=== PATIENT | female | born 1975 | race Caucasian/White ===

== ENCOUNTER 2016-07-20 12:03 | Emergency (ER) | payer MEDICAID ==
[~2016-07-20] VITALS: Ht 170.2 cm; Wt 108.9 kg
[~2016-07-20 12:03] MED LIST: ADDERALL; ALBU0.632 IH; ALBU17AE23 IH; AMOX-358 PO; CEFD300C3 PO; CEPH500C PO; CLN150C PO; CODE-54 PO; CYCL10TA9 PO; DIPH50CA33 PO; EPIN0.3P3 IJ; EPIN0.3P3 IM; FAMO-119 PO; FAMO20TA5 PO; FAMO40TA72 PO; FLUT9.9S NSEACH; FRS325T PO; HYDR-3583 PO; HYDR-3714 PO; HYDR-3816 PO; HYDR-757 PO; HYDR1CAP2 PO; HYOS0.1216 PO; IBP600T1 PO; IBP800T PO; IBUP-15 PO; IBUP800T26 PO; MAGN296S PO; METR500T PO; NAPR-243 PO; NAPR500T PO; NAPR500T3 PO; NF-XOP-HFA INH; ONDA-42 SL; ORPH100T PO; PENI500T PO; PHEN-640 PO; PHEN100T17 PO; PNT40TEC PO; PRD20T PO; PREN1TAB39 PO; RT-ALBUINH IH; TRAM-42 PO; TRM50T PO
--- OUTSIDE RECORDS SUMMARY | 2016-07-20 12:08 | XMS REPORT | Continuity of Care Document ---
Author Author [facility] Organization [facility] Address Unknown Phone Unavailable Care Team Providers Care Blood Bank Business Manager Name Role Phone DIPAK COMER DO PCP Insurance Providers Payer Name Policy Number Subscriber Name Relationship [facility] [place] [employer] [id number] Oksana Horne Self / Same As Patient Advance Directives Directive Response Recorded Date/Time Advance Directives No 08/11/14 9:40pm Health Care Power of Conveyor Belt Repairer No 08/11/14 9:40pm Organ Donor No 08/11/14 9:40pm Resuscitation Status Full Code 08/11/14 9:40pm Problems Medical Problems Problem Onset Date Status Abdominal pain Unknown Active Constipation Unknown Active ILLICIT DRUG USE Unknown Active Sprain of wrist Unknown Active Nausea and vomiting Unknown Active Concussion Unknown Active Strain of neck Unknown Active Sprain of shoulder, left Unknown Active Concussion Unknown Active Lumbar radiculopathy Unknown Active Medications Medication Dose Route Sig Days/Qty Instructions Order Date Discontinued Date Status Acetaminophen/Hydrocodone Bitart 1 - 2 Ea PO Q4HR PRN 08/26/1101/11 Discontinued Ibuprofen 600 Mg PO EVERY 6 HOURS PRN 08/26/11 12/02/12 Discontinued Vits W-Ca,Fe,Fa(<1MG) 1 Each PO DAILY 08/26/11 01/12/12 Discontinued Ferrous Sulfate 1 Tab PO DAILY 08/26/11 01/12/12 Discontinued Cyclobenzaprine HCl (Flexeril) 1 Each PO Q8HR PRN 15 Qty FOR MUSCLE SPASMS 01/13/12 12/02/12 Discontinued Cyclobenzaprine HCl (Flexeril) 1 Each PO Q8HR PRN 15 Qty 06/07/12 Discontinued Naproxen 1 Each PO TID PRN 20 Qty FOR PAIN 06/07/12 12/02/12 Discontinued Acetaminophen/Hydrocodone Bitart (Lorcet-Hd) 1 Each PO Q6HR PRN 10 Qty 07/19/12 02/03/13 Discontinued Ibuprofen 800 Mg PO GIVE EVERY 8 HRS ON SCHEDULE PRN 30 Qty 07/19/12 12/02/12 Discontinued [Adderall] 12/02/12 02/03/13 Discontinued Albuterol Sulfate (Proventil Nebs) 1 Each IH Q4HR PRN 12/02/1207/08 Discontinued Famotidine (Pepcid) 1 Each PO TWICE A DAY 20 Qty 01/05/13 02/03/13 Discontinued Prednisone 40 Mg PO DAILY 4 Days 01/05/13 02/03/13 Discontinued Epinephrine 0.3 Mg IM DIRECTED 2 Qty 01/05/13 08/11/14 Discontinued Ibuprofen 4 Each PO Q8 PRN 02/03/13 07/08/13 Discontinued Diphenhydramine HCl 1 Each PO QID PRN 02/03/13 07/08/13 Discontinued Naproxen 1 Each PO TWICE A DAY PRN PAIN 20 Qty 07/08/13 07/06/14 Discontinued Tramadol HCl 50 Mg PO Q4-6HR PRN PAIN 10 Qty FOR PAIN 07/08/13 07/06/14 Discontinued Cyclobenzaprine HCl (Flexeril) 1 Each PO EVERY 8HRS PRN SPASMS 10 Qty 12/13/13 07/06/14 Discontinued Hydrocodone Bit/Acetaminophen 1 Tab PO EVERY 4HRS PRN PAIN 14 Qty 12/1307/06/14 Discontinued Epinephrine 0.3 Mg IM DIRECTED PRN SHORTNESS OF BREATH 2 Qty Active Amoxicillin/Potassium Clav 1 Each PO TWICE A DAY 14 Qty 07/06/1408/11 Discontinued Cyclobenzaprine HCl (Flexeril) 1 Each PO EVERY 8HRS PRN SPASMS 14 Qty 08/11/14 Active Hydrocodone Bit/Acetaminophen 1 Tab PO EVERY 6 HOURS PRN PAIN 14 Qty Active Ibuprofen (Motrin) 800 Mg PO q8h PRN PAIN 30 Qty 08/11/14 Active Social History Social History Problem Response Recorded Date/Time Alcohol Use Denies Use 08/11/2014 9:40pm Recreational Drug Use No 08/11/2014 9:40pm Recent Foreign Travel No 12/13/2013 5:03pm Recent Infectious Disease Exposure No 12/13/2013 5:03pm Hospitalization with Isolation Denies 08/11/2014 9:40pm Sexually Transmitted Disease No 08/11/2014 9:40pm HIV/AIDS No 08/11/2014 9:40pm Smoking Status Current Everyday Smoker 08/11/2014 9:40pm Query Response Start Date Stop Date Smoking Status Current Everyday Smoker Hospital Discharge Instructions No hospital discharge instructions. Plan of Care No plan of care. Functional Status No functional status results. Allergies, Adverse Reactions, Alerts Allergen Type Severity Reaction Status Last Updated neomycin sulfate Allergy Unknown Active 12/13/13 Bacitracin Zinc Allergy Unknown Active 12/13/13 Sulfa (Sulfonamide Antibiotics) ([id number]) Allergy Unknown Active 08/24 bacitracin ([id number]) Allergy Unknown Active 12/13/13 Risperidone Allergy Unknown Active 12/13/13 polymyxin B Allergy Unknown Active 12/13/13 GREEN BEANS Allergy Unknown Active 12/13/13 PEAS Allergy Unknown Active 12/13/13 Immunizations Name Given Type Date of Influenza Vaccine 03/13/13 Historical Tetanus Booster (TDap) Less than 5yrs Historical Vital Signs Acute Vital Signs Vital Response Date/Time Temperature (Fahrenheit) 99.2 degrees F (97.6 - 99.5) Temperature (Calculated Celsius) 37.85315 degrees C (36.4 - 37.5) Temperature Source Temporal Pulse Rate (adult) 114 bpm (60 - 90) Respiratory Rate 16 bpm (12 - 24) O2 Sat by Pulse Oximetry 96 % (88 - 100) Blood Pressure 139/83 mm Hg Pain Pain Intensity 10 Pain Pain Intensity 10 Height (Feet) 5 feet Height (Inches) 7 inches Height (Calculated Centimeters) 170.976390 cm Weight (Pounds) 250 pounds Weight (Calculated Kilograms) 113.690530 kilograms Calculated BMI 39.15 Results No known relevant diagnostic tests, laboratory data and/or discharge summary. Procedures No known history of procedures. Encounters Encounter Location Date/Time Departed Emergency Room [facility] 08/11/14 9:28pm Recent Diagnosis
[2016-07-20] MEDS ORDERED: KETOROLAC 60 MG/2 ML VIAL IM ONE (12:15)
[2016-07-20] MEDS ORDERED: ORPHENADRINE 60 MG/2 ML (NORFLEX) AMP IM ONE (12:15)
--- NOTE | 2016-07-20 13:21 | Diagnostic Imaging Report ---
EXAMINATION: Two views of the lumbar spine. INDICATION: Back pain. FINDINGS: There are postsurgical changes with transpedicular screws and connecting rods involving the L3 and L4 levels. There are laminectomy changes seen at these levels. There is suggestion of osseous fusion of the posterior elements. There is grade 1 spondylolisthesis of L4 over L5. When compared to the CT of 11/17/2014, this appears to be stable. The vertebral body heights are preserved. There is mild disc height loss at multiple levels in the upper lumbar spine and at the L3-4 level. Multiple small anterior osteophytes are noted. The SI joints demonstrate mild degenerative changes. IMPRESSION: Posterior fusion hardware and suggestion of osseous fusion at the L3-4 posterior elements. There is also grade 1 spondylolisthesis of L4 over L5. No definite change when correlated with the CT from November 2014. Dictated by: Dictated on workstation # [id number]
--- NOTE | 2016-07-20 13:26 | ED Back Pain ---
General Chief Complaint: Back Problems Stated Complaint: BACK PAIN Nursing Triage Note: pt reports she was laying in bed and her 4 yr old daughter accidentily climbed over her middle back. pt reports medial/lower back pain. Nursing Sepsis Screen: No Definite Risk Source of Information: Patient Exam Limitations: No Limitations History of Present Illness Time Seen by Provider: 12:05 Initial Comments This 41-year-old woman presents to the emergency room with complaints of lower back pain after being stepped on by her 4-year-old daughter while lying in her bed. Patient has a history of lower back problems and has had surgery that included placement of a titanium hardware. Pain seems to be more lateral to the spine in the musculature. Her surgery was many years ago. She had some mild back pain earlier in the morning and it was severely exacerbated when her daughter stepped on her back. She denies any pain or radiculopathy below the lumbar spine. Allergies and Home Medications Allergies Coded Allergies: Bacitracin Zinc (Unverified Allergy, Unknown, 11/25/15) BLISTERS Sulfa (Sulfonamide Antibiotics) (Verified Allergy, Unknown, 11/25/15) bacitracin (Unverified Allergy, Unknown, 11/25/15) BLISTERS neomycin sulfate (Unverified Allergy, Unknown, 11/25/15) BLISTERS polymyxin B (Unverified Allergy, Unknown, 11/25/15) BLISTERS risperidone (Verified Allergy, Unknown, 11/25/15) Uncoded Allergies: GREEN BEANS (Allergy, Unknown, 12/13/13) THROAT SWELLS PEAS (Allergy, Unknown, 12/13/13) THROAT SWELLS Home Medications Albuterol Sulfate 8.5 Gm Hfa.aer.ad #1 2 PUFF IH Q4H PRN PRN SHORTNESS OF BREATH Prescribed by: PATRIZIA KELLEY on 09/17/151944 Cyclobenzaprine HCl 10 Mg Tablet #10 10 MG PO TID PRN PRN PAIN Prescribed by: MANA MIX on 07/20/16 1341 Epinephrine 0.3 Mg/0.3 Ml Pen.injctr #2 0.3 MG IM UD PRN PRN SHORTNESS OF BREATH Prescribed by: PATRIZIA KELLEY on 12/13/13 193 Constitutional: no symptoms reported EENTM: no symptoms reported Respiratory: no symptoms reported Cardiovascular: no symptoms reported Gastrointestinal: no symptoms reported Genitourinary: no symptoms reported Musculoskeletal: see HPI Skin: no symptoms reported Past Poqqwsd-Vyfsso-Cgedmi Hx Patient Social History Alcohol Use: Denies Use Recreational Drug Use: No (SMOKES 1/2 PPD) Smoking Status: Current Everyday Smoker Type Used: Cigarettes Former Smoker/When Quit: Recent Foreign Travel: No Contact w/Someone Who Travel: No Recent Infectious Disease Expo: No Recent Hopitalizations: No Immunizations Up To Date Tetanus Booster (TDap): Less than 5yrs Date of Influenza Vaccine: Mar 13, 2013 Seasonal Allergies Seasonal Allergies: No Surgeries HX Surgeries: Yes (PITUITARY TUMOR, X 2, BACK SURGERY, LEFT ELBOW X 2 , BMT'S ) Surgeries: Abdominal, Adenoidectomy, Section, Ear Surgery, Neurological, Orthopedic (spinal surgery), Pituitary, Tonsillectomy Respiratory Hx Respiratory Disorders: Yes Respiratory Disorders: Asthma Cardiovascular Hx Cardiac Disorders: No Neurological Hx Neurological Disorders: Yes (PITUITARY TUMOR) Reproductive System Hx Reproductive Disorders: Yes (MULTIPLE MISCARRIAGES, DIAG LAP SURGERIES X2) Sexually Transmitted Disease: No HIV/AIDS: No Genitourinary Hx Genitourinary Disorders: Yes ("PARTIAL KIDNEY FAILURE TWICE" PER PT) Genitourinary Disorders: Renal Failure, UTI-Chronic Gastrointestinal Hx Gastrointestinal Disorders: Yes ("PARTIAL BOWEL BLOCKAGE FOR OVER 10 YEARS" PER PT. ) Gastrointestinal Disorders: Gastroesophageal Reflux, Chronic Constipation Musculoskeletal Hx Musculoskeletal Disorders: Yes Musculoskeletal Disorders: Chronic Back Pain, Fractures Endocrine Hx Endocrine Disorders: Yes (HYPOGLYCEMIA, PITUITARY TUMOR, MORBID OBESITY) Endocrine Disorders: Pituitary Disease HEENT HX ENT Disorders: Yes ("BAD TEETH", DENTAL ABSCESSES; BMT'S;T&A) HEENT Disorders: Chronic Ear Infection, Tonsilitis Cancer Hx Cancer: No Psychosocial Hx Psychiatric Problems: Yes (EXTENSIVE PSYCH ISSUES) Behavioral Health Disorders: Anxiety, Depression Integumentary HX Skin/Integumentary Disorder: No Blood Transfusions Hx Blood Disorders: Yes (ANEMIA) Physical Exam Vital Signs Capillary Refill : Less Than 3 Seconds General Appearance: WD/WN Moderate Distress Other (tearful) HEENT: PERRL/EOMI Normal ENT Inspection Cardiovascular: Regular Rate, Rhythm No Edema No Murmur Respiratory: Lungs Clear Normal Breath Sounds No Accessory Muscle Use No Respiratory Distress Gastrointestinal: Non Tender Soft Back: Normal Inspection Other (midline scar. Mild to moderate tenderness over the lumbar spine. 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 She was then able to tolerate x-rays. X-rays showed no disruption of hardware. Hydrocodone was given prior to dismissal. Diagnostic Imaging Diagonstic Imaging: Xray Plain Films/CT/US/NM/MRI: other (lumbar spine) Comments X-ray the lumbar spine viewed by me and report reviewed. See report below: NAME: OKSANA HORNE [facility] REC#: [id number] PT STATUS: REG ER : 1975 PHYSICIAN: MANA RAMON MD ADMIT DATE: 07/20/16/ER Draft Date of Exam:07/20/16 LUMBAR SPINE - 2-3 VIEWS EXAMINATION: Two views of the lumbar spine. INDICATION: Back pain. FINDINGS: There are postsurgical changes with transpedicular screws and connecting rods involving the L3 and L4 levels. There are laminectomy changes seen at these levels. There is suggestion of osseous fusion of the posterior elements. There is grade 1 spondylolisthesis of L4 over L5. When compared to the CT of 11/17/2014, this appears to be stable. The vertebral body heights are preserved. There is mild disc height loss at multiple levels in the upper lumbar spine and at the L3-4 level. Multiple small anterior osteophytes are noted. The SI joints demonstrate mild degenerative changes. IMPRESSION: Posterior fusion hardware and suggestion of osseous fusion at the L3-4 posterior elements. There is also grade 1 spondylolisthesis of L4 over L5. No definite change when correlated with the CT from November 2014. Dictated on workstation # [id number] Dict: 07/20/16 1314 Trans: 07/20/16 1321 [id number] Interpreted by: BRADLEY CHAPA MD Departure Impression Impression: Primary Impression: Lower back pain Qualified Code: M54.5 - Low back pain Additional Impression: Muscle spasm of back Disposition: HOME, SELF-CARE Condition: Improved Departure-Patient Inst. Decision time for Depature: 13:30 Referrals: [facility] (PCP/Family) Primary Care Physician Patient Instructions: Low Back Pain (DC) Add. Discharge Instructions: You may take ibuprofen up to 800 mg every 8 hours as needed for pain. Add Tylenol up to 1000 mg every 6 hours as needed for additional pain relief. Gentle heat may also help. Gradually increase your level of activity as pain improves. Avoid strenuous activity or heavy lifting until pain resolves. Follow-up with your primary care provider if not improving. Return to emergency room if symptoms worsen. All discharge instructions reviewed with patient and/or family. Voiced understanding. Scripts Cyclobenzaprine HCl 10 Mg [id number] Mg PO TID PRN PAIN #10 TAB Prov:MANA RAMON MD 07/20/16 MANA RAMON MD Jul 20, 2016 13:26 [facility] (PCP/Family) Primary Care Physician Patient Instructions: Low Back Pain (DC) Add. Discharge Instructions: You may take ibuprofen up to 800 mg every 8 hours as needed for pain. Add Tylenol up to 1000 mg every 6 hours as needed for additional pain relief. Gentle heat may also help. Gradually increase your level of activity as pain improves. Avoid strenuous activity or heavy lifting until pain resolves. Follow-up with your primary care provider if not improving. Return to emergency room if symptoms worsen. All discharge instructions reviewed with patient and/or family. Voiced understanding. Scripts Cyclobenzaprine HCl 10 Mg [id number] Mg PO TID PRN PAIN #10 TAB Prov:MANA RAMON MD 07/20/16 MANA RAMON MD Jul 20, 2016 13:26
[2016-07-20] MEDS ORDERED: CYCL10TA9 PO (13:41)
[2016-07-20] MEDS ORDERED: HYDROcodone/APAP 5 MG/325 MG (LORTAB) TAB PO ONE (13:45)
[2016-07-20 13:47] VITALS: BP 132/78
== END 2016-07-20 13:47 | disposition home or self-care (01) ==
LOC: EDUNIT# 12:03 → ER 12:05
DX: M54.5 Low back pain (principal); M62.830 Muscle spasm of back; M43.16 Spondylolisthesis, lumbar region; F17.210 Nicotine dependence, cigarettes, uncomplicated; Z98.1 Arthrodesis status
CPT/HCPCS: 72100; 96372; 99283

== ENCOUNTER 2016-12-04 15:28 | Emergency (ER) | payer MEDICAID ==
[~2016-12-04] VITALS: Ht 170.2 cm; Wt 109.1 kg
[2016-12-04] MEDS ORDERED: morphine INJ 10 MG/ML 1ML (SYR OR VIAL) IM ONE (16:15)
[2016-12-04] MEDS ORDERED: KETOROLAC 60 MG/2 ML VIAL IM ONE (16:15)
--- NOTE | 2016-12-04 16:17 | ED Back Pain ---
General Chief Complaint: Back Problems Stated Complaint: BACK PAIN AFTER FALL Source of Information: Patient Exam Limitations: No Limitations History of Present Illness Time Seen by Provider: 16:16 Initial Comments To ER with reports of midline low back pain that radiates to the left hip. This is been present for 4 days after falling at home. She has a history of low back surgery with hardware placement about 20 years ago she states. Location: Lumbar Spine Timing/Duration: 2-3 Days Severity: Moderate Associated Symptoms: lower back pain Allergies and Home Medications Allergies Coded Allergies: Bacitracin Zinc (Unverified Allergy, Unknown, 11/25/15) BLISTERS Sulfa (Sulfonamide Antibiotics) (Verified Allergy, Unknown, 11/25/15) bacitracin (Unverified Allergy, Unknown, 11/25/15) BLISTERS neomycin sulfate (Unverified Allergy, Unknown, 11/25/15) BLISTERS polymyxin B (Unverified Allergy, Unknown, 11/25/15) BLISTERS risperidone (Verified Allergy, Unknown, 11/25/15) Uncoded Allergies: GREEN BEANS (Allergy, Unknown, 12/13/13) THROAT SWELLS PEAS (Allergy, Unknown, 12/13/13) THROAT SWELLS Home Medications Albuterol Sulfate 8.5 Gm Hfa.aer.ad, 2 PUFF IH Q4H PRN for SHORTNESS OF BREATH, #1 Ref 0 Prescribed by: PATRIZIA KELLEY on 09/17/15 194 Cyclobenzaprine HCl 10 Mg Tablet, 10 MG PO TID PRN for PAIN, #10 Prescribed by: MANA MIX on 07/20/16 1341 Epinephrine 0.3 Mg/0.3 Ml Pen.injctr, 0.3 MG IM UD PRN for SHORTNESS OF BREATH, #2 Ref 0 Prescribed by: PATRIZIA KELLEY on 12/13/13 1938 Constitutional: see HPI, No chills, No fever EENTM: see HPI Respiratory: no symptoms reported Cardiovascular: no symptoms reported Genitourinary: no symptoms reported Musculoskeletal: see HPI, back pain Skin: no symptoms reported Psychiatric/Neurological: No Symptoms Reported Past Uhnicvs-Pntnmo-Qflest Hx Patient Social History Alcohol Use: Denies Use Recreational Drug Use: No Smoking Status: Current Everyday Smoker Type Used: Cigarettes 2nd Hand Smoke Exposure: No Recent Foreign Travel: No Contact w/Someone Who Travel: No Recent Hopitalizations: No Immunizations Up To Date Tetanus Booster (TDap): Less than 5yrs Date of Influenza Vaccine: Mar 13, 2013 Seasonal Allergies Seasonal Allergies: No Surgeries HX Surgeries: Yes (PITUITARY TUMOR, X 2, BACK SURGERY, LEFT ELBOW X 2 , BMT'S ) Surgeries: Abdominal, Adenoidectomy, Section, Ear Surgery, Neurological, Orthopedic, Pituitary, Tonsillectomy Respiratory Hx Respiratory Disorders: Yes Respiratory Disorders: Asthma Cardiovascular Hx Cardiac Disorders: No Neurological Hx Neurological Disorders: Yes (PITUITARY TUMOR) Reproductive System Hx Reproductive Disorders: Yes (MULTIPLE MISCARRIAGES, DIAG LAP SURGERIES X2) Sexually Transmitted Disease: No HIV/AIDS: No Genitourinary Hx Genitourinary Disorders: Yes ("PARTIAL KIDNEY FAILURE TWICE" PER PT) Genitourinary Disorders: Renal Failure, UTI-Chronic Gastrointestinal Hx Gastrointestinal Disorders: Yes ("PARTIAL BOWEL BLOCKAGE FOR OVER 10 YEARS" PER PT. ) Gastrointestinal Disorders: Gastroesophageal Reflux, Chronic Constipation Musculoskeletal Hx Musculoskeletal Disorders: Yes Musculoskeletal Disorders: Chronic Back Pain, Fractures Endocrine Hx Endocrine Disorders: Yes (HYPOGLYCEMIA, PITUITARY TUMOR, MORBID OBESITY) Endocrine Disorders: Pituitary Disease HEENT HX ENT Disorders: Yes ("BAD TEETH", DENTAL ABSCESSES; BMT'S;T&A) HEENT Disorders: Chronic Ear Infection, Tonsilitis Cancer Hx Cancer: No Psychosocial Hx Psychiatric Problems: Yes (EXTENSIVE PSYCH ISSUES) Behavioral Health Disorders: Anxiety, Depression Integumentary HX Skin/Integumentary Disorder: No Blood Transfusions Hx Blood Disorders: Yes (ANEMIA) Physical Exam Vital Signs Vital Sign - Last 12Hours 12/04/16 16:05 Temp 96.3 Pulse 70 Resp 16 B/P (MAP) 138/86 Pulse Ox 98 O2 Delivery Room Air Capillary Refill : General Appearance: No Apparent Distress, WD/WN HEENT: PERRL/EOMI, TMs Normal Neck: Full Range of Motion, Normal Inspection Respiratory: No Accessory Muscle Use, No Respiratory Distress Gastrointestinal: Non Tender, Soft Back: Normal Inspection, Other (healed midline lumbar incision with tenderness to palpation.) Extremity: Normal Capillary Refill, Normal Inspection Neurologic/Psychiatric: Alert, Oriented x3, No Motor/Sensory Deficits Skin: Normal Color, Warm/Dry Progress/Results/Core Measures Results/Orders My Orders Orders - CECILIO NAVARRO APRN Ketorolac Injection (Toradol Injection) (12/04/16 16:15) Morphine Injection (Morphine Injection (12/04/16 16:15) Lumbar Spine - 2-3 Views (12/04/16 16:14) Medications Given in ED Current Medications Medications Dose Ordered Sig/Miriam Route Start Time Stop Time Status Last Admin Dose Admin Ketorolac Tromethamine 60 mg ONCE ONCE IM 12/04/16 16:15 12/04/16 16:16 DC 12/04/16 16:33 60 MG Morphine Sulfate 8 mg ONCE ONCE IM 12/04/16 16:15 12/04/16 16:16 DC 12/04/16 16:33 8 MG Vital Signs/I&O Vital Sign - Last 12Hours 12/04/16 16:05 Temp 96.3 Pulse 70 Resp 16 B/P (MAP) 138/86 Pulse Ox 98 O2 Delivery Room Air Departure Impression Impression: Primary Impression: Acute exacerbation of chronic low back pain Disposition: HOME, SELF-CARE Condition: Stable Departure-Patient Inst. Decision time for Depature: 16:46 [facility] ([facility]Family) Primary Care Physician Patient Instructions: MANAGING YOUR CHRONIC PAIN Add. Discharge Instructions: 1. Medication as directed 2. Return to ER for any worsening 3. See her doctor next week All discharge instructions reviewed with patient and/or family. Voiced understanding. Scripts Prednisone (Prednisone) 20 Mg Tab 40 MG PO DAILY, #8 TAB Prov: CECILIO NAVARRO APRN 12/04/16 Cyclobenzaprine HCl (Cyclobenzaprine HCl) 5 Mg Tablet 5 MG PO TID Y for PAIN-MODERATE TO SEVERE, #21 TAB Prov: CECILIO NAVARRO APRN 12/04/16 CECILIO NAVARRO APRN Dec 04, 2016 16:17
--- NOTE | 2016-12-04 16:37 | Diagnostic Imaging Report ---
EXAMINATION: Three views of the lumbar spine. INDICATION: Back pain. COMPARISON: Prior from July 20, 2016. FINDINGS: Patient is status post previous posterior instrumented fusion of L3-4. No screw fracture or hardware complication is evident. There also appears to be a generator which may relate to a bone stimulator. Anterolisthesis of L4 on L5 is not significantly changed. The vertebral body heights appear maintained. There is advanced lower lumbar facet arthropathy. IMPRESSION: Previous L3-4 fusion. Alignment is unchanged with an anterolisthesis of L4 on L5. Vertebral body heights are maintained. There is advanced lower lumbar facet arthropathy. No hardware complication is evident. If continued clinical concern, further assessment could be performed with CT imaging. Dictated by: Dictated on workstation # [id number]
[2016-12-04] MEDS ORDERED: CYCL5TAB PO (16:47)
[2016-12-04] MEDS ORDERED: PRD20T PO (16:47)
[2016-12-04 17:21] VITALS: BP 138/86
--- OUTSIDE RECORDS SUMMARY | 2016-12-06 17:19 | XMS REPORT ---
Author Author YUNIOR SINGH Organization [employer] Address Unknown Phone Unavailable Care Team Providers Care Credit Counselor Name Role Phone YUNIOR SINGH CP Unavailable Allergies, Adverse Reactions, Alerts Substance Reaction Event Type Sulfacetamide Sodium Blisters (Antibiotic) Drug Allergy Risperidone Info Not Available Drug Allergy Polymyxin B Sulfate Blisters Drug Allergy Neosporin Info Not Available Drug Allergy Bacitracin Zinc Blisters Drug Allergy Peas Throat swells Non Drug Allergy Green beans Throat swells Non Drug Allergy Problems Problem Type Condition Code Onset Dates Condition Status Problem Hypoglycemia, unspecified 251.2 Active Problem 35-36 completed weeks of gestation 765.28 Active Problem Other chronic pain 338.29 Active Assessment Shoulder injury, left, initial encounter S49.92XA Active Problem Rash and other nonspecific skin eruption 782.1 Active Problem Screening for unspecified malignant neoplasm V76.9 Active Problem Screening examination for venereal disease V74.5 Active Problem Previous delivery, unspecified as to episode of care or not applicable 654.20 Active Problem Other acute postoperative pain 338.18 Active Problem Other, multiple, and unspecified sites, insect bite, nonvenomous, infected 919.5 Active Problem Other postprocedural status V45.89 Active Problem Cellulitis and abscess of trunk 682.2 Active Medications Medication Code System Code Instructions Start Date End Date Status Dosage Albuterol Sulfate HFA [facility] [id number] 108 (90 Base) MCG/ACT Inhalation every 4 hrs 2 puffs as needed EPINEPHrine [facility] [id number] 0.3 MG/0.3ML Injection PRN not defined Procedures Procedure Coding System Code Date X-RAY EXAM OF SHOULDER CPT-4 78804 Mar 29, 2016 X-RAY EXAM OF SHOULDER BLADE CPT-4 95931 Mar 29, 2016 X-RAY EXAM OF COLLAR BONE CPT-4 48585 Mar 29, 2016 Office Visit, Est Pt., Level 3 CPT-4 35717 Mar 29, 2016 Vital Signs Date/Time: Mar 29, 2016 Cardiac Monitoring Heart Rate 90 bpm Weight 235.4 lbs Height 67 in BMI 36.86 Index Blood Pressure Diastolic 82 mmHg Blood Pressure Systolic 126 mmHg Results No Known Results Summary Purpose [employer] Submission
--- OUTSIDE RECORDS SUMMARY | 2016-12-06 17:20 | XMS REPORT ---
Author JONATHAN Guevara Organization [employer] Address Unknown Phone Unavailable Care Team Providers Care Designer Writer Name Role Phone JONATHAN WILLSON CP Unavailable Allergies, Adverse Reactions, Alerts Substance [...] Active Problem Other chronic pain 338.29 Active Problem Rash and other nonspecific skin [...] End Date Status Dosage Albuterol Sulfate [facility] [address]-35 108 (90 Base) MCG/ACT Inhalation every 4 hrs 2 puffs as needed EPINEPHrine [facility] [address]-36 0.3 MG/0.3ML Injection PRN not defined Famotidine [facility] [address]-80 40 MG Orally Once a day 1 tablet Results No Known Results Summary Purpose [employer] Submission
--- OUTSIDE RECORDS SUMMARY | 2016-12-06 17:21 | XMS REPORT ---
Author Author SINGHYUNIOR Holliday Organization [facility] Address [address] [place] [address] Care Team Providers Care Repair Electric Motor Assembler Name Role Phone SINGHYUNIOR Holliday Unavailable PROBLEMS Type Condition ICD9-CM Code KAN91-GB Code Onset Dates Condition Status SNOMED Code Problem 35-36 completed weeks of gestation 765.28 Active 51374618 Problem Other acute postoperative pain 338.18 Active 105123928002508 Problem Other, multiple, and unspecified sites, insect bite, nonvenomous, infected 919.5 Active Problem Mild intermittent asthma with acute exacerbation J45.21 Active 821681318 Problem Previous delivery, unspecified as to episode of care or not applicable 654.20 Active 425178464 Problem Other postprocedural status V45.89 Active 19136092 Problem Cellulitis and abscess of trunk 682.2 Active 361804148 Problem Screening for unspecified malignant neoplasm V76.9 Active Problem Screening examination for venereal disease V74.5 Active 019295317 Assessment Sore throat J02.9 May, Active 586058770 Problem Rash and other nonspecific skin eruption 782.1 Active 113853645 Problem Hypoglycemia, unspecified 251.2 Active 221489564 Assessment Bronchitis J40 May, Active 77973957 Problem Other chronic pain 338.29 Active 04810415 ALLERGIES Substance Reaction Event Type Date Status Sulfacetamide Sodium Blisters (Antibiotic) Drug Allergy May, Active Risperidone Unknown Drug Allergy May, Active Polymyxin B Sulfate Blisters Drug Allergy May, Active Neosporin Unknown Drug Allergy May, Active Bacitracin Zinc Blisters Drug Allergy May, Active Peas Throat swells Non Drug Allergy May, Active Green beans Throat swells Non Drug Allergy May, Active SOCIAL HISTORY No smoking Hx information available PLAN OF CARE VITAL SIGNS Height 67 in 2016-05-24 Weight 242.2 lbs 2016-05-24 Heart Rate 80 bpm 2016-05-24 Respiratory Rate 18 2016-05-24 BMI 37.93 kg/m2 2016-05-24 Blood pressure systolic 110 mmHg 2016-05-24 Blood pressure diastolic 80 mmHg 2016-05-24 MEDICATIONS Medication Instructions Dosage Frequency Start Date End Date Duration Status Azithromycin 250 MG Orally Once a day 2 tablets on the first day, then 1 tablet daily for 4 days 24h May, May, 5 day(s) Active Albuterol Sulfate HFA 108 (90 Base) MCG/ACT Inhalation every 4 hrs 2 puffs as needed 4h Active Albuterol Sulfate (2.5 MG/3ML) 0.083% Inhalation Three times a day 3 ml 8h May, Active DeVilbiss Reusable Nebulizer 1 by inhalation route 3 times a day as directed 8h May, Active RESULTS Name Result Date Reference Range STREP A (IN HOUSE) 2016-05-24 STREP A negative Control + Lot # [id number] Exp date december 28 PROCEDURES Procedure Date Ordered Related Diagnosis Body Site STREP A ASSAY W/OPTIC May 24, 2016 Office Visit, Est Pt., Level 3 May 24, 2016 IMMUNIZATIONS No Known Immunizations
--- OUTSIDE RECORDS SUMMARY | 2016-12-06 17:21 | XMS REPORT | Continuity of Care Document ---
Author Author [facility] Address Unknown Phone Unavailable Allergies Active Description Code Type Severity Reaction Onset Reported/Identified Relationship to Patient Clinical Status Yes risperiDONE Drug Allergy N/A N/A 06/08/2011 Yes Neosporin Drug Allergy N/A N/A 02/03/2012 Yes GREEN BEANS GREEN BEANS Unknown N/A 12/13/2013 Yes PEAS PEAS Unknown N/A 12/13/2013 Yes bacitracin [id number] Drug Allergy Unknown N/A 11/25/2015 Yes Bacitracin Zinc [id number] Drug Allergy Unknown N/A 11/25/2015 Yes neomycin sulfate [id number] Drug Allergy Unknown N/A 11/25/2015 Yes polymyxin B [id number] Drug Allergy Unknown N/A 11/25/2015 Yes risperidone [id number] Drug Allergy Unknown N/A 11/25/2015 Yes Sulfa (Sulfonamide Antibiotics) [id number] Drug Allergy Unknown N/A 11/25/2015 Medications Problems Date Dx Coded Attending Type Code Diagnosis Diagnosed By 06/08/2011 278.00 OBESITY UNSPECIFIED 06/08/2011 530.81 GERD 06/08/2011 649.00 COMPL OF - TOBACCO USE 06/08/2011 V04.81 FLU DX (3 YRS AND ABOVE, IM) 06/08/2011 V23.2 , HIGH RISK W/ HX OF 06/08/2011 V23.7 , HIGH RISK W/ INSUFFICIENT CARE 06/08/2011 V23.9 , HIGH-RISK (UNSPEC) 06/08/2011 ERIBERTO FONTENOT APRN 278.00 OBESITY UNSPECIFIED 06/08/2011 ERIBERTO FONTENOT APRN 530.81 GERD 06/08/2011 ERIBERTO FONTENOT APRN 649.00 COMPL OF - TOBACCO USE 06/08/2011 ERIBERTO FONTENOT APRN V04.81 FLU DX (3 YRS AND ABOVE, IM) 06/08/2011 ERIBERTO FONTENOT APRN V23.2 , HIGH RISK W/ HX OF 06/08/2011 ERIBERTO FONTENOT APRN V23.7 , HIGH RISK W/ INSUFFICIENT CARE 06/08/2011 ERIBERTO FONTENOT APRN V23.9 , HIGH-RISK (UNSPEC) 07/14/2011 654.20 PREVIOUS 07/14/2011 V74.5 STD SCREEN 07/14/2011 V76.9 CANCER SCREENING, [facility] 07/14/2011 ERIBERTO FONTENOT APRN 654.20 PREVIOUS 07/14/2011 ERIBERTO FONTENOT APRN V74.5 STD SCREEN 07/14/2011 ERIBERTO FONTENOT APRN V76.9 CANCER SCREENING, [facility] 08/02/2011 765.28 35-36 COMPLETED WEEKS OF GESTATION 08/02/2011 ERIBERTO FONTENOT APRN 765.28 35-36 COMPLETED WEEKS OF GESTATION 08/12/2011 Ot 276.51 DEHYDRATION 08/12/2011 Ot 646.83 PREG COMPL NEC-ANTEPART 08/19/2011 Ot 623.5 NONINFECT VAG LEUKORRHEA 08/19/2011 Ot 654.73 ABNORM VAGINA-ANTEPARTUM 08/26/2011 Ot 275.2 DIS MAGNESIUM METABOLISM 08/26/2011 Ot 285.9 ANEMIA NOS 08/26/2011 Ot 648.22 ANEMIA-DELIVERED W P/P 08/26/2011 Ot 648.92 OTH CURR COND-DEL W P/P 08/26/2011 Ot 649.01 TOBACCO USE DISORDER COMP PREG/CHILDBIRT 08/26/2011 Ot 654.21 PREV DELIVRY W/ OR W/O MENT ANT 08/26/2011 Ot 659.61 ELD MULTIGRAVIDA DEL W MENTION OF ANTEPA 08/26/2011 Ot V23.2 PREG W HX OF 08/26/2011 Ot V23.5 PREG W POOR REPRODUCT HX 08/26/2011 Ot V23.7 INSUFFICIENT CARE 08/26/2011 Ot V27.0 DELIVER-SINGLE LIVEBORN 09/13/2011 338.18 OTHER ACUTE POSTOPERATIVE PAIN 09/13/2011 682.2 CELLULITIS AND ABSCESS OF TRUNK 09/13/2011 V45.89 OTHER POSTSURGICAL STATUS 09/13/2011 ERIBERTO FONTENOT APRN 338.18 OTHER ACUTE POSTOPERATIVE PAIN 09/13/2011 ERIBERTO FONTENOT APRN 682.2 CELLULITIS AND ABSCESS OF TRUNK 09/13/2011 ERIBERTO FONTENOT APRN V45.89 OTHER POSTSURGICAL STATUS 01/13/2012 Ot 724.5 BACKACHE NOS 01/13/2012 Ot 846.0 SPRAIN LUMBOSACRAL 01/13/2012 Ot 847.0 SPRAIN OF NECK 01/13/2012 Ot E000.8 OTHER EXTERNAL CAUSE STATUS 01/13/2012 Ot E849.0 ACCIDENT IN HOME 01/13/2012 Ot E880.9 FALL ON STAIR/STEP NEC 02/03/2012 251.2 HYPOGLYCEMIA 02/03/2012 338.29 CHRONIC PAIN 02/03/2012 782.1 RASH AND OTHER NONSPECIFIC SKIN ERUPTION 02/03/2012 ERIBERTO FONTENOT APRN 251.2 HYPOGLYCEMIA 02/03/2012 ERIBERTO FONTENOT APRN 338.29 CHRONIC PAIN 02/03/2012 ERIBERTO FONTENOT APRN 782.1 RASH AND OTHER NONSPECIFIC SKIN ERUPTION 06/07/2012 Ot 789.09 ABDOMINAL PAIN, OTHER SPECIFIED SITE 07/19/2012 Ot 842.00 SPRAIN OF WRIST NOS 07/19/2012 Ot 959.3 ELB/FOREARM/WRST INJ NOS 07/19/2012 Ot E000.8 OTHER EXTERNAL CAUSE STATUS 07/19/2012 Ot E888.9 FALL NOS 10/09/2012 HINA ALCON Ovalle Ot 780.79 OTH MALAISE FATIGUE 12/02/2012 NIKITA SANTAMARIA DOA Yamile Ot 698.9 PRURITIC DISORDER NOS 12/02/2012 ALCON SANTAMARIA DO Ot 708.9 URTICARIA NOS 12/02/2012 NIKITA SANTAMARIA DOA Yamile Ot 786.09 RESPIRATORY ABNORM NEC 12/02/2012 ALCON SANTAMARIA DO Ot 995.3 ALLERGY, UNSPECIFIED 12/02/2012 NIKITA SANTAMARIA DOA Yamile Ot E000.8 OTHER EXTERNAL CAUSE STATUS 12/02/2012 NIKITA SANTAMARIA DOA Yamile Ot E928.8 ACCIDENT NEC 01/05/2013 PATRIZIA ELAM Ot 698.9 PRURITIC DISORDER NOS 01/05/2013 PATRIZIA ELAM Ot 708.9 URTICARIA NOS 01/05/2013 PATRIZIA ELAM Ot 784.2 SWELLING IN HEAD NECK 01/05/2013 PATRIZIA ELAM Ot 786.07 WHEEZING 01/05/2013 PATRIZIA ELAM Ot 995.0 OTHER ANAPHYLACTIC REACTION 01/05/2013 PARTIZIA ELAM Ot E935.8 ADV EFF ANALGESICS NEC 02/03/2013 ANKUR RINCON MD Ot 708.9 URTICARIA NOS 02/03/2013 ANKUR RINCON MD Ot 995.3 ALLERGY, UNSPECIFIED 02/13/2013 MANA RAMON MD Ot 845.00 SPRAIN OF ANKLE NOS 02/13/2013 MANA RAMON MD Ot 959.7 LOWER LEG INJURY NOS 02/13/2013 MANA RAMON MD Ot E000.8 OTHER EXTERNAL CAUSE STATUS 02/13/2013 MANA RAMON MD Ot E849.0 ACCIDENT IN HOME 02/13/2013 MANA RAMON MD Ot E885.9 FALL FROM SLIPPING, TRIPPING, OR STUMBLI 06/04/2013 HINA ALCON Yamile Ot 305.90 DRUG ABUSE NEC-UNSPEC 06/04/2013 HINA LANIER ALCON Yamile Ot 564.00 UNSPEC CONSTIPATION 06/04/2013 HINA LANIER ALCON Yamile Ot 789.00 ABDOMINAL PAIN, UNSPECIFIED SITE 07/08/2013 CECILIO NAVARRO LAY OUT TECHNICIAN Ot 842.00 SPRAIN OF WRIST NOS 07/08/2013 CECILIO NAVARRO LAY OUT TECHNICIAN Ot 959.3 ELB/FOREARM/WRST INJ NOS 07/08/2013 CECILIO NAVARRO LAY OUT TECHNICIAN Ot E000.8 OTHER EXTERNAL CAUSE STATUS 07/08/2013 CECILIO NAVARRO LAY OUT TECHNICIAN Ot E888.9 FALL NOS 07/30/2013 CECILIO NAAVRRO LAY OUT TECHNICIAN Ot 787.01 NAUSEA WITH VOMITING 09/03/2013 MANA RAMON MD Ot 787.01 NAUSEA WITH VOMITING 09/03/2013 MANA RAMON MD Ot 789.02 ABDOMINAL PAIN, LEFT UPPER QUADRANT 12/13/2013 PATRIZIA ELAM Ot 847.0 SPRAIN OF NECK 12/13/2013 PATRIZIA ELAM Ot 850.9 CONCUSSION NOS 12/13/2013 PATRIZIA ELAM Ot 995.1 ANGIONEUROTIC EDEMA 12/13/2013 PATRIZIA ELAM Ot E884.2 FALL FROM CHAIR 03/23/2014 PO BURGOS, ERIBERTO T 919.5 INSECT BITE INFECTED 07/06/2014 FERNANDEZ BOYCE, LION Ovalle Ot 873.53 OPEN WOUND LIP-COMPLICAT 07/06/2014 FERNANDEZ BOYCE, LION Ovalle Ot E000.8 OTHER EXTERNAL CAUSE STATUS 07/06/2014 FERNANDEZ BOYCE, LION Ovalle Ot E920.8 ACC-CUTTING INSTRUM NEC 08/11/2014 Ot 724.2 LUMBAGO 08/11/2014 Ot 724.4 LUMBOSACRAL NEURITIS NOS 08/11/2014 Ot E000.8 OTHER EXTERNAL CAUSE STATUS 08/11/2014 Ot 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 08/31/2014 ADRIAN BOYCE, MINA Glodberg Ot 564.00 UNSPEC CONSTIPATION 08/31/2014 ADRIAN BOYCE, MINA Goldberg Ot 789.02 ABDOMINAL PAIN, LEFT UPPER QUADRANT 09/21/2014 CECILIO NAVARRO LAY OUT TECHNICIAN Ot 845.00 SPRAIN OF ANKLE NOS 09/21/2014 CECILIO NAVARRO LAY OUT TECHNICIAN Ot 959.7 LOWER LEG INJURY NOS 09/21/2014 CECILIO NAVARRO LAY OUT TECHNICIAN Ot E000.8 OTHER EXTERNAL CAUSE STATUS 09/21/2014 CECILIO NAVARRO LAY OUT TECHNICIAN Ot E849.0 ACCIDENT IN HOME 09/21/2014 CECILIO NAVARRO APRN Ot E927.0 OVEREXERTION FROM SUDDEN STRENUOUS MOVEM 09/24/2014 NAHOMI LANIER DIPAK A Ot 250.00 09/24/2014 DIPAK COMER DO A Ot 780.79 11/17/2014 CECILIO NAVARRO APRN Ot 789.06 ABDOMINAL PAIN, EPIGASTRIC 11/17/2014 CECILIO NAVARRO LAY OUT TECHNICIAN Ot 789.09 ABDOMINAL PAIN, OTHER SPECIFIED SITE 12/26/2014 PATRIZIA ELAM Ot 599.0 URIN TRACT INFECTION NOS 12/26/2014 PATRIZIA ELAM Ot 724.5 BACKACHE NOS 01/01/2015 ALCON SANTAMARIA DO Ot 041.89 BACTERIAL INFECTION DUE TO OTHER SPECIFI 01/01/2015 ALCON SANTAMARIA DO Ot 305.90 DRUG ABUSE NEC-UNSPEC 01/01/2015 ALCON SANTAMARIA DO Ot 789.00 ABDOMINAL PAIN, UNSPECIFIED SITE 01/06/2015 CECILIO NAVARRO APRN Ot 686.9 LOCAL SKIN INFECTION NOS 01/06/2015 CECILIO NAVARRO LAY OUT TECHNICIAN Ot 709.8 SKIN DISORDERS NEC 04/18/2015 TRISTEN BOYCE, MANA Estes Ot F17.210 NICOTINE DEPENDENCE, CIGARETTES, UNCOMPL 04/18/2015 TRISTEN BOYCE, MANA Estes Ot J01.90 ACUTE SINUSITIS, UNSPECIFIED 04/18/2015 TRISTEN BOYCE, MANA Estes Ot J06.9 ACUTE UPPER RESPIRATORY INFECTION, UNSPE 05/05/2015 CECILIO NAVARRO APRN Ot F17.210 NICOTINE DEPENDENCE, CIGARETTES, UNCOMPL 05/05/2015 CECILIO NAVARRO APRN Ot S60.211A CONTUSION OF RIGHT WRIST, INITIAL ENCOUN 05/05/2015 CECILIO NAVARRO APRN Ot W01.10XA FALL SAME LEV FROM SLIP/TRIP W STRIKE AG 05/05/2015 CECILIO NAVARRO APRN Ot Y92.017 GARDEN OR YARD IN SINGLE-FAMILY ( PRIVATE 05/05/2015 CECILIO NAVARRO APRN Ot Y99.8 OTHER EXTERNAL CAUSE STATUS 09/17/2015 PATRIZIA ELAM Ot F17.210 NICOTINE DEPENDENCE, CIGARETTES, UNCOMPL 09/17/2015 PATRIZIA ELAM Ot T78.3XXA ANGIONEUROTIC EDEMA, INITIAL ENCOUNTER 09/17/2015 Ot 649.03 09/17/2015 Ot V23.9 09/17/2015 Ot 654.23 09/17/2015 Ot V72.63 09/17/2015 Ot V74.8 09/17/2015 DIPAK COMER DO Ot 250.00 09/17/2015 DIPAK COMER DO Ot 780.79 09/18/2015 PATRIZIA ELAM Ot F17.210 09/18/2015 PATRIZIA ELAM Ot T78.3XXA 10/07/2015 ALCON SANTAMARIA DO Ot F17.210 NICOTINE DEPENDENCE, CIGARETTES, UNCOMPL 10/07/2015 ALCON SANTAMARIA DO Ot K02.9 DENTAL CARIES, UNSPECIFIED 10/07/2015 ALCON SANTAMARIA DO Ot S90.31XA CONTUSION OF RIGHT FOOT, INITIAL ENCOUNT 10/07/2015 ALCON SANTAMARIA DO Ot W20.8XXA OTH CAUSE OF STRIKE BY THROWN, PROJECTED 10/07/2015 ALCON SANTAMARIA DO Ot Y99.8 OTHER EXTERNAL CAUSE STATUS 10/09/2015 ALCON SANTAMARIA DO K Ot F17.210 NICOTINE DEPENDENCE, CIGARETTES, UNCOMPL 10/09/2015 NIKITA SANTAMARIA DOA K Ot K02.9 DENTAL CARIES, UNSPECIFIED 10/09/2015 ALCON SANTAMARIA DO Ot S90.31XA CONTUSION OF RIGHT FOOT, INITIAL ENCOUNT 10/09/2015 ALCON SANTAMARIA DO Ot W20.8XXA OTH CAUSE OF STRIKE BY THROWN, PROJECTED 10/09/2015 ALCON SANTAMARIA DO Ot Y99.8 OTHER EXTERNAL CAUSE STATUS 11/16/2015 ADRIAN BOYCE, MINA Goldberg Ot L50.9 URTICARIA, UNSPECIFIED 11/19/2015 MINA CAMPBELL MD Ot L50.9 URTICARIA, UNSPECIFIED 11/25/2015 PATRIZIA ELAM Ot J40 BRONCHITIS, NOT SPECIFIED ACUTE OR CH 11/25/2015 PATRIZIA ELAM Ot N39.0 URINARY TRACT INFECTION, SITE NOT SPECIF 11/26/2015 PATRIZIA ELAM Ot J40 BRONCHITIS, NOT SPECIFIED ACUTE OR CH 11/26/2015 PATRIZIA ELAM Ot N39.0 URINARY TRACT INFECTION, SITE NOT SPECIF 12/03/2015 MINA CAMPBELL MD Ot L50.9 URTICARIA, UNSPECIFIED 12/14/2015 HINA LANIER, ALCON K Ot F17.210 NICOTINE DEPENDENCE, CIGARETTES, UNCOMPL 12/14/2015 ALCON SANTAMARIA DO Ot K02.9 DENTAL CARIES, UNSPECIFIED 12/14/2015 HINA LANIER, ALCON K Ot L50.0 ALLERGIC URTICARIA 12/23/2015 PATRIZIA ELAM Ot J40 BRONCHITIS, NOT SPECIFIED ACUTE OR CH 12/23/2015 PATRIZIA ELAM Ot N39.0 URINARY TRACT INFECTION, SITE NOT SPECIF 12/26/2015 ELLIS BOYCE, MILDRED Cerda Ot T78.40XA ALLERGY, UNSPECIFIED, INITIAL ENCOUNTER 12/29/2015 ELLIS BOYCE, MILDRED Cerda Ot T78.40XA ALLERGY, UNSPECIFIED, INITIAL ENCOUNTER 01/07/2016 HINA LANIER ALCON K Ot F17.210 NICOTINE DEPENDENCE, CIGARETTES, UNCOMPL 01/07/2016 ALCON SANTAMARIA DO Ot K02.9 DENTAL CARIES, UNSPECIFIED 01/07/2016 ALCON SANTAMARIA DO Ot L50.0 ALLERGIC URTICARIA 01/08/2016 ALCON SANTAMARIA DO Ot T78.40XA ALLERGY, UNSPECIFIED, INITIAL ENCOUNTER 01/09/2016 ALCON SANTAMARIA DO Ot T78.40XA ALLERGY, UNSPECIFIED, INITIAL ENCOUNTER 03/29/2016 Ot 649.03 TOBACCO USE DISOR COMP PREG/CHILDBIRTH/P 03/29/2016 Ot V23.9 SUPRV HIGH-RISK PREG NOS 03/29/2016 Ot 654.23 PREV DELIVERY, ANTEPARTUM COND 03/29/2016 Ot V72.63 PRE-PROCEDURAL LABORATORY EXAMINATION 03/29/2016 Ot V74.8 SCREEN-BACTERIAL DIS NEC 03/29/2016 NAHOMI DIPAK LANIER Ot 250.00 DIAB ASHLEY WO COMPL, TYPE II OR UNSPEC TY 03/29/2016 DIPAK COMER DO Ot 780.79 OTH MALAISE FATIGUE 03/29/2016 CECILIO NAVARRO APRN Ot E66.01 MORBID (SEVERE) OBESITY DUE TO EXCESS CA 03/29/2016 CECILIO NAVARRO APRN Ot F17.210 NICOTINE DEPENDENCE, CIGARETTES, UNCOMPL 03/29/2016 CECILIO NAVARRO APRN Ot S43.402A UNSPECIFIED SPRAIN OF LEFT SHOULDER JOIN 03/29/2016 CECILIO NAVARRO APRN Ot S49.92XA UNSP INJURY OF LEFT SHOULDER AND UPPER A 03/29/2016 CECILIO NAVARRO APRN Ot X58.XXXA EXPOSURE TO OTHER SPECIFIED FACTORS, INI 03/29/2016 CECILIO NAVARRO APRN Ot Y92.[address] IN [facility] NON-INSTITUT ( PRIVATE 03/29/2016 CECILIO NAVARRO APRN Ot Y93.F9 ACTIVITY, OTHER CAREGIVING 03/29/2016 CECILIO NAVARRO APRN Ot Y99.8 OTHER EXTERNAL CAUSE STATUS 03/31/2016 CECILIO NAVARRO APRN Ot E66.01 MORBID (SEVERE) OBESITY DUE TO EXCESS CA 03/31/2016 CECILIO NAVARRO APRN Ot F17.210 NICOTINE DEPENDENCE, CIGARETTES, UNCOMPL 03/31/2016 CECILIO NAVARRO APRN Ot S43.402A UNSPECIFIED SPRAIN OF LEFT SHOULDER JOIN 03/31/2016 CECILIO NAVARRO LAY OUT TECHNICIAN Ot S49.92XA UNSP INJURY OF LEFT SHOULDER AND UPPER A 03/31/2016 CECILIO NAVARRO LAY OUT TECHNICIAN Ot X58.XXXA EXPOSURE TO OTHER SPECIFIED FACTORS, INI 03/31/2016 CECILIO NAVARRO LAY OUT TECHNICIAN Ot Y92.[address] IN [facility] NON-INSTITUT ( PRIVATE 03/31/2016 CECILIO NAVARRO LAY OUT TECHNICIAN Ot Y93.F9 ACTIVITY, OTHER CAREGIVING 03/31/2016 CECILIO NAVARRO LAY OUT TECHNICIAN Ot Y99.8 OTHER EXTERNAL CAUSE STATUS 04/06/2016 Ot 649.03 TOBACCO USE DISOR COMP PREG/CHILDBIRTH/P 04/06/2016 Ot V23.9 SUPRV HIGH-RISK PREG NOS 04/06/2016 Ot 654.23 PREV DELIVERY, ANTEPARTUM COND 04/06/2016 Ot V72.63 PRE-PROCEDURAL LABORATORY EXAMINATION 04/06/2016 Ot V74.8 SCREEN-BACTERIAL DIS NEC 04/06/2016 DIPAK COMER DO Ot 250.00 DIAB ASHLEY WO COMPL, TYPE II OR UNSPEC TY 04/06/2016 DIPAK COMER DO Ot 780.79 OTH MALAISE FATIGUE 07/20/2016 TRISTEN BOYCE, MANA Estes Ot F17.210 NICOTINE DEPENDENCE, CIGARETTES, UNCOMPL 07/20/2016 TRISTEN BOYCE, MANA Estes Ot M43.16 SPONDYLOLISTHESIS, LUMBAR REGION 07/20/2016 TRISTEN BOYCE, MANA Estes Ot M54.5 LOW BACK PAIN 07/20/2016 TRISTEN BOYCE, MANA Estes Ot M62.830 MUSCLE SPASM OF BACK 07/20/2016 TRISTEN BOYCE, MANA Estes Ot Z98.1 ARTHRODESIS STATUS 07/20/2016 Ot 649.03 TOBACCO USE DISOR COMP PREG/CHILDBIRTH/P 07/20/2016 Ot V23.9 SUPRV HIGH-RISK PREG NOS 07/20/2016 Ot 654.23 PREV DELIVERY, ANTEPARTUM COND 07/20/2016 Ot V72.63 PRE-PROCEDURAL LABORATORY EXAMINATION 07/20/2016 Ot V74.8 SCREEN-BACTERIAL DIS NEC 07/20/2016 DIPAK COMER DO Ot 250.00 DIAB ASHLEY WO COMPL, TYPE II OR UNSPEC TY 07/20/2016 DIPAK COMER DO Ot 780.79 OT MALAISE FATIGUE 07/21/2016 TRISTEN BOYCE, MANA Estes Ot F17.210 NICOTINE DEPENDENCE, CIGARETTES, UNCOMPL 07/21/2016 TRISTEN BOYCE, MANA Estes Ot M43.16 SPONDYLOLISTHESIS, LUMBAR REGION 07/21/2016 TRISTEN BOYCE, MANA Estes Ot M54.5 LOW BACK PAIN 07/21/2016 TRISTEN BOYCE, MANA Estes Ot M62.830 MUSCLE SPASM OF BACK 07/21/2016 TRISTEN BOYCE, MANA Estes Ot Z98.1 ARTHRODESIS STATUS 12/04/2016 Ot 654.23 PREV DELIVERY, ANTEPARTUM COND 12/04/2016 Ot V72.63 PRE-PROCEDURAL LABORATORY EXAMINATION 12/04/2016 Ot V74.8 SCREEN-BACTERIAL DIS NEC 12/04/2016 DIPAK COMER DO Ot 250.00 DIAB ASHLEY WO COMPL, TYPE II OR UNSPEC TY 12/04/2016 DIPAK COMER DO Ot 780.79 OT MALAISE FATIGUE Procedures Code Description Performed By Performed On 74.1 LOW CERVICAL 08/24/2011 Results Encounters ACCT No. Visit Date/Time Discharge Status Pt. Type Provider Facility Loc./Unit Complaint [id number] 03/23/2014 12:08:00 03/23/2014 23: 59:59 CLS Outpatient ERIBERTO FONTENOT APRN [id number] 02/03/2012 11:14:00 Document Registration
== END 2016-12-04 17:21 | disposition home or self-care (01) ==
LOC: EDUNIT# 15:28 → ER 15:30
DX: M47.816 Spondylosis without myelopathy or radiculopathy, lumbar region (principal); M43.16 Spondylolisthesis, lumbar region; G89.29 Other chronic pain; E23.7 Disorder of pituitary gland, unspecified; E66.01 Morbid (severe) obesity due to excess calories; F17.210 Nicotine dependence, cigarettes, uncomplicated; Z98.1 Arthrodesis status
CPT/HCPCS: 72100; 99281

== ENCOUNTER 2017-01-01 21:15 | Emergency (ER) | payer MEDICAID ==
[~2017-01-01] VITALS: Ht 170.2 cm; Wt 109.1 kg
[~2017-01-01 21:15] MED LIST changes: +CYCL5TAB PO
[2017-01-01] MEDS ORDERED: RX-CYCLOBENZAPRINE 10 MG (FLEXERIL) TAB PPK#3 PO STA (23:01)
[2017-01-01 23:09] VITALS: BP 121/73
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
[2017-01-01] MEDS ORDERED: CYCL10TA9 PO (23:17)
== END 2017-01-01 23:20 | disposition home or self-care (01) ==
LOC: EDUNIT# 21:15 → ER 21:17
DX: M54.16 Radiculopathy, lumbar region (principal); F41.9 Anxiety disorder, unspecified; F32.9 Major depressive disorder, single episode, unspecified; K21.9 Gastro-esophageal reflux disease without esophagitis; J45.909 Unspecified asthma, uncomplicated; E66.01 Morbid (severe) obesity due to excess calories; F17.210 Nicotine dependence, cigarettes, uncomplicated; Z90.89 Acquired absence of other organs; Z86.03 Personal history of neoplasm of uncertain behavior; Z98.890 Other specified postprocedural states; Z68.37 Body mass index [BMI] 37.0-37.9, adult; W01.0XXA Fall on same level from slipping, tripping and stumbling without subsequent striking against object, initial encounter
CPT/HCPCS: 99283

== ENCOUNTER 2017-01-24 15:21 | Emergency (ER) | payer MEDICAID ==
[~2017-01-24] VITALS: Ht 167.6 cm; Wt 136.1 kg
[2017-01-24] MEDS ORDERED: TETANUS,DIPTH,PERTUSS P/F (BOOSTRIX) 0.5 ML VIAL IM ONE (16:15)
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
[2017-01-24 16:31] LABS: BASOPHILS % (AUTO) 0 % (0-10); EOSINOPHILS # (AUTO) 0.2 10^3/uL (0.0-0.3); EOSINOPHILS % (AUTO) 3 % (0-10); LYMPHOCYTES # (AUTO) 2.2 X 10^3 (1.0-4.0); LYMPHOCYTES % (AUTO) 29 % (12-44); MEAN CORPUSCULAR HEMOGLOBIN 23 PG (25-34); MEAN CORPUSCULAR HGB CONC 32 G/DL (32-36); MEAN CORPUSCULAR VOLUME 73 FL (80-99); MEAN PLATELET VOLUME 9.2 FL (7.4-10.4); MONOCYTES # (AUTO) 0.7 X 10^3 (0.0-1.0); MONOCYTES % (AUTO) 10 % (0-12); NEUTROPHILS # (AUTO) 4.4 X 10^3 (1.8-7.8); NEUTROPHILS % (AUTO) 58 % (42-75); PLATELET COUNT 394 10^3/uL (130-400); RED BLOOD COUNT 5.29 10^6/uL (4.35-5.85); RED CELL DISTRIBUTION WIDTH 18.7 % (10.0-14.5); WHITE BLOOD COUNT 7.6 10^3/uL (4.3-11.0)
--- NOTE | 2017-01-24 17:10 | Diagnostic Imaging Report ---
INDICATION: Fall with right knee pain. FINDINGS: AP, oblique, and lateral views of the right knee reveal no acute fracture or malalignment. There is increased density in the suprapatellar recess which may represent joint fluid. There is no abnormal lytic or sclerotic focus. There is a well-corticated rounded ossific density projecting anterior to the patella. IMPRESSION: No acute osseous abnormality is identified; however, there does appear to be fluid in the knee joint. If symptoms continue, consideration could be given to cross-sectional imaging to evaluate for internal derangement. Dictated by: Dictated on workstation # [id number]
--- NOTE | 2017-01-24 17:10 | Diagnostic Imaging Report ---
EXAM: SHOULDER, RIGHT, 3 VIEWS INDICATION: Fall. Right shoulder pain. COMPARISON: None. FINDINGS: No fracture or malalignment. Soft tissue shadows are unremarkable. The visualized right lung field is clear. IMPRESSION: Negative right shoulder radiographs. Dictated by: Dictated on workstation # [id number]
[2017-01-24] MEDS ORDERED: HYDR-757 PO (17:43)
[2017-01-24 17:56] VITALS: BP 124/89
--- NOTE | 2017-01-24 18:03 | Diagnostic Imaging Report ---
INDICATION: Fall. Pain. COMPARISON: 12/25/2005 FINDINGS: Frontal radiographic view of the chest demonstrates normal cardiac silhouette and pulmonary vasculature. The lungs are clear and show no focal consolidations, large effusion, or pneumothoraces. Multiple dedicated radiographic views of bilateral ribs were obtained. No healing or displaced rib fractures are seen on this side. No other gross acute bony abnormalities are identified. IMPRESSION: 1. No acute cardiopulmonary process. 2. No healing or displaced rib fractures on either side. Dictated by: Dictated on workstation # [id number]
== END 2017-01-24 17:56 | disposition home or self-care (01) ==
LOC: EDUNIT# 15:21 → ER 15:23
DX: Z04.3 Encounter for examination and observation following other accident (principal)
CPT/HCPCS: 36415; 71111; 73030; 73562; 85025; 90471; 90715; 99283

== ENCOUNTER 2017-04-24 17:27 | Emergency (ER) | payer MEDICAID ==
[~2017-04-24] VITALS: Ht 170.2 cm; Wt 113.4 kg
[2017-04-24] MEDS ORDERED: ONDANSETRON 4 MG (ZOFRAN) ORAL DISSOLVE TAB PO ONE (17:30)
--- OUTSIDE RECORDS SUMMARY | 2017-04-24 17:33 | XMS REPORT ---
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 Phone GERI DUNBAR Unavailable PROBLEMS Type Condition ICD9-CM Code [id number] Code Onset Dates Condition Status SNOMED Code Problem Other postprocedural status V45.89 Active 52545969 Problem 35-36 completed weeks of gestation 765.28 Active 13376242 Problem Rash and other nonspecific skin eruption 782.1 Active 327652745 Problem Screening for unspecified malignant neoplasm V76.9 Active 32886236 Problem Screening examination for venereal disease V74.5 Active 418245109 Problem Other, multiple, and unspecified sites, insect bite, nonvenomous, infected 919.5 Active 097870255 Problem Mild intermittent asthma with acute exacerbation J45.21 Active 688934743 Problem Hypoglycemia, unspecified 251.2 Active 378941032 Problem Previous delivery, unspecified as to episode of care or not applicable 654.20 Active 687518244 Problem Cellulitis and abscess of trunk 682.2 Active 245083252 Problem Other acute postoperative pain 338.18 Active [id number] Problem Other chronic pain 338.29 Active 03526055 ALLERGIES Substance Reaction Event Type Date Status Sulfacetamide Sodium Blisters (Antibiotic) Drug Allergy Aug, Active Risperidone Unknown Drug Allergy Aug, Active Polymyxin B Sulfate Blisters Drug Allergy Aug, Active Neosporin Unknown Drug Allergy Aug, Active Bacitracin Zinc Blisters Drug Allergy Aug, Active Peas Throat swells Non Drug Allergy Aug, Active Green beans Throat swells Non Drug Allergy Aug, Active SOCIAL HISTORY Never Assessed PLAN OF CARE Activity Details Follow Up prn Reason: VITAL SIGNS Height 67 in 2016-08-31 Weight 254.6 lbs 2016-08-31 Temperature 98.2 degrees Fahrenheit 2016-08-31 Heart Rate 80 bpm 2016-08-31 Respiratory Rate 22 2016-08-31 BMI 39.87 kg/m2 2016-08-31 Blood pressure systolic 122 mmHg 2016-08-31 Blood pressure diastolic 80 mmHg 2016-08-31 MEDICATIONS Medication Instructions Dosage Frequency Start Date End Date Duration Status Clindamycin HCl 300 MG Orally every 8 hrs 1 capsule 8h Aug,Aug 10 days Active Albuterol Sulfate HFA 108 (90 Base) MCG/ACT Inhalation every 4 hrs 2 puffs as needed 4h Active Albuterol Sulfate (2.5 MG/3ML) 0.083% Inhalation Three times a day 3 ml 8h Aug, 30 days Active Mupirocin 2 % Externally Three times a day 1 application to affected area 8h Aug, Aug, 7 days Active Ibuprofen 800 MG Orally Three times a day 1 tablet 8h Aug,Aug 10 days Active Albuterol Sulfate (2.5 MG/3ML) 0.083% Inhalation Three times a day 3 ml 8h May, Active DeVilbiss Reusable Nebulizer 1 by inhalation route 3 times a day as directed 8h May, Active RESULTS Name Result Date Reference Range CULTURE, ANAEROBIC AND AEROBIC 2016-08-31 Anaerobic Culture Final report Aerobic Culture Final report Result 1 Result 1 Staphylococcus aureus Antimicrobial Susceptibility PROCEDURES Procedure Date Ordered Result Body Site LAB NOT BILLED BY [facility] August 31, 2016 IMMUNIZATIONS No Known Immunizations MEDICAL (GENERAL) HISTORY Type Description Date Medical History Asthma Medical History Pituitary Tumor Medical History Renal Failure, Chronic UTI Medical History GERD Medical History Constipation Medical History Chronic Back pain, Fractures Medical History Pituitary Disease Medical History Anxiety Medical History Depression Surgical History Pituitary tumor Surgical History back surgery Surgical History Left elbow x2 Surgical History x2 Hospitalization History Child x2
--- NOTE | 2017-04-24 17:34 | ED Fall/Injury ---
General Stated Complaint: FALL Source: patient Exam Limitations: no limitations History of Present Illness Time seen by provider: 17:31 Initial Comments To ER per EMS from home with reports of fall down 2 stairs. She landed on her left ribs where she complains of pain currently and the right knee there is an abrasion. Did not hit her head and there was no loss of consciousness. She's recently had nausea vomiting and diarrhea and so has the rest of her family. She states she was a little dizzy which is what precipitated the fall. Occurred: just prior to arrival Severity: moderate Context: lightheaded Loss of Consciousness: no loss of consciousness Associated Symptoms (Fall): No Abdominal Pain, No Neck Pain Allergies and Home Medications Allergies Coded Allergies: Bacitracin Zinc (Unverified Allergy, Unknown, 11/25/15) BLISTERS Sulfa (Sulfonamide Antibiotics) (Verified Allergy, Unknown, 11/25/15) bacitracin (Unverified Allergy, Unknown, 11/25/15) BLISTERS neomycin sulfate (Unverified Allergy, Unknown, 11/25/15) BLISTERS polymyxin B (Unverified Allergy, Unknown, 11/25/15) BLISTERS risperidone (Verified Allergy, Unknown, 11/25/15) Uncoded Allergies: GREEN BEANS (Allergy, Unknown, 12/13/13) THROAT SWELLS PEAS (Allergy, Unknown, 12/13/13) THROAT SWELLS Home Medications Albuterol Sulfate 8.5 Gm Hfa.aer.ad, 2 PUFF IH Q4H PRN for SHORTNESS OF BREATH, #1 Ref 0 Prescribed by: PATRIZIA KELLEY on 09/17/15 194 Epinephrine 0.3 Mg/0.3 Ml Pen.injctr, 0.3 MG IM UD PRN for SHORTNESS OF BREATH, #2 Ref 0 Prescribed by: PATRIZIA KELLEY on 12/13/13 193 Hydrocodone/Acetaminophen 1 Each Tablet, 1 EACH PO Q4H PRN for PAIN-MODERATE TO SEVERE, #10 Prescribed by: CECILIO NAVARRO on 01/24/17 1743 Constitutional: see HPI Eyes: No Symptoms Reported Ears, Nose, Mouth, Throat: no symptoms reported Respiratory: no symptoms reported Cardiovascular: no symptoms reported Genitourinary: no symptoms reported Musculoskeletal: see HPI, joint pain Skin: no symptoms reported Psychiatric/Neurological: No Symptoms Reported Past Hewuzsw-Mljnym-Khmgtp Hx Patient Social History Type Used: Cigarettes 2nd Hand Smoke Exposure: No Recent Hopitalizations: No Immunizations Up To Date Tetanus Booster (TDap): Less than 5yrs Date of Influenza Vaccine: Mar 13, 2013 Seasonal Allergies Seasonal Allergies: No Surgeries History of Surgeries: Yes (PITUITARY TUMOR, X 2, BACK SURGERY, LEFT ELBOW X 2, BMT'S ) Surgeries: Abdominal, Adenoidectomy, Section, Ear Surgery, Neurological, Orthopedic, Pituitary, Tonsillectomy Respiratory History of Respiratory Disorde: Yes Respiratory Disorders: Asthma Cardiovascular History of Cardiac Disorders: No Neurological History of Neurological Disord: Yes (PITUITARY TUMOR) Reproductive System Hx Reproductive Disorders: Yes (MULTIPLE MISCARRIAGES, DIAG LAP SURGERIES X2) Sexually Transmitted Disease: No HIV/AIDS: No Genitourinary History of Genitourinary Disor: Yes Genitourinary Disorders: Renal Failure, UTI-Chronic Gastrointestinal History of Gastrointestinal Di: Yes ("PARTIAL BOWEL BLOCKAGE FOR OVER 10 YEARS " PER PT. ) Gastrointestinal Disorders: Gastroesophageal Reflux, Chronic Constipation Musculoskeletal History of Musculoskeletal Dis: Yes Musculoskeletal Disorders: Chronic Back Pain, Fractures Endocrine History of Endocrine Disorders: Yes (HYPOGLYCEMIA, PITUITARY TUMOR, MORBID OBESITY) Endocrine Disorders: Pituitary Disease HEENT History of HEENT Disorders: Yes HEENT Disorders: Chronic Ear Infection, Tonsilitis Cancer History of Cancer: No Psychosocial History of Psychiatric Problem: Yes (EXTENSIVE PSYCH ISSUES) Behavioral Health Disorders: Anxiety, Depression Integumentary History of Skin or Integumenta: No Blood Transfusions History of Blood Disorders: Yes (ANEMIA) Family Medical History Significant Family History: No Pertinent Family Hx Physical Exam Vital Signs Vital Sign - Last 12Hours 04/24/17 17:27 Temp 98.0 Pulse 98 Resp 18 B/P (MAP) 114/55 Pulse Ox 95 Capillary Refill : General Appearance: WD/WN, no apparent distress HEENT: PERRL/EOMI, normal ENT inspection Neck: non-tender, full range of motion Cardiovascular: regular rate, rhythm, no murmur Respiratory: normal breath sounds, no respiratory distress, no accessory muscle use, other (tenderness to palpation over the left lateral chest wall. There is no tenderness to palpation of the abdomen) Gastrointestinal: normal bowel sounds, non tender, soft, No tenderness Extremities: normal range of motion, non-tender Neurologic/Psychiatric: alert, normal mood/affect, oriented x 3 Progress/Results/Core Measures Results/Orders My Orders Orders - CECILIO NAVARRO APRN Ribs/Unilateral With Chest (04/24/17 17:30) Knee, Right, 3 Views (04/24/17 17:30) Ondansetron Oral Dissolve Tab (Zofran (04/24/17 17:30) Medications Given in ED Current Medications Medications Dose Ordered Sig/Miriam Route Start Time Stop Time Status Last Admin Dose Admin Ondansetron HCl 4 mg ONCE ONCE PO 04/24/17 17:30 04/24/17 17:32 DC 04/24/17 18:43 4 MG Vital Signs/I&O Vital Sign - Last 12Hours 04/24/17 17:27 Temp 98.0 Pulse 98 Resp 18 B/P (MAP) 114/55 Pulse Ox 95 Departure Impression Impression: Primary Impression: Fall at home Additional Impressions: Abrasion of knee Chest wall contusion Disposition: 01 HOME, SELF-CARE Condition: Stable Departure-Patient Inst. Decision time for Depature: 19:24 Referrals: [facility] (PCP/Family) Primary Care Physician Patient Instructions: CHEST CONTUSION Add. Discharge Instructions: 1. Tylenol and Motrin for pain 2. Return to ER for any concerns such as shortness of breath, worsening infection or other concerns CECILIO NAVARRO APRN Apr 24, 2017 17:33
--- OUTSIDE RECORDS SUMMARY | 2017-04-24 17:39 | XMS REPORT ---
Author Author SHO BAR [facility] Address Unknown Care Team Providers Care Senior Chemist Name Role Phone SHO BAR Unavailable PROBLEMS Type Condition ICD9-CM Code DDS67-NM Code Onset Dates Condition Status SNOMED Code Problem 35-36 completed weeks of gestation 765.28 Active 15293982 Problem Other acute postoperative pain 338.18 Active 350616296704968 Problem Other, multiple, and unspecified sites, insect bite, nonvenomous, infected 919.5 Active 433343121 Problem Rash and other nonspecific skin eruption 782.1 Active 787562413 Problem Hypoglycemia, unspecified 251.2 Active 424628540 Problem Other chronic pain 338.29 Active 64325878 Problem Mild intermittent asthma with acute exacerbation J45.21 Active 351625555 Problem Previous delivery, unspecified as to episode of care or not applicable 654.20 Active 043826635 Problem Other postprocedural status V45.89 Active 95189145 Problem Cellulitis and abscess of trunk 682.2 Active 392459764 Problem Screening for unspecified malignant neoplasm V76.9 Active Problem Screening examination for venereal disease V74.5 Active 175827180 ALLERGIES Substance Reaction Event Type Date Status [...] OF CARE VITAL SIGNS Height 67 in 2016-05-14 Blood pressure systolic 116 mmHg 2016-05-14 Blood pressure diastolic 75 mmHg 2016-05-14 MEDICATIONS No Known Medications RESULTS No Results PROCEDURES Procedure Date Ordered Related Diagnosis Body Site LTD ORAL EVALUATION - PROBLEM FOCUS May 14, 2016 INTRAORL-PERIAPICAL 1 FILM [id number] May 14, 2016 EXTRAC ERUPTED TOOTH/EXPOSED ROOT May 14, 2016 EXTRAC ERUPTED TOOTH/EXPOSED ROOT May 14, 2016 IMMUNIZATIONS No Known Immunizations
--- OUTSIDE RECORDS SUMMARY | 2017-04-24 17:41 | XMS REPORT ---
Author Author ADELITA VELASQUEZ Organization [facility] Address [address] [place] [address] Care Team Providers Care Entry Level Account Representative Name Role Phone ADELITA VELASQUEZ Unavailable PROBLEMS Type Condition ICD9-CM Code LHX23-OO Code Onset Dates Condition Status SNOMED Code Problem Other postprocedural status V45.89 Active 99399555 Problem 35-36 completed weeks of gestation 765.28 Active 82730499 Problem Rash and other nonspecific skin eruption 782.1 Active 107472759 Problem Screening for unspecified malignant neoplasm V76.9 Active Problem Screening examination for venereal disease V74.5 Active 252600667 Problem Other, multiple, and unspecified sites, insect bite, nonvenomous, infected 919.5 Active 630074932 Problem Mild intermittent asthma with acute exacerbation J45.21 Active 731007432 Problem Hypoglycemia, unspecified 251.2 Active 404252083 Problem Previous delivery, unspecified as to episode of care or not applicable 654.20 Active 993891628 Problem Cellulitis and abscess of trunk 682.2 Active 332220338 Problem Other acute postoperative pain 338.18 Active 690780409096230 Problem Other chronic pain 338.29 Active 06150741 ALLERGIES Substance Reaction Event Type Date Status [...] prn Reason: VITAL SIGNS Height 67 in 2016-08-17 Weight 255.8 lbs 2016-08-17 Temperature 98.9 degrees Fahrenheit 2016-08-17 Heart Rate 80 bpm 2016-08-17 Respiratory Rate 20 2016-08-17 BMI 40.06 kg/m2 2016-08-17 Blood pressure systolic 124 mmHg 2016-08-17 Blood pressure diastolic 86 mmHg 2016-08-17 MEDICATIONS Medication Instructions Dosage Frequency Start Date End Date Duration Status Albuterol Sulfate HFA 108 (90 Base) MCG/ACT Inhalation every 4 hrs 2 puffs as needed 4h Active Albuterol Sulfate (2.5 MG/3ML) 0.083% Inhalation Three times a day 3 ml 8h Aug, 30 days Active Albuterol Sulfate (2.5 MG/3ML) 0.083% Inhalation Three times a day 3 ml 8h May, Active DeVilbiss Reusable Nebulizer 1 by inhalation route 3 times a day as directed 8h May, Active RESULTS No Results PROCEDURES Procedure Date Ordered Result Body Site NEB/MDI RX INITIAL August 17, 2016 IMMUNIZATIONS No Known Immunizations MEDICAL (GENERAL) [...]
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
[2017-04-24 19:27] VITALS: BP 114/55
--- NOTE | 2017-04-24 19:30 | Diagnostic Imaging Report ---
INDICATION: Fall down stairs. Pain. TECHNIQUE: 3 views of the right knee 7:13 PM CORRELATION STUDY: None FINDINGS: The joint spaces are maintained. The articular surfaces are smooth and preserved. There is no acute bony abnormality. Soft tissues are unremarkable. IMPRESSION: 1. Negative for acute bony abnormality of the knee. Dictated by: Dictated on workstation # [id number]
--- NOTE | 2017-04-24 19:32 | Diagnostic Imaging Report ---
INDICATION: Status post fall downstairs earlier today. Left-sided rib pain.. TECHNIQUE: Single view chest along with 3 views left ribs 7:11 PM. CORRELATION STUDY: 01/24/2017 FINDINGS: The heart size, mediastinal configuration and pulmonary vascularity are within normal limits. The lungs are clear with no consolidating infiltrate. There is no significant effusion or pneumothorax. Left ribs intact with evidence for acute displaced fracture. Lumbar spinal fixation hardware present. IMPRESSION: 1. No radiographic evidence for acute abnormality of the chest. 2. Negative for acute displaced left rib fracture. Ribs, however, are somewhat incompletely limited in visualization. Dictated by: Dictated on workstation # [id number]
== END 2017-04-24 19:27 | disposition home or self-care (01) ==
LOC: EDUNIT# 17:27 → ER 17:28
DX: S20.212A Contusion of left front wall of thorax, initial encounter (principal); S80.211A Abrasion, right knee, initial encounter; J45.909 Unspecified asthma, uncomplicated; K21.9 Gastro-esophageal reflux disease without esophagitis; E66.01 Morbid (severe) obesity due to excess calories; F41.9 Anxiety disorder, unspecified; F32.9 Major depressive disorder, single episode, unspecified; Z87.19 Personal history of other diseases of the digestive system; Z87.440 Personal history of urinary (tract) infections; Z98.84 Bariatric surgery status; Z87.59 Personal history of other complications of pregnancy, childbirth and the puerperium; Z90.89 Acquired absence of other organs; W10.8XXA Fall (on) (from) other stairs and steps, initial encounter; Y92.009 Unspecified place in unspecified non-institutional (private) residence as the place of occurrence of the external cause
CPT/HCPCS: 71101; 73562; 99283

== ENCOUNTER 2017-07-12 19:54 | Emergency (ER) | payer MEDICAID ==
[~2017-07-12] VITALS: Ht 170.2 cm; Wt 113.7 kg
[~2017-07-12 19:54] MED LIST changes: +NAPR-1071 PO; -NAPR500T PO; -NAPR500T3 PO; +NAPR500T4 PO
[2017-07-12] MEDS ORDERED: PROMETHAZINE/ CODEINE SYRUP 5 ML UDC PO ONE (20:15)
[2017-07-12] MEDS ORDERED: PROM5SYR PO (20:17)
[2017-07-12] MEDS ORDERED: AZIT250T12 PO (20:17)
[2017-07-12] MEDS ORDERED: METH4TAB PO (20:17)
--- NOTE | 2017-07-12 20:17 | ED Cough/URI ---
General Chief Complaint: Cough/Cold/Flu Symptoms Stated Complaint: COUGH/CONGESTION Nursing Triage Note: COUGH, RIB PAIN Source: patient Exam Limitations: no limitations History of Present Illness Date Seen by Provider: Jul 12, 2017 Time Seen by Provider: 20:15 Initial Comments Cough and runny nose for 4 days, also loss of voice Severity/Quality: moderate Associated Symptoms: cough Allergies and Home Medications Allergies Coded Allergies: Bacitracin Zinc (Unverified Allergy, Unknown, 11/25/15) BLISTERS Sulfa (Sulfonamide Antibiotics) (Verified Allergy, Unknown, 11/25/15) bacitracin (Unverified Allergy, Unknown, 11/25/15) BLISTERS neomycin sulfate (Unverified Allergy, Unknown, 11/25/15) BLISTERS polymyxin B (Unverified Allergy, Unknown, 11/25/15) BLISTERS risperidone (Verified Allergy, Unknown, 11/25/15) Uncoded Allergies: GREEN BEANS (Allergy, Unknown, 12/13/13) THROAT SWELLS PEAS (Allergy, Unknown, 12/13/13) THROAT SWELLS Home Medications Albuterol Sulfate 8.5 Gm Hfa.aer.ad, 2 PUFF IH Q4H PRN for SHORTNESS OF BREATH, #1 Ref 0 Prescribed by: PATRIZIA KELLEY on 09/17/151944 Epinephrine 0.3 Mg/0.3 Ml Pen.injctr, 0.3 MG IM UD PRN for SHORTNESS OF BREATH, #2 Ref 0 Prescribed by: PATRIZIA KELLEY on 12/13/13 193 Constitutional: see HPI EENTM: see HPI, nose congestion Respiratory: see HPI, cough Genitourinary: no symptoms reported Musculoskeletal: no symptoms reported Skin: no symptoms reported Psychiatric/Neurological: No Symptoms Reported Past Qjpqqpa-Fbhqhg-Oksmmt Hx Patient Social History Alcohol Use: Denies Use Recreational Drug Use: No Smoking Status: Current Everyday Smoker Type Used: Cigarettes 2nd Hand Smoke Exposure: No Recent Foreign Travel: No Contact w/Someone Who Travel: No Recent Infectious Disease Expo: No Recent Hopitalizations: No Immunizations Up To Date Tetanus Booster (TDap): Less than 5yrs Date of Influenza Vaccine: Mar 13, 2013 Seasonal Allergies Seasonal Allergies: No Surgeries History of Surgeries: Yes (PITUITARY TUMOR, X 2, BACK SURGERY, LEFT ELBOW X 2, BMT'S ) Surgeries: Abdominal, Adenoidectomy, Section, Ear Surgery, Neurological, Orthopedic, Pituitary, Tonsillectomy Respiratory History of Respiratory Disorde: Yes Respiratory Disorders: Asthma Cardiovascular History of Cardiac Disorders: No Neurological History of Neurological Disord: Yes (PITUITARY TUMOR) Reproductive System : No Hx Reproductive Disorders: Yes (MULTIPLE MISCARRIAGES, DIAG LAP SURGERIES X2) Sexually Transmitted Disease: No HIV/AIDS: No Genitourinary History of Genitourinary Disor: Yes Genitourinary Disorders: Renal Failure, UTI-Chronic Gastrointestinal History of Gastrointestinal Di: Yes ("PARTIAL BOWEL BLOCKAGE FOR OVER 10 YEARS " PER PT. ) Gastrointestinal Disorders: Gastroesophageal Reflux, Chronic Constipation Musculoskeletal History of Musculoskeletal Dis: Yes Musculoskeletal Disorders: Chronic Back Pain, Fractures Endocrine History of Endocrine Disorders: Yes (HYPOGLYCEMIA, PITUITARY TUMOR, MORBID OBESITY) Endocrine Disorders: Pituitary Disease HEENT History of HEENT Disorders: Yes HEENT Disorders: Chronic Ear Infection, Tonsilitis Cancer History of Cancer: No Psychosocial History of Psychiatric Problem: Yes (EXTENSIVE PSYCH ISSUES) Behavioral Health Disorders: Anxiety, Depression Integumentary History of Skin or Integumenta: No Blood Transfusions History of Blood Disorders: Yes (ANEMIA) Family Medical History Significant Family History: No Pertinent Family Hx Physical Exam Vital Signs Vital Sign - Last 12Hours 07/12/17 20:00 Temp 98.9 Pulse 112 Resp 18 B/P (MAP) 150/82 (104) Pulse Ox 94 O2 Delivery Room Air Capillary Refill : Less Than 3 Seconds General Appearance: WD/WN, no apparent distress Eyes: Bilateral Eye Normal Inspection, Bilateral Eye PERRL, Bilateral Eye EOMI HEENT: PERRL/EOMI, normal ENT inspection, TMs normal Neck: non-tender, full range of motion Respiratory: normal breath sounds, no respiratory distress, no accessory muscle use Gastrointestinal: normal bowel sounds, non tender Neurologic/Psychiatric: alert, normal mood/affect, oriented x 3 Skin: normal color, warm/dry Progress/Results/Core Measures Suspected Sepsis Recent Fever Within 48 Hours: No Infection Criteria Present: None New/Unexplained Altered Menta: No Sepsis Screen: No Definite Risk Sepsis Diagnosis: SIRS Temperature:98.9 Pulse: 112 Respiratory Rate: 18 Blood Pressure 150 /82 Mean: 104 Results/Orders My Orders Orders - CECILIO NAVARRO APRN Azithromycin Tablet (Zithromax Tablet) (1/31/18 09:00) Promethazine/ Codeine Syrup (Phenergan W (07/12/17 20:15) Vital Signs/I&O Vital Sign - Last 12Hours 07/12/17 20:00 Temp 98.9 Pulse 112 Resp 18 B/P (MAP) 150/82 (104) Pulse Ox 94 O2 Delivery Room Air Capillary Refill : Less Than 3 Seconds Blood Pressure Mean: 104 Departure Impression Impression: Primary Impression: Laryngitis Additional Impression: Upper respiratory infection Disposition: HOME, SELF-CARE Condition: Stable Departure-Patient Inst. Decision time for Depature: 20:16 Referrals: [facility][1[facility] (PCP/Family) Primary Care Physician Patient Instructions: Laryngitis (DC) Add. Discharge Instructions: 1. Medication as directed All discharge instructions reviewed with patient and/or family. Voiced understanding. Scripts Promethazine HCl/Codeine (Prometh-Codein 6.25-10 mg/5 ml) 5 Ml Syrup 5 ML PO Q6H Y for COUGH, #60 ML Prov: CECILIO NAVARRO APRN 07/12/17 Azithromycin (Azithromycin) 250 Mg Tablet 250 MG PO DAILY, #4 TAB Prov: CECILIO NAVARRO APRN 07/12/17 Methylprednisolone (Medrol) 4 Mg Tab.ds.pk 4 MG PO UD, #1 PKG Prov: CECILIO NAVARRO APRN 07/12/17 CECILIO NAVARRO APRN Jul 12, 2017 20:17
[2017-07-12] MEDS ORDERED: AZITHROMYCIN 250 MG TAB (ZITHROMAX) PO ONE (20:20)
[2017-07-12 20:26] VITALS: BP 150/82
[2017-07-12] MEDS ORDERED: AZITHROMYCIN 250 MG TAB (ZITHROMAX) PO SCH (20:30)
[2017-07-13] MEDS ORDERED: AZITHROMYCIN 250 MG TAB (ZITHROMAX) PO SCH (09:00)
== END 2017-07-12 20:23 | disposition home or self-care (01) ==
LOC: EDUNIT# 19:54 → ER 19:55
DX: J04.0 Acute laryngitis (principal); J45.909 Unspecified asthma, uncomplicated; E66.01 Morbid (severe) obesity due to excess calories; F41.9 Anxiety disorder, unspecified; F32.9 Major depressive disorder, single episode, unspecified; K21.9 Gastro-esophageal reflux disease without esophagitis; F17.210 Nicotine dependence, cigarettes, uncomplicated; Z87.59 Personal history of other complications of pregnancy, childbirth and the puerperium; Z87.440 Personal history of urinary (tract) infections; Z87.19 Personal history of other diseases of the digestive system; Z88.2 Allergy status to sulfonamides; Z98.84 Bariatric surgery status; Z90.89 Acquired absence of other organs; Z88.1 Allergy status to other antibiotic agents; Z88.8 Allergy status to other drugs, medicaments and biological substances
CPT/HCPCS: 99283

== ENCOUNTER 2018-02-25 09:26 | Emergency (ER) | payer MEDICAID ==
[~2018-02-25] VITALS: Ht 170.2 cm; Wt 113.4 kg
[~2018-02-25 09:26] MED LIST changes: +AZIT250T12 PO; +HYDR-4226 PO; -HYDR-757 PO; +METH4TAB PO; +NAPR-915 PO; -NAPR500T4 PO; +PROM5SYR PO
--- OUTSIDE RECORDS SUMMARY | 2018-02-25 09:32 | XMS REPORT ---
Author Author CARLOS HARPER [facility] IN [facility] Address [address] [place] [address] Care Team Providers Care Vp Talent Management Name Role Phone CARLOS HARPER Unavailable PROBLEMS Type Condition ICD9-CM Code [id number] Code Onset Dates Condition Status SNOMED Code Problem 35-36 completed weeks of gestation 765.28 Active 01181527 Problem Previous delivery, unspecified as to episode of care or not applicable 654.20 Active 663601970 Problem Cellulitis and abscess of trunk 682.2 Active 135380504 Problem Migraine, unspecified, not intractable, without status migrainosus G43.909 Active 79049054 Problem Hemiplegic migraine without status migrainosus, not intractable G43.409 Active 30196885 Problem Other acute postoperative pain 338.18 Active 650443794968348 Problem Other chronic pain 338.29 Active 40417866 Problem Mild intermittent asthma with acute exacerbation J45.21 Active 595285381 Problem Hypoglycemia, unspecified 251.2 Active 317625061 Problem Screening examination for venereal disease V74.5 Active 777524912 Problem Other, multiple, and unspecified sites, insect bite, nonvenomous, infected 919.5 Active 256410856 Problem Other postprocedural status V45.89 Active 56460287 Problem Screening for unspecified malignant neoplasm V76.9 Active 60140625 Problem Rash and other nonspecific skin eruption 782.1 Active 720309830 ALLERGIES Substance Reaction Event Type Date Status Sulfacetamide Sodium Blisters (Antibiotic) Drug Allergy Aug, Active Risperidone Unknown Drug Allergy Aug, Active Polymyxin B Sulfate Blisters Drug Allergy Aug, Active Neosporin Unknown Drug Allergy Aug, Active Bacitracin Zinc Blisters Drug Allergy Aug, Active Green beans Throat swells Non Drug Allergy Aug, Active Peas Throat swells Non Drug Allergy Aug, Active ENCOUNTERS Encounter Location Date Diagnosis [facility] [id number] [place] [address] Aug, Dental infection K04.7 [facility] [address] [place] [address] Jun, [facility] [address] [place] [address] Mar, Migraine, unspecified, not intractable, without status migrainosus G43.909 [facility] [address] [place] [address] Jan, Jaw pain R68.84 [facility] [address] [place] [address] Aug, Infection of skin L08.9 and Tattoo reaction L92.3 [facility] [address] [place] [address] Aug, Influenza B J10.1 [facility] [address] [place] [address] May, Sore throat J02.9 and Bronchitis J40 [facility] [address] [id number] May, Dental examination Z01.20 and Dental caries K02.9 [facility] [address] [place] [address] May, 2016 Other fatigue R53.83 [facility] [address] [place] [address] 17 Mar, 2016 Shoulder injury, left, initial encounter S49.92XA [address] [address] 15 Dec, [address] [address] 14 Sep, [address] [address] Sep, [facility] [address] [id number] [place] [address] Mar, [facility] [place] [facility] [address] [id number] [place] [address] Mar, [facility] [address] [facility] [id number] [place] [address] Nov, [facility] [place] [facility] [address] [id number] [place] [address] Feb, [facility] [place] [facility] [address] [id number] [place] [address] Jan, [facility] [place] [facility] [address] [facility] [id number] [place] [address] Sep, [facility] [address] [facility] [id number] [place] [address] Aug, [facility] [place] [facility] [address] [facility] [id number] [place] [address] Aug, [facility] [address] [facility] [id number] [place] [address] Aug, [facility] [place] [facility] [address] [facility] [id number] [place] [address] Aug, [facility] [place] [facility] [address] [facility] [id number], [place] [address] Jul, [facility] [place] [facility] [address] [facility] [id number], [place] [address] Jul, [facility] [place] [facility] [address] [id number] [place] Jul, [facility] [place] [facility] [address] [facility] [id number], [place] [address] Jul, [facility] [place] [facility] [address] [facility] [id number] Jul, [facility] [place] [facility] [address]65[address], [place] [address] Jul, [facility] [id number] [place] [address] Jul, [facility] [address]00565[place] [address] Jul, [facility] [id number] [place] [address] Jul, [facility] [address]00565[place] [address] Jul, [facility] [id number] [place] [address] Jul, [facility] [address] [place] [address] Jul, [facility] [address]00565[place] [address] Jul, [facility] [address] [address] Jun, [facility] [address]00565[place] [address] Jun, [facility] [address] [address] Jun, [facility] [address], [place] [address] May, [facility] [address] [id number], [place] [address] May, IMMUNIZATIONS No Known Immunizations SOCIAL HISTORY Never Assessed REASON FOR VISIT gum pain on the upper from side to side. even complaining of pain in her upper jaw. has tried home remedies and OTC pain relief...no relief from the pain. no dental appt scheduled. has a broken front upper right tooth that is also causing her a lot of [ain. ruth, has had this dental / gum pain for 4 days PLAN OF CARE Activity Details Follow Up dentist DARYL Reason: VITAL SIGNS Height 67 in 2017-08-28 Weight 280.2 lbs 2017-08-28 Temperature 97.9 degrees Fahrenheit 2017-08-28 Heart Rate 86 bpm 2017-08-28 Respiratory Rate 20 2017-08-28 BMI 43.88 kg/m2 2017-08-28 Blood pressure systolic 118 mmHg 2017-08-28 Blood pressure diastolic 68 mmHg 2017-08-28 MEDICATIONS Medication Instructions Dosage Frequency Start Date End Date Duration Status Albuterol Sulfate HFA 108 (90 Base) MCG/ACT Inhalation every 4 hrs 2 puffs as needed 4h Active Albuterol Sulfate (2.5 MG/3ML) 0.083% Inhalation Three times a day 3 ml 8h May, Active DeVilbiss Reusable Nebulizer 1 by inhalation route 3 times a day as directed 8h May, Not-Taking Zofran 4 MG Orally 3 times a day 1 tablet 8h Jan, Not-Taking Famotidine 40 MG Orally Once a day 1 tablet 24h Not-Taking EPINEPHrine 0.3 MG/0.3ML Injection PRN Active Amoxicillin 875 MG Orally every 12 hrs 1 tablet 12h Aug, Aug, 10 day(s) Active Albuterol Sulfate (2.5 MG/3ML) 0.083% Inhalation Three times a day 3 ml 8h 07 Aug, 2016 30 days Not-Taking RESULTS No Results PROCEDURES No Known procedures INSTRUCTIONS MEDICATIONS ADMINISTERED No Known Medications MEDICAL (GENERAL) HISTORY Type Description Date Medical [...]
--- OUTSIDE RECORDS SUMMARY | 2018-02-25 09:33 | XMS REPORT ---
Author Author GERI DUNBAR Organization [facility] Address [address] [place] [address] Care Team Providers Care Personal Support Worker Name Role Phone DUNBARCYGERI Unavailable PROBLEMS Type Condition ICD9-CM Code FOK07-JG Code Onset Dates Condition Status SNOMED Code Problem 35-36 completed weeks of gestation 765.28 Active 97754709 Problem Previous delivery, unspecified as to episode of care or not applicable 654.20 Active 079382842 Problem Cellulitis and abscess of trunk 682.2 Active 836767392 Problem Migraine, unspecified, not intractable, without status migrainosus G43.909 Active 91675350 Problem Hemiplegic migraine without status migrainosus, not intractable G43.409 Active 25940372 Problem Other acute postoperative pain 338.18 Active 684816230556542 Problem Other chronic pain 338.29 Active 05562449 Problem Mild intermittent asthma with acute exacerbation J45.21 Active 195912666 Problem Hypoglycemia, unspecified 251.2 Active 727213402 Problem Screening examination for venereal disease V74.5 Active 513788905 Problem Other, multiple, and unspecified sites, insect bite, nonvenomous, infected 919.5 Active 772289481 Problem Other postprocedural status V45.89 Active 77406493 Problem Screening for unspecified malignant neoplasm V76.9 Active 92166741 Problem Rash and other nonspecific skin eruption 782.1 Active 139468764 ALLERGIES No Information ENCOUNTERS Encounter Location Date Diagnosis [facility] [address] [facility] [id number] [place] [address] Aug, Dental infection K04.7 [facility] [address] [facility] [id number] [place] [address] Jun, [facility] [address] [facility] [id number] [place] [address] Mar, Migraine, unspecified, not intractable, without status migrainosus G43.909 [facility] [id number] [place] [address] Jan, Jaw pain R68.84 [facility] [address] [address] Aug, Infection of skin L08.9 and Tattoo reaction L92.3 [facility] [address] [address] Aug, Influenza B J10.1 [facility] [address] [place] [address] May, Sore throat J02.9 and Bronchitis J40 [facility] [address] [id number] May, Dental examination Z01.20 and Dental caries K02.9 [facility] [address] [address] May, Other fatigue R53.83 [facility] [address] [address] Mar, Shoulder injury, left, initial encounter S49.92XA [facility] [address] [address] Dec, [facility] [address] [address] 14 Sep, 2014 [facility] [address] [address] Sep, [facility] [address] [address] Mar, [facility] [address] [address] Mar, [facility] [address] [address] Nov, [facility] [address] [facility] [id number] [place] [address] Feb, [facility] [place] [facility] [address] [facility] [id number] [place] [address] Jan, [facility] [place] [facility] [id number] [place] [address] Sep, [facility] [place] [facility] [address] [facility] [id number] [place] [address] Aug, [facility] [place] [facility] [address] [facility] [id number] [place] [address] Aug, [facility] [place] [facility] [address] [facility] [id number] [place] [address] Aug, [facility] [id number] [place] [address] Aug, [facility] [place] [facility] [address] [facility] [id number] [place] [address] 27 Jul, 2011 [facility] [place] [facility] [id number] [place] [address] Jul, [facility] [place] [facility] [id number] [place] [address] Jul, [facility] [place] [facility] [address]65[address] [address] Jul, [facility] [place] [facility] [address] [facility] [id number] [place] [address] Jul, [facility] [place] [facility] [id number] [place] [address] 17 Jul, 2011 [facility] [place] [facility] [address] [facility] [id number] [place] [address] 16 Jul, 2011 [facility] [place] [facility] [address] [address] 15 Jul, 2011 [facility] [place] [facility] [address] [id number] [address] Jul, [facility] [address] [address] Jul, [facility] [id number] [address] Jul, [facility] [address]65[address] [address] Jul, [facility] [address] [address] Jul, [facility] [address] [address] Jun, [facility] [address] [place] [address] Jun, [facility] [address] [address] Jun, [facility] [address] [address] May, [facility] [address] [id number] [address] May, IMMUNIZATIONS No Known Immunizations SOCIAL HISTORY Never Assessed REASON FOR VISIT flu symptoms Pt c/o fever and cough along with body aches and sore throat. Advised Pt no need for antibiotics for flu, advised best course of treatment is rest and fluids. Pt agreed did not need to see provider for her current symptoms. JOHN Oliveros PLAN OF CARE VITAL SIGNS MEDICATIONS Medication Instructions Dosage Frequency Start Date End Date Duration Status EPINEPHrine 0.3 MG/0.3ML Injection PRN Not-Taking Famotidine 40 MG Orally Once a day 1 tablet 24h Not-Taking Zofran 4 MG Orally 3 times a day 1 tablet 8h Jan, Not-Taking Albuterol Sulfate (2.5 MG/3ML) 0.083% Inhalation Three times a day 3 ml 8h Aug, 30 days Not-Taking Albuterol Sulfate (2.5 MG/3ML) 0.083% Inhalation Three times a day 3 ml 8h May, Not-Taking DeVilbiss Reusable Nebulizer 1 by inhalation route 3 times a day as directed 8h May, Not-Taking Albuterol Sulfate HFA 108 (90 Base) MCG/ACT Inhalation every 4 hrs 2 puffs as needed 4h Not-Taking RESULTS No Results PROCEDURES No Known [...]
--- OUTSIDE RECORDS SUMMARY | 2018-02-25 09:33 | XMS REPORT ---
Author Author ERIBERTO FONTENOT Organization [facility] Address [address] [place] [address] Care Team Providers Care Floor Runner Name Role Phone ERIBERTO FONTENOT Unavailable PROBLEMS Type Condition ICD9-CM Code KCY83-SD Code Onset Dates Condition Status SNOMED Code Problem 35-36 completed weeks of gestation 765.28 Active 50672405 Problem Previous delivery, unspecified as to episode of care or not applicable 654.20 Active 363743014 Problem Cellulitis and abscess of trunk 682.2 Active 629148242 Problem Migraine, unspecified, not intractable, without status migrainosus G43.909 Active 74942932 Problem Hemiplegic migraine without status migrainosus, not intractable G43.409 Active 61245107 Problem Other acute postoperative pain 338.18 Active 213564256349250 Problem Other chronic pain 338.29 Active 78403270 Problem Mild intermittent asthma with acute exacerbation J45.21 Active 264345184 Problem Hypoglycemia, unspecified 251.2 Active 531727917 Problem Screening examination for venereal disease V74.5 Active 445903083 Problem Other, multiple, and unspecified sites, insect bite, nonvenomous, infected 919.5 Active 250856411 Problem Other postprocedural status V45.89 Active 43178382 Problem Screening for unspecified malignant neoplasm V76.9 Active 45766073 Problem Rash and other nonspecific skin eruption 782.1 Active 418491834 ALLERGIES Substance Reaction Event Type Date Status Sulfacetamide Sodium Blisters (Antibiotic) Drug Allergy Jan, Active Risperidone Unknown Drug Allergy Jan, Active Polymyxin B Sulfate Blisters Drug Allergy Jan, Active Neosporin Unknown Drug Allergy Jan, Active Bacitracin Zinc Blisters Drug Allergy Jan, Active Peas Throat swells Non Drug Allergy Jan, Active Green beans Throat swells Non Drug Allergy Jan, Active ENCOUNTERS Encounter Location Date Diagnosis [facility] [address] [address] Aug, Dental infection K04.7 [facility] [address] [place] [address] Jun, [facility] [address] [place] [address] Mar, Migraine, unspecified, not intractable, without status migrainosus G43.909 [facility] [address] [place] [address] Jan, Jaw pain R68.84 [facility] [address] [place] [address] Aug, Infection of skin L08.9 and Tattoo reaction L92.3 [facility] [address] [place] [address] Aug, Influenza B J10.1 [facility] [address] [place] [address] May, Sore throat J02.9 and Bronchitis J40 [facility] [address] [id number] May, Dental examination Z01.20 and Dental caries K02.9 [facility] [address] [place] [address] May, Other fatigue R53.83 [facility] [address] [place] [address] Mar, Shoulder injury, left, initial encounter S49.92XA [address] [address] Dec, [place] [address] [address] 14 Sep, [address] [address] Sep, [facility] [address] [id number] [place] [address] Mar, [facility] [place] [facility] [address] [id number] [place] [address] Mar, [facility] [place] [facility] [address] [id number] [place] [address] Nov, [facility] [place] [facility] [address] [id number] [place] [address] Feb, [facility] [address] [id number] [place] [address] Jan, [facility] [place] [facility] [address] [id number] [place] [address] Sep, [facility] [address] [id number] [place] [address] Aug, [facility] [address] [id number] [place] [address] Aug, [facility] [place] [facility] [address] [id number] [place] [address] Aug, [facility] [address] [id number] [place] [address] Aug, [facility] [place] [facility] [address] [id number] [place] [address] Jul, [facility] [place] [facility] [address] [id number] [place] [address] Jul, [facility] [place] [facility] [address] [id number] [place] [address] Jul, [facility] [place] [facility] [address] [id number] [place] [address] Jul, [facility] [place] [facility] [address] [id number] [place] [address] Jul, [facility] [place] [facility] [id number] [address] Jul, 2011 [facility] [id number] [address] 16 Jul, 2011 [facility] [id number] [address] 15 Jul, 2011 [facility] [id number] [address] Jul, [facility] [id number] [place] [address] Jul, [facility] [address] [place] [id number] [place] [address] Jul, [facility] [id number] [address] Jul, [facility] [id number] [place] [address] Jul, [facility] [id number] [address] Jun, [facility] [id number] [address] Jun, [facility] [id number] [address] Jun, [facility] [id number] [address] May, [facility] [address] [place] [id number] [address] May, IMMUNIZATIONS No Known Immunizations SOCIAL HISTORY Never Assessed REASON FOR VISIT Flipped over handle bars a few weeks ago- has a broken tooth that is infected Gayatri PLAN OF CARE VITAL SIGNS Height 67 in 2017-02-02 Weight 271.2 lbs 2017-02-02 Temperature 98.2 degrees Fahrenheit 2017-02-02 Heart Rate 92 bpm 2017-02-02 Respiratory Rate 2017-02-02 BMI 42.47 kg/m2 2017-02-02 Blood pressure systolic 118 mmHg 2017-02-02 Blood pressure diastolic 80 mmHg 2017-02-02 MEDICATIONS Medication Instructions Dosage Frequency Start Date End Date Duration Status Nabumetone 500 MG Orally Twice a day 1 tablet 12h Jan, Feb, 30 day(s) Active Amoxicillin 500 MG Orally every 12 hrs 1 capsule 12h Jan, Feb, 10 day(s) Active Zofran 4 MG Orally 3 times a day 1 tablet 8h Jan, Active RESULTS No Results PROCEDURES No Known procedures [...]
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
[2018-02-25] MEDS ORDERED: fentaNYL INJECTION 100 MCG/2 ML AMP IM ONE (09:45)
[2018-02-25] MEDS ORDERED: KETOROLAC 30 MG/ML VIAL IM ONE (09:45)
[2018-02-25] MEDS ORDERED: LIDOCAINE 2% VISCOUS 15 ML UDC PO ONE (09:45)
[2018-02-25] MEDS ORDERED: CLINDAMYCIN 150 MG (CLEOCIN) CAP PO ONE (10:00)
[2018-02-25] MEDS ORDERED: BUPIVACAINE 0.5% 30 ML (SENSORCAINE) VIAL INJ ONE (10:15)
[2018-02-25] MEDS ORDERED: LIDOCAINE 2% 20 ML (XYLOCAINE) VIAL INJ ONE (10:15)
[2018-02-25] MEDS ORDERED: CLIN300C11 PO (10:42)
[2018-02-25] MEDS ORDERED: HYDR-3812 PO (10:42)
--- NOTE | 2018-02-25 10:42 | ED EENT ---
History of Present Illness General Chief Complaint: Dental Problems/Pain Stated Complaint: SWELLING IN MOUTH Nursing Triage Note: PT TO ROOM 5 PT STATES HAD TOOTH UPPER L MOUTH BREAK OFF YESTERDAY. HAS SEVERE PAIN 10/10 IN TOOTH AREA AND FACE Source: patient Exam Limitations: no limitations History of Present Illness Date Seen by Provider: Feb 25, 2018 Time Seen by Provider: 09:33 Initial Comments This 42-year-old woman presents to the emergency room in distress due to left upper dental pain. Pain has been worsening over the last 24 hours. She has an eroded tooth with exposed root. She has an appointment with a dentist for extraction but her pain will not allow her to wait until that appointment for treatment. She has tried Tylenol and ibuprofen without much benefit. They have also tried some topical fjdh-bqy-danxbms products without improvement. She is afebrile. Allergies and Home Medications Allergies Coded Allergies: Bacitracin Zinc (Unverified Allergy, Unknown, 11/25/15) BLISTERS Sulfa (Sulfonamide Antibiotics) (Verified Allergy, Unknown, 11/25/15) bacitracin (Unverified Allergy, Unknown, 11/25/15) BLISTERS neomycin sulfate (Unverified Allergy, Unknown, 11/25/15) BLISTERS polymyxin B (Unverified Allergy, Unknown, 11/25/15) BLISTERS risperidone (Verified Allergy, Unknown, 11/25/15) Uncoded Allergies: GREEN BEANS (Allergy, Unknown, 12/13/13) THROAT SWELLS PEAS (Allergy, Unknown, 12/13/13) THROAT SWELLS Home Medications Albuterol Sulfate 8.5 Gm Hfa.aer.ad, 2 PUFF IH Q4H PRN for SHORTNESS OF BREATH Prescribed by: PATRIZIA KELLEY on 09/17/151944 Clindamycin HCl 300 Mg Capsule, 300 MG PO QID Prescribed by: MANA MIX on 02/25/18 1042 Hydrocodone Bit/Acetaminophen 1 Ea Tablet, 1 EACH PO Q6H Prescribed by: ANKUR RINCON on 02/26/18 1530 Hydrocodone/Acetaminophen 1 Each Tablet, 1 EACH PO Q6H PRN for PAIN-MODERATE Prescribed by: MANA MIX on 02/25/18 1042 Patient Home Medication List Home Medication List Reviewed: Yes Review of Systems Review of Systems Constitutional: no symptoms reported Eyes: No Symptoms Reported Ears: No Symptoms Reported Nose: no symptoms reported Mouth: see HPI Throat: no symptoms reported Respiratory: no symptoms reported Cardiovascular: no symptoms reported Gastrointestinal: no symptoms reported : No Musculoskeletal: no symptoms reported Skin: no symptoms reported Neurological: No Symptoms Reported Hematologic/Lymphatic: No Symptoms Reported Past Bllzrju-Oahgkk-Cjpfxt Hx Patient Social History Alcohol Use: Denies Use Recreational Drug Use: No Smoking Status: Current Everyday Smoker Type Used: Cigarettes 2nd Hand Smoke Exposure: No Recent Foreign Travel: No Contact w/Someone Who Travel: No Recent Infectious Disease Expo: No Recent Hopitalizations: No Physical Abuse: No Sexual Abuse: No Immunizations Up To Date Tetanus Booster (TDap): Less than 5yrs Date of Influenza Vaccine: Mar 13, 2013 Seasonal Allergies Seasonal Allergies: No Past Medical History Surgeries: Yes (PITUITARY TUMOR, X 2, BACK SURGERY, LEFT ELBOW X 2, BMT'S ) Abdominal, Adenoidectomy, Section, Ear Surgery, Neurological, Orthopedic, Pituitary, Tonsillectomy Respiratory: Yes Asthma Cardiac: No Neurological: Yes (PITUITARY TUMOR) Reproductive Disorders: Yes (MULTIPLE MISCARRIAGES, DIAG LAP SURGERIES X2) Sexually Transmitted Disease: No HIV/AIDS: No Genitourinary: Yes Renal Failure, UTI-Chronic Gastrointestinal: Yes ("PARTIAL BOWEL BLOCKAGE FOR OVER 10 YEARS" PER PT. ) Gastroesophageal Reflux, Chronic Constipation Musculoskeletal: Yes Chronic Back Pain, Fractures Endocrine: Yes (HYPOGLYCEMIA, PITUITARY TUMOR, MORBID OBESITY) Pituitary Disease HEENT: Yes Chronic Ear Infection, Tonsilitis Cancer: No Psychosocial: Yes (EXTENSIVE PSYCH ISSUES) Anxiety, Depression Integumentary: No Blood Disorders: Yes (ANEMIA) Family Medical History No Pertinent Family Hx Physical Exam Vital Signs Vital Signs - First Documented 02/25/18 09:30 Temp 97.5 Pulse 107 Resp 18 B/P (MAP) 140/103 (115) Pulse Ox 96 Height, Weight, BMI Height: 5'7.00" Weight: 250lbs. 9.0oz. 113.405899qw; 39.15 BMI Method:Stated General Appearance: WD/WN, no apparent distress Eyes: bilateral eye normal inspection, bilateral eye PERRL, bilateral eye EOMI Ears: bilateral ear auricle normal, bilateral ear canal normal, bilateral ear TM normal Nose: normal inspection Mouth/Throat: pharynx normal, dental tenderness, other (There is a severely eroded molar on the upper left with inflammation and edema surrounding the exposed root. 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 Approximately 3 mL of 50 percent bupivacaine and 50 percent lidocaine was injected with excellent results. Progress/Results/Core Measures Results/Orders My Orders Medications Given in ED Vital Signs/I&O Blood Pressure Mean: 115 Progress Progress Note : Progress Note Patient was given a Toradol injection but still had severe pain. Anesthetic gauze pads were provided and a nerve block was offered. Patient accepted the nerve block which was administered with excellent results. Patient was started on clindamycin. An oral dose of 450 mg was given in the ER. Departure Impression Primary Impression: Dental decay Additional Impressions: Pain, dental Periodontal disease Disposition: HOME, SELF-CARE Condition: Improved Departure-Patient Inst. Decision time for Depature: 10:37 Referrals: [facility] [place] Primary Care Physician Patient Instructions: Dental Pain (DC) Add. Discharge Instructions: Follow-up with the dentist as soon as possible and pursue extraction of the remaining root. You may use ibuprofen up to 600 mg every 6 hours as needed for primary pain control. Add hydrocodone as prescribed for pain not controlled by ibuprofen. You may use the anesthetic gauze pads for topical pain relief. These gauze pads may numb your cheek, tongue, and throat. Eat and drink very cautiously after use. DO NOT FALL ASLEEP WITH GAUZE PADS IN YOUR MOUTH. Return to care if you have worsening symptoms. Complete your antibiotics as prescribed. All discharge instructions reviewed with patient and/or family. Voiced understanding. Scripts Hydrocodone/Acetaminophen (Hydrocodone-Acetamin 5-325 mg) 1 Each Tablet 1 EACH PO Q6H PRN for PAIN-MODERATE, #10 TAB Prov: MANA RAMON MD 02/25/18 Clindamycin HCl (Clindamycin HCl) 300 Mg Capsule 300 MG PO QID, #56 CAP Prov: MANA RAMON MD 02/25/18 Copy Copies To 1: LAYNE SENA JOSHUA T MD Feb 25, 2018 10:42
[2018-02-25 10:49] VITALS: BP 140/103
[2018-02-26] MEDS ORDERED: HYDR-34 PO (15:30)
== END 2018-02-25 10:48 | disposition home or self-care (01) ==
LOC: EDUNIT# 09:26 → ER 09:27
DX: K02.9 Dental caries, unspecified (principal); K04.7 Periapical abscess without sinus; J45.909 Unspecified asthma, uncomplicated; K21.9 Gastro-esophageal reflux disease without esophagitis; F41.9 Anxiety disorder, unspecified; F32.9 Major depressive disorder, single episode, unspecified; E66.01 Morbid (severe) obesity due to excess calories; D64.9 Anemia, unspecified; F17.210 Nicotine dependence, cigarettes, uncomplicated; Z98.890 Other specified postprocedural states; Z87.440 Personal history of urinary (tract) infections; Z90.89 Acquired absence of other organs; Z88.1 Allergy status to other antibiotic agents; Z88.0 Allergy status to penicillin; Z88.2 Allergy status to sulfonamides; Z88.8 Allergy status to other drugs, medicaments and biological substances; Z79.51 Long term (current) use of inhaled steroids
CPT/HCPCS: 96372; 99284

== ENCOUNTER 2018-02-26 12:27 | Emergency (ER) | payer MEDICAID ==
[~2018-02-26] VITALS: Ht 170.2 cm; Wt 113.4 kg
[~2018-02-26 12:27] MED LIST changes: +CLIN300C11 PO; +HYDR-3812 PO
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
[2018-02-26] MEDS ORDERED: HYDROcodone/APAP 7.5 MG/325 MG (LORTAB, LORCET PLUS) TABLET PO STA (15:05)
[2018-02-26] MEDS ORDERED: KETOROLAC 60 MG/2 ML VIAL IM STA (15:05)
[2018-02-26] MEDS ORDERED: LIDOCAINE 2% VISCOUS 15 ML UDC PO ONE (15:15)
[2018-02-26] MEDS ORDERED: cefTRIAXone 1 GM/10 ML for IV (ROCEPHIN) IM ONE (15:15)
[2018-02-26] MEDS ORDERED: LIDOCAINE 1% INJ 20 ML 20 ML VIAL INJ ONE (15:15)
[2018-02-26] MEDS ORDERED: HYDR-34 PO (15:30)
--- NOTE | 2018-02-26 15:30 | ED EENT ---
History of Present Illness General Chief Complaint: Dental Problems/Pain Stated Complaint: FACE SWELLING,ONE SIDE DROOPING,DENTAL PROBLEMS Nursing Triage Note: Pt states she fell up stairs two days ago and broke a tooth off on L side of mouth. Pt states was seen at ED yesterday for broken tooth and pain. Pt states pain is worse today and swelling began this morning. Pt plans to see dentist tomorrow. Pt c/o not being able to eat or drink and is concerned about hypoglycemia. Pt has no visible bruising or abrasion to cheek. Pt's L side of face is swollen. Source: patient, family Exam Limitations: no limitations History of Present Illness Date Seen by Provider: Feb 26, 2018 Time Seen by Provider: 15:00 Initial Comments Here with worsening pain to the left upper jaw where she has poor dentition. Seen yesterday and started on clindamycin and hydrocodone. States that the pain is not really getting better. She has not tried any ibuprofen with that. She is about out of hydrocodone. She does see the dentist tomorrow morning. Patient and her significant other both report that the swelling has increased. Denies nausea or vomiting. She is able to take fluids. Does report the gauze swabs with lidocaine were helping but she is out of that as well. Timing/Duration: gradual Severity: moderate Location: facial, dental Prearrival Treatment: prescription meds Associated Symptoms: facial pain/swelling; No fever, No poor fluid intake; poor solids intake; No sore throat; tooth pain Allergies and Home Medications Allergies Coded Allergies: Bacitracin Zinc (Unverified Allergy, Unknown, 11/25/15) BLISTERS Sulfa (Sulfonamide Antibiotics) (Verified Allergy, Unknown, 11/25/15) bacitracin (Unverified Allergy, Unknown, 11/25/15) BLISTERS neomycin sulfate (Unverified Allergy, Unknown, 11/25/15) BLISTERS polymyxin B (Unverified Allergy, Unknown, 11/25/15) BLISTERS risperidone (Verified Allergy, Unknown, 11/25/15) Uncoded Allergies: GREEN BEANS (Allergy, Unknown, 12/13/13) THROAT SWELLS PEAS (Allergy, Unknown, 12/13/13) THROAT SWELLS Home Medications Albuterol Sulfate 8.5 Gm Hfa.aer.ad, 2 PUFF IH Q4H PRN for SHORTNESS OF BREATH Prescribed by: PATRIZIA KELLEY on 09/17/151944 Clindamycin HCl 300 Mg Capsule, 300 MG PO QID Prescribed by: MANA MIX on 02/25/18 104 Hydrocodone/Acetaminophen 1 Each Tablet, 1 EACH PO Q6H PRN for PAIN-MODERATE Prescribed by: MANA MIX on 02/25/18 1042 Patient Home Medication List Home Medication List Reviewed: Yes Review of Systems Review of Systems Constitutional: see HPI; No chills, No fever Eyes: No Symptoms Reported Ears: No Symptoms Reported Nose: no symptoms reported Mouth: see HPI, pain, swelling Throat: no symptoms reported Respiratory: no symptoms reported All Other Systems Reviewed Negative Unless Noted: Yes Past Dfwbckx-Nublar-Rowgve Hx Past Med/Social Hx: Reviewed Nursing Past Med/Soc Hx Patient Social History Alcohol Use: Denies Use Recreational Drug Use: No Smoking Status: Current Everyday Smoker Type Used: Cigarettes 2nd Hand Smoke Exposure: No Recent Foreign Travel: No Contact w/Someone Who Travel: No Recent Infectious Disease Expo: No Recent Hopitalizations: No Physical Abuse: No Sexual Abuse: No Immunizations Up To Date Tetanus Booster (TDap): Less than 5yrs Date of Influenza Vaccine: Mar 13, 2013 Seasonal Allergies Seasonal Allergies: No Past Medical History Surgeries: Yes (PITUITARY TUMOR, X 2, BACK SURGERY, LEFT ELBOW X 2, BMT'S ) Abdominal, Adenoidectomy, Section, Ear Surgery, Neurological, Orthopedic, Pituitary, Tonsillectomy Respiratory: Yes Asthma Cardiac: No Neurological: Yes (PITUITARY TUMOR) Reproductive Disorders: Yes (MULTIPLE MISCARRIAGES, DIAG LAP SURGERIES X2) Sexually Transmitted Disease: No HIV/AIDS: No Genitourinary: Yes Renal Failure, UTI-Chronic Gastrointestinal: Yes ("PARTIAL BOWEL BLOCKAGE FOR OVER 10 YEARS" PER PT. ) Gastroesophageal Reflux, Chronic Constipation Musculoskeletal: Yes Chronic Back Pain, Fractures Endocrine: Yes (HYPOGLYCEMIA, PITUITARY TUMOR, MORBID OBESITY) Pituitary Disease HEENT: Yes Chronic Ear Infection, Tonsilitis Cancer: No Psychosocial: Yes (EXTENSIVE PSYCH ISSUES) Anxiety, Depression Integumentary: No Blood Disorders: Yes (ANEMIA) Family Medical History Reviewed Nursing Family Hx No Pertinent Family Hx Physical Exam Vital Signs Vital Signs - First Documented 02/26/18 14:29 Temp 98.2 Pulse 105 Resp 19 B/P (MAP) 129/69 (89) Pulse Ox 97 O2 Delivery Room Air Height, Weight, BMI Height: 5'7.00" Weight: 250lbs. 9.0oz. [id number]; 39.15 BMI Method:Stated General Appearance: WD/WN, no apparent distress Mouth/Throat: pharynx normal, dental tenderness, maxillary swelling (left upper ); No pharynx swelling, No pharynx tenderness, No trismus, No uvula swelling, No voice changes; other (poor dentition overall with 2 teeth in the molar area on the left upper that are eroded down to the gumline with surrounding erythema and swelling but without obvious abscess area currently.) Neck: full range of motion, supple Cardiovascular: regular rate, rhythm, no murmur Respiratory: lungs clear, normal breath sounds Gastrointestinal: non tender, soft Neurologic/Psychiatric: alert, oriented x 3 Skin: warm/dry, other (mild redness to the left cheek area near the area of tooth infection) Progress/Results/Core Measures Results/Orders My Orders Orders - ANKUR RINCON MD Ceftriaxone For Iv Use (Rocephin For I (02/26/18 15:15) Hydrocodone/Apap 7.5/325 Tab (Lortab 7. (02/26/18 15:05) Ketorolac Injection (Toradol Injection) (02/26/18 15:05) Lidocaine 1% Inj 20 Ml (Xylocaine 1% Inj (02/26/18 15:15) Lidocaine 2% Viscous 15 Ml (Xylocaine Vi (02/26/18 15:15) Vital Signs/I&O 02/26/18 14:29 Temp 98.2 Pulse 105 Resp 19 B/P (MAP) 129/69 (89) Pulse Ox 97 O2 Delivery Room Air Blood Pressure Mean: 89 Progress Progress Note : Progress Note Seen and evaluated. We will give Rocephin 1 g IV due to significance of pain and swelling per report. She is continuing clindamycin. She does have dental appointment in the morning. Toradol 60 mg IM and hydrocodone 7.5 mg by mouth given. We will give more viscous lidocaine soaked gauze. Discharged home with return precautions. Patient verbalize understanding instructions and agreement with plan. Departure Impression Primary Impression: Dental caries extending into dentine Additional Impression: Infected dental caries Disposition: 01 HOME, SELF-CARE Condition: Stable Departure-Patient Inst. Decision time for Depature: 15:28 Referrals: [facility] (PCP/Family) Primary Care Physician Patient Instructions: Tooth Decay, Adult (DC), Tooth Abscess (DC) Add. Discharge Instructions: All discharge instructions reviewed with patient and/or family. Voiced understanding. Take medications as directed. You may take ibuprofen 800 mg every 8 hours as needed for pain as well. Drink plenty of fluids. Ensure that you're getting some sort or nutrition such as nutrition shakes. Follow-up with the dentist tomorrow scheduled. You may use lidocaine soaked gauze 1 gauze to the area of concern every 1-2 hours. Try not to swallow the medication if possible. Return for worse pain, swelling, weakness, breathing problems or other concerns as needed. Scripts Hydrocodone Bit/Acetaminophen (LORTAB 7.5 MG TABLET) 1 Ea Tablet 1 EACH PO Q6H, #10 TAB 0 Refills Prov: ANKUR RINCON MD 02/26/18 ANKUR RINCON MD Feb 26, 2018 15:30
[2018-02-26 15:38] VITALS: BP 126/70
== END 2018-02-26 15:38 | disposition home or self-care (01) ==
LOC: EDUNIT# 12:27 → ER 12:28
DX: K02.9 Dental caries, unspecified (principal); K04.7 Periapical abscess without sinus; K21.9 Gastro-esophageal reflux disease without esophagitis; E66.01 Morbid (severe) obesity due to excess calories; F41.9 Anxiety disorder, unspecified; F32.9 Major depressive disorder, single episode, unspecified; D64.9 Anemia, unspecified; J45.909 Unspecified asthma, uncomplicated; F17.210 Nicotine dependence, cigarettes, uncomplicated; Z88.0 Allergy status to penicillin; Z88.2 Allergy status to sulfonamides; Z68.39 Body mass index [BMI] 39.0-39.9, adult; Z98.890 Other specified postprocedural states; Z90.89 Acquired absence of other organs; Z87.59 Personal history of other complications of pregnancy, childbirth and the puerperium; Z87.440 Personal history of urinary (tract) infections; Z87.19 Personal history of other diseases of the digestive system; Z88.1 Allergy status to other antibiotic agents; Z88.8 Allergy status to other drugs, medicaments and biological substances; Z79.51 Long term (current) use of inhaled steroids
CPT/HCPCS: 96372; 99283

== ENCOUNTER 2018-04-30 13:33 | Emergency (ER) | payer MEDICAID ==
[~2018-04-30] VITALS: Ht 170.2 cm; Wt 113.4 kg
[~2018-04-30 13:33] MED LIST changes: +HYDR-34 PO
[2018-04-30] MEDS ORDERED: IBUPROFEN 800 MG (MOTRIN) TAB PO STA (14:04)
[2018-04-30] MEDS ORDERED: AMOX500C2 PO (14:15)
[2018-04-30] MEDS ORDERED: IBUP-1780 PO (14:15)
[2018-04-30] MEDS ORDERED: LIDOCAINE 2% VISCOUS 15 ML UDC PO ONE (14:15)
--- NOTE | 2018-04-30 14:15 | ED EENT ---
History of Present Illness General Chief Complaint: Dental Problems/Pain Stated Complaint: HEAD/MOUTH PAIN, TOOTH BROKE IN HALF Nursing Triage Note: PATIENT AMBULATORY TO ER WITH FAMILY MEMBERS COMPLAINING OF PAIN TO LOWER RIGHT TOOTH/JAW AREA. PATIENT STATES THIS PAIN BEGAN TWO DAYS AGO AFTER A TOOTH BROKE WHILE EATING SUPPER. PATIENT HAS EXTENSIVE DENTAL DECAY PRESENT. PATIENT TOOK IBUPROFEN LAST NIGHT AROUND 19:30 PM. SHE HAS NO DENTAL APPOINTMENT SCHEDULED. History of Present Illness Date Seen by Provider: Apr 30, 2018 Time Seen by Provider: 14:00 Initial Comments 43-year-old female presents for right lower dental pain. She has multiple teeth that are broken, decayed or with significant dental caries. She took ibuprofen 400 mg last evening with minimal relief in her pain. She does not have a dentist regional as scheduled. Timing/Duration: yesterday Location: dental Prearrival Treatment: no prearrival treatment Associated Symptoms: denies symptoms Allergies and Home Medications Allergies Coded Allergies: Bacitracin Zinc (Unverified Allergy, Unknown, 11/25/15) BLISTERS Sulfa (Sulfonamide Antibiotics) (Verified Allergy, Unknown, 11/25/15) bacitracin (Unverified Allergy, Unknown, 11/25/15) BLISTERS neomycin sulfate (Unverified Allergy, Unknown, 11/25/15) BLISTERS polymyxin B (Unverified Allergy, Unknown, 11/25/15) BLISTERS risperidone (Verified Allergy, Unknown, 11/25/15) Uncoded Allergies: GREEN BEANS (Allergy, Unknown, 12/13/13) THROAT SWELLS PEAS (Allergy, Unknown, 12/13/13) THROAT SWELLS Home Medications Albuterol Sulfate 8.5 Gm Hfa.aer.ad, 2 PUFF IH Q4H PRN for SHORTNESS OF BREATH Prescribed by: PATRIZIA KELLEY on 09/17/15 194 Amoxicillin 500 Mg Capsule, 500 MG PO Q8H Prescribed by: HSAWN WILEY on 04/30/18 1415 Clindamycin HCl 300 Mg Capsule, 300 MG PO QID Prescribed by: MANA MIX on 02/25/18 1042 Hydrocodone Bit/Acetaminophen 1 Ea Tablet, 1 EACH PO Q6H Prescribed by: ANKUR RINCON on 02/26/18 1530 Hydrocodone/Acetaminophen 1 Each Tablet, 1 EACH PO Q6H PRN for PAIN-MODERATE Prescribed by: MANA MIX on 02/25/18 1042 Ibuprofen 800 Mg Tablet, 800 MG PO Q8H PRN for PAIN Prescribed by: SHAWN WILEY on 04/30/18 1415 Patient Home Medication List Home Medication List Reviewed: Yes Review of Systems Review of Systems Constitutional: no symptoms reported, see HPI Mouth: see HPI, loose teeth, pain All Other Systems Reviewed Negative Unless Noted: Yes Past Gysgqzc-Ctkfpj-Hxfhez Hx Past Med/Social Hx: Reviewed Nursing Past Med/Soc Hx Patient Social History Alcohol Use: Denies Use Recreational Drug Use: No (SMOKES 1/2 PPD) Smoking Status: Current Everyday Smoker Type Used: Cigarettes 2nd Hand Smoke Exposure: No Recent Foreign Travel: No Contact w/Someone Who Travel: No Recent Infectious Disease Expo: No Recent Hopitalizations: No Physical Abuse: No Sexual Abuse: No Fear: No Immunizations Up To Date Tetanus Booster (TDap): Less than 5yrs Date of Influenza Vaccine: Mar 13, 2013 Seasonal Allergies Seasonal Allergies: No Past Medical History Surgeries: Yes (PITUITARY TUMOR, X 2, BACK SURGERY, LEFT ELBOW X 2, BMT'S ) Abdominal, Adenoidectomy, Section, Ear Surgery, Neurological, Orthopedic, Pituitary, Tonsillectomy Respiratory: Yes Asthma Cardiac: No Neurological: Yes (PITUITARY TUMOR) Reproductive Disorders: Yes (MULTIPLE MISCARRIAGES, DIAG LAP SURGERIES X2) Sexually Transmitted Disease: No HIV/AIDS: No Genitourinary: Yes Renal Failure, UTI-Chronic Gastrointestinal: Yes ("PARTIAL BOWEL BLOCKAGE FOR OVER 10 YEARS" PER PT. ) Gastroesophageal Reflux, Chronic Constipation Musculoskeletal: Yes Chronic Back Pain, Fractures Endocrine: Yes (HYPOGLYCEMIA, PITUITARY TUMOR, MORBID OBESITY) Pituitary Disease HEENT: Yes Chronic Ear Infection, Tonsilitis Cancer: No Psychosocial: Yes (EXTENSIVE PSYCH ISSUES) Anxiety, Depression Integumentary: No Blood Disorders: Yes (ANEMIA) Family Medical History No Pertinent Family Hx Physical Exam Vital Signs Vital Signs - First Documented 04/30/18 04/30/18 13:47 14:29 Temp 98.6 Pulse 112 Resp 18 B/P (MAP) 141/89 (106) Pulse Ox 98 O2 Delivery Room Air Height, Weight, BMI Height: 5'7.00" Weight: 250lbs. 9.0oz. 113.011021vt; 39.15 BMI Method:Stated General Appearance: WD/WN, no apparent distress Mouth/Throat: pharynx normal, dental tenderness (with multiple teeth missing and significant dental decay on remaining teeth, painful right lower molars, gingival inflammation noted), mandibular swelling, maxillary swelling; No uvula swelling, No voice changes Neck: non-tender, full range of motion, supple, normal inspection; No lymphadenopathy (R), No lymphadenopathy (L) Cardiovascular: normal peripheral pulses, regular rate, rhythm Respiratory: chest non-tender, lungs clear, normal breath sounds Neurologic/Psychiatric: no motor/sensory deficits, alert, normal mood/affect, oriented x 3 Progress/Results/Core Measures Results/Orders My Orders Orders - SHAWN WILEY Ibuprofen Tablet (Motrin Tablet) (04/30/18 14:04) Vital Signs/I&O 04/30/18 04/30/18 13:47 14:29 Temp 98.6 98.6 Pulse 112 112 Resp 18 18 B/P (MAP) 141/89 (106) 141/89 (106) Pulse Ox 98 O2 Delivery Room Air Room Air Blood Pressure Mean: 106 Departure Impression Primary Impression: Pain, dental Additional Impression: Tooth fracture Qualified Codes: S02.5XXA - Fracture of tooth (traumatic), initial encounter for closed fracture Disposition: HOME, SELF-CARE Condition: Improved Departure-Patient Inst. Decision time for Depature: 14:15 Referrals: [facility] (PCP/Family) Primary Care Physician Patient Instructions: Fractured Tooth (DC), Dental Pain (DC) Add. Discharge Instructions: Use Tylenol 650 mg alternating with ibuprofen 800 mg every 4 hours for pain. Warm moist compresses to right cheek. Take antibiotic as prescribed. Follow-up at [facility]. Return to emergency department for new, urgent health care needs. All discharge instructions reviewed with patient and/or family. Voiced understanding. Scripts Amoxicillin (Amoxicillin) 500 Mg Capsule 500 MG PO Q8H, #21 CAP 0 Refills Prov: SHAWN WILEY 04/30/18 Ibuprofen (Ibuprofen) 800 Mg Tablet 800 MG PO Q8H PRN for PAIN, #30 TAB 0 Refills Prov: SHAWN WILEY 04/30/18 SHAWN WILEY Apr 30, 2018 14:15
[2018-04-30 14:29] VITALS: BP 141/89
== END 2018-04-30 14:29 | disposition home or self-care (01) ==
LOC: EDUNIT# 13:33 → ER 13:34
DX: S02.5XXA Fracture of tooth (traumatic), initial encounter for closed fracture (principal); K21.9 Gastro-esophageal reflux disease without esophagitis; E66.01 Morbid (severe) obesity due to excess calories; F41.9 Anxiety disorder, unspecified; F32.9 Major depressive disorder, single episode, unspecified; F64.9 Gender identity disorder, unspecified; F17.210 Nicotine dependence, cigarettes, uncomplicated; Z98.890 Other specified postprocedural states; Z68.39 Body mass index [BMI] 39.0-39.9, adult; Z90.89 Acquired absence of other organs; Z87.440 Personal history of urinary (tract) infections; Z86.018 Personal history of other benign neoplasm; Z87.59 Personal history of other complications of pregnancy, childbirth and the puerperium; Z88.0 Allergy status to penicillin; Z88.2 Allergy status to sulfonamides; Z88.1 Allergy status to other antibiotic agents; Z88.8 Allergy status to other drugs, medicaments and biological substances; Z79.51 Long term (current) use of inhaled steroids; X58.XXXA Exposure to other specified factors, initial encounter
CPT/HCPCS: 99283

== ENCOUNTER 2018-06-21 17:55 | Emergency (ER) | payer MEDICAID ==
[~2018-06-21] VITALS: Ht 170.2 cm; Wt 127.0 kg
[~2018-06-21 17:55] MED LIST changes: +AMOX500C2 PO; +IBUP-1780 PO
[2018-06-21] MEDS ORDERED: ACYC800T (18:03)
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
[2018-06-21] MEDS ORDERED: ACETAMINOPHEN 325 MG TABLET PO STA (18:23)
[2018-06-21] MEDS ORDERED: DEXAMETHASONE 10 MG/ML (DECADRON) 1 ML VIAL IV ONE (18:30)
[2018-06-21 19:03] LABS: HEMATOCRIT 37 % (35-52); HEMOGLOBIN 11.3 G/DL (11.5-16.0); MEAN CORPUSCULAR HEMOGLOBIN 24 PG (25-34); MEAN CORPUSCULAR HGB CONC 31 G/DL (32-36); MEAN CORPUSCULAR VOLUME 77 FL (80-99); PLATELET COUNT 360 10^3/uL (130-400); RED BLOOD COUNT 4.78 10^6/uL (4.35-5.85); RED CELL DISTRIBUTION WIDTH 18.2 % (10.0-14.5); WHITE BLOOD COUNT 9.8 10^3/uL (4.3-11.0)
[2018-06-21 19:04] LABS: BASOPHILS % (AUTO) 0 % (0-10); EOSINOPHILS # (AUTO) 0.2 10^3/uL (0.0-0.3); EOSINOPHILS % (AUTO) 2 % (0-10); LYMPHOCYTES # (AUTO) 1.3 X 10^3 (1.0-4.0); LYMPHOCYTES % (AUTO) 14 % (12-44); MEAN PLATELET VOLUME 9.4 FL (7.4-10.4); MONOCYTES # (AUTO) 0.5 X 10^3 (0.0-1.0); MONOCYTES % (AUTO) 6 % (0-12); NEUTROPHILS # (AUTO) 7.8 X 10^3 (1.8-7.8); NEUTROPHILS % (AUTO) 79 % (42-75)
[2018-06-21 19:24] LABS: ALANINE AMINOTRANSFERASE 23 U/L (0-55); ALBUMIN 3.8 GM/DL (3.2-4.5); ALKALINE PHOSPHATASE 122 U/L (40-136); BILIRUBIN,TOTAL 0.2 MG/DL (0.1-1.0); BUN/CREATININE RATIO 9; CALCIUM 9.1 MG/DL (8.5-10.1); CARBON DIOXIDE 26 MMOL/L (21-32); CHLORIDE 105 MMOL/L (98-107); CREATININE SERUM 0.66 MG/DL (0.60-1.30); GFR ESTIMATED > 60; GLUCOSE 114 MG/DL (70-105); POTASSIUM 3.8 MMOL/L (3.6-5.0); SODIUM 139 MMOL/L (135-145)
--- NOTE | 2018-06-21 19:25 | ED EENT ---
History of Present Illness General Chief Complaint: Oral/Throat Problems Stated Complaint: THROAT PAIN Nursing Triage Note: COMPLAINS OF THROAT PAIN FOR 1 WEEK. STATES SHE HAS BEEN TO THE WALK IN CLINIC TWICE. WAS PUT ON TWO DIFFERENT MEDICATIONS BUT STATES SHE IS NOT BETTER. WAS PUT ON ACYCLOVIR AND MAGIC MOUTH WASH. History of Present Illness Date Seen by Provider: Jun 21, 2018 Time Seen by Provider: 18:05 Initial Comments 43-year-old female presents for sore throat. She states that is part progressively gotten worse over the last week. She's been treated with antiviral and Magic mouthwash with little improvement. She did take ibuprofen prior to arrival but no other pain medications. She has been able to eat and drink but with discomfort. Timing/Duration: last week Severity: moderate Location: throat Prearrival Treatment: over the counter meds, prescription meds Associated Symptoms: No cough, No fever, No malaise; sore throat Allergies and Home Medications Allergies Coded Allergies: Bacitracin Zinc (Unverified Allergy, Unknown, 11/25/15) BLISTERS Sulfa (Sulfonamide Antibiotics) (Verified Allergy, Unknown, 11/25/15) bacitracin (Unverified Allergy, Unknown, 11/25/15) BLISTERS neomycin sulfate (Unverified Allergy, Unknown, 11/25/15) BLISTERS polymyxin B (Unverified Allergy, Unknown, 11/25/15) BLISTERS risperidone (Verified Allergy, Unknown, 11/25/15) Uncoded Allergies: GREEN BEANS (Allergy, Unknown, 12/13/13) THROAT SWELLS PEAS (Allergy, Unknown, 12/13/13) THROAT SWELLS Home Medications Albuterol Sulfate 8.5 Gm Hfa.aer.ad, 2 PUFF IH Q4H PRN for SHORTNESS OF BREATH Prescribed by: PATRIZIA KELLEY on 09/17/151944 Patient Home Medication List Home Medication List Reviewed: Yes Review of Systems Review of Systems Constitutional: no symptoms reported, see HPI Throat: see HPI, pain All Other Systems Reviewed Negative Unless Noted: Yes Past Cneplop-Wvfrve-Pflsmp Hx Past Med/Social Hx: Reviewed Nursing Past Med/Soc Hx Patient Social History Alcohol Use: Denies Use Recreational Drug Use: No Smoking Status: Current Everyday Smoker Type Used: Cigarettes 2nd Hand Smoke Exposure: No Recent Foreign Travel: No Contact w/Someone Who Travel: No Recent Infectious Disease Expo: No Recent Hopitalizations: No Immunizations Up To Date Tetanus Booster (TDap): Less than 5yrs Date of Influenza Vaccine: Mar 13, 2013 Seasonal Allergies Seasonal Allergies: No Past Medical History Surgeries: Yes (PITUITARY TUMOR, X 2, BACK SURGERY, LEFT ELBOW X 2, BMT'S ) Abdominal, Adenoidectomy, Section, Ear Surgery, Neurological, Orthopedic, Pituitary, Tonsillectomy Respiratory: Yes Asthma Cardiac: No Neurological: Yes (PITUITARY TUMOR) Reproductive Disorders: Yes (MULTIPLE MISCARRIAGES, DIAG LAP SURGERIES X2) Sexually Transmitted Disease: No HIV/AIDS: No Genitourinary: Yes Renal Failure, UTI-Chronic Gastrointestinal: Yes ("PARTIAL BOWEL BLOCKAGE FOR OVER 10 YEARS" PER PT. ) Gastroesophageal Reflux, Chronic Constipation Musculoskeletal: Yes Chronic Back Pain, Fractures Endocrine: Yes (HYPOGLYCEMIA, PITUITARY TUMOR, MORBID OBESITY) Pituitary Disease HEENT: Yes Chronic Ear Infection, Tonsilitis Cancer: No Psychosocial: Yes (EXTENSIVE PSYCH ISSUES) Anxiety, Depression Integumentary: No Blood Disorders: Yes (ANEMIA) Family Medical History No Pertinent Family Hx Physical Exam Vital Signs Vital Signs - First Documented 06/21/18 06/21/18 17:58 19:34 Temp 98.8 Pulse 105 Resp 16 B/P (MAP) 120/88 (99) Pulse Ox 96 O2 Delivery Room Air Height, Weight, BMI Height: 5'7.00" Weight: 280lbs. 9.0oz. 127.052428nk; 39.15 BMI Method:Stated General Appearance: WD/WN, no apparent distress Eyes: bilateral eye normal inspection, bilateral eye PERRL, bilateral eye EOMI Ears: bilateral ear auricle normal, bilateral ear canal normal, bilateral ear TM normal Nose: normal inspection; No active bleeding, No discharge Mouth/Throat: normal mouth inspection, pharynx normal (no erythema, previous tonsillectomy, no exudate, or lesions noted. Airway patent with no inflammation) ; No uvula swelling; voice changes (hoarse) Neck: non-tender, full range of motion, supple; No lymphadenopathy (R), No lymphadenopathy (L), No thyromegaly Cardiovascular: normal peripheral pulses, regular rate, rhythm Respiratory: chest non-tender, lungs clear, normal breath sounds Gastrointestinal: normal bowel sounds, non tender, soft Neurologic/Psychiatric: no motor/sensory deficits, alert, normal mood/affect, oriented x 3 Skin: normal color, warm/dry Progress/Results/Core Measures Results/Orders Lab Results Laboratory Tests Test 06/21/18 18:35 06/21/18 18:56 Range/Units Group A Streptococcus Screen NEGATIVE NEGATIVE White Blood Count 9.8 4.3-11.0 10^3/uL Red Blood Count 4.78 4.35-5.85 10^6/uL Hemoglobin 11.3 L 11.5-16.0 G/DL Hematocrit 37 35-52 % Mean Corpuscular Volume 77 L 80-99 FL Mean Corpuscular Hemoglobin 24 L 25-34 PG Mean Corpuscular Hemoglobin Concent 31 L 32-36 G/DL Red Cell Distribution Width 18.2 H 10.0-14.5 % Platelet Count 360 130-400 10^3/uL Mean Platelet Volume 9.4 7.4-10.4 FL Neutrophils (%) (Auto) 79 H 42-75 % Lymphocytes (%) (Auto) 14 12-44 % Monocytes (%) (Auto) 6 0-12 % Eosinophils (%) (Auto) 2 0-10 % Basophils (%) (Auto) 0 0-10 % Neutrophils # (Auto) 7.8 1.8-7.8 X 10^3 Lymphocytes # (Auto) 1.3 1.0-4.0 X 10^3 Monocytes # (Auto) 0.5 0.0-1.0 X 10^3 Eosinophils # (Auto) 0.2 0.0-0.3 10^3/uL Basophils # (Auto) 0.0 0.0-0.1 10^3/uL Sodium Level 139 135-145 MMOL/L Potassium Level 3.8 3.6-5.0 MMOL/L Chloride Level 105 98-107 MMOL/L Carbon Dioxide Level 26 21-32 MMOL/L Anion Gap 8 5-14 MMOL/L Blood Urea Nitrogen 6 L 7-18 MG/DL Creatinine 0.66 0.60-1.30 MG/DL Estimat Glomerular Filtration Rate > 60 BUN/Creatinine Ratio 9 Glucose Level 114 H 70-105 MG/DL Calcium Level 9.1 8.5-10.1 MG/DL Corrected Calcium 9.3 8.5-10.1 MG/DL Total Bilirubin 0.2 0.1-1.0 MG/DL Aspartate Amino Transf (AST/SGOT) 22 5-34 U/L Alanine Aminotransferase (ALT/SGPT) 23 0-55 U/L Alkaline Phosphatase 122 40-136 U/L Total Protein 7.0 6.4-8.2 GM/DL Albumin 3.8 3.2-4.5 GM/DL Micro Results Microbiology 06/21/18 Influenza Types A,B Antigen (JOSE) - Final, Complete My Orders Orders - SHAWN WILEY Cbc With Automated Diff (06/21/18 18:23) Comprehensive Metabolic Panel (06/21/18 18:23) Rapid Strep A Screen (06/21/18 18:23) Acetaminophen Tablet/Caplet (Tylenol T (06/21/18 18:23) Influenza A And B Antigens (06/21/18 18:23) Dexamethasone Injection (Decadron Inject (06/21/18 18:30) Medications Given in ED Current Medications Medications Dose Ordered Sig/Miriam Route Start Time Stop Time Status Last Admin Dose Admin Dexamethasone Sodium Phosphate 10 mg ONCE ONCE IV 06/21/18 18:30 06/21/18 18:31 DC 06/21/18 18:31 10 MG Vital Signs/I&O 06/21/18 06/21/18 17:58 19:34 Temp 98.8 98.8 Pulse 105 99 Resp 16 16 B/P (MAP) 120/88 (99) Pulse Ox 96 96 O2 Delivery Room Air Room Air Departure Impression Primary Impression: Pharyngitis Qualified Codes: J02.9 - Acute pharyngitis, unspecified Disposition: 01 HOME, SELF-CARE Condition: Improved Departure-Patient Inst. Decision time for Depature: 19:20 Referrals: [facility]/K (PCP/Family) Primary Care Physician Patient Instructions: Viral Pharyngitis (DC) Add. Discharge Instructions: Salt water gargles every 2 hours warm water. Alternate between Tylenol 650 mg and ibuprofen 600 mg every 4 hours for pain. Continue taking the acyclovir as prescribed. Follow-up at [facility] if symptoms are not improving or worsen. Use your albuterol nebulized breathing treatment every 4 hours. Return to emergency department for fever greater than 101 not relieved by Tylenol and ibuprofen, difficulty breathing or new problems. All discharge instructions reviewed with patient and/or family. Voiced understanding. SHAWN WILEY Jun 21, 2018 19:25
[2018-06-21 19:34] VITALS: BP 120/88
== END 2018-06-21 19:34 | disposition home or self-care (01) ==
LOC: EDUNIT# 17:55 → ER 17:56
DX: J02.9 Acute pharyngitis, unspecified (principal); J45.909 Unspecified asthma, uncomplicated; K21.9 Gastro-esophageal reflux disease without esophagitis; E66.01 Morbid (severe) obesity due to excess calories; F41.9 Anxiety disorder, unspecified; F32.9 Major depressive disorder, single episode, unspecified; D64.9 Anemia, unspecified; Z68.39 Body mass index [BMI] 39.0-39.9, adult; Z87.19 Personal history of other diseases of the digestive system; Z87.448 Personal history of other diseases of urinary system; Z87.440 Personal history of urinary (tract) infections; Z88.2 Allergy status to sulfonamides; Z88.8 Allergy status to other drugs, medicaments and biological substances; Z88.1 Allergy status to other antibiotic agents; Z79.51 Long term (current) use of inhaled steroids; Z98.890 Other specified postprocedural states; Z90.89 Acquired absence of other organs
CPT/HCPCS: 36415; 80053; 85025; 87430; 87804; 96372

== ENCOUNTER → 2018-08-11 | Outpatient (CLI) | payer MEDICAID ==
[~2018-08-11] MED LIST changes: +ACYC800T
--- NOTE | 2018-08-11 16:53 | Diagnostic Imaging Report ---
PROCEDURE: CT chest without contrast. TECHNIQUE: Multiple contiguous axial images were obtained through the chest without the use of intravenous contrast. DATE: August 11, 2018. COMPARISON: Chest radiograph, December 26, 2015. CT chest December 13, 2013. INDICATION: 43-year-old female, cough. Followup pulmonary nodule. PROCEDURE: Axial noncontrasted CT images of the chest. Noncontrasted limits the evaluation of the mediastinum and vascular structures. FINDINGS: There is a 2 mm high attenuation right upper lobe pulmonary nodule on axial image 20 which is likely calcified and likely a benign calcified granuloma. This is unchanged since December 2013. This is consistent with benign etiology. There is a 7 mm left lower lobe pulmonary nodule on axial image 21 which is also unchanged since 2014 consistent with benign etiology. There is no new or enlarging pulmonary nodule. There is no focal airspace consolidation. There is no pneumothorax. There is no pleural effusion. The central airways are patent. The heart is not enlarged. There is no identified pericardial effusion. There is no identified abnormally enlarged mediastinal or axillary lymph node which meets CT size criteria for adenopathy. There is a low-attenuation right adrenal nodule on axial image 51 which measures 2.1 cm in size with internal attenuation of -16 Hounsfield units. This is consistent with a benign right adrenal adenoma. Additional evaluation of the imaged portions of the upper abdomen is grossly unremarkable. There are degenerative changes of the spine. There is no identified acute bony abnormality. IMPRESSION: 1. Pulmonary nodules stable since 2013 consistent with benign etiology. 2. No acute cardiopulmonary abnormality. 3. Benign right adrenal adenoma. Dictated by: Dictated on workstation # [id number]
== END ==
LOC: RAD 10:48
PROVIDERS: ATTEND Pediatrics
DX: D35.01 Benign neoplasm of right adrenal gland (principal); R91.8 Other nonspecific abnormal finding of lung field
CPT/HCPCS: 71250

== ENCOUNTER 2018-11-03 18:37 | Emergency (ER) | payer MEDICAID ==
[~2018-11-03] VITALS: Ht 170.2 cm; Wt 113.4 kg
[2018-11-03] MEDS ORDERED: AMOX500C2 PO (20:18)
--- NOTE | 2018-11-03 20:19 | ED EENT ---
History of Present Illness General Chief Complaint: Facial Problems Stated Complaint: DENTAL PAIN Nursing Triage Note: PATIENT CRYING LOUDLY AND INCOHERENTLY. SIGNIFICANT OTHER STATES THAT SHE WOKE UP THIS MORNING IN SEVERE PAIN AND STATED THAT THE LEFT SIDE OF HER FACE HURT FOR NO KNOWN REASON. History of Present Illness Date Seen by Provider: November 03, 2018 Time Seen by Provider: 19:45 Initial Comments 43-year-old female presents for left dental pain. Timing/Duration: intermittent, this morning Location: dental Prearrival Treatment: over the counter meds Associated Symptoms: denies symptoms Allergies and Home Medications Allergies Coded Allergies: Bacitracin Zinc (Unverified Allergy, Unknown, 11/25/15) BLISTERS Sulfa (Sulfonamide Antibiotics) (Verified Allergy, Unknown, 11/25/15) bacitracin (Unverified Allergy, Unknown, 11/25/15) BLISTERS neomycin sulfate (Unverified Allergy, Unknown, 11/25/15) BLISTERS polymyxin B (Unverified Allergy, Unknown, 11/25/15) BLISTERS risperidone (Verified Allergy, Unknown, 11/25/15) Uncoded Allergies: GREEN BEANS (Allergy, Unknown, 12/13/13) THROAT SWELLS PEAS (Allergy, Unknown, 12/13/13) THROAT SWELLS Home Medications Albuterol Sulfate 8.5 Gm Hfa.aer.ad, 2 PUFF IH Q4H PRN for SHORTNESS OF BREATH Prescribed by: PATRIZIA KELLEY on 09/17/151944 Amoxicillin 500 Mg Capsule, 500 MG PO TID Prescribed by: SHAWN WILEY on 11/03/182017 Patient Home Medication List Home Medication List Reviewed: Yes Review of Systems Review of Systems Constitutional: no symptoms reported, see HPI Mouth: see HPI, pain (left upper dental) All Other Systems Reviewed Negative Unless Noted: Yes Past Vueieih-Phdmxv-Zxgmmv Hx Past Med/Social Hx: Reviewed Nursing Past Med/Soc Hx Patient Social History Type Used: Cigarettes 2nd Hand Smoke Exposure: No Recent Foreign Travel: No Contact w/Someone Who Travel: No Recent Infectious Disease Expo: No Recent Hopitalizations: No Immunizations Up To Date Tetanus Booster (TDap): Less than 5yrs Date of Influenza Vaccine: Mar 13, 2013 Seasonal Allergies Seasonal Allergies: No Past Medical History Surgeries: Yes (PITUITARY TUMOR, X 2, BACK SURGERY, LEFT ELBOW X 2, BMT'S ) Abdominal, Adenoidectomy, Section, Ear Surgery, Neurological, Orthopedic, Pituitary, Tonsillectomy Respiratory: Yes Asthma Cardiac: No Neurological: Yes (PITUITARY TUMOR) Reproductive Disorders: Yes (MULTIPLE MISCARRIAGES, DIAG LAP SURGERIES X2) Sexually Transmitted Disease: No HIV/AIDS: No Genitourinary: Yes Renal Failure, UTI-Chronic Gastrointestinal: Yes ("PARTIAL BOWEL BLOCKAGE FOR OVER 10 YEARS" PER PT. ) Gastroesophageal Reflux, Chronic Constipation Musculoskeletal: Yes Chronic Back Pain, Fractures Endocrine: Yes (HYPOGLYCEMIA, PITUITARY TUMOR, MORBID OBESITY) Pituitary Disease HEENT: Yes Chronic Ear Infection, Tonsilitis Cancer: No Psychosocial: Yes (EXTENSIVE PSYCH ISSUES) Anxiety, Depression Integumentary: No Blood Disorders: Yes (ANEMIA) Family Medical History No Pertinent Family Hx Physical Exam Vital Signs Vital Signs - First Documented 11/03/18 20:22 Pulse 81 Resp 20 B/P (MAP) 169/89 (115) Pulse Ox 99 Height, Weight, BMI Height: 5'7.00" Weight: 250lbs. 0oz. 113.588897gm; 39.15 BMI Method:Stated General Appearance: WD/WN, no apparent distress Ears: bilateral ear auricle normal, bilateral ear canal normal, bilateral ear TM normal Nose: normal inspection; No discharge Mouth/Throat: pharynx normal, dental tenderness (left upper and lower); No excessive drooling, No mandibular swelling, No maxillary swelling, No pharynx swelling, No pharynx tenderness, No tonsillar swelling Neck: non-tender, full range of motion, supple, normal inspection, lymphadenopathy (L) Cardiovascular: normal peripheral pulses, regular rate, rhythm Respiratory: chest non-tender, lungs clear, normal breath sounds Gastrointestinal: normal bowel sounds, non tender, soft Neurologic/Psychiatric: no motor/sensory deficits, alert, normal mood/affect, oriented x 3 Progress/Results/Core Measures Results/Orders Vital Signs/I&O 11/03/18 11/03/18 19:16 20:22 Pulse 81 Resp 20 B/P (MAP) 169/89 (115) Pulse Ox 99 Departure Impression Primary Impression: Dental decay Additional Impression: Pain, dental Disposition: 01 HOME, SELF-CARE Condition: Improved Departure-Patient Inst. Decision time for Depature: 20:10 Referrals: JONATHAN MUÑOZ MD (PCP/Family) Primary Care Physician Patient Instructions: Tooth Decay, Adult (DC), Dental Pain (DC) Add. Discharge Instructions: Alternate between heat and ice to left cheek. Alternate between ibuprofen 600 mg and Tylenol 650 mg every 4 hours for pain. Take antibiotic as prescribed. Use xftl-pys-tyzdhjm dental pain products such as Orajel as needed. Schedule follow-up appointment with Dentist at [facility] on Tuesday. Return to emergency department for new, urgent health care needs. All discharge instructions reviewed with patient and/or family. Voiced understanding. Scripts Amoxicillin (Amoxicillin) 500 Mg Capsule 500 MG PO TID, #21 CAP 0 Refills Prov: SHAWN WILEY 11/03/18 SHAWN WILEY November 03, 2018 20:19
[2018-11-03 20:22] VITALS: BP 169/89
== END 2018-11-03 20:22 | disposition home or self-care (01) ==
LOC: EDUNIT# 18:37 → ER 18:39
DX: K04.7 Periapical abscess without sinus (principal); J45.909 Unspecified asthma, uncomplicated; K21.9 Gastro-esophageal reflux disease without esophagitis; E66.01 Morbid (severe) obesity due to excess calories; F41.9 Anxiety disorder, unspecified; F32.9 Major depressive disorder, single episode, unspecified; D64.9 Anemia, unspecified; Z68.39 Body mass index [BMI] 39.0-39.9, adult; Z87.19 Personal history of other diseases of the digestive system; Z87.440 Personal history of urinary (tract) infections; Z87.59 Personal history of other complications of pregnancy, childbirth and the puerperium; Z88.1 Allergy status to other antibiotic agents; Z88.2 Allergy status to sulfonamides; Z88.8 Allergy status to other drugs, medicaments and biological substances; Z98.890 Other specified postprocedural states; Z90.89 Acquired absence of other organs
CPT/HCPCS: 99283

== ENCOUNTER → 2019-02-08 | Emergency (ER) | payer MEDICAID ==
[~2019-02-08] VITALS: Ht 170.2 cm; Wt 121.1 kg
[2019-02-08 16:59] VITALS: BP 142/78
== END | disposition left against medical advice (07) ==
LOC: EDUNIT# 16:33 → ER 16:34
DX: S80.862A Insect bite (nonvenomous), left lower leg, initial encounter (principal); R11.2 Nausea with vomiting, unspecified; R53.1 Weakness; J45.909 Unspecified asthma, uncomplicated; K21.9 Gastro-esophageal reflux disease without esophagitis; E66.01 Morbid (severe) obesity due to excess calories; F41.9 Anxiety disorder, unspecified; F32.9 Major depressive disorder, single episode, unspecified; F17.210 Nicotine dependence, cigarettes, uncomplicated; Z68.41 Body mass index [BMI] 40.0-44.9, adult; Z87.19 Personal history of other diseases of the digestive system; Z87.440 Personal history of urinary (tract) infections; Z86.018 Personal history of other benign neoplasm; W57.XXXA Bitten or stung by nonvenomous insect and other nonvenomous arthropods, initial encounter
CPT/HCPCS: 99281

== ENCOUNTER 2019-04-10 18:04 | Emergency (ER) | payer MEDICAID ==
[~2019-04-10] VITALS: Ht 170.1 cm; Wt 113.6 kg
[2019-04-10] MEDS ORDERED: HYDROcodone/APAP 5 MG/325 MG (LORTAB) TAB PO ONE (18:45)
--- NOTE | 2019-04-10 18:59 | Diagnostic Imaging Report ---
PROCEDURE: CT lumbar spine without contrast. TECHNIQUE: Multiple contiguous axial images were obtained through the lumbar spine without the use of intravenous contrast. Sagittal and coronal reformations were then performed. Auto Exposure Controls were utilized during the CT exam to meet ALARA standards for radiation dose reduction. INDICATION: Fall with low back pain. FINDINGS: Curvature of the lumbar spine is normal. There is anterolisthesis of L4 on L5. There are postop changes of posterior instrumented fusion with vertical stabilization rods and pedicle screws transfixing the L3-L4 level. The hardware appears to be intact. No fracture or loosening is identified. Vertebral body heights are well maintained. No acute bony abnormality is detected. Paraspinous tissues are unremarkable. IMPRESSION: Postop changes of L3-L4 posterior instrumented fusion. No complicating features are seen. No acute bony abnormality is detected. Dictated by: Dictated on workstation # [id number]
--- NOTE | 2019-04-10 19:04 | ED Back Pain ---
General Chief Complaint: Back Problems Stated Complaint: FALL/LOWER BACK AND R LEG PAIN Nursing Triage Note: WAS GETTING ON A BED THIS MORNING WHEN IT COLLAPSED, NOW HAS BACK AND R HIP PAIN Nursing Sepsis Screen: No Definite Risk Source of Information: Patient Exam Limitations: No Limitations History of Present Illness Date Seen by Provider: Apr 10, 2019 Time Seen by Provider: 18:35 Initial Comments 44-year-old female who presents to the emergency room with complaints of low back pain. She reports that she was sitting on a bed this morning when the bed and collapsed causing her to have low back pain. She reports that she has history of back fusion is concerned that something has shifted or broken due to her pain. Denies loss of bowel or bladder, saddle paresthesia. Location: Lumbar Spine Timing/Duration: 12 Hours Associated Symptoms: lower back pain Allergies and Home Medications Allergies Coded Allergies: Bacitracin Zinc (Unverified Allergy, Unknown, 11/25/15) BLISTERS Sulfa (Sulfonamide Antibiotics) (Verified Allergy, Unknown, 11/25/15) bacitracin (Unverified Allergy, Unknown, 11/25/15) BLISTERS neomycin sulfate (Unverified Allergy, Unknown, 11/25/15) BLISTERS polymyxin B (Unverified Allergy, Unknown, 11/25/15) BLISTERS risperidone (Verified Allergy, Unknown, 11/25/15) Uncoded Allergies: GREEN BEANS (Allergy, Unknown, 12/13/13) THROAT SWELLS PEAS (Allergy, Unknown, 12/13/13) THROAT SWELLS Home Medications Albuterol Sulfate 8.5 Gm Hfa.aer.ad, 2 PUFF IH Q4H PRN for SHORTNESS OF BREATH Prescribed by: PATRIZIA KELLEY on 09/17/151944 Patient Home Medication List Home Medication List Reviewed: Yes Review of Systems Constitutional: see HPI; No chills, No fever Musculoskeletal: see HPI, back pain All Other Systems Reviewed Negative Unless Noted: Yes Past Ssisdni-Jgrssx-Gfktjd Hx Past Med/Social Hx: Reviewed Nursing Past Med/Soc Hx Patient Social History Alcohol Use: Denies Use Recreational Drug Use: No Smoking Status: Current Everyday Smoker Type Used: Cigarettes 2nd Hand Smoke Exposure: Yes Recent Foreign Travel: No Contact w/Someone Who Travel: No Recent Infectious Disease Expo: No Recent Hopitalizations: No Immunizations Up To Date Tetanus Booster (TDap): Less than 5yrs Date of Influenza Vaccine: Mar 13, 2013 Seasonal Allergies Seasonal Allergies: No Past Medical History Surgeries: Yes (PITUITARY TUMOR, X 2, BACK SURGERY, LEFT ELBOW X 2, BMT'S ) Abdominal, Adenoidectomy, Section, Ear Surgery, Neurological, Orthopedic, Pituitary, Tonsillectomy Respiratory: Yes Asthma Cardiac: No Neurological: Yes (PITUITARY TUMOR) Reproductive Disorders: Yes (MULTIPLE MISCARRIAGES, DIAG LAP SURGERIES X2) Sexually Transmitted Disease: No HIV/AIDS: No Genitourinary: Yes Renal Failure, UTI-Chronic Gastrointestinal: Yes ("PARTIAL BOWEL BLOCKAGE FOR OVER 10 YEARS" PER PT. ) Gastroesophageal Reflux, Chronic Constipation Musculoskeletal: Yes Chronic Back Pain, Fractures Endocrine: Yes (HYPOGLYCEMIA, PITUITARY TUMOR, MORBID OBESITY) Pituitary Disease HEENT: Yes Chronic Ear Infection, Tonsilitis Cancer: No Psychosocial: Yes (EXTENSIVE PSYCH ISSUES) Anxiety, Depression Integumentary: No Blood Disorders: Yes (ANEMIA) Family Medical History Reviewed Nursing Family Hx No Pertinent Family Hx Physical Exam Vital Signs Vital Signs - First Documented 04/10/19 04/10/19 18:14 19:08 Temp 36.5 Pulse 98 Resp 18 B/P (MAP) 114/80 (91) Pulse Ox 98 O2 Delivery Room Air Capillary Refill : Less Than 3 Seconds Height, Weight, BMI Height: 5'7.00" Weight: 267lbs. 0oz. 121.748461tn; 39.00 BMI Method:Actual General Appearance: No Apparent Distress, WD/WN Cardiovascular: Regular Rate, Rhythm, No Edema, No Gallop, No JVD, No Murmur, Normal Peripheral Pulses Respiratory: Chest Non Tender, Lungs Clear, Normal Breath Sounds, No Accessory Muscle Use, No Respiratory Distress, Accessory Muscle Use Gastrointestinal: Normal Bowel Sounds, No Organomegaly, No Pulsatile Mass, Non Tender, Soft Back: Vertebral Tenderness (lumbar) Neurologic/Psychiatric: Alert, Oriented x3, Normal Mood/Affect Skin: Normal Color, Warm/Dry Progress/Results/Core Measures Results/Orders My Orders Orders - DIAN JACKSON Ct Lumbar Spine Wo (04/10/19 18:35) Hydrocodone/Apap 5/325 Tablet (Lortab 5 (04/10/19 18:45) Medications Given in ED Current Medications Medications Dose Ordered Sig/Miriam Route Start Time Stop Time Status Last Admin Dose Admin Acetaminophen/ Hydrocodone Bitart 1 tab ONCE ONCE PO 04/10/19 18:45 04/10/19 18:46 DC 04/10/19 19:08 1 TAB Vital Signs/I&O 04/10/19 04/10/19 18:14 19:08 Temp 36.5 36.5 Pulse 98 98 Resp 18 18 B/P (MAP) 114/80 (91) 114/80 (91) Pulse Ox 98 O2 Delivery Room Air Blood Pressure Mean: 91 POS Departure Impression Primary Impression: Lumbar sprain Disposition: HOME, SELF-CARE Condition: Stable/Unchanged Departure-Patient Inst. Decision time for Depature: 19:02 Referrals: JONATHAN MUÑOZ MD (PCP/Family) Primary Care Physician Patient Instructions: Lumbar Muscle Strain (DC) Add. Discharge Instructions: You may use ibuprofen and Tylenol as directed by the bottle for pain relief. All alternate ice to sore areas at 20 minute intervals. You may use dlwg-lpn-[id number] lidocaine patches. Return back to the emergency room for worsening symptoms or concerns as needed. Discharge instructions reviewed with patient and/or family. Voiced understanding. DIAN JACKSON Apr 10, 2019 19:03 POS
[2019-04-10 19:08] VITALS: BP 114/80
== END 2019-04-10 19:09 | disposition home or self-care (01) ==
LOC: EDUNIT# 18:04 → ER 18:05
DX: S33.5XXA Sprain of ligaments of lumbar spine, initial encounter (principal); J45.909 Unspecified asthma, uncomplicated; F41.9 Anxiety disorder, unspecified; F32.9 Major depressive disorder, single episode, unspecified; D64.9 Anemia, unspecified; K21.9 Gastro-esophageal reflux disease without esophagitis; E66.01 Morbid (severe) obesity due to excess calories; F17.210 Nicotine dependence, cigarettes, uncomplicated; Z90.89 Acquired absence of other organs; Z98.1 Arthrodesis status; Z88.2 Allergy status to sulfonamides; Z88.1 Allergy status to other antibiotic agents; Z88.8 Allergy status to other drugs, medicaments and biological substances; Z87.440 Personal history of urinary (tract) infections; Z68.39 Body mass index [BMI] 39.0-39.9, adult; W06.XXXA Fall from bed, initial encounter
CPT/HCPCS: 72131

== ENCOUNTER 2019-05-03 18:19 | Emergency (ER) | payer MEDICAID ==
[~2019-05-03] VITALS: Ht 170 cm; Wt 113.3 kg
--- NOTE | 2019-05-03 19:15 | ED Cough/URI ---
General Chief Complaint: Cough/Cold/Flu Symptoms Stated Complaint: VOMITING/COUGH Nursing Triage Note: has had a cold for a few days, has had coughing and a lot of phlegm, also has had c/o vomiting Sepsis Screen: No Definite Risk Source: patient, family Exam Limitations: no limitations History of Present Illness Date Seen by Provider: May 03, 2019 Time Seen by Provider: 19:15 Initial Comments Patient states she has been out of her asthma medications for several months due to losing her insurance. Allergies and Home Medications Allergies Coded Allergies: Bacitracin Zinc (Unverified Allergy, Unknown, 11/25/15) BLISTERS Sulfa (Sulfonamide Antibiotics) (Verified Allergy, Unknown, 11/25/15) bacitracin (Unverified Allergy, Unknown, 11/25/15) BLISTERS neomycin sulfate (Unverified Allergy, Unknown, 11/25/15) BLISTERS polymyxin B (Unverified Allergy, Unknown, 11/25/15) BLISTERS risperidone (Verified Allergy, Unknown, 11/25/15) Uncoded Allergies: GREEN BEANS (Allergy, Unknown, 12/13/13) THROAT SWELLS PEAS (Allergy, Unknown, 12/13/13) THROAT SWELLS Home Medications Albuterol Sulfate 8.5 Gm Hfa.aer.ad, 2 PUFF IH Q4H PRN for SHORTNESS OF BREATH Prescribed by: PATRIZIA KELLEY on 09/17/151944 Past Vhzkuye-Ptnvcr-Mjqqap Hx Patient Social History Alcohol Use: Denies Use Recreational Drug Use: No (SMOKES 1/2 PPD) Smoking Status: Current Everyday Smoker Type Used: Cigarettes 2nd Hand Smoke Exposure: Yes Recent Foreign Travel: No Contact w/Someone Who Travel: No Recent Infectious Disease Expo: No Recent Hopitalizations: No Immunizations Up To Date Tetanus Booster (TDap): Less than 5yrs Date of Influenza Vaccine: Mar 13, 2013 Seasonal Allergies Seasonal Allergies: No Past Medical History Surgeries: Yes (PITUITARY TUMOR, X 2, BACK SURGERY, LEFT ELBOW X 2, BMT'S ) Abdominal, Adenoidectomy, Section, Ear Surgery, Neurological, Orthopedic, Pituitary, Tonsillectomy Respiratory: Yes Asthma Cardiac: No Neurological: Yes (PITUITARY TUMOR) Reproductive Disorders: Yes (MULTIPLE MISCARRIAGES, DIAG LAP SURGERIES X2) Sexually Transmitted Disease: No HIV/AIDS: No Genitourinary: Yes Renal Failure, UTI-Chronic Gastrointestinal: Yes ("PARTIAL BOWEL BLOCKAGE FOR OVER 10 YEARS" PER PT. ) Gastroesophageal Reflux, Chronic Constipation Musculoskeletal: Yes Chronic Back Pain, Fractures Endocrine: Yes (HYPOGLYCEMIA, PITUITARY TUMOR, MORBID OBESITY) Pituitary Disease HEENT: Yes Chronic Ear Infection, Tonsilitis Cancer: No Psychosocial: Yes (EXTENSIVE PSYCH ISSUES) Anxiety, Depression Integumentary: No Blood Disorders: Yes (ANEMIA) Family Medical History No Pertinent Family Hx Physical Exam Vital Signs - First Documented 05/03/19 05/03/19 18:22 20:10 Temp 36.5 Pulse 102 Resp 18 B/P (MAP) 133/89 (104) Pulse Ox 96 O2 Delivery Room Air Capillary Refill : Less Than 3 Seconds Height: 5'7.00" Weight: 267lbs. 0oz. 121.741287tg; 39.00 BMI Method:Actual Progress/Results/Core Measures Suspected Sepsis Recent Fever Within 48 Hours: No Infection Criteria Present: Suspected New Infection New/Unexplained Altered Menta: No Sepsis Screen: No Definite Risk SIRS Temperature: Pulse: 102 Respiratory Rate: 18 Blood Pressure 133 /89 Mean: 104 Results/Orders My Orders Orders - PATRIZIA KELLEY PA Chest Pa/Lat (2 View) (05/03/19 19:22) Albuterol/Ipra Inhalation Soln (Duoneb I (05/03/19 19:30) Svn Small Volume Nebulizer (05/03/19 19:22) Medications Given in ED Current Medications Medications Dose Ordered Sig/Miriam Route Start Time Stop Time Status Last Admin Dose Admin Albuterol/ Ipratropium 3 ml ONCE ONCE INH 05/03/19 19:30 05/03/19 19:31 DC 05/03/19 20:10 3 ML Vital Signs/I&O 05/03/19 05/03/19 18:22 20:10 Temp 36.5 Pulse 102 Resp 18 B/P (MAP) 133/89 (104) Pulse Ox 96 O2 Delivery Room Air Capillary Refill : Less Than 3 Seconds Blood Pressure Mean: 104 POS Diagnostic Imaging Diagonstic Imaging: Xray Plain Films/CT/US/NM/MRI: chest Comments POSDate of Exam:05/03/19 CHEST PA/LAT (2 VIEW) INDICATION: Cold for a few days now with cough.. TECHNIQUE: Two view chest 7:32 PM CORRELATION STUDY: 04/24/2017 FINDINGS: The heart size, mediastinal configuration and pulmonary vasculature are within normal limits. The lungs are clear with no consolidating infiltrate. There is no significant pleural effusion or pneumothorax. Visualized osseous structures are unremarkable. IMPRESSION: 1. Negative for acute abnormality of the chest. Dictated on workstation # [id number] Reviewed: Reviewed by Me (radiology report reviewed by me) Departure Impression Primary Impression: Acute bronchitis with asthma with acute exacerbation Disposition: HOME, SELF-CARE Condition: Improved Departure-Patient Inst. Decision time for Depature: 20:24 Referrals: JONATHAN MUÑOZ MD (PCP/Family) Primary Care Physician Patient Instructions: Acute Bronchitis, Adult (DC) Add. Discharge Instructions: All discharge instructions reviewed with patient and/or family. Voiced understanding. Medications as instructed. Tylenol tluf-lwv-znucmex as directed by the cake inspector for pain if needed. Ibuprofen kbkd-nco-bcorcfz as directed by the cake inspector for pain if needed. Rest. Stay well hydrated. Llvi-reo-vzzqjxx decongestants, and histamines, and/or cough suppressants as needed for symptomatically. Follow-up with your primary care provider for recheck as an outpatient next week. Call tomorrow morning for appointment time. Return to the emergency department for worsened symptoms or any other concerns. Scripts Prednisone (Prednisone) 20 Mg Tab 40 MG PO DAILY, #8 TAB 0 Refills Prov: PATRIZIA KELELY 05/03/19 Ciprofloxacin HCl (Ciprofloxacin HCl) 500 Mg Tablet 500 MG PO BID, #14 TAB 0 Refills Prov: PATRIZIA KELLEY 05/03/19 PATRIZIA KELLEY May 03, 2019 19:15 POS
[2019-05-03] MEDS ORDERED: RT-ALBUTEROL/IPRATROPIUM 3 ML (DUONEB) VIAL INH ONE (19:30)
--- NOTE | 2019-05-03 19:35 | Diagnostic Imaging Report ---
INDICATION: Cold for a few days now with cough.. TECHNIQUE: Two view chest 7:32 PM CORRELATION STUDY: 04/24/2017 FINDINGS: The heart size, mediastinal configuration and pulmonary vasculature are within normal limits. The lungs are clear with no consolidating infiltrate. There is no significant pleural effusion or pneumothorax. Visualized osseous structures are unremarkable. IMPRESSION: 1. Negative for acute abnormality of the chest. Dictated by: Dictated on workstation # [id number]
[2019-05-03] MEDS ORDERED: PRD20T PO ×2 (20:26→21:23)
[2019-05-03] MEDS ORDERED: CIPR500T4 PO ×2 (20:26→21:23)
[2019-05-03] MEDS ORDERED: RX-ALBUTEROL INHALER (PROAIR) 8.5 GM IH STA (20:26)
[2019-05-03] MEDS ORDERED: RT-ALBUTEROL SULF 2.5 MG/3 ML PRE-MIX VIAL INH STA (20:29)
[2019-05-03] MEDS ORDERED: predniSONE 20 MG TAB PO ONE (20:30)
[2019-05-03] MEDS ORDERED: LEVOFLOXACIN 750 MG TAB (LEVAQUIN) PO ONE (20:30)
[2019-05-03 21:35] VITALS: BP 128/88
== END 2019-05-03 21:36 | disposition home or self-care (01) ==
LOC: EDUNIT# 18:19 → ER 18:20
DX: J45.901 Unspecified asthma with (acute) exacerbation (principal); K21.9 Gastro-esophageal reflux disease without esophagitis; E66.01 Morbid (severe) obesity due to excess calories; F41.9 Anxiety disorder, unspecified; F32.9 Major depressive disorder, single episode, unspecified; F17.210 Nicotine dependence, cigarettes, uncomplicated; Z91.14 Patient's other noncompliance with medication regimen; Z88.2 Allergy status to sulfonamides; Z88.1 Allergy status to other antibiotic agents; Z88.8 Allergy status to other drugs, medicaments and biological substances; Z90.89 Acquired absence of other organs; Z86.012 Personal history of benign carcinoid tumor; Z68.39 Body mass index [BMI] 39.0-39.9, adult
CPT/HCPCS: 71046; 94640

== ENCOUNTER 2019-09-09 15:23 | Emergency (ER) | payer MEDICAID ==
[~2019-09-09] VITALS: Ht 170 cm; Wt 113.0 kg
[~2019-09-09 15:23] MED LIST changes: +ACHD5005 PO; +CIPR500T4 PO; -HYDR-3812 PO
[2019-09-09] MEDS ORDERED: KETOROLAC 60 MG/2 ML VIAL IM ONE (15:30)
[2019-09-09] MEDS ORDERED: ORPHENADRINE 60 MG/2 ML (NORFLEX) AMP IM ONE (15:30)
--- NOTE | 2019-09-09 15:37 | ED Back Pain ---
General Chief Complaint: Back Problems Stated Complaint: PT SLIPPED AND FELL ON BACK Source of Information: Patient Exam Limitations: No Limitations History of Present Illness Date Seen by Provider: Sep 09, 2019 Time Seen by Provider: 15:34 Initial Comments To ER with reports that she slipped and fell going down her steps yesterday ca using her to land on her back and she now has mid thoracic back pain. Location: T-Spine Timing/Duration: 1-2 Days Severity: Moderate Associated Symptoms: other Allergies and Home Medications Allergies Coded Allergies: Bacitracin Zinc (Unverified Allergy, Unknown, 11/25/15) BLISTERS Sulfa (Sulfonamide Antibiotics) (Verified Allergy, Unknown, 11/25/15) bacitracin (Unverified Allergy, Unknown, 11/25/15) BLISTERS neomycin sulfate (Unverified Allergy, Unknown, 11/25/15) BLISTERS polymyxin B (Unverified Allergy, Unknown, 11/25/15) BLISTERS risperidone (Verified Allergy, Unknown, 11/25/15) Uncoded Allergies: GREEN BEANS (Allergy, Unknown, 12/13/13) THROAT SWELLS PEAS (Allergy, Unknown, 12/13/13) THROAT SWELLS Home Medications Albuterol Sulfate 8.5 Gm Hfa.aer.ad, 2 PUFF IH Q4H PRN for SHORTNESS OF BREATH Prescribed by: PATRIZIA KELLEY on 09/17/151944 Ciprofloxacin HCl 500 Mg Tablet, 500 MG PO BID Prescribed by: PATRIZIA KELLEY on 05/03/192122 Prednisone 20 Mg Tab, 40 MG PO DAILY Prescribed by: PATRIZIA KELLEY on 05/03/192122 Patient Home Medication List Home Medication List Reviewed: Yes Review of Systems Constitutional: see HPI EENTM: see HPI Respiratory: no symptoms reported Cardiovascular: no symptoms reported Genitourinary: no symptoms reported Musculoskeletal: see HPI, back pain Skin: no symptoms reported Psychiatric/Neurological: No Symptoms Reported Past Tltjrrp-Mcrvfi-Thjord Hx Patient Social History Type Used: Cigarettes 2nd Hand Smoke Exposure: Yes Recent Hopitalizations: No Immunizations Up To Date Tetanus Booster (TDap): Less than 5yrs Date of Influenza Vaccine: Mar 13, 2013 Seasonal Allergies Seasonal Allergies: No Past Medical History Surgeries: Yes (PITUITARY TUMOR, X 2, BACK SURGERY, LEFT ELBOW X 2, BMT'S ) Abdominal, Adenoidectomy, Section, Ear Surgery, Neurological, Orthopedic, Pituitary, Tonsillectomy Respiratory: Yes Asthma Cardiac: No Neurological: Yes (PITUITARY TUMOR) Reproductive Disorders: Yes (MULTIPLE MISCARRIAGES, DIAG LAP SURGERIES X2) Sexually Transmitted Disease: No HIV/AIDS: No Genitourinary: Yes Renal Failure, UTI-Chronic Gastrointestinal: Yes ("PARTIAL BOWEL BLOCKAGE FOR OVER 10 YEARS" PER PT. ) Gastroesophageal Reflux, Chronic Constipation Musculoskeletal: Yes Chronic Back Pain, Fractures Endocrine: Yes (HYPOGLYCEMIA, PITUITARY TUMOR, MORBID OBESITY) Pituitary Disease HEENT: Yes Chronic Ear Infection, Tonsilitis Cancer: No Psychosocial: Yes (EXTENSIVE PSYCH ISSUES) Anxiety, Depression Integumentary: No Blood Disorders: Yes (ANEMIA) Family Medical History No Pertinent Family Hx Physical Exam Vital Signs Vital Signs - First Documented 09/09/19 15:33 Temp 37.0 Pulse 94 Resp 18 B/P (MAP) 106/77 (87) Pulse Ox 97 Capillary Refill : Height, Weight, BMI Height: 5'7.00" Weight: 267lbs. 0oz. 121.696792qn; 39.00 BMI Method:Actual General Appearance: No Apparent Distress, WD/WN, Obese HEENT: PERRL/EOMI, TMs Normal Neck: Full Range of Motion Respiratory: Normal Breath Sounds, No Accessory Muscle Use, No Respiratory Distress, Other (back is without erythema or ecchymosis) Extremity: Normal Capillary Refill, Normal Inspection Neurologic/Psychiatric: Alert, Oriented x3 Skin: Normal Color, Warm/Dry Progress/Results/Core Measures Results/Orders My Orders Orders - CECILIO NAVARRO APRN T-Spine 3v-Ap, Lat, Swimmers (09/09/19 15:30) Lumbar Spine - 2-3 Views (09/09/19 15:30) Ketorolac Injection (Toradol Injection) (09/09/19 15:30) Orphenadrine Injection (Norflex Injectio (09/09/19 15:30) Medications Given in ED Current Medications Medications Dose Ordered Sig/Miriam Route Start Time Stop Time Status Last Admin Dose Admin Ketorolac Tromethamine 60 mg ONCE ONCE IM 09/09/19 15:30 09/09/19 15:31 DC 09/09/19 16:03 60 MG Orphenadrine Citrate 60 mg ONCE ONCE IM 09/09/19 15:30 09/09/19 15:31 DC 09/09/19 16:03 60 MG Vital Signs/I&O 09/09/19 15:33 Temp 37.0 Pulse 94 Resp 18 B/P (MAP) 106/77 (87) Pulse Ox 97 Departure Impression Primary Impression: Back pain Qualified Codes: M54.6 - Pain in thoracic spine Disposition: HOME, SELF-CARE Condition: Stable Departure-Patient Inst. Decision time for Depature: 16:42 Referrals: JONATHAN MUÑOZ MD (PCP/Family) Primary Care Physician Patient Instructions: Upper Back Pain Scripts Ibuprofen (Ibuprofen) 800 Mg Tablet 800 MG PO Q8H PRN for PAIN, #30 TAB 0 Refills Prov: CECILIO NAVARRO APRN 09/09/19 Methocarbamol (Robaxin-750) 750 Mg Tablet 750 MG PO Q4H PRN for back pain, #20 TAB Prov: CECILIO NAVARRO APRN 09/09/19 CECILIO NAVARRO APRN Sep 09, 2019 15:37
--- NOTE | 2019-09-09 16:10 | Diagnostic Imaging Report ---
EXAM: Lumbar spine - 2-3 views. INDICATION: Back pain. Fall down stairs. COMPARISON: CT lumbar spine without contrast 04/10/2019. FINDINGS: There are five lumbar-type vertebral bodies. Stable grade 2 anterolisthesis of L4 on L5. Bilateral judith and pedicle screw fixation at L3-L4. Hardware components appear intact. No evidence of loosening. Mild degenerative endplate changes throughout the lumbar spine. Stimulator pack and discontinuous wires, stable compared to 04/10/2019. Visualized pelvis is intact. IMPRESSION: 1. No acute radiographic findings in the lumbar spine. 2. Stable bilateral rods and pedicle screw fixation at L3-L4 with grade 2 anterolisthesis of L4 on L5. Dictated by: Dictated on workstation # [id number]
--- NOTE | 2019-09-09 16:18 | Diagnostic Imaging Report ---
EXAM: T-spine 3v-AP, LAT, swimmers. INDICATION: Fall. Back pain. COMPARISON: Thoracic spine radiographs 01/13/2012. Lumbar spine radiographs also performed today. FINDINGS: Normal alignment. Vertebral body heights preserved. No fracture is identified. Mild scattered degenerative endplate changes. Partially visualized postoperative changes in the lower lumbar spine are characterized on the dedicated exam. IMPRESSION: Mild spondylotic changes in the thoracic spine. No acute radiographic finding. Dictated by: Dictated on workstation # [id number]
[2019-09-09] MEDS ORDERED: METH-313 PO (16:43)
[2019-09-09] MEDS ORDERED: IBUP-1780 PO (16:43)
[2019-09-09 16:45] VITALS: BP 124/70
== END 2019-09-09 16:45 | disposition home or self-care (01) ==
LOC: EDUNIT# 15:23 → ER 15:27
DX: M54.6 Pain in thoracic spine (principal); W10.9XXA Fall (on) (from) unspecified stairs and steps, initial encounter; Z88.2 Allergy status to sulfonamides; F41.9 Anxiety disorder, unspecified; F32.9 Major depressive disorder, single episode, unspecified; J45.909 Unspecified asthma, uncomplicated; K21.9 Gastro-esophageal reflux disease without esophagitis; K59.09 Other constipation; Z79.899 Other long term (current) drug therapy
CPT/HCPCS: 72072; 72100

== ENCOUNTER 2019-09-16 18:06 | Emergency (ER) | payer MEDICAID ==
[~2019-09-16] VITALS: Ht 170 cm; Wt 114.0 kg
[~2019-09-16 18:06] MED LIST changes: +METH-313 PO
--- OUTSIDE RECORDS SUMMARY | 2019-09-16 18:13 | XMS REPORT ---
Author Author Olya Figueroa Doctor Organization [facility] Address Unknown Phone Unavailable Care Team Providers Care Tutoring Assistant Name Role Phone Migration, Doctor Unavailable Unavailable PROBLEMS Type Condition ICD9-CM Code POR32-AQ Code Onset Dates Condition S tatus SNOMED Code Problem Screening examination for venereal disease V74.5 Active 213597527 Problem Screening for unspecified malignant neoplasm V76.9 Active 80844769 Problem Other postprocedural status V45.89 Ac tive 97403103 Problem Other, multiple, and unspeci fied sites, insect bite, nonvenomous, infected 919.5 Active 837793381 Problem 35-36 completed weeks of gestation 765.28 Active 20663155 Problem Rash and other nonspecific skin eruption 782.1 Active 888102511 Problem Other chronic pain 338.29 Active 8 2630296 Problem Other acute postoperative pain 338.18 Active 626005949297099 Problem Hypoglycemia, unspecified 251.2 Acti ve 339542034 Problem Benign mass of adrenal gland D35.00 A ctive 094041231 Problem Previous delivery, unspecified as to episode of care or not applicable 654.20 Active 623826022 Problem Calcified granuloma of lung J84.10 Ac tive 30720381 Problem Cellulitis and abscess of trunk 682.2 Active 556772637 Problem Mild intermittent asthma with acute exacerbation J 45.21 Active 355885734 Problem Migraine, unspecified, not intractable, without status migrainosus G43.909 Active 83289774 Problem Hemiplegic migraine without status migrainosus, not intractable G43.409 Active 03193888 Problem Lung nodule R91.1 Active 23519459 2 ALLERGIES Substance Reaction Event Type Date Status Neosporin Unknown Drug Allergy Sep, Active ENCOUNTERS Encounter Location Date Diagnosis [facility] [place] [address] [facility] [place] [id number] [place] [address] Aug, Calcified granuloma of lung J84.10 ; Benign mass of adrenal gland D35.00 and Morbid obesity E66.[address] [address] 18 Jul, 2018 Cough R05 and Lung nodule R9 1.1 [facility] [address] [place] [id number] 16 Jul, 2018 Cough R05 ; Lung nodule R91. 1 and BMI 40.0-44.9, adult Z68.[address] [address] Jun, [facility] [address] [place] [address] Jun, Cough R05 ; Community acquir ed pneumonia, unspecified laterality J18.9 ; BMI 40.0-44.9, adult Z68.41 and Lung nodule R91.1 [facility] [address] [address] Jun, Stomatitis K12.1 [facility] [address] [address] Jun, Herpangina B08.5 [facility] [address] [address] Feb, Cough R05 and BMI 45.0-49.9, adult Z68.42 [facility] [address] [address] Jan, Insect bite, initial encount er W57.XXXA ; Insect bite (nonvenomous) of left upper arm, initial encounter S40.862A ; Bitten or stung by nonvenomous insect and other nonvenomous arthropods, initial encounter W57.XXXA ; Insect bite (nonvenomous) of right upper arm, initial encounter S40.861A and BMI 40.0-44.9, adult Z68.41 [facility] [address] [address] Aug, Dental infection K04.7 [facility] [address] [facility] [place] [id number] [address] [place] [phone] Jun, [facility] [address] [place] [id number] [address] [place] [address] Mar, Migraine, unspecified, not i ntractable, without status migrainosus G43.909 [facility] [address] [place] [id number] [address] [place] [address] Jan, Jaw pain R68.84 [facility] [address] [place] [id number] [address] [place] [address] Aug, Infection of skin L08.9 and Tattoo reaction L92.3 [facility] [address] [place] [id number] [place] [address] Aug, Influenza B J10.1 [facility] [address] [address] May, Sore throat J02.9 and Bronch itis J40 [facility] [address] [place] [id number] [address] [place] [id number] May, Dental examination Z01.20 an d Dental caries K02.9 [facility] [address] [place] [id number] [address] [place] [address] May, Other fatigue R53.83 [facility] [address] [address] Mar, Shoulder injury, left, initi al encounter S49.92XA [place] [address] [address] Dec, [facility] [place] [address] [address] 14 Sep, 2014 [facility] [place] [address] [address] Sep, [place] [address] [place] [address] Mar, [facility] [address] [id number] [address] [place] [address], [place] [address] Mar, [facility] [address] [id number] [address] [place] [address], [place] [address] Nov, [facility] [address] [id number] [address] [place] [address], [place] [address] Feb, [facility] [address] [id number] [address] [place] [address], [place] [address] Jan, [facility] [address] [id number] [address] [place] [address], [place] [address] Sep, [facility] [address] [id number] [address] [place] [address], [place] [address] Aug, [facility] [address] [id number] [address] [place] [address], [place] [address] Aug, [facility] [address] [id number] [address] [place] [address], [place] [address] Aug, [facility] [address] [id number] [address] [place] [address], [place] [address] Aug, [facility] [address] [id number] [address] [place] [address], [place] [address] Jul, [facility] [address] [id number] [address] [place] [address], [place] [address] Jul, [facility] [address] [id number] [address] [place] [address], [place] [address] Jul, [facility] [address] [id number] [address] [place] [address], [place] [address] Jul, [facility] [address] [id number] [address] [place] [address], [place] [address] Jul, [facility] [address] [id number] [address] [place] [address], [place] [address] 17 Jul, 2011 [facility] [place] [address] [id number] [address] [place] [id number] 16 Jul, 2011 [facility] [place] [address] [id number] [address] [place] [id number] 15 Jul, 2011 [facility] [place] [address] [id number] [address] [place] [id number] Jul, [facility] [place] [address] [id number] [address] [place] [id number] Jul, [facility] [place] [address] [id number] [address] [place] [id number] Jul, [facility] [place] [address] [id number] [address] [place] [id number] Jul, [facility] [place] [address] [id number] [address] [place] [phone] Jul, [facility] [place] [address] [id number] [address] [place] [id number] Jun, [facility] [place] [address] [id number] [address] [place] [id number] Jun, [facility] [place] [address] [id number] [address] [place] [address] Jun, [facility] [place] [address] [id number] [address] [place] [id number] May, [facility] [place] [address] [id number] [address] [place] [id number] May, IMMUNIZATIONS No Known Immunizations SOCIAL HISTORY Never Assessed REASON FOR VISIT EMR-[facility] [place] PLAN OF CARE VITAL SIGNS MEDICATIONS Medication Instructions Dosage Frequency Start Date End Date Duration S tatus Flexeril 5 mg PRN Jan, Activ e Lotrisone 1-0.05 % by Topical route 2 times per day 23 A 2011 Active Doxycycline Hyclate 100 mg 1 tablet by Oral rout e 2 times per day for 10 days Sep, Active [place] 5-325 mg take 1 tablet by oral route every 6 loy rs as needed for pain Mar, Active RESULTS No Results PROCEDURES No Known [...]
--- OUTSIDE RECORDS SUMMARY | 2019-09-16 18:13 | XMS REPORT ---
Author Author Olya FONTENOT Organization [facility] Address [address] [place] [address] Care Team Providers Care Associate Engineer Name Role Phone ERIBERTO FONTENOT Unavailable PROBLEMS Type Condition ICD9-CM Code [id number] Code Onset Dates Condition S tatus SNOMED Code Problem Screening for unspecified malignant neoplasm V76.9 Active 52501687 Problem Other, multiple, and unspeci fied sites, insect bite, nonvenomous, infected 919.5 Active 078507243 Problem Screening examination for venereal disease V74.5 Active 161339323 Problem Rash and other nonspecific skin eruption 782.1 Active 322411397 Problem Other postprocedural status V45.89 Ac tive 40573753 Problem Cellulitis and abscess of trunk 682.2 Active 954210835 Problem 35-36 completed weeks of gestation 765.28 Active 66504627 Problem Other acute postoperative pain 338.18 Active 790590901690109 Problem Hypoglycemia, unspecified 251.2 Acti ve 392211431 Problem Mild intermittent asthma with acute exacerbation J 45.21 Active 472207148 Problem Calcified granuloma of lung J84.10 Ac tive 14920362 Problem Other chronic pain 338.29 Active 8 7869750 Problem Hypoglycemia E16.2 Active 7440641 03 Problem Previous delivery, unspecified as to episode of care or not applicable 654.20 Active 528802831 Problem Migraine, unspecified, not intractable, without status migrainosus G43.909 Active 98497387 Problem Hemiplegic migraine without status migrainosus, not intractable G43.409 Active 71921797 Problem Lung nodule R91.1 Active 48704197 2 Problem Benign mass of adrenal gland D35.00 A ctive 780029119 ALLERGIES No Information ENCOUNTERS Encounter Location Date Diagnosis [facility] [address] [facility] [id number] [address] [place] [address] Feb, [facility] [address] [place] [address] Jan, Morbid obesity E66.01 ; Hypo glycemia E16.2 and Gastroenteritis K52.[address] [address] Aug, Calcified granuloma of lung J84.10 ; Benign mass of adrenal gland D35.00 and Morbid obesity E66.[address] [address] Jul, Cough R05 and Lung nodule R9 1.1 [facility] [address] [address] Jul, Cough R05 ; Lung nodule R91. 1 and BMI 40.0-44.9, adult Z68.[address] [address] Jun, [facility] [address] [address] Jun, Cough R05 ; Community acquir ed pneumonia, unspecified laterality J18.9 ; BMI 40.0-44.9, adult Z68.41 and Lung nodule R91.1 [facility] [address] [address] Jun, Stomatitis K12.1 [facility] [address] [address] Jun, Herpangina B08.5 [facility] [address] [address] Feb, Cough R05 and BMI 45.0-49.9, adult Z68.42 [facility] [address] [address] Jan, Insect bite, initial encount er W57.XXXA ; Insect bite (nonvenomous) of left upper arm, initial encounter S40.862A ; Bitten or stung by nonvenomous insect and other nonvenomous arthropods, initial encounter W57.XXXA ; Insect bite (nonvenomous) of right upper arm, initial encounter S40.861A and BMI 40.0-44.9, adult Z68.41 [facility] [address] [place] [address] Aug, Dental infection K04.7 [facility] [address] [place] [address] Jun, [facility] [address] [place] [address] Mar, Migraine, unspecified, not i ntractable, without status migrainosus G43.909 [facility] [address] [place] [address] Jan, Jaw pain R68.84 [facility] [address] [place] [address] Aug, Infection of skin L08.9 and Tattoo reaction L92.3 [facility] [address] [place] [address] Aug, Influenza B J10.1 [facility] [address] [place] [address] May, 2016 Sore throat J02.9 and Bronch itis J40 [facility] [address] [id number] [address] [place] [id number] May, Dental examination Z01.20 an d Dental caries K02.9 [facility] [address] [place] [address] May, Other fatigue R53.83 [facility] [address] [place] [address] 17 Mar, 2016 Shoulder injury, left, initi al encounter S49.92XA [facility] [place] [facility] [address] [id number] [address] [place] [address], [place] [address] 15 Dec, 2015 [facility] [address] [id number] [address] [place] [address], [place] [address] 14 Sep, 2014 [facility] [address] [id number] [address] [place] [address], [place] [address] 13 Sep, 2014 [facility] [address] [id number] [address] [place] [address], [place] [address] Mar, [facility] [address] [id number] [address] [place] [address], [place] [address] Mar, [facility] [address] [id number] [address] [place] [address], [place] [address] Nov, [facility] [address] [id number] [address] [place] [address], [place] [address] Feb, [facility] [address] [id number] [address] [place] [address], [place] [address] Jan, [facility] [address] [id number] [address] [place] [address], [place] [address] Sep, [facility] [address] [id number] [address] [place] [address], [place] [address] Aug, [facility] [address] [id number] [address] [place] [address], [place] [address] Aug, [facility] [address] [id number] [address] [place] [address], [place] [address] Aug, [facility] [address] [id number] [address] [place] [address], [place] [address] Aug, [facility] [address] [id number] [address] [place] [address], [place] [address] Jul, [facility] [address] [id number] [address] [place] [address], [place] [address] Jul, [facility] [address] [id number] [address] [place] [address], [place] [address] Jul, [facility] [address] [id number] [address] [place] [address], [place] [address] Jul, [facility] [address] [id number] [address] [place] [address], [place] [address] 20 Jul, 2011 [facility] [address] [id number] [address] [place] [address], [place] [address] 17 Jul, 2011 [facility] [address] [id number] [address] [place] [address], [place] [address] 16 Jul, 2011 [facility] [address] [id number] [address] [place] [address], [place] [address] 15 Jul, 2011 [facility] [address] [id number] [address] [place] [address], [place] [address] 13 Jul, 2011 [facility] [address] [id number] [address] [place] [address], [place] [address] 08 Jul, 2011 [facility] [address] [id number] [address] [place] [address], [place] [address] 06 Jul, 2011 [facility] [address] [id number] [address] [place] [address], [place] [address] 03 Jul, 2011 [facility] [address] [id number] [address] [place] [address], [place] [address] Jul, [facility] [address] [id number] [address] [place] [address], [place] [address] Jun, [facility] [address] [id number] [address] [place] [address] Jun, [facility] [address] [id number] [address] [place] [address] Jun, [facility] [address] [id number] [address] [place] [address] May, [facility] [address] [id number] [address] [place] [address] May, IMMUNIZATIONS No Known Immunizations SOCIAL HISTORY Never Assessed REASON FOR VISIT PLAN OF CARE VITAL SIGNS Height 67 in 2014-03-23 Weight 248.4 lbs 2014-03-23 Temperature 98.2 degrees Fahrenheit 2014-03-23 Heart Rate 118 bpm 2014-03-23 Respiratory Rate 18 2014-03-23 Blood pressure systolic 148 mmHg 2014-03-23 Blood pressure diastolic 90 mmHg 2014-03-23 MEDICATIONS Unknown Medications RESULTS No Results PROCEDURES No Known procedures INSTRUCTIONS MEDICATIONS ADMINISTERED No Known Medications MEDICAL (GENERAL) HISTORY Type Description Date Medical History Asthma Medical History Pituitary Tumor Medical History Renal Failure, Chronic UTI Medical History GERD Medical History Constipation Medical History Chronic Back pain, Fractures Medical History Pituitary Disease Medical History Anxiety Medical History Depression Medical History Hypoglycemia per patient Surgical History Pituitary tumor Surgical History back surgery Surgical History Left elbow x2 Surgical History x2 Hospitalization History Child x2
--- OUTSIDE RECORDS SUMMARY | 2019-09-16 18:13 | XMS REPORT ---
Author Author Olya Figueroa Doctor Organization [facility] Address Unknown Phone Unavailable Care Team Providers Care Pharmacy Associate Name Role Phone Migration, Doctor Unavailable Unavailable PROBLEMS Type Condition ICD9-CM Code [id number] Code Onset Dates Condition S tatus SNOMED Code Problem Screening examination for venereal disease V74.5 Active 300345780 Problem Screening for unspecified malignant neoplasm V76.9 Active 87384181 Problem Other postprocedural status V45.89 Ac tive 46223910 Problem Other, multiple, and unspeci fied sites, insect bite, nonvenomous, infected 919.5 Active 140907082 Problem 35-36 completed weeks of gestation 765.28 Active 61754028 Problem Rash and other nonspecific skin eruption 782.1 Active 625626332 Problem Other chronic pain 338.29 Active 8 3405765 Problem Other acute postoperative pain 338.18 Active 897752182339272 Problem Hypoglycemia, unspecified 251.2 Acti ve 709368406 Problem Benign mass of adrenal gland D35.00 A ctive 325719740 Problem Previous delivery, unspecified as to episode of care or not applicable 654.20 Active 779962492 Problem Calcified granuloma of lung J84.10 Ac tive 59293274 Problem Cellulitis and abscess of trunk 682.2 Active 817531771 Problem Mild intermittent asthma with acute exacerbation J 45.21 Active 598755928 Problem Migraine, unspecified, not intractable, without status migrainosus G43.909 Active 20862227 Problem Hemiplegic migraine without status migrainosus, not intractable G43.409 Active 38734400 Problem Lung nodule R91.1 Active 13923919 2 ALLERGIES No Information ENCOUNTERS Encounter Location Date Diagnosis [facility] [address] [facility] [id number] [address] [place] [address] Aug, Calcified granuloma of lung J84.10 ; Benign mass of adrenal gland D35.00 and Morbid obesity E66.01 [facility] [address] [facility] [id number] [address] [place] [address] 18 Jul, 2018 Cough R05 and Lung nodule R9 1.1 [facility] [address] [place] [address] 16 Jul, 2018 Cough R05 ; Lung nodule R91. 1 and BMI 40.0-44.9, adult Z68.41 [facility] [address] [place] [address] Jun, [facility] [address] [place] [address] Jun, Cough R05 ; Community acquir ed pneumonia, unspecified laterality J18.9 ; BMI 40.0-44.9, adult Z68.41 and Lung nodule R91.1 [facility] [address] [place] [address] Jun, Stomatitis K12.1 [facility] [address] [place] [address] Jun, Herpangina B08.5 [facility] [address] [address] Feb, Cough R05 and BMI 45.0-49.9, adult Z68.42 [facility] [address] [address] Jan, Insect bite, initial encount er W57.XXXA ; Insect bite (nonvenomous) of left upper arm, initial encounter S40.862A ; Bitten or stung by nonvenomous insect and other nonvenomous arthropods, initial encounter W57.XXXA ; Insect bite (nonvenomous) of right upper arm, initial encounter S40.861A and BMI 40.0-44.9, adult Z68.41 [facility] [address] [place] [address] Aug, Dental infection K04.7 [facility] [address] [place] [address] [place] [address] Jun, [facility] [address] [address] Mar, Migraine, unspecified, not i ntractable, without status migrainosus G43.909 [facility] [address] [address] Jan, Jaw pain R68.84 [facility] [address] [address] Aug, Infection of skin L08.9 and Tattoo reaction L92.3 [facility] [address] [address] Aug, Influenza B J10.1 [facility] [address] [place] [address] May, Sore throat J02.9 and Bronch itis J40 [facility] [id number] [place] [id number] May, Dental examination Z01.20 an d Dental caries K02.9 [facility] [address] [address] May, Other fatigue R53.83 [facility] IN [address] [address] Mar, 2016 Shoulder injury, left, initi al encounter S49.92XA [place] [address] [address] Dec, [place] [address] [address] 14 Sep, 2014 [facility] [address] [address] 13 Sep, 2014 [place] [address] [address] Mar, [facility] [address] [id number] [address] [place] [address], [place] [address] Mar, [facility] [address] [id number] [address] [place] [address], [place] [address] Nov, [facility] [address] [id number] [address] [place] [address], [place] [address] Feb, [facility] [address] [id number] [address] [place] [address], [place] [address] Jan, [facility] [address] [id number] [address] [place] [address], [place] [address] Sep, [facility] [address] [id number] [address] [place] [address], [place] [address] Aug, [facility] [address] [id number] [address] [place] [address], [place] [address] Aug, [facility] [address] [id number] [address] [place] [address], [place] [address] Aug, [facility] [address] [id number] [address] [place] [address], [place] [address] Aug, [facility] [address] [id number] [address] [place] [address], [place] [address] Jul, [facility] [address] [id number] [address] [place] [address], [place] [address] Jul, [facility] [place] [facility] [address] [id number] [address] [place] [address], [place] [address] Jul, [facility] [address] [id number] [address] [place] [address], [place] [address] Jul, [facility] [address] [id number] [address] [place] [address], [place] [address] Jul, [facility] [place] [facility] [address] [id number] [address] [place] [address], [place] [address] 17 Jul, 2011 [facility] [address] [id number] [address] [place] [address] 16 Jul, 2011 [facility] [address] [id number] [address] [place] [address] 15 Jul, 2011 [facility] [address] [id number] [address] [place] [address] 13 Jul, 2011 [facility] [address] [id number] [address] [place] [address] 08 Jul, 2011 [facility] [address] [id number] [address] [place] [address] Jul, [facility] [address] [id number] [address] [place] [address] Jul, [facility] [address] [id number] [address] [place] [address] Jul, [facility] [address] [id number] [address] [place] [address] Jun, [facility] [address] [id number] [address] [place] [address] Jun, [facility] [address] [id number] [address] [place] [address] Jun, [facility] [address] [id number] [address] [place] [address] May, [facility] [address] [id number] [address] [place] [address] May, IMMUNIZATIONS No Known Immunizations SOCIAL HISTORY Never Assessed REASON FOR VISIT [facility] PLAN OF CARE VITAL SIGNS MEDICATIONS No Known Medications RESULTS No Results PROCEDURES No Known [...]
--- OUTSIDE RECORDS SUMMARY | 2019-09-16 18:13 | XMS REPORT ---
Author Author Olya Figueroa Doctor Organization [facility] Address Unknown Phone Unavailable Care Team Providers Care Physician'S Assistant Name Role Phone Migration, Doctor Unavailable Unavailable PROBLEMS Type Condition ICD9-CM Code [id number] Code Onset Dates Condition S tatus SNOMED Code Problem Screening examination for venereal disease V74.5 Active 345868365 Problem Screening for unspecified malignant neoplasm V76.9 Active 39537818 Problem Other postprocedural status V45.89 Ac tive 89807757 Problem Other, multiple, and unspeci fied sites, insect bite, nonvenomous, infected 919.5 Active 177176996 Problem 35-36 completed weeks of gestation 765.28 Active 92258590 Problem Rash and other nonspecific skin eruption 782.1 Active 885947972 Problem Other chronic pain 338.29 Active 8 5277643 Problem Other acute postoperative pain 338.18 Active 398503603162033 Problem Hypoglycemia, unspecified 251.2 Acti ve 698965117 Problem Benign mass of adrenal gland D35.00 A ctive 928862524 Problem Previous delivery, unspecified as to episode of care or not applicable 654.20 Active 487440719 Problem Calcified granuloma of lung J84.10 Ac tive 83920518 Problem Cellulitis and abscess of trunk 682.2 Active 493632926 Problem Mild intermittent asthma with acute exacerbation J 45.21 Active 241448391 Problem Migraine, unspecified, not intractable, without status migrainosus G43.909 Active 84524360 Problem Hemiplegic migraine without status migrainosus, not intractable G43.409 Active 28839048 Problem Lung nodule R91.1 Active 58393906 2 ALLERGIES No Information ENCOUNTERS Encounter Location Date Diagnosis [facility] [address] [facility] [id number] [address] [place] [address] Aug, Calcified granuloma of lung J84.10 ; Benign mass of adrenal gland D35.00 and Morbid obesity E66.01 [facility] [address] [facility] [id number] [address] [place] [address] 18 Jul, 2018 Cough R05 and Lung nodule R9 1.1 [facility] [address] [place] [address] 16 Jul, 2018 Cough R05 ; Lung nodule R91. 1 and BMI 40.0-44.9, adult Z68.41 [facility] [address] [place] [address] Jun, [facility] [address] [place] [address] Jun, Cough R05 ; Community acquir ed pneumonia, unspecified laterality J18.9 ; BMI 40.0-44.9, adult Z68.41 and Lung nodule R91.1 [facility] [address] [place] [address] Jun, Stomatitis K12.1 [facility] [address] [place] [address] Jun, Herpangina B08.5 [facility] [address] [address] Feb, Cough R05 and BMI 45.0-49.9, adult Z68.42 [facility] [address] [address] Jan, Insect bite, initial encount er W57.XXXA ; Insect bite (nonvenomous) of left upper arm, initial encounter S40.862A ; Bitten or stung by nonvenomous insect and other nonvenomous arthropods, initial encounter W57.XXXA ; Insect bite (nonvenomous) of right upper arm, initial encounter S40.861A and BMI 40.0-44.9, adult Z68.41 [facility] [address] [place] [address] Aug, Dental infection K04.7 [facility] [address] [place] [address] [place] [address] Jun, [facility] [address] [address] Mar, Migraine, unspecified, not i ntractable, without status migrainosus G43.909 [facility] [address] [address] Jan, Jaw pain R68.84 [facility] [address] [address] Aug, Infection of skin L08.9 and Tattoo reaction L92.3 [facility] [address] [address] Aug, Influenza B J10.1 [facility] [address] [place] [address] May, Sore throat J02.9 and Bronch itis J40 [facility] [address] [place] [id number] [place] [id number] May, Dental examination Z01.20 an d Dental caries K02.9 [facility] [address] [address] May, Other fatigue R53.83 [facility] [address] [address] Mar, 2016 Shoulder injury, left, initi al encounter S49.92XA [place] [address] [address] Dec, [place] [address] [address] 14 Sep, 2014 [facility] [address] [address] 13 Sep, 2014 [place] [address] [address] Mar, [facility] [address] [id number] [address] [place] [address], [place] [address] Mar, [facility] [address] [id number] [address] [place] [address], [place] [address] Nov, [facility] [address] [id number] [address] [place] [address], [place] [address] Feb, [facility] [address] [id number] [address] [place] [address], [place] [address] Jan, [facility] [address] [id number] [address] [place] [address], [place] [address] Sep, [facility] [address] [id number] [address] [place] [address], [place] [address] Aug, [facility] [address] [id number] [address] [place] [address], [place] [address] Aug, [facility] [address] [id number] [address] [place] [address], [place] [address] Aug, [facility] [address] [id number] [address] [place] [address], [place] [address] Aug, [facility] [address] [id number] [address] [place] [address], [place] [address] Jul, [facility] [address] [id number] [address] [place] [address], [place] [address] Jul, [facility] [place] [facility] [address] [id number] [address] [place] [address], [place] [address] Jul, [facility] [address] [id number] [address] [place] [address], [place] [address] Jul, [facility] [address] [id number] [address] [place] [address], [place] [address] Jul, [facility] [place] [facility] [address] [id number] [address] [place] [address], [place] [address] 17 Jul, 2011 [facility] [address] [id number] [address] [place] [address] 16 Jul, 2011 [facility] [address] [id number] [address] [place] [address] 15 Jul, 2011 [facility] [address] [id number] [address] [place] [address] 13 Jul, 2011 [facility] [address] [id number] [address] [place] [address] 08 Jul, 2011 [facility] [address] [id number] [address] [place] [address] Jul, [facility] [address] [id number] [address] [place] [address] Jul, [facility] [address] [id number] [address] [place] [address] Jul, [facility] [address] [id number] [address] [place] [address] Jun, [facility] [address] [id number] [address] [place] [address] Jun, [facility] [address] [id number] [address] [place] [address] Jun, [facility] [address] [id number] [address] [place] [address] May, [facility] [address] [id number] [address] [place] [address] May, IMMUNIZATIONS No Known Immunizations SOCIAL HISTORY Never Assessed REASON FOR VISIT [facility] [place] OF CARE VITAL SIGNS MEDICATIONS No [...]
--- OUTSIDE RECORDS SUMMARY | 2019-09-16 18:13 | XMS REPORT ---
Author Author Olya Figueroa Doctor Organization [facility] Address Unknown Phone Unavailable Care Team Providers Care Stenciling Machine Tender Name Role Phone Migration, Doctor Unavailable Unavailable PROBLEMS Type Condition ICD9-CM Code [id number] Code Onset Dates Condition S tatus SNOMED Code Problem Screening examination for venereal disease V74.5 Active 999261867 Problem Screening for unspecified malignant neoplasm V76.9 Active 46234689 Problem Other postprocedural status V45.89 Ac tive 43251741 Problem Other, multiple, and unspeci fied sites, insect bite, nonvenomous, infected 919.5 Active 800511182 Problem 35-36 completed weeks of gestation 765.28 Active 05725350 Problem Rash and other nonspecific skin eruption 782.1 Active 893799999 Problem Other chronic pain 338.29 Active 8 4133233 Problem Other acute postoperative pain 338.18 Active 043539829080185 Problem Hypoglycemia, unspecified 251.2 Acti ve 890380260 Problem Benign mass of adrenal gland D35.00 A ctive 829637011 Problem Previous delivery, unspecified as to episode of care or not applicable 654.20 Active 228491353 Problem Calcified granuloma of lung J84.10 Ac tive 56450147 Problem Cellulitis and abscess of trunk 682.2 Active 561971073 Problem Mild intermittent asthma with acute exacerbation J 45.21 Active 060310324 Problem Migraine, unspecified, not intractable, without status migrainosus G43.909 Active 69107224 Problem Hemiplegic migraine without status migrainosus, not intractable G43.409 Active 34943446 Problem Lung nodule R91.1 Active 19908786 2 ALLERGIES No Information ENCOUNTERS Encounter Location Date Diagnosis [facility] [address] [facility] [id number] [address] [place] [address] Aug, Calcified granuloma of lung J84.10 ; Benign mass of adrenal gland D35.00 and Morbid obesity E66.01 [facility] [address] [facility] [id number] [address] [place] [address] 18 Jul, 2018 Cough R05 and Lung nodule R9 1.1 [facility] [address] [place] [address] 16 Jul, 2018 Cough R05 ; Lung nodule R91. 1 and BMI 40.0-44.9, adult Z68.41 [facility] [address] [place] [address] Jun, [facility] [address] [place] [address] Jun, Cough R05 ; Community acquir ed pneumonia, unspecified laterality J18.9 ; BMI 40.0-44.9, adult Z68.41 and Lung nodule R91.1 [facility] [address] [place] [address] Jun, Stomatitis K12.1 [facility] [address] [place] [address] Jun, Herpangina B08.5 [facility] [address] [address] Feb, Cough R05 and BMI 45.0-49.9, adult Z68.42 [facility] [address] [address] Jan, Insect bite, initial encount er W57.XXXA ; Insect bite (nonvenomous) of left upper arm, initial encounter S40.862A ; Bitten or stung by nonvenomous insect and other nonvenomous arthropods, initial encounter W57.XXXA ; Insect bite (nonvenomous) of right upper arm, initial encounter S40.861A and BMI 40.0-44.9, adult Z68.41 [facility] [address] [place] [address] Aug, Dental infection K04.7 [facility] [address] [place] [address] [place] [address] Jun, [facility] [address] [address] Mar, Migraine, unspecified, not i ntractable, without status migrainosus G43.909 [facility] [address] [address] Jan, Jaw pain R68.84 [facility] [address] [address] Aug, Infection of skin L08.9 and Tattoo reaction L92.3 [facility] [address] [address] Aug, Influenza B J10.1 [facility] [address] [place] [address] May, Sore throat J02.9 and Bronch itis J40 [facility] [address] [place] [id number] [place] [id number] May, Dental examination Z01.20 an d Dental caries K02.9 [facility] [address] [address] May, Other fatigue R53.83 [facility] [address] [address] Mar, 2016 Shoulder injury, left, initi al encounter S49.92XA [place] [address] [address] Dec, [place] [address] [address] 14 Sep, 2014 [facility] [address] [address] 13 Sep, 2014 [place] [address] [address] Mar, [facility] [address] [id number] [address] [place] [address], [place] [address] Mar, [facility] [address] [id number] [address] [place] [address], [place] [address] Nov, [facility] [address] [id number] [address] [place] [address], [place] [address] Feb, [facility] [address] [id number] [address] [place] [address], [place] [address] Jan, [facility] [address] [id number] [address] [place] [address], [place] [address] Sep, [facility] [address] [id number] [address] [place] [address], [place] [address] Aug, [facility] [address] [id number] [address] [place] [address], [place] [address] Aug, [facility] [address] [id number] [address] [place] [address], [place] [address] Aug, [facility] [address] [id number] [address] [place] [address], [place] [address] Aug, [facility] [address] [id number] [address] [place] [address], [place] [address] Jul, [facility] [address] [id number] [address] [place] [address], [place] [address] Jul, [facility] [place] [facility] [address] [id number] [address] [place] [address], [place] [address] Jul, [facility] [address] [id number] [address] [place] [address], [place] [address] Jul, [facility] [address] [id number] [address] [place] [address], [place] [address] Jul, [facility] [place] [facility] [address] [id number] [address] [place] [address], [place] [address] 17 Jul, 2011 [facility] [address] [id number] [address] [place] [address] 16 Jul, 2011 [facility] [address] [id number] [address] [place] [address] 15 Jul, 2011 [facility] [address] [id number] [address] [place] [address] 13 Jul, 2011 [facility] [address] [id number] [address] [place] [address] 08 Jul, 2011 [facility] [address] [id number] [address] [place] [address] Jul, [facility] [address] [id number] [address] [place] [address] Jul, [facility] [address] [id number] [address] [place] [address] Jul, [facility] [address] [id number] [address] [place] [address] Jun, [facility] [address] [id number] [address] [place] [address] Jun, [facility] [address] [id number] [address] [place] [address] Jun, [facility] [address] [id number] [address] [place] [address] May, [facility] [address] [id number] [address] [place] [address] May, IMMUNIZATIONS No Known Immunizations SOCIAL HISTORY Never Assessed REASON FOR VISIT [facility] PLAN OF CARE VITAL SIGNS MEDICATIONS No [...]
--- OUTSIDE RECORDS SUMMARY | 2019-09-16 18:13 | XMS REPORT ---
Author Author Olya MARINELLI [facility] Address [address] [place] [address] Care Team Providers Care Home Economist Name Role Phone DOTTIE MARINELLI Unavailable PROBLEMS Type Condition ICD9-CM Code [id number] Code Onset Dates Condition S tatus SNOMED Code Problem Screening examination for venereal disease V74.5 Active 512995745 Problem Screening for unspecified malignant neoplasm V76.9 Active 27450718 Problem Other postprocedural status V45.89 Ac tive 69714340 Problem Other, multiple, and unspeci fied sites, insect bite, nonvenomous, infected 919.5 Active 826349716 Problem 35-36 completed weeks of gestation 765.28 Active 63374803 Problem Rash and other nonspecific skin eruption 782.1 Active 481748227 Problem Other chronic pain 338.29 Active 8 9475355 Problem Other acute postoperative pain 338.18 Active 306635127315689 Problem Hypoglycemia, unspecified 251.2 Acti ve 700170228 Problem Benign mass of adrenal gland D35.00 A ctive 984988274 Problem Previous delivery, unspecified as to episode of care or not applicable 654.20 Active 678502001 Problem Calcified granuloma of lung J84.10 Ac tive 18709305 Problem Cellulitis and abscess of trunk 682.2 Active 678325846 Problem Mild intermittent asthma with acute exacerbation J 45.21 Active 767233246 Problem Migraine, unspecified, not intractable, without status migrainosus G43.909 Active 42712410 Problem Hemiplegic migraine without status migrainosus, not intractable G43.409 Active 79034870 Problem Lung nodule R91.1 Active 17194190 2 ALLERGIES No Information ENCOUNTERS Encounter Location Date Diagnosis [facility] [address] [facility] [id number] [address] [place] [address] Aug, Calcified granuloma of lung J84.10 ; Benign mass of adrenal gland D35.00 and Morbid obesity E66.[address] [address] 18 Jul, 2018 Cough R05 and Lung nodule R9 1.1 [facility] [address] [address] 16 Jul, 2018 Cough R05 ; Lung nodule R91. 1 and BMI 40.0-44.9, adult Z68.[address] [address] Jun, [facility] [address] [address] Jun, Cough R05 ; Community acquir ed pneumonia, unspecified laterality J18.9 ; BMI 40.0-44.9, adult Z68.41 and Lung nodule R91.1 [facility] [address] [address] Jun, Stomatitis K12.1 [facility] [address] [address] Jun, Herpangina B08.5 [facility] [address] [address] Feb, Cough R05 and BMI 45.0-49.9, adult Z68.42 [facility] [address] [address] Jan, Insect bite, initial encount er W57.XXXA ; Insect bite (nonvenomous) of left upper arm, initial encounter S40.862A ; Bitten or stung by nonvenomous insect and other nonvenomous arthropods, initial encounter W57.XXXA ; Insect bite (nonvenomous) of right upper arm, initial encounter S40.861A and BMI 40.0-44.9, adult Z68.41 [facility] [address] [address] Aug, Dental infection K04.7 [facility] [address] [address] Jun, [facility] [address] [address] Mar, Migraine, unspecified, not i ntractable, without status migrainosus G43.909 [facility] [address] [address] Jan, Jaw pain R68.84 [facility] [address] [place] [address] Aug, Infection of skin L08.9 and Tattoo reaction L92.3 [facility] [address] [place] [address] Aug, Influenza B J10.1 [facility] N [address] [address] May, Sore throat J02.9 and Bronch itis J40 [facility] [address] [place] [id number] [address] [place] [id number] May, Dental examination Z01.20 an d Dental caries K02.9 [facility] [address] [place] [address] May, Other fatigue R53.83 [facility] [address] [address] Mar, Shoulder injury, left, initi al encounter S49.92XA [place] [address] [address] Dec, [facility] [address] [address] 14 Sep, 2014 [place] [address] [address] 13 Sep, 2014 [facility] [address] [id number] [address] [place] [address], [place] [address] Mar, [facility] [address] [id number] [address] [place] [address], [place] [address] Mar, [facility] [address] [id number] [address] [place] [address], [place] [address] Nov, [facility] [address] [id number] [address] [place] [address], [place] [address] Feb, [facility] [address] [id number] [address] [place] [address], [place] [address] Jan, [facility] [address] [id number] [address] [place] [address], [place] [address] Sep, [facility] [address] [id number] [address] [place] [address], [place] [address] Aug, [facility] [address] [id number] [address] [place] [address], [place] [address] Aug, [facility] [address] [id number] [address] [place] [address], [place] [address] Aug, [facility] [address] [id number] [address] [place] [address], [place] [address] Aug, [facility] [address] [id number] [address] [place] [address], [place] [address] Jul, [facility] [address] [id number] [address] [place] [address], [place] [address] Jul, [facility] [address] [id number] [address] [place] [address], [place] [address] Jul, [facility] [address] [id number] [address] [place] [address], [place] [address] Jul, [facility] [address] [id number] [address] [place] [address], [place] [address] Jul, [facility] [address] [id number] [address] [place] [address] 17 Jul, 2011 [facility] [address] [place] [address] [id number] [address] [place] [address] 16 Jul, 2011 [facility] [address] [id number] [address] [place] [address] 15 Jul, 2011 [facility] [address] [id number] [address] [place] [address] 13 Jul, 2011 [facility] [address] [id number] [address] [place] [address] 08 Jul, 2011 [facility] [address] [id number] [address] [place] [address] Jul, [facility] [address] [id number] [address] [place] [address] Jul, [facility] [address] [id number] [address] [place] [address] Jul, [facility] [address] [id number] [address] [place] [address] Jun, [facility] [address] [id number] [address] [place] [address] Jun, [facility] [address] [facility] [id number] [address] [place] [address] Jun, [facility] [address] [id number] [address] [place] [address] May, [facility] [address] [id number] [address] [place] [address] May, IMMUNIZATIONS No Known Immunizations SOCIAL HISTORY Never Assessed REASON FOR VISIT PLAN OF CARE VITAL SIGNS MEDICATIONS No [...]
--- OUTSIDE RECORDS SUMMARY | 2019-09-16 18:13 | XMS REPORT ---
Author Author Olya Roberto [facility] Address [address] [place] [address] Care Team Providers Care Brim Welt Sewing Machine Operator Name Role Phone ALFRED Roberto Unavailable PROBLEMS Type Condition ICD9-CM Code [id number] Code Onset Dates Condition S tatus SNOMED Code Problem Screening examination for venereal disease V74.5 Active 966068105 Problem Screening for unspecified malignant neoplasm V76.9 Active 54096306 Problem Other postprocedural status V45.89 Ac tive 03334379 Problem Other, multiple, and unspeci fied sites, insect bite, nonvenomous, infected 919.5 Active 875372774 Problem 35-36 completed weeks of gestation 765.28 Active 63948630 Problem Rash and other nonspecific skin eruption 782.1 Active 514084737 Problem Other chronic pain 338.29 Active 8 6734810 Problem Other acute postoperative pain 338.18 Active 249180248415525 Problem Hypoglycemia, unspecified 251.2 Acti ve 356808137 Problem Benign mass of adrenal gland D35.00 A ctive 950585269 Problem Previous delivery, unspecified as to episode of care or not applicable 654.20 Active 432254017 Problem Calcified granuloma of lung J84.10 Ac tive 06385495 Problem Cellulitis and abscess of trunk 682.2 Active 881468562 Problem Mild intermittent asthma with acute exacerbation J 45.21 Active 465609707 Problem Migraine, unspecified, not intractable, without status migrainosus G43.909 Active 85890721 Problem Hemiplegic migraine without status migrainosus, not intractable G43.409 Active 96090623 Problem Lung nodule R91.1 Active 75830730 2 ALLERGIES No Information ENCOUNTERS Encounter Location Date Diagnosis [facility] [address] [facility] [id number] [address] [place] [address] Aug, Calcified granuloma of lung J84.10 ; Benign mass of adrenal gland D35.00 and Morbid obesity E66.[address] [address] 18 Jul, 2018 Cough R05 and Lung nodule R9 1.1 [facility] [address] [address] 16 Jul, 2018 Cough R05 ; Lung nodule R91. 1 and BMI 40.0-44.9, adult Z68.[address] [address] Jun, [facility] [address] [address] Jun, Cough R05 ; Community acquir ed pneumonia, unspecified laterality J18.9 ; BMI 40.0-44.9, adult Z68.41 and Lung nodule R91.1 [facility] [address] [address] Jun, Stomatitis K12.1 [facility] [address] [address] Jun, Herpangina B08.5 [facility] [address] [address] Feb, Cough R05 and BMI 45.0-49.9, adult Z68.42 [facility] [address] [address] Jan, Insect bite, initial encount er W57.XXXA ; Insect bite (nonvenomous) of left upper arm, initial encounter S40.862A ; Bitten or stung by nonvenomous insect and other nonvenomous arthropods, initial encounter W57.XXXA ; Insect bite (nonvenomous) of right upper arm, initial encounter S40.861A and BMI 40.0-44.9, adult Z68.41 [facility] [address] [address] Aug, Dental infection K04.7 [facility] [address] [address] Jun, [facility] N [address] [address] Mar, Migraine, unspecified, not i ntractable, without status migrainosus G43.909 [facility] [address] [address] Jan, Jaw pain R68.84 [facility] [address] [place] [address] Aug, Infection of skin L08.9 and Tattoo reaction L92.3 [facility] [address] [place] [address] Aug, Influenza B J10.1 [facility] [address] [place] [address] May, Sore throat J02.9 and Bronch itis J40 [facility] [address] [id number] May, Dental examination Z01.20 an d Dental caries K02.9 [facility] [address] [address] May, Other fatigue R53.83 [facility] [address] [address] Mar, Shoulder injury, left, initi al encounter S49.92XA [address] [address] Dec, [facility] [address] [address] 14 Sep, 2014 [place] [address] [address] Sep, [facility] [address] [id number] [address] [place] [address], [place] [address] Mar, [facility] [address] [id number] [address] [place] [address], [place] [address] Mar, [facility] [address] [id number] [address] [place] [address], [place] [address] Nov, [facility] [place] [facility] [address] [id number] [address] [place] [address], [place] [address] Feb, [facility] [address] [id number] [address] [place] [address], [place] [address] Jan, [facility] [address] [id number] [address] [place] [address], [place] [address] Sep, [facility] [address] [id number] [address] [place] [address], [place] [address] Aug, [facility] [address] [id number] [address] [place] [address], [place] [address] Aug, [facility] [address] [id number] [address] [place] [address], [place] [address] Aug, [facility] [address] [id number] [address] [place] [address], [place] [address] Aug, [facility] [address] [id number] [address] [place] [address], [place] [address] Jul, [facility] [place] [facility] [address] [id number] [address] [place] [address], [place] [address] Jul, [facility] [place] [facility] [address] [id number] [address] [place] [address], [place] [address] Jul, [facility] [place] [facility] [address] [id number] [address] [place] [address], [place] [address] Jul, [facility] [place] [facility] [address] [id number] [address] [place] [address], [place] [address] Jul, [facility] [address] [id number] [address] [place] [address] 17 Jul, 2011 [facility] [address] [id number] [address] [place] [address] 16 Jul, 2011 [facility] [address] [id number] [address] [place] [address] 15 Jul, 2011 [facility] [address] [id number] [address] [place] [address] Jul, [facility] [address] [id number] [address] [place] [address] Jul, [facility] [address] [id number] [address] [place] [address] Jul, [facility] [address] [id number] [address] [place] [address] Jul, [facility] [address] [id number] [address] [place] [address] Jul, [facility] [address] [id number] [address] [place] [address] Jun, [facility] [address] [id number] [address] [place] [address] Jun, [facility] [address] [id number] [address] [place] [address] Jun, [facility] [address] [id number] [address] [place] [address] May, [facility] [address] [id number] [address] [place] [address] May, IMMUNIZATIONS No Known Immunizations SOCIAL HISTORY [...]
--- OUTSIDE RECORDS SUMMARY | 2019-09-16 18:14 | XMS REPORT ---
Author Author Olya Figueroa Doctor Organization [facility] Address Unknown Phone Unavailable Care Team Providers Care Lubrication Equipment Servicer Name Role Phone Migration, Doctor Unavailable Unavailable PROBLEMS Type Condition ICD9-CM Code [id number] Code Onset Dates Condition S tatus SNOMED Code Problem Screening examination for venereal disease V74.5 Active 927750340 Problem Screening for unspecified malignant neoplasm V76.9 Active 19478584 Problem Other postprocedural status V45.89 Ac tive 16045408 Problem Other, multiple, and unspeci fied sites, insect bite, nonvenomous, infected 919.5 Active 924262947 Problem 35-36 completed weeks of gestation 765.28 Active 98066539 Problem Rash and other nonspecific skin eruption 782.1 Active 470546352 Problem Other chronic pain 338.29 Active 8 3806094 Problem Other acute postoperative pain 338.18 Active 846753169552930 Problem Hypoglycemia, unspecified 251.2 Acti ve 769361855 Problem Benign mass of adrenal gland D35.00 A ctive 831657122 Problem Previous delivery, unspecified as to episode of care or not applicable 654.20 Active 106628273 Problem Calcified granuloma of lung J84.10 Ac tive 81347612 Problem Cellulitis and abscess of trunk 682.2 Active 611903308 Problem Mild intermittent asthma with acute exacerbation J 45.21 Active 981781340 Problem Migraine, unspecified, not intractable, without status migrainosus G43.909 Active 26365915 Problem Hemiplegic migraine without status migrainosus, not intractable G43.409 Active 76210180 Problem Lung nodule R91.1 Active 36154434 2 ALLERGIES No Information ENCOUNTERS Encounter Location Date Diagnosis [facility] [address] [facility] [id number] [address] [place] [address] Aug, Calcified granuloma of lung J84.10 ; Benign mass of adrenal gland D35.00 and Morbid obesity E66.01 [facility] [address] [facility] [id number] [address] [place] [address] 18 Jul, 2018 Cough R05 and Lung nodule R9 1.1 [facility] [address] [place] [address] 16 Jul, 2018 Cough R05 ; Lung nodule R91. 1 and BMI 40.0-44.9, adult Z68.41 [facility] [address] [place] [address] Jun, [facility] [address] [place] [address] Jun, Cough R05 ; Community acquir ed pneumonia, unspecified laterality J18.9 ; BMI 40.0-44.9, adult Z68.41 and Lung nodule R91.1 [facility] [address] [place] [address] Jun, Stomatitis K12.1 [facility] [address] [place] [address] Jun, Herpangina B08.5 [facility] [address] [address] Feb, Cough R05 and BMI 45.0-49.9, adult Z68.42 [facility] [address] [address] Jan, Insect bite, initial encount er W57.XXXA ; Insect bite (nonvenomous) of left upper arm, initial encounter S40.862A ; Bitten or stung by nonvenomous insect and other nonvenomous arthropods, initial encounter W57.XXXA ; Insect bite (nonvenomous) of right upper arm, initial encounter S40.861A and BMI 40.0-44.9, adult Z68.41 [facility] [address] [place] [address] Aug, Dental infection K04.7 [facility] [address] [place] [address] [place] [address] Jun, [facility] [address] [address] Mar, Migraine, unspecified, not i ntractable, without status migrainosus G43.909 [facility] [address] [address] Jan, Jaw pain R68.84 [facility] [address] [address] Aug, Infection of skin L08.9 and Tattoo reaction L92.3 [facility] [address] [address] Aug, Influenza B J10.1 [facility] [address] [place] [address] May, Sore throat J02.9 and Bronch itis J40 [facility] [address] [place] [id number] [place] [id number] May, Dental examination Z01.20 an d Dental caries K02.9 [facility] [address] [address] May, Other fatigue R53.83 [facility] [address] [address] Mar, 2016 Shoulder injury, left, initi al encounter S49.92XA [place] [address] [address] Dec, [place] [address] [address] 14 Sep, 2014 [facility] [address] [address] 13 Sep, 2014 [place] [address] [address] Mar, [facility] [address] [id number] [address] [place] [address], [place] [address] Mar, [facility] [address] [id number] [address] [place] [address], [place] [address] Nov, [facility] [address] [id number] [address] [place] [address], [place] [address] Feb, [facility] [address] [id number] [address] [place] [address], [place] [address] Jan, [facility] [address] [id number] [address] [place] [address], [place] [address] Sep, [facility] [address] [id number] [address] [place] [address], [place] [address] Aug, [facility] [address] [id number] [address] [place] [address], [place] [address] Aug, [facility] [address] [id number] [address] [place] [address], [place] [address] Aug, [facility] [address] [id number] [address] [place] [address], [place] [address] Aug, [facility] [address] [id number] [address] [place] [address], [place] [address] Jul, [facility] [address] [id number] [address] [place] [address], [place] [address] Jul, [facility] [place] [facility] [address] [id number] [address] [place] [address], [place] [address] Jul, [facility] [address] [id number] [address] [place] [address], [place] [address] Jul, [facility] [address] [id number] [address] [place] [address], [place] [id number] Jul, [facility] [address] [id number] [address] [place] [address], [place] [phone] 17 Jul, 2011 [facility] [address] [id number] [address] [place] [phone] 16 Jul, 2011 [facility] [address] [id number] [address] [place] [phone] 15 Jul, 2011 [facility] [address] [id number] [address] [place] [phone] 13 Jul, 2011 [facility] [address] [id number] [address] [place] [phone] 08 Jul, 2011 [facility] [address] [id number] [address] [place] [phone] Jul, [facility] [address] [id number] [address] [place] [phone] Jul, [facility] [address] [id number] [address] [place] [phone] Jul, [facility] [address] [id number] [address] [place] [phone] Jun, [facility] [address] [id number] [address] [place] [phone] Jun, [facility] [address] [id number] [address] [place] [phone] Jun, [facility] [address] [id number] [address] [place] [phone] May, [facility] [address] [id number] [address] [place] [id number] May, IMMUNIZATIONS No Known Immunizations SOCIAL HISTORY Never Assessed REASON FOR VISIT [facility] PLAN OF CARE VITAL SIGNS MEDICATIONS No [...]
--- OUTSIDE RECORDS SUMMARY | 2019-09-16 18:16 | XMS REPORT | Continuity of Care Document ---
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 SPECIFIED DISORDERS OF TEETH AND S 03/03/2018 MANA RAMON MD, Ot K21.9 GASTRO-ESOPHAGEAL REFLUX DISEASE WITHOUT 03/03/2018 MANA RAMON MD Ot 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 03/03/2018 MANA RAMON MD Ot Z87.440 PERSONAL HISTORY OF URINARY (TRACT) INFE 03/03/2018 TRISTEN BOYCE, MANA Estes Ot Z88.0 ALLERGY STATUS TO PENICILLIN 03/03/2018 MANA RAMON MD Ot Z88.1 ALLERGY STATUS TO OTHER ANTIBIOTIC AGENT 03/03/2018 MANA RAMON MD Ot Z88.2 ALLERGY STATUS TO SULFONAMIDES STATUS 03/03/2018 MANA RAMON MD Ot Z88.8 ALLERGY STATUS TO OTH DRUG/MEDS/BIOL SUB 03/03/2018 MANA RAMON MD Ot Z90.89 ACQUIRED ABSENCE OF OTHER ORGANS 03/03/2018 MANA RAMON MD Ot Z98.890 OTHER SPECIFIED POSTPROCEDURAL STATES 04/30/2018 SHAWN WILEY Ot E66.01 MORBID (SEVERE) OBESITY DUE TO EXCESS CA 04/30/2018 SHAWN WILEY Ot F17.210 NICOTINE DEPENDENCE, CIGARETTES, UNCOMPL 04/30/2018 SHAWN WILEY Ot F32.9 MAJOR DEPRESSIVE DISORDER, SINGLE EPISOD 04/30/2018 SHAWN WILEY Ot F41.9 ANXIETY DISORDER, UNSPECIFIED 04/30/2018 INEZ, SHAWN AREA DEVELOPMENT MANAGER Ot F64.9 GENDER IDENTITY DISORDER, UNSPECIFIED 04/30/2018 INEZSHAWN TolentinoP Ot K08.89 OTHER SPECIFIED DISORDERS OF TEETH AND S 04/30/2018 INEZSHAWN TolentinoP Ot K21.9 GASTRO-ESOPHAGEAL REFLUX DISEASE WITHOUT 04/30/2018 SHAWN WILEYP Ot S02.5XXA FRACTURE OF TOOTH (TRAUMATIC), INIT FOR 04/30/2018 INEZSHAWN Tolentino Ot X58.XXXA EXPOSURE TO OTHER SPECIFIED FACTORS, INI 04/30/2018 INEZSHAWN TolentinoP Ot Z68.39 BODY MASS INDEX (BMI) 39.0-39.9, ADULT 04/30/2018 INEZSHAWN TolentinoP Ot Z79.51 ASSISTED (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 STERO 04/30/2018 INEZSHAWN TolentinoP Ot Z86.018 PERSONAL HISTORY OF OTHER BENIGN NEOPLAS 04/30/2018 INEZSHAWN TolentinoP Ot Z87.440 PERSONAL HISTORY OF URINARY (TRACT) INFE 04/30/2018 SHAWN WILEYP Ot Z87.59 PERSONAL HISTORY OF COMP OF PREG, CHLDBR 04/30/2018 INEZSHAWN TolentinoP Ot Z88.0 ALLERGY STATUS TO PENICILLIN 04/30/2018 SHAWN WILEYP Ot Z88.1 ALLERGY STATUS TO OTHER ANTIBIOTIC AGENT 04/30/2018 SHAWN WILEYP Ot Z88.2 ALLERGY STATUS TO SULFONAMIDES STATUS 04/30/2018 SHAWN WILEYP Ot Z88.8 ALLERGY STATUS TO OTH DRUG/MEDS/BIOL SUB 04/30/2018 SHAWN WILEYP Ot Z90.89 ACQUIRED ABSENCE OF OTHER ORGANS 04/30/2018 INEZSHAWN TolentinoP Ot Z98.890 OTHER SPECIFIED POSTPROCEDURAL STATES 05/02/2018 INEZSHAWN TolentinoP Ot E66.01 MORBID (SEVERE) OBESITY DUE TO EXCESS CA 05/02/2018 SHAWN WILEYP Ot F17.210 NICOTINE DEPENDENCE, CIGARETTES, UNCOMPL 05/02/2018 SHAWN WILEYP Ot F32.9 MAJOR DEPRESSIVE DISORDER, SINGLE EPISOD 05/02/2018 SHAWN WILEYP Ot F41.9 ANXIETY DISORDER, UNSPECIFIED 05/02/2018 SHAWN WILEYP Ot F64.9 GENDER IDENTITY DISORDER, UNSPECIFIED 05/02/2018 SHAWN WILEYP Ot K08.89 OTHER SPECIFIED DISORDERS OF TEETH AND S 05/02/2018 SHAWN WILEY Ot K21.9 GASTRO-ESOPHAGEAL REFLUX DISEASE WITHOUT 05/02/2018 SHAWN WILEY Ot S02.5XXA FRACTURE OF TOOTH (TRAUMATIC), INIT FOR 05/02/2018 SHAWN WILEY Ot X58.XXXA EXPOSURE TO OTHER SPECIFIED FACTORS, INI 05/02/2018 SHAWN WILEY Ot Z68.39 BODY MASS INDEX (BMI) 39.0-39.9, ADULT 05/02/2018 SHAWN WILEYP Ot Z79.51 ASSISTED (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 STERO 05/02/2018 SHAWN WILEYP Ot Z86.018 PERSONAL HISTORY OF OTHER BENIGN NEOPLAS 05/02/2018 SHAWN WILEYP Ot Z87.440 PERSONAL HISTORY OF URINARY (TRACT) INFE 05/02/2018 SHAWN WILEYP Ot Z87.59 PERSONAL HISTORY OF COMP OF PREG, CHLDBR 05/02/2018 SHAWN WILEYP Ot Z88.0 ALLERGY STATUS TO PENICILLIN 05/02/2018 SHAWN WILEYP Ot Z88.1 ALLERGY STATUS TO OTHER ANTIBIOTIC AGENT 05/02/2018 SHAWN WILEYP Ot Z88.2 ALLERGY STATUS TO SULFONAMIDES STATUS 05/02/2018 SHAWN WILEYP Ot Z88.8 ALLERGY STATUS TO OTH DRUG/MEDS/BIOL SUB 05/02/2018 SHAWN WILEYP Ot Z90.89 ACQUIRED ABSENCE OF [...] Ot K21.9 GASTRO-ESOPHAGEAL REFLUX DISEASE WITHOUT 05/06/2018 INEZSHAWN Tolentino Ot S02.5XXA FRACTURE OF TOOTH (TRAUMATIC), INIT FOR 05/06/2018 INEZSHAWN Tolentino Ot X58.XXXA EXPOSURE TO OTHER SPECIFIED FACTORS, INI 05/06/2018 SHAWN WILEYP Ot Z68.39 BODY MASS INDEX (BMI) 39.0-39.9, ADULT 05/06/2018 INEZSHAWN Tolentino Ot 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 05/06/2018 INEZSHAWN TolentinoP Ot Z86.018 PERSONAL HISTORY OF OTHER BENIGN NEOPLAS 05/06/2018 SHAWN WILEYP Ot Z87.440 PERSONAL HISTORY OF URINARY (TRACT) INFE 05/06/2018 SHAWN WILEYP Ot Z87.59 PERSONAL HISTORY OF COMP OF PREG, CHLDBR 05/06/2018 INEZSHAWN TolentinoP Ot Z88.0 ALLERGY STATUS TO PENICILLIN 05/06/2018 SHAWN WILEYP Ot Z88.1 ALLERGY STATUS TO OTHER ANTIBIOTIC AGENT 05/06/2018 SHAWN WILEYP Ot Z88.2 ALLERGY STATUS TO SULFONAMIDES STATUS 05/06/2018 SHAWN WILEY Ot Z88.8 ALLERGY STATUS TO [facility] DRUG/MEDS/BIOL SUB 05/06/2018 SHAWN WILEYP Ot Z90.89 ACQUIRED ABSENCE OF OTHER ORGANS 05/06/2018 IENZSHAWN TolentinoP Ot Z98.890 OTHER SPECIFIED POSTPROCEDURAL STATES 06/21/2018 DIPAK COMER DO Ot 250.00 DIAB ASHLEY WO COMPL, TYPE II OR UNSPEC TY 06/21/2018 DIPAK COMER DO Ot 780.79 OT MALAISE FATIGUE 06/21/2018 SHAWN WILEY Ot D64.9 ANEMIA, UNSPECIFIED 06/21/2018 SHAWN WILEYP Ot E66.01 MORBID (SEVERE) OBESITY DUE TO EXCESS CA 06/21/2018 SHAWN WILEYP Ot F32.9 MAJOR DEPRESSIVE DISORDER, SINGLE EPISOD 06/21/2018 SHAWN WILEYP Ot F41.9 ANXIETY DISORDER, UNSPECIFIED 06/21/2018 SHAWN WILEY Ot J02.9 ACUTE PHARYNGITIS, UNSPECIFIED 06/21/2018 INEZSHAWN TolentinoP Ot J45.909 UNSPECIFIED ASTHMA, UNCOMPLICATED 06/21/2018 INEZSHAWN TolentinoP Ot K21.9 GASTRO-ESOPHAGEAL REFLUX DISEASE WITHOUT 06/21/2018 INEZSHAWN TolentinoP Ot Z68.39 BODY MASS INDEX (BMI) 39.0-39.9, ADULT 06/21/2018 INEZSHAWN TolentinoP Ot Z79.51 ASSISTED (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 STERO 06/21/2018 INEZSHAWN TolentinoP Ot Z87.19 PERSONAL HISTORY OF OTHER DISEASES OF TH 06/21/2018 INEZSHAWN TolentinoP Ot Z87.440 PERSONAL HISTORY OF URINARY (TRACT) INFE 06/21/2018 INEZSHAWN TolentinoP Ot Z87.448 PERSONAL HISTORY OF OTHER DISEASES OF UR 06/21/2018 SHAWN WILEYP Ot Z88.1 ALLERGY STATUS TO OTHER ANTIBIOTIC AGENT 06/21/2018 SHAWN WILEYP Ot Z88.2 ALLERGY STATUS TO SULFONAMIDES STATUS 06/21/2018 SHAWN WILEYP Ot Z88.8 ALLERGY STATUS TO [facility] DRUG/MEDS/BIOL SUB 06/21/2018 INEZSHAWN TolentinoP Ot Z90.89 ACQUIRED ABSENCE OF OTHER ORGANS 06/21/2018 INEZSHAWN TolentinoP Ot Z98.890 OTHER SPECIFIED POSTPROCEDURAL STATES 06/23/2018 SHAWN WILEYP Ot D64.9 ANEMIA, UNSPECIFIED 06/23/2018 INEZSHAWN Tolentino AREA DEVELOPMENT MANAGER Ot E66.01 MORBID (SEVERE) OBESITY DUE TO EXCESS CA 06/23/2018 SHAWN WILEYP Ot F32.9 MAJOR DEPRESSIVE DISORDER, SINGLE EPISOD 06/23/2018 INEZSHAWN TolentinoP Ot F41.9 ANXIETY DISORDER, UNSPECIFIED 06/23/2018 INEZSHAWN TolentinoP Ot J02.9 ACUTE PHARYNGITIS, UNSPECIFIED 06/23/2018 SHAWN WILEYP Ot J45.909 UNSPECIFIED ASTHMA, UNCOMPLICATED 06/23/2018 INEZSHAWN TolentinoP Ot K21.9 GASTRO-ESOPHAGEAL REFLUX DISEASE WITHOUT 06/23/2018 INEZSHAWN TolentinoP Ot Z68.39 BODY MASS INDEX (BMI) 39.0-39.9, ADULT 06/23/2018 INEZSHAWN TolentinoP Ot 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 06/23/2018 INEZ SHAWN OLIVAREZ Ot Z87.19 PERSONAL HISTORY OF OTHER DISEASES OF TH 06/23/2018 INEZ SHAWN OLIVAREZ Ot Z87.440 PERSONAL HISTORY OF URINARY (TRACT) INFE 06/23/2018 INEZ SHAWN HOPKINSP Ot Z87.448 PERSONAL HISTORY OF OTHER DISEASES OF UR 06/23/2018 INEZ SHAWN HOPKINSP Ot Z88.1 ALLERGY STATUS TO OTHER ANTIBIOTIC AGENT 06/23/2018 INEZSHAWN TolentinoP Ot Z88.2 ALLERGY STATUS TO SULFONAMIDES STATUS 06/23/2018 INEZSHAWN TolentinoP Ot Z88.8 ALLERGY STATUS TO OTH DRUG/MEDS/BIOL SUB 06/23/2018 INEZSHAWN TolentinoP Ot Z90.89 ACQUIRED ABSENCE OF OTHER ORGANS 06/23/2018 INEZSHAWN TolentinoP Ot Z98.890 OTHER SPECIFIED POSTPROCEDURAL STATES 08/09/2018 GELLENDER DO, DIPAK A Ot 250.00 DIAB ASHLEY WO COMPL, TYPE II OR UNSPEC TY 08/09/2018 GELLENDER DO DIPAK Yusuf Ot 780.79 OTH MALAISE FATIGUE 08/11/2018 GELLENDER DO DIPAK A Ot 250.00 DIAB ASHLEY WO COMPL, TYPE II OR UNSPEC TY 08/11/2018 GELLENDER DO, DIPAK A Ot 780.79 OTH MALAISE FATIGUE 08/14/2018 JONATHAN WILLSON MD Ot D35.01 BENIGN NEOPLASM OF RIGHT ADRENAL GLAND 08/14/2018 JONATHAN WILLSON MD Ot R91 .8 OTHER NONSPECIFIC ABNORMAL FINDING OF NINA 08/17/2018 JONATHAN WILLSON MD Ot D35.01 BENIGN NEOPLASM OF RIGHT ADRENAL GLAND 08/17/2018 JONATHAN WILLSON MD Ot R91 .8 OTHER NONSPECIFIC ABNORMAL FINDING OF NINA 09/01/2018 JONATHAN WILLSON MD Ot D35.01 BENIGN NEOPLASM OF RIGHT ADRENAL GLAND 09/01/2018 JONATHAN WILLSON MD Ot R91 .8 OTHER NONSPECIFIC ABNORMAL FINDING OF NINA 11/08/2018 SHAWN WILEYP Ot D64.9 ANEMIA, UNSPECIFIED 11/08/2018 SHAWN WILEYP Ot E66.01 MORBID (SEVERE) OBESITY DUE TO EXCESS CA 11/08/2018 SHAWN WILEYP Ot F32.9 MAJOR DEPRESSIVE DISORDER, SINGLE EPISOD 11/08/2018 SHAWN WILEYP Ot F41.9 ANXIETY DISORDER, UNSPECIFIED 11/08/2018 SHAWN WILEYP Ot J45.909 UNSPECIFIED ASTHMA, UNCOMPLICATED 11/08/2018 INEZSHAWN Tolentino Ot K04.7 PERIAPICAL ABSCESS WITHOUT SINUS 11/08/2018 SHAWN WILEYP Ot K08.89 OTHER SPECIFIED DISORDERS OF TEETH AND S 11/08/2018 SHAWN WILEYP Ot K21.9 GASTRO-ESOPHAGEAL REFLUX DISEASE WITHOUT 11/08/2018 SHAWN WILEYP Ot Z68.39 BODY MASS INDEX (BMI) 39.0-39.9, ADULT 11/08/2018 INEZSHAWN TolentinoP Ot Z87.19 PERSONAL HISTORY OF OTHER DISEASES OF TH 11/08/2018 SHAWN WILEY Ot Z87.440 PERSONAL HISTORY OF URINARY (TRACT) INFE 11/08/2018 SHAWN WILEY Ot Z87.59 PERSONAL HISTORY OF COMP OF PREG, CHLDBR 11/08/2018 SHAWN WILEY Ot Z88.1 ALLERGY STATUS TO OTHER ANTIBIOTIC AGENT 11/08/2018 SHAWN WILEYP Ot Z88.2 ALLERGY STATUS TO SULFONAMIDES STATUS 11/08/2018 INEZSHAWN TolentinoP Ot Z88.8 ALLERGY STATUS TO OTH DRUG/MEDS/BIOL SUB 11/08/2018 SHAWN WILEYP Ot Z90.89 ACQUIRED ABSENCE OF OTHER ORGANS 11/08/2018 SHAWN WILEYP Ot Z98.890 OTHER SPECIFIED POSTPROCEDURAL STATES 02/08/2019 CECILIO NAVARRO APRN Ot E66.01 MORBID (SEVERE) OBESITY DUE TO EXCESS CA 02/08/2019 CECILIO NAVARRO APRN Ot F17.210 NICOTINE DEPENDENCE, CIGARETTES, UNCOMPL 02/08/2019 CECILIO NAVARRO APRN Ot F32 .9 MAJOR DEPRESSIVE DISORDER, SINGLE EPISOD 02/08/2019 CECILIO NAVARRO APRN Ot F41 .9 ANXIETY DISORDER, UNSPECIFIED 02/08/2019 CECILIO NAVARRO APRN Ot J45.909 UNSPECIFIED ASTHMA, UNCOMPLICATED 02/08/2019 CECILIO NAVARRO APRN Ot K21 .9 GASTRO-ESOPHAGEAL REFLUX DISEASE WITHOUT 02/08/2019 CECILIO NAVARRO APRN Ot R11 .2 NAUSEA WITH VOMITING, UNSPECIFIED 02/08/2019 CECILIO NAVARRO APRN Ot R53 .1 WEAKNESS 02/08/2019 CECILIO NAVARRO APRN Ot S80.862A INSECT BITE (NONVENOMOUS), LEFT LOWER LE 02/08/2019 CECILIO NAVARRO APRN Ot W57.XXXA BIT/STUNG BY NONVENOM INSECT OTH NONVE 02/08/2019 CECILIO NAVARRO APRN Ot Z68.41 BODY MASS INDEX (BMI) 40.0-44.9, ADULT 02/08/2019 CECILIO NAVARRO APRN Ot Z86.018 PERSONAL HISTORY OF OTHER BENIGN NEOPLAS 02/08/2019 CECILIO NAVARRO APRN Ot Z87.19 PERSONAL HISTORY OF OTHER DISEASES OF TH 02/08/2019 CECILIO NAVARRO APRN Ot Z87.440 PERSONAL HISTORY OF URINARY (TRACT) INFE 02/13/2019 CECILIO NAVARRO APRN Ot E66.01 MORBID (SEVERE) OBESITY DUE TO EXCESS CA 02/13/2019 CECILIO NAVARRO APRN Ot F17.210 NICOTINE DEPENDENCE, CIGARETTES, UNCOMPL 02/13/2019 CECILIO NAVARRO APRN Ot F32 .9 MAJOR DEPRESSIVE DISORDER, SINGLE EPISOD 02/13/2019 CECILIO NAVARRO APRN Ot F41 .9 ANXIETY DISORDER, UNSPECIFIED 02/13/2019 CECILIO NAVARRO APRN Ot J45.909 UNSPECIFIED ASTHMA, UNCOMPLICATED 02/13/2019 CECILIO NAVARRO APRN Ot K21 .9 GASTRO-ESOPHAGEAL REFLUX DISEASE WITHOUT 02/13/2019 CECILIO NAVARRO APRN Ot R11 .2 NAUSEA WITH VOMITING, UNSPECIFIED 02/13/2019 CECILIO NAVARRO APRN Ot R53 .1 WEAKNESS 02/13/2019 CECILIO NAVARRO APRN Ot S80.862A INSECT BITE (NONVENOMOUS), LEFT LOWER LE 02/13/2019 CECILIO NAVARRO APRN Ot W57.XXXA BIT/STUNG BY NONVENOM INSECT OTH NONVE 02/13/2019 CECILIO NAVARRO APRN Ot Z68.41 BODY MASS INDEX (BMI) 40.0-44.9, ADULT 02/13/2019 CECILIO NAVARRO APRN Ot Z86.018 PERSONAL HISTORY OF OTHER BENIGN NEOPLAS 02/13/2019 CECILIO NAVARRO APRN Ot Z87.19 PERSONAL HISTORY OF OTHER DISEASES OF 02/13/2019 CECILIO NAVARRO APRN Ot Z87.440 PERSONAL HISTORY OF URINARY (TRACT) INFE 02/14/2019 CECILIO NAVARRO APRN Ot E66.01 MORBID (SEVERE) OBESITY DUE TO EXCESS CA 02/14/2019 CECILIO NAVARRO APRN Ot F17.210 NICOTINE DEPENDENCE, CIGARETTES, UNCOMPL 02/14/2019 CECILIO NAVARRO APRN Ot F32 .9 MAJOR DEPRESSIVE DISORDER, SINGLE EPISOD 02/14/2019 CECILIO NAVARRO APRN Ot F41 .9 ANXIETY DISORDER, UNSPECIFIED 02/14/2019 CECILIO NAVARRO APRN Ot J45.909 UNSPECIFIED ASTHMA, UNCOMPLICATED 02/14/2019 CECILIO NAVARRO APRN Ot K21 .9 GASTRO-ESOPHAGEAL REFLUX DISEASE WITHOUT 02/14/2019 CECILIO NAVARRO APRN Ot R11 .2 NAUSEA WITH VOMITING, UNSPECIFIED 02/14/2019 CECILIO NAVARRO APRN Ot R53 .1 WEAKNESS 02/14/2019 CECILIO NAVARRO APRN Ot S80.862A INSECT BITE (NONVENOMOUS), LEFT LOWER LE 02/14/2019 CECILIO NAVARRO APRN Ot W57.XXXA BIT/STUNG BY NONVENOM INSECT OTH NONVE 02/14/2019 CECILIO NAVARRO APRN Ot Z68.41 BODY MASS INDEX (BMI) 40.0-44.9, ADULT 02/14/2019 CECILIO NAVARRO APRN Ot Z86.018 PERSONAL HISTORY OF OTHER BENIGN NEOPLAS 02/14/2019 CECILIO NAVARRO APRN Ot Z87.19 PERSONAL HISTORY OF OTHER DISEASES OF TH 02/14/2019 CECILIO NAVARRO APRN Ot Z87.440 PERSONAL HISTORY OF URINARY (TRACT) INFE 02/15/2019 CECILIO NAVARRO APRN Ot E66.01 MORBID (SEVERE) OBESITY DUE TO EXCESS CA 02/15/2019 CECILIO NAVARRO APRN Ot F17.210 NICOTINE DEPENDENCE, CIGARETTES, UNCOMPL 02/15/2019 CECILIO NAVARRO APRN Ot F32 .9 MAJOR DEPRESSIVE DISORDER, SINGLE EPISOD 02/15/2019 CECILIO NAVARRO APRN Ot F41 .9 ANXIETY DISORDER, UNSPECIFIED 02/15/2019 CECILIO NAVARRO APRN Ot J45.909 UNSPECIFIED ASTHMA, UNCOMPLICATED 02/15/2019 CECILIO NAVARRO APRN Ot K21 .9 GASTRO-ESOPHAGEAL REFLUX DISEASE WITHOUT 02/15/2019 CECILIO NAVARRO APRN Ot R11 .2 NAUSEA WITH VOMITING, UNSPECIFIED 02/15/2019 CECILIO NAVARRO APRN Ot R53 .1 WEAKNESS 02/15/2019 CECILIO NAVARRO APRN Ot S80.862A INSECT BITE (NONVENOMOUS), LEFT LOWER LE 02/15/2019 CECILIO NAVARRO APRN Ot W57.XXXA BIT/STUNG BY NONVENOM INSECT OTH NONVE 02/15/2019 CECILIO NAVARRO APRN Ot Z68.41 BODY MASS INDEX (BMI) 40.0-44.9, ADULT 02/15/2019 CECILIO NAVARRO APRN Ot Z86.018 PERSONAL HISTORY OF OTHER BENIGN NEOPLAS 02/15/2019 CECILIO NAVARRO APRN Ot Z87.19 PERSONAL HISTORY OF OTHER DISEASES OF TH 02/15/2019 CECILIO NAVARRO APRN Ot Z87.440 PERSONAL HISTORY OF URINARY (TRACT) INFE 04/10/2019 DIAN JACKSON Ot D64.9 ANEMIA, UNSPECIFIED 04/10/2019 DIAN JACKSON Ot E66.01 MORBID (SEVERE) OBESITY DUE TO EXCESS CA 04/10/2019 DIAN JACKSON Ot F17.210 NICOTINE DEPENDENCE, CIGARETTES, UNCOMPL 04/10/2019 DIAN JACKSON Ot F32.9 MAJOR DEPRESSIVE DISORDER, SINGLE EPISOD 04/10/2019 DIAN JACKSON Ot F41.9 ANXIETY DISORDER, UNSPECIFIED 04/10/2019 DIAN JACKSON Ot J45.909 UNSPECIFIED ASTHMA, UNCOMPLICATED 04/10/2019 DIAN JACKSON Ot K21.9 GASTRO-ESOPHAGEAL REFLUX DISEASE WITHOUT 04/10/2019 DIAN JACKSON Ot M54.5 LOW BACK PAIN 04/10/2019 DIAN JACKSON Ot S33.5XXA SPRAIN OF LIGAMENTS OF LUMBAR SPINE, INI 04/10/2019 DIAN JACKSON Ot W06.XXXA FALL FROM BED, INITIAL ENCOUNTER 04/10/2019 DIAN JACKSON Ot Z68.39 BODY MASS INDEX (BMI) 39.0-39.9, ADULT 04/10/2019 DIAN JACKSON Ot Z87.440 PERSONAL HISTORY OF URINARY (TRACT) INFE 04/10/2019 MIRTHA JACKSONIS Ot Z88.1 ALLERGY STATUS TO OTHER ANTIBIOTIC AGENT 04/10/2019 BERNJORDAN DIAN Ot Z88.2 ALLERGY STATUS TO SULFONAMIDES STATUS 04/10/2019 BERNMIRTHA ORTEGAIS Ot Z88.8 ALLERGY STATUS TO OTH DRUG/MEDS/BIOL SUB 04/10/2019 BERNMIRTHA ORTEGAIS Ot Z90.89 ACQUIRED ABSENCE OF OTHER ORGANS 04/10/2019 BERNMIRTHA ORTEGAIS Ot Z98.1 ARTHRODESIS STATUS 05/03/2019 PATRIZIA ELAM Ot E66.01 MORBID (SEVERE) OBESITY DUE TO EXCESS CA 05/03/2019 PATRIZIA ELAM Ot F17.210 NICOTINE DEPENDENCE, CIGARETTES, UNCOMPL 05/03/2019 PATRIZIA ELAM Ot F32.9 MAJOR DEPRESSIVE DISORDER, SINGLE EPISOD 05/03/2019 PATRIZIA ELAM Ot F41.9 ANXIETY DISORDER, UNSPECIFIED 05/03/2019 PATRIZIA ELAM Ot J45.901 UNSPECIFIED ASTHMA WITH (ACUTE) EXACERBA 05/03/2019 PATRIZIA ELAM Ot K21.9 GASTRO-ESOPHAGEAL REFLUX DISEASE WITHOUT 05/03/2019 PATRIZIA ELAM Ot R 05 COUGH 05/03/2019 PATRIZIA ELAM Ot Z68.39 BODY MASS INDEX (BMI) 39.0-39.9, ADULT 05/03/2019 PATRIZIA ELAM Ot Z86.012 PERSONAL HISTORY OF BENIGN CARCINOID AGUSTINA 05/03/2019 PATRIZIA ELAM Ot Z88.1 ALLERGY STATUS TO OTHER ANTIBIOTIC AGENT 05/03/2019 PATRIZIA ELAM Ot Z88.2 ALLERGY STATUS TO SULFONAMIDES STATUS 05/03/2019 PATRIZIA ELAM Ot Z88.8 ALLERGY STATUS TO OTH DRUG/MEDS/BIOL SUB 05/03/2019 PATRIZIA ELAM Ot Z90.89 ACQUIRED ABSENCE OF OTHER ORGANS 05/03/2019 PATRIZIA ELAM Ot Z91.14 PATIENT'S OTHER NONCOMPLIANCE WITH MEDIC 05/07/2019 PATRIZIA ELAM Ot E66.01 MORBID (SEVERE) OBESITY DUE TO EXCESS CA 05/07/2019 PATRIZIA ELAM Ot F17.210 NICOTINE DEPENDENCE, CIGARETTES, UNCOMPL 05/07/2019 PATRIZIA ELAM Ot F32.9 MAJOR DEPRESSIVE DISORDER, SINGLE EPISOD 05/07/2019 PATRIZIA ELAM Ot F41.9 ANXIETY DISORDER, UNSPECIFIED 05/07/2019 PATRIZIA ELAM Ot J45.901 UNSPECIFIED ASTHMA WITH (ACUTE) EXACERBA 05/07/2019 PATRIZIA ELAM Ot K21.9 GASTRO-ESOPHAGEAL REFLUX DISEASE WITHOUT 05/07/2019 PATRIZIA ELAM Ot R 05 COUGH 05/07/2019 PATRIZIA ELAM Ot Z68.39 BODY MASS INDEX (BMI) 39.0-39.9, ADULT 05/07/2019 PATRIZIA ELAM Ot Z86.012 PERSONAL HISTORY OF BENIGN CARCINOID AGUSTINA 05/07/2019 PATRIZIA ELAM Ot Z88.1 ALLERGY STATUS TO OTHER ANTIBIOTIC AGENT 05/07/2019 PATRIZIA ELAM Ot Z88.2 ALLERGY STATUS TO SULFONAMIDES STATUS 05/07/2019 PATRIZIA ELAM Ot Z88.8 ALLERGY STATUS TO OTH DRUG/MEDS/BIOL SUB 05/07/2019 PATRIZIA ELAM Ot Z90.89 ACQUIRED ABSENCE OF OTHER ORGANS 05/07/2019 PATRIZIA ELAM Ot Z91.14 PATIENT'S OTHER NONCOMPLIANCE WITH MEDIC 09/11/2019 CECILIO NAVARRO APRN Ot F32 .9 MAJOR DEPRESSIVE DISORDER, SINGLE EPISOD 09/11/2019 CECILIO NAVARRO APRN Ot F41 .9 ANXIETY DISORDER, UNSPECIFIED 09/11/2019 CECILIO NAVARRO APRN Ot J45.909 UNSPECIFIED ASTHMA, UNCOMPLICATED 09/11/2019 CECILIO NAVARRO APRN Ot K21 .9 GASTRO-ESOPHAGEAL REFLUX DISEASE WITHOUT 09/11/2019 CECILIO NAVARRO APRN Ot K59.09 OTHER CONSTIPATION 09/11/2019 CECILIO NAVARRO APRN Ot M54 .6 PAIN IN THORACIC SPINE 09/11/2019 CECILIO NAVARRO APRN Ot W10.9XXA FALL (ON) (FROM) UNSPECIFIED STAIRS AND 09/11/2019 CECILIO NAVARRO APRN Ot Z79.899 OTHER ASSISTED (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 THERAPY 09/11/2019 CECILIO NAVARRO APRN Ot Z88 .2 ALLERGY STATUS TO SULFONAMIDES STATUS 09/11/2019 CECILIO NAVARRO APRN Ot F32 .9 MAJOR DEPRESSIVE DISORDER, SINGLE EPISOD 09/11/2019 CECILIO NAVARRO APRN Ot F41 .9 ANXIETY DISORDER, UNSPECIFIED 09/11/2019 CECILIO NAVARRO APRN Ot J45.909 UNSPECIFIED ASTHMA, UNCOMPLICATED 09/11/2019 CECILIO NAVARRO APRN Ot K21 .9 GASTRO-ESOPHAGEAL REFLUX DISEASE WITHOUT 09/11/2019 CECILIO NAVARRO APRN Ot K59.09 OTHER CONSTIPATION 09/11/2019 CECILIO NAVARRO APRN Ot M54 .6 PAIN IN THORACIC SPINE 09/11/2019 CECILIO NAVARRO APRN Ot W10.9XXA FALL (ON) (FROM) UNSPECIFIED STAIRS AND 09/11/2019 CECILIO NAVARRO APRN Ot Z79.899 OTHER VOLLEYBALL ASSEMBLER (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 THERAPY 09/11/2019 CECILIO NAVARRO APRN Ot Z88 .2 ALLERGY STATUS TO SULFONAMIDES STATUS Procedures Code Description Performed By Luiz finley On 74.1 LOW C ERVICAL 08/24/2011 Results Test Result Range Complete blood count (CBC) with automate d white blood cell (WBC) differential - 01/24/17 16:24 Blood leukocytes automated count (number/volume) 7.6 10*3/uL 4.3-11.0 Blood erythrocytes automated count (number/volume) 5.29 10*6/uL 4.35-5.85 Venous blood hemoglobin measurement (mass/volume) 12.2 g/dL 11.5-16.0 Blood hematocrit (volume fraction) 39 % 35-52 Automated erythrocyte mean corpuscular volume 73 [ foz_us] 80-99 Automated erythrocyte mean corpuscular h emoglobin (mass per erythrocyte) 23 pg 25-34 Automated erythrocyte mean corpuscular h emoglobin concentration measurement (mass/volume) 32 g/dL 32-36 Automated erythrocyte distribution width ratio 18. 7 % 10.0- 14.5 Automated blood platelet count (count/volume) 394 10*3/uL [...] 10*3 1.0-4.0 Blood monocytes automated count (number/volume) 0. 7 10*3 0.0-1.0 Automated eosinophil count 0.2 10*3/uL 0 .0-0.3 Automated blood basophil count (count/volume) 0.0 10*3/uL 0.0-0.1 Streptococcus pyogenes antigen detection - 06/21/18 18:35 Streptococcus pyogenes antigen detection NEGATIVE NEGATIVE Influenza virus A and B antigen detectio n - 06/21/18 18:35 FLU RESULT NEGATIVE FOR INFLUENZA A AND B ANTIGENS BY IA NRG Bacterial throat culture - 06/21/18 18:3 5 Bacterial throat culture [facility] Complete blood count (CBC) with automate d white blood cell (WBC) differential - 06/21/18 18:56 Blood leukocytes automated count (number/volume) 9.8 10*3/uL 4.3-11.0 Blood erythrocytes automated count (number/volume) 4.78 10*6/uL 4.35-5.85 Venous blood hemoglobin measurement (mass/volume) 11.3 g/dL 11.5-16.0 Blood hematocrit (volume fraction) 37 % 35-52 Automated erythrocyte mean corpuscular volume 77 [ foz_us] 80-99 Automated erythrocyte mean corpuscular h emoglobin (mass per erythrocyte) 24 pg 25-34 Automated erythrocyte mean corpuscular h emoglobin concentration measurement (mass/volume) 31 g/dL 32-36 Automated erythrocyte distribution width ratio 18. 2 % 10.0- 14.5 Automated blood platelet count (count/volume) 360 10*3/uL 130-400 Automated blood platelet mean volume measurement 9.4 [foz_us] 7.4-10.4 Automated blood neutrophils/100 leukocytes 79 % 42-75 Automated blood lymphocytes/100 leukocytes 14 % 12-44 Blood monocytes/100 leukocytes 6 % 0-12 Automated blood eosinophils/100 leukocytes 2 % 0-10 Automated blood basophils/100 leukocytes 0 % 0-10 Blood neutrophils automated count (number/volume) 7.8 10*3 1.8-7.8 Blood lymphocytes automated count (number/volume) 1.3 10*3 1.0-4.0 Blood monocytes automated count (number/volume) 0. 5 10*3 0.0-1.0 Automated eosinophil count 0.2 10*3/uL 0 .0-0.3 Automated blood basophil count (count/volume) 0.0 10*3/uL 0.0-0.1 Comprehensive metabolic panel - 06/21/18 18:56 Serum or plasma sodium measurement (moles/volume) 139 mmol/L 135-145 Serum or plasma potassium measurement (moles/volume) 3.8 mmol/L 3.6-5.0 Serum or plasma chloride measurement (moles/volume) 105 mmol/L 98-107 Carbon dioxide 26 mmol/L 21-32 Serum or plasma anion gap determination (moles/volume) 8 mmol/L 5-14 Serum or plasma urea nitrogen measurement (mass/volume ) 6 mg/dL 7-18 Serum or plasma creatinine measurement (mass/volume) 0.66 mg/dL 0.60-1.30 Serum or plasma urea nitrogen/creatinine mass ratio 9 NRG Serum or plasma creatinine measurement w ith calculation of estimated glomerular filtration rate > NRG Serum or plasma glucose measurement (mass/volume) 114 mg/dL 70-105 Serum or plasma calcium measurement (mass/volume) 9.1 mg/dL 8.5-10.1 Serum or plasma total bilirubin measurement (mass/volu me) 0.2 mg/dL 0.1-1.0 Serum or plasma alkaline phosphatase isaac surement (enzymatic activity/volume) 122 U/L 40-136 Serum or plasma aspartate aminotransfera se measurement (enzymatic activity/volume) 22 U/L 5-34 Serum or plasma alanine aminotransferase measurement (enzymatic activity/volume) 23 U/L 0-55 Serum or plasma protein measurement (mass/volume) 7.0 g/dL 6.4-8.2 Serum or plasma albumin measurement (mass/volume) 3.8 g/dL 3.2-4.5 CALCIUM CORRECTED 9.3 mg/dL 8.5-10.1 Encounters ACCT No. Visit Date/Time Discharge Status Pt. Type Provider Facility Loc./Unit Complaint [id number] 03/23/2014 12:08:00 03/23/2014 23:59: 59 CLS Outpatient ERIBERTO FONTENOT APRN [id number] 02/03/2012 11:14:00 Document Registration [id number] 09/09/2019 15:27:00 16:45:00 DIS Outpatient CECILIO NAVARRO APRN [facility] ER PT SLIPPED AND FELL ON BACK [id number] 05/03/2019 18:20:00 21:36:00 DIS Emergency PATRIZIA ELAM [facility] ER VOMITING/COUGH [id number] 04/10/2019 18:05:00 19:09:00 DIS Emergency RENETTA DIAN [facility] ER FALL/LOWER BACK AND R L EG PAIN [id number] 02/08/2019 16:34:00 17:05:00 DIS Emergency CECILIO NAVARRO APRN [facility] ER VOMITING/NAUSEA/WEAKNES S/L LEG INSECT BITE [id number] 11/03/2018 18:39:00 20:22:00 DIS Outpatient SHAWN WILEY a [facility] ER DENTAL PAIN [id number] 08/11/2018 10:48:00 23:59:59 CLS Outpatient JONATHAN WILLSON MD [facility] RAD COUGH, LUNG NODULE [id number] 06/21/2018 17:56:00 19:34:00 DIS Emergency SHAWN WILEY [facility] ER THROAT PAIN [id number] 04/30/2018 13:34:00 14:29:00 DIS Emergency SHAWN WILEY [facility] ER HEAD/MOUTH PAIN, TOOTH BROKE IN HALF [id number] 04/30/2018 13:20:00 13:20:00 CAN Emergency ANKUR RINCON MD [facility] ER HEAD/MOUTH PAIN , TOOTH BROKE IN HALF [id number] 02/26/2018 12:28:00 15:38:00 DIS Emergency ANKUR RINCON MD [facility] ER FACE SWELLING,O NE SIDE DROOPING,DENTAL PROBLEMS [id number] 02/25/2018 09:27:00 018

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
[2019-09-16] MEDS ORDERED: HYDROcodone/APAP 5 MG/325 MG (LORTAB) TAB PO ONE (19:00)
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
[2019-09-16 19:32] VITALS: BP 100/67
== END 2019-09-16 19:34 | disposition home or self-care (01) ==
LOC: EDUNIT# 18:06 → ER 18:08
DX: S80.02XA Contusion of left knee, initial encounter (principal); S60.512A Abrasion of left hand, initial encounter; F17.210 Nicotine dependence, cigarettes, uncomplicated; Z88.2 Allergy status to sulfonamides; Z88.1 Allergy status to other antibiotic agents; Z88.8 Allergy status to other drugs, medicaments and biological substances; V18.4XXA Pedal cycle driver injured in noncollision transport accident in traffic accident, initial encounter
CPT/HCPCS: 73562

== ENCOUNTER 2019-11-02 19:49 | Emergency (ER) | payer MEDICAID ==
[~2019-11-02] VITALS: Ht 170.2 cm; Wt 120.2 kg
[2019-11-02 20:11] LABS: BASOPHILS % (AUTO) 0 % (0-10); EOSINOPHILS # (AUTO) 0.5 10^3/uL (0.0-0.3); EOSINOPHILS % (AUTO) 6 % (0-10); HEMATOCRIT 36 % (35-52); HEMOGLOBIN 11.1 G/DL (11.5-16.0); LYMPHOCYTES # (AUTO) 2.4 X 10^3 (1.0-4.0); LYMPHOCYTES % (AUTO) 28 % (12-44); MEAN CORPUSCULAR HEMOGLOBIN 21 PG (25-34); MEAN CORPUSCULAR HGB CONC 31 G/DL (32-36); MEAN CORPUSCULAR VOLUME 70 FL (80-99); MEAN PLATELET VOLUME 8.8 FL (7.4-10.4); MONOCYTES # (AUTO) 0.7 X 10^3 (0.0-1.0); MONOCYTES % (AUTO) 8 % (0-12); NEUTROPHILS # (AUTO) 4.9 X 10^3 (1.8-7.8); NEUTROPHILS % (AUTO) 57 % (42-75); PLATELET COUNT 448 10^3/uL (130-400); RED CELL DISTRIBUTION WIDTH 21.2 % (10.0-14.5); WHITE BLOOD COUNT 8.5 10^3/uL (4.3-11.0)
[2019-11-02] MEDS ORDERED: ALPRAZolam 0.25 MG (XANAX) TAB PO ONE (20:15)
[2019-11-02 20:24] LABS: INR 0.9 (0.8-1.4); PROTHROMBIN TIME PATIENT 12.4 SEC (12.2-14.7)
[2019-11-02 20:26] LABS: ALANINE AMINOTRANSFERASE 27 U/L (0-55); ALBUMIN 3.8 GM/DL (3.2-4.5); ALKALINE PHOSPHATASE 173 U/L (40-136); BILIRUBIN,TOTAL 0.2 MG/DL (0.1-1.0); BUN/CREATININE RATIO 9; CALCIUM 8.4 MG/DL (8.5-10.1); CARBON DIOXIDE 23 MMOL/L (21-32); CHLORIDE 105 MMOL/L (98-107); CREATININE SERUM 0.78 MG/DL (0.60-1.30); GFR ESTIMATED > 60; GLUCOSE 108 MG/DL (70-105); MAGNESIUM 1.9 MG/DL (1.6-2.4); POTASSIUM 4.1 MMOL/L (3.6-5.0); SODIUM 139 MMOL/L (135-145); TOTAL PROTEIN 7.5 GM/DL (6.4-8.2)
--- NOTE | 2019-11-02 20:28 | Diagnostic Imaging Report ---
INDICATION: Shortness of breath. EXAMINATION: Single view of the chest was obtained. FINDINGS: The lungs are clear. The heart and vessels are normal. No failure, effusion or pneumothorax. IMPRESSION: No acute appearing abnormality. Dictated by: Dictated on workstation # [id number]
--- OUTSIDE RECORDS SUMMARY | 2019-11-02 20:30 | XMS REPORT ---
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 Ac tive 09601313 Problem Hypoglycemia E16.2 Active 1256336 03 Problem Migraine, unspecified, not intractable, without status migrainosus G43.909 Active 79143352 Problem Hemiplegic migraine without status migrainosus, not intractable G43.409 Active 78040540 Problem Lung nodule R91.1 Active 59244422 2 Problem Benign mass of adrenal gland D35.00 A ctive [id number] ALLERGIES No Information ENCOUNTERS Encounter Location Date Diagnosis [facility] [id number] [place] [address] [id number] Sep, [facility] [address] [id number] [address] [place] [phone] Jun, Bacterial infection, unspeci fied A49.9 and Urinary tract infection, site not specified N39.0 [facility] [address] [id number] [address] [place] [phone] Apr, Diarrhea, unspecified R19.7 and Vomiting, unspecified R11.10 [facility] [address] [phone] Feb, Mouth pain K13.79 [facility] [address] [place], [place] [id number] [address] [place] [phone] Jan, Morbid obesity E66.01 ; Hypo glycemia E16.2 and Gastroenteritis K52.[address] [address] Aug, 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 1 and BMI 40.0-44.9, adult Z68.[address] [address] Jun, [facility] [address] [address] Jun, Cough R05 ; Community acquir ed pneumonia, unspecified laterality J18.9 ; BMI 40.0-44.9, adult Z68.41 and Lung nodule R91.1 [facility] [address] [address] Jun, Stomatitis K12.1 [facility] [address] [address] Jun, Herpangina B08.5 [facility] [address] [address] Feb, Cough R05 and BMI 45.0-49.9, adult Z68.42 [facility] [address] [address] Jan, Insect bite, initial encount er W57.XXXA ; Insect bite (nonvenomous) of left upper arm, initial encounter S40.862A ; Bitten or stung by nonvenomous insect and other nonvenomous arthropods, initial encounter W57.XXXA ; Insect bite (nonvenomous) of right upper arm, initial encounter S40.861A and BMI 40.0-44.9, adult Z68.41 [facility] [address] [address] Aug, Dental infection K04.7 [facility] [address] [address] Jun, [facility] [address] [place] [address] Mar, Migraine, unspecified, not i ntractable, without status migrainosus G43.909 [facility] [address] [place] [address] Jan, Jaw pain R68.84 [facility] [address] [place] [address] Aug, Infection of skin L08.9 and Tattoo reaction L92.3 [facility] [address] [address] Aug, Influenza B J10.1 [facility] [address] [place] [phone] May, Sore throat J02.9 and Bronch itis J40 [facility] [address] [place] [id number] May, Dental examination Z01.20 an d Dental caries K02.9 [facility] [address] [address] May, Other fatigue R53.83 [facility] [address] [place] [address] Mar, Shoulder injury, left, initi al encounter S49.92[address] [address] Dec, [facility] [address] [place] [id number] 14 Sep, 2014 [facility] [address] [id number] [address] [place] [address], [place] [id number] 13 Sep, 2014 [facility] [address] [id number] [address] [place] [address], [place] [id number] 11 Mar, 2014 [facility] [address] [id number] [address] [place] [address], [place] [id number] Mar, [facility] [address] [id number] [address] [place] [address], [place] [id number] Nov, [facility] [address] [id number] [address] [place] [address], [place] [id number] Feb, [facility] [address] [id number] [address] [place] [address], [place] [id number] Jan, [facility] [address] [id number] [address] [place] [address], [place] [id number] Sep, [facility] [address] [id number] [address] [place] [address], [place] [id number] Aug, [facility] [address] [id number] [address] [place] [address], [place] [id number] Aug, [facility] [address] [id number] [address] [place] [address], [place] [id number] Aug, [facility] [address] [id number] [address] [place] [address], [place] [id number] Aug, [facility] [address] [id number] [address] [place] [address], [place] [id number] Jul, [facility] [address] [id number] [address] [place] [address], [place] [id number] Jul, [facility] [address] [id number] [address] [place] [address], [place] [id number] Jul, [facility] [address] [id number] [address] [place] [address], [place] [id number] Jul, [facility] [address] [id number] [address] [place] [phone] Jul, [facility] [address] [id number] [address] [place] [phone] Jul, [facility] [address] [id number] [address] [place] [id number] 16 Jul, 2011 [facility] [address] [id number] [address] [place] [id number] 15 Jul, 2011 [facility] [address] [id number] [address] [place] [phone] Jul, [facility] [address] [id number] [address] [place] [id number] 08 Jul, 2011 [facility] [address] [id number] [address] [place] [phone] Jul, [facility] [address] [id number] [address] [place] [phone] Jul, [facility] [address] [id number] [address] [place] [phone] Jul, [facility] [address] [id number] [address] [place] [phone] Jun, [facility] [address] [id number] [address] [place] [phone] Jun, [facility] [address] [id number] [address] [place] [phone] Jun, [facility] [address] [id number] [address] [place] [phone] May, [facility] [address] [facility] [id number] [address] [place] [phone] May, IMMUNIZATIONS No Known Immunizations SOCIAL HISTORY Never Assessed REASON FOR VISIT PLAN OF CARE VITAL SIGNS MEDICATIONS Unknown Medications RESULTS No Results PROCEDURES [...]
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
--- NOTE | 2019-11-02 20:44 | ED Cardiac General ---
History of Present Illness General Chief Complaint: Chest Pain Stated Complaint: CHEST PAIN Nursing Triage Note: PT TO ROOM 04 VIA EMS WITH C/O CHEST PAIN. PT SENT OVER FROM [facility]. Source: patient Exam Limitations: no limitations History of Present Illness Date Seen by Provider: November 02, 2019 Time Seen by Provider: 20:44 Initial Comments To ER for EMS from [facility] with reports of central chest pain. She awakened this morning with general fatigue without fevers or shortness of breath or cough. She didn't nap and then awakened her this evening to notice that she had chest pain, felt as though someone was sitting on her chest. She did have shortness of breath with exertion. She feels back to normal now. No cough. 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 Associated Systoms: Chest Pain; No Cough, No Nausea/Vomiting; Shortness of Air Allergies and Home Medications Allergies Coded Allergies: Bacitracin Zinc (Unverified Allergy, Unknown, 11/25/15) BLISTERS Sulfa (Sulfonamide Antibiotics) (Verified Allergy, Unknown, 11/25/15) bacitracin (Unverified Allergy, Unknown, 11/25/15) BLISTERS neomycin sulfate (Unverified Allergy, Unknown, 11/25/15) BLISTERS polymyxin B (Unverified Allergy, Unknown, 11/25/15) BLISTERS risperidone (Verified Allergy, Unknown, 11/25/15) Uncoded Allergies: GREEN BEANS (Allergy, Unknown, 12/13/13) THROAT SWELLS PEAS (Allergy, Unknown, 12/13/13) THROAT SWELLS Home Medications No Active Prescriptions or Reported Meds Patient Home Medication List Home Medication List Reviewed: Yes Review of Systems Review of Systems Constitutional: see HPI; No chills, No fever EENTM: No Symptoms Reported Respiratory: No Symptoms Reported Cardiovascular: See HPI, Chest Pain Gastrointestinal: See HPI; Denies Abdominal Pain, Denies Nausea Musculoskeletal: no symptoms reported Skin: no symptoms reported Psychiatric/Neurological: No Symptoms Reported Endocrine: No Symptoms Reported Hematologic/Lymphatic: No Symptoms Reported Past Sxwgwhp-Vybsdv-Hturhf Hx Patient Social History Alcohol Use: Denies Use Recreational Drug Use: No (SMOKES 1/2 PPD) Smoking Status: Current Everyday Smoker Type Used: Cigarettes 2nd Hand Smoke Exposure: Yes Recent Foreign Travel: No Contact w/Someone Who Travel: No Recent Infectious Disease Expo: No Recent Hopitalizations: No Physical Abuse: No Sexual Abuse: No Mistreated: No Fear: No Immunizations Up To Date Tetanus Booster (TDap): Less than 5yrs Date of Influenza Vaccine: Mar 13, 2013 Seasonal Allergies Seasonal Allergies: No Past Medical History Surgeries: Yes (PITUITARY TUMOR, X 2, BACK SURGERY, LEFT ELBOW X 2, BMT'S ) Abdominal, Adenoidectomy, Section, Ear Surgery, Neurological, Orthopedic, Pituitary, Tonsillectomy Respiratory: Yes Asthma Cardiac: No Neurological: Yes (PITUITARY TUMOR) Reproductive Disorders: Yes (MULTIPLE MISCARRIAGES, DIAG LAP SURGERIES X2) Sexually Transmitted Disease: No HIV/AIDS: No Genitourinary: Yes Renal Failure, UTI-Chronic Gastrointestinal: Yes ("PARTIAL BOWEL BLOCKAGE FOR OVER 10 YEARS" PER PT. ) Gastroesophageal Reflux, Chronic Constipation Musculoskeletal: Yes Chronic Back Pain, Fractures Endocrine: Yes (HYPOGLYCEMIA, PITUITARY TUMOR, MORBID OBESITY) Pituitary Disease HEENT: Yes Chronic Ear Infection, Tonsilitis Cancer: No Psychosocial: Yes (EXTENSIVE PSYCH ISSUES) Anxiety, Depression Integumentary: No Blood Disorders: Yes (ANEMIA) Family Medical History No Pertinent Family Hx Physical Exam Vital Signs Vital Signs - First Documented 11/02/19 19:57 Temp 36.8 Pulse 101 Resp 18 B/P (MAP) 118/78 (91) O2 Delivery Room Air Capillary Refill : Less Than 3 Seconds Height, Weight, BMI Height: 5'7.00" Weight: 267lbs. 0oz. 121.856304yq; 41.00 BMI Method:Actual General Appearance: No Apparent Distress, WD/WN HEENT: PERRL/EOMI, TMs Normal Neck: Full Range of Motion, Normal Inspection Respiratory: No Accessory Muscle Use, No Respiratory Distress Cardiovascular: Regular Rate, Rhythm, Normal Peripheral Pulses Gastrointestinal: Normal Bowel Sounds, Non Tender, Soft Extremity: Normal Capillary Refill, Normal Inspection Neurologic/Psychiatric: Alert, Oriented x3 Skin: Normal Color, Warm/Dry Progress/Results/Core Measures Results/Orders Lab Results Laboratory Tests Test 11/02/19 19:55 11/02/19 21:29 11/02/19 21:35 Range/Units White Blood Count 8.5 4.3-11.0 10^3/uL Red Blood Count 5.17 4.35-5.85 10^6/uL Hemoglobin 11.1 L 11.5-16.0 G/DL Hematocrit 36 35-52 % Mean Corpuscular Volume 70 L 80-99 FL Mean Corpuscular Hemoglobin 21 L 25-34 PG Mean Corpuscular Hemoglobin Concent 31 L 32-36 G/DL Red Cell Distribution Width 21.2 H 10.0-14.5 % Platelet Count 448 H 130-400 10^3/uL Mean Platelet Volume 8.8 7.4-10.4 FL Neutrophils (%) (Auto) 57 42-75 % Lymphocytes (%) (Auto) 28 12-44 % Monocytes (%) (Auto) 8 0-12 % Eosinophils (%) (Auto) 6 0-10 % Basophils (%) (Auto) 0 0-10 % Neutrophils # (Auto) 4.9 1.8-7.8 X 10^3 Lymphocytes # (Auto) 2.4 1.0-4.0 X 10^3 Monocytes # (Auto) 0.7 0.0-1.0 X 10^3 Eosinophils # (Auto) 0.5 H 0.0-0.3 10^3/uL Basophils # (Auto) 0.0 0.0-0.1 10^3/uL Prothrombin Time 12.4 12.2-14.7 SEC INR Comment 0.9 0.8-1.4 Activated Partial Thromboplast Time 28 24-35 SEC D-Dimer 0.50 H 0.00-0.49 UG/ML Sodium Level 139 135-145 MMOL/L Potassium Level 4.1 3.6-5.0 MMOL/L Chloride Level 105 98-107 MMOL/L Carbon Dioxide Level 23 21-32 MMOL/L Anion Gap 11 5-14 MMOL/L Blood Urea Nitrogen 7 7-18 MG/DL Creatinine 0.78 0.60-1.30 MG/DL Estimat Glomerular Filtration Rate > 60 BUN/Creatinine Ratio 9 Glucose Level 108 H 70-105 MG/DL Calcium Level 8.4 L 8.5-10.1 MG/DL Corrected Calcium 8.6 8.5-10.1 MG/DL Magnesium Level 1.9 1.6-2.4 MG/DL Total Bilirubin 0.2 0.1-1.0 MG/DL Aspartate Amino Transf (AST/SGOT) 25 5-34 U/L Alanine Aminotransferase (ALT/SGPT) 27 0-55 U/L Alkaline Phosphatase 173 H 40-136 U/L Myoglobin 26.4 10.0-92.0 NG/ML Troponin I < 0.028 <0.028 NG/ML B-Type Natriuretic Peptide < 10.0 <100.0 PG/ML Total Protein 7.5 6.4-8.2 GM/DL Albumin 3.8 3.2-4.5 GM/DL Serum Test, Qualitative NEGATIVE NEGATIVE Urine Opiates Screen NEGATIVE NEGATIVE Urine Oxycodone Screen NEGATIVE NEGATIVE Urine Methadone Screen NEGATIVE NEGATIVE Urine Propoxyphene Screen NEGATIVE NEGATIVE Urine Barbiturates Screen NEGATIVE NEGATIVE Ur Tricyclic Antidepressants Screen NEGATIVE NEGATIVE Urine Phencyclidine Screen NEGATIVE NEGATIVE Urine Amphetamines Screen POSITIVE H NEGATIVE Urine Methamphetamines Screen POSITIVE H NEGATIVE Urine Benzodiazepines Screen NEGATIVE NEGATIVE Urine Cocaine Screen NEGATIVE NEGATIVE Urine Cannabinoids Screen NEGATIVE NEGATIVE My Orders Orders - CECILIO NAVARRO APRN Cbc With Automated Diff (11/02/19 20:) Magnesium (11/02/19 20:) Chest 1 View, Ap/Pa Only (11/02/19 20:) Ekg Tracing (11/02/19 20:) Comprehensive Metabolic Panel (11/02/19 20:) Myoglobin Serum (11/02/19 20:) Protime With Inr (11/02/19 20:) Partial Thromboplastin Time (11/02/19 20:) O2 (11/02/19 20:01) Monitor-Rhythm Ecg Trace Only (11/02/19 20:) Lipid Panel (11/03/19 06:00) Ed Iv/Invasive Line Start (11/02/19 20:) BNP (11/02/19 20:) Fibrin Degradation Products (11/02/19 20:) Alprazolam Tablet (Xanax Tablet) (11/02/19 20:15) Drug Screen Stat (Urine) (11/02/19 20:) Troponin I (11/02/19 19:55) Ct Angio Chest W (11/02/19 20:37) Hcg,Qualitative Serum (11/02/19 20:45) Iohexol Injection (Omnipaque 350 Mg/Ml 1 (11/02/19 20:45) Received Contrast (Hold Metformin- Contr (11/02/19 20:45) Sodium Chloride Flush (Catheter Flush Sy (11/02/19 20:45) Ns (Ivpb) (Sodium Chloride 0.9% Ivpb Bag (11/02/19 20:45) Troponin I (11/02/19 21:24) Medications Given in ED Current Medications Medications Dose Ordered Sig/Miriam Route Start Time Stop Time Status Last Admin Dose Admin Alprazolam 0.5 mg ONCE ONCE PO 11/02/19 20:15 11/02/19 20:16 DC 11/02/19 20:23 0.5 MG Iohexol 100 ml ONCE ONCE IV 11/02/19 20:45 11/02/19 20:46 DC 11/02/19 21:23 90 ML Sodium Chloride 100 ml ONCE ONCE IV 11/02/19 20:45 11/02/19 20:46 DC 11/02/19 21:23 70 ML Vital Signs/I&O 11/02/19 11/02/19 19:57 20:02 Temp 36.8 Pulse 101 Resp 18 B/P (MAP) 118/78 (91) O2 Delivery Room Air Room Air Blood Pressure Mean: 91 Departure Impression Primary Impression: Chest pain Qualified Codes: R07.9 - Chest pain, unspecified Disposition: HOME, SELF-CARE Condition: Stable Departure-Patient Inst. Decision time for Depature: 21:59 Referrals: JONATHAN MUÑOZ MD (PCP/Family) Primary Care Physician Patient Instructions: Chest Pain (DC) Add. Discharge Instructions: 1. Follow-up with your doctor on Tuesday 2. Return to ER for any concerns 3. All discharge instructions reviewed with patient and/or family. Voiced understanding. Scripts No Active Prescriptions or Reported Meds CECILIO NAVARRO APRN November 02, 2019 20:44
[2019-11-02] MEDS ORDERED: CATHETER FLUSH 10 ML SYR IV PRN (20:45)
[2019-11-02] MEDS ORDERED: IOHEXOL 350 MG/ML 100 ML (OMNIPAQUE 350) VIAL IV ONE (20:45)
[2019-11-02] MEDS ORDERED: NS 100 ML (IVPB) BAG IV ONE (20:45)
[2019-11-02] MEDS ORDERED: HOLD METFORMIN - RECEIVED CONTRAST 20 ML VIAL IV SCH (20:45)
--- NOTE | 2019-11-02 21:43 | Diagnostic Imaging Report ---
PROCEDURE: CT angiography of the chest with contrast. TECHNIQUE: Multiple contiguous axial images were obtained through the chest after uneventful bolus administration of intravenous contrast. 3D reconstructed CTA MIP acquisitions were also performed. Auto Exposure Controls were utilized during the CT exam to meet ALARA standards for radiation dose reduction. INDICATION: Chest pain. FINDINGS: There is no pulmonary arterial filling defect. No PE demonstrated. The thoracic aorta is patent and nonaneurysmal. There is a benign calcified granuloma in the superior segment of the left lower lobe. No noncalcified or suspicious chest mass. There is some slight atelectasis in the lingular segment of the left upper lobe at the lung base anteriorly and acute appearing infiltrate is not found. No suspicious pulmonary nodule. Views of the upper abdomen show a fat-containing benign right adrenal adenoma. IMPRESSION: Negative for PE or other acute abnormality. Dictated by: Dictated on workstation # [id number]
[2019-11-02 21:53] LABS: AMPHETAMINE SCREEN, URINE POSITIVE (NEGATIVE); BARBITURATE SCREEN URINE NEGATIVE (NEGATIVE); BENZODIAZEPINES SCREEN URINE NEGATIVE (NEGATIVE); CANNABINOID SCREEN, URINE NEGATIVE (NEGATIVE); COCAINE SCREEN URINE NEGATIVE (NEGATIVE); METHADONE STAT NEGATIVE (NEGATIVE); METHAMPHETAMINE SCREEN URINE S POSITIVE (NEGATIVE); OPIATE SCREEN URINE NEGATIVE (NEGATIVE); OXYCODONE STAT NEGATIVE (NEGATIVE); PROPOXYPHENE STAT NEGATIVE (NEGATIVE); TRICYCLIC ANTIDEPRESSANTS SCRE NEGATIVE (NEGATIVE)
[2019-11-02 22:24] VITALS: BP 104/62
== END 2019-11-02 22:25 | disposition home or self-care (01) ==
LOC: EDUNIT# 19:49 → ER 19:51
DX: R07.9 Chest pain, unspecified (principal); E66.01 Morbid (severe) obesity due to excess calories; F41.9 Anxiety disorder, unspecified; F32.9 Major depressive disorder, single episode, unspecified; F17.210 Nicotine dependence, cigarettes, uncomplicated; Z68.41 Body mass index [BMI] 40.0-44.9, adult; Z86.012 Personal history of benign carcinoid tumor; Z88.8 Allergy status to other drugs, medicaments and biological substances; Z88.2 Allergy status to sulfonamides; Z88.1 Allergy status to other antibiotic agents; Z91.018 Allergy to other foods
CPT/HCPCS: 36415; 71045; 71275; 80053; 80306; 83735; 83874; 83880; 84484; 84703; 85025; 85379; 85610; 85730; 93005; 93041

== ENCOUNTER 2020-09-12 23:49 | Emergency (ER) | payer MEDICAID ==
[~2020-09-12] VITALS: Ht 170.2 cm; Wt 97.5 kg
[~2020-09-12 23:49] MED LIST changes: -CIPR500T4 PO; +CIPR500T5 PO; -CLIN300C11 PO; +CLIN300C12 PO
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
[2020-09-13] MEDS ORDERED: NAPR500T8 PO (00:55)
[2020-09-13] MEDS ORDERED: RX-NAPROXEN (NAPROSYN) 250 MG TAB PPK#4 PO STA (00:55)
[2020-09-13 01:21] VITALS: BP 110/65
--- NOTE | 2020-09-13 07:46 | Diagnostic Imaging Report ---
HISTORY: Fall, left knee pain TECHNIQUE: 3 views of the left knee COMPARISON: 09/16/2019 FINDINGS: No acute fracture or dislocation is seen in the left knee. There is mild anterior soft tissue swelling. No significant joint effusion is seen. Alignment appears normal. IMPRESSION: 1. No acute osseous abnormality is seen in the left knee. Dictated by: Dictated on workstation # [id number]
--- NOTE | 2020-09-13 07:47 | Diagnostic Imaging Report ---
HISTORY: Fall, right forearm pain TECHNIQUE: 2 views of the right forearm COMPARISON: None FINDINGS: No acute fracture or dislocation is seen in the right forearm. The [id number] is large. Alignment appears normal. Joint spaces are preserved. IMPRESSION:. No acute osseous abnormality is seen in the right forearm. Dictated by: Dictated on workstation # [id number]
--- NOTE | 2020-09-13 07:48 | Diagnostic Imaging Report ---
HISTORY: Fall, right arm pain TECHNIQUE: 2 views of the right humerus COMPARISON: 01/24/2017 FINDINGS: No acute fracture or dislocation is seen in the right humerus. Alignment appears normal. There are mild degenerative changes in the acromioclavicular joint. The glenohumeral joint appears normal. IMPRESSION: 1. No acute osseous abnormality is seen in the right humerus. Dictated by: Dictated on workstation # [id number]
--- NOTE | 2020-09-13 07:49 | Diagnostic Imaging Report ---
HISTORY: Fall, right hand pain TECHNIQUE: 3 views of the right hand COMPARISON: None FINDINGS: No acute fracture or dislocation is seen in the right hand. Alignment appears normal. There are mild degenerative changes at the base of the right thumb. IMPRESSION: 1. Mild degenerative changes in the right hand with no acute osseous abnormality seen. Dictated by: Dictated on workstation # [id number]
== END 2020-09-13 01:21 | disposition home or self-care (01) ==
LOC: EDUNIT# 23:49 → ER 23:51
DX: S63.91XA Sprain of unspecified part of right wrist and hand, initial encounter (principal); S46.911A Strain of unspecified muscle, fascia and tendon at shoulder and upper arm level, right arm, initial encounter; S80.02XA Contusion of left knee, initial encounter; E66.01 Morbid (severe) obesity due to excess calories; Z77.22 Contact with and (suspected) exposure to environmental tobacco smoke (acute) (chronic); Z86.018 Personal history of other benign neoplasm; Z88.1 Allergy status to other antibiotic agents; Z88.2 Allergy status to sulfonamides; Z88.8 Allergy status to other drugs, medicaments and biological substances; V19.9XXA Pedal cyclist (driver) (passenger) injured in unspecified traffic accident, initial encounter; Y93.55 Activity, bike riding
CPT/HCPCS: 73060; 73090; 73130; 73562

== ENCOUNTER 2020-10-07 20:28 | Observation (INO) | payer MEDICAID ==
[~2020-10-07] VITALS: Ht 170 cm; Wt 122.0 kg
[~2020-10-07 20:28] MED LIST changes: +ACYC-112; -ACYC800T; +NAPR500T8 PO
[2020-10-07 20:44] LABS: BASOPHILS % (AUTO) 0 % (0-10); EOSINOPHILS # (AUTO) 0.5 10^3/uL (0.0-0.3); EOSINOPHILS % (AUTO) 5 % (0-10); HEMATOCRIT 35 % (35-52); HEMOGLOBIN 10.1 g/dL (11.5-16.0); LYMPHOCYTES # (AUTO) 2.4 10^3/uL (1.0-4.0); LYMPHOCYTES % (AUTO) 25 % (12-44); MEAN CORPUSCULAR HEMOGLOBIN 20 pg (25-34); MEAN CORPUSCULAR HGB CONC 29 g/dL (32-36); MEAN CORPUSCULAR VOLUME 71 fL (80-99); MEAN PLATELET VOLUME 8.4 fL (9.0-12.2); MONOCYTES # (AUTO) 0.7 10^3/uL (0.0-1.0); MONOCYTES % (AUTO) 8 % (0-12); NEUTROPHILS # (AUTO) 5.8 10^3/uL (1.8-7.8); NEUTROPHILS % (AUTO) 62 % (42-75); PLATELET COUNT 426 10^3/uL (130-400); WHITE BLOOD COUNT 9.4 10^3/uL (4.3-11.0)
--- NOTE | 2020-10-07 20:44 | ED Chest Pain ---
General Stated Complaint: CP,SOB Source: patient Exam Limitations: no limitations History of Present Illness Date Seen by Provider: Oct 07, 2020 Time Seen by Provider: 20:30 Initial Comments Patient presents to the ER by private conveyance with her fibar with chief complaint that she started having chest pain about 1 hour prior to arrival substernal nonradiating without nausea sweats chills however she has felt hot but she has checked her temperature multiple times and had no fever. She is not having any shortness of air cough. She says she woke up this morning around 7 AM and was getting her child ready for school and noticed she had some pressure and heaviness in the center of her chest in the same place. Its not reproducible when she takes a deep breath or presses on her chest. She does have a history of GERD as well as she is had a heart attack. She does not have a history of hypertension, hyperlipidemia, diabetes. She smokes about half pack cigarettes per day she does not follow with a doctor nor a survey interviewer. She did not take anything for the pain today. She ate a donut shortly before the pain started and before that she had lunch at noon. Clarification: Patient states her heart attack was taken care of here in the ER. She says she went to the urgent care walk up clinic and they called an ambulance because she was complaining of chest pain and sent her here told her that they thought she had a heart attack. She states the ER also told her she had a heart attack and then sent her home with no follow-up plans. Review of the relevant records from about this time last year demonstrates she was here for complaint of chest pain had negative troponin, EKG, D-dimer and after an appropriate work-up and imaging was sent home with instructions to follow-up with her doctor on Tuesday. Allergies and Home Medications Allergies Coded Allergies: Bacitracin Zinc (Unverified Allergy, Unknown, 11/25/15) BLISTERS Sulfa (Sulfonamide Antibiotics) (Verified Allergy, Unknown, 11/25/15) bacitracin (Unverified Allergy, Unknown, 11/25/15) BLISTERS neomycin sulfate (Unverified Allergy, Unknown, 11/25/15) BLISTERS polymyxin B (Unverified Allergy, Unknown, 11/25/15) BLISTERS risperidone (Verified Allergy, Unknown, 11/25/15) Uncoded Allergies: GREEN BEANS (Allergy, Unknown, 12/13/13) THROAT SWELLS PEAS (Allergy, Unknown, 12/13/13) THROAT SWELLS Home Medications Naproxen 500 Mg Tablet.dr, 500 MG PO BID Prescribed by: ALCON SANTAMARIA on 09/13/20 0055 Patient Home Medication List Home Medication List Reviewed: Yes Review of Systems Review of Systems Constitutional: No chills, No fever, No malaise EENTM: No Blurred Vision, No Double Vision Respiratory: Denies Cough, Denies Shortness of Air Cardiovascular: See HPI, Chest Pain; Denies Edema, Denies Palpitations, Denies Syncope Gastrointestinal: See HPI; Denies Abdominal Pain, Denies Constipated, Denies Diarrhea, Denies Nausea Genitourinary: Denies Burning, Denies Discharge Musculoskeletal: No back pain, No joint pain Skin: No change in color, No lumps Psychiatric/Neurological: Denies Headache, Denies Numbness All Other Systems Reviewed Negative Unless Noted: Yes Past Wpvznfp-Ecapqq-Xisxro Hx Patient Social History Alcohol Use: Denies Use Smoking Status: Current Everyday Smoker Type Used: Cigarettes 2nd Hand Smoke Exposure: Yes Recent Hopitalizations: No Immunizations Up To Date Tetanus Booster (TDap): Less than 5yrs Date of Influenza Vaccine: Mar 13, 2013 Seasonal Allergies Seasonal Allergies: No Past Medical History Surgeries: Yes (PITUITARY TUMOR, X 2, BACK SURGERY, LEFT ELBOW X 2, BMT'S ) Abdominal, Adenoidectomy, Section, Ear Surgery, Neurological, Orthopedic, Pituitary, Tonsillectomy Respiratory: Yes Asthma Cardiac: No Neurological: Yes (PITUITARY TUMOR) Reproductive Disorders: Yes (MULTIPLE MISCARRIAGES, DIAG LAP SURGERIES X2) Sexually Transmitted Disease: No HIV/AIDS: No Genitourinary: Yes Renal Failure, UTI-Chronic Gastrointestinal: Yes ("PARTIAL BOWEL BLOCKAGE FOR OVER 10 YEARS" PER PT. ) Gastroesophageal Reflux, Chronic Constipation Musculoskeletal: Yes (CHRONIC NECK AND BACK PAIN; BACK SURGERY;L ELBOW SURGERY X 2) Chronic Back Pain, Fractures Endocrine: Yes (HYPOGLYCEMIA, PITUITARY TUMOR, MORBID OBESITY) Pituitary Disease HEENT: Yes (BMT'S AND T&A) Chronic Ear Infection, Tonsilitis Cancer: No Psychosocial: Yes (EXTENSIVE PSYCH ISSUES) Anxiety, Depression Integumentary: No Blood Disorders: Yes (ANEMIA) Family Medical History No Pertinent Family Hx SOCIAL HISTORY: -ETOH--DENIES USE -DRUGS--DENIES USE, BUT HAS REPEATEDLY TESTED + FOR METHAMPHETAMINES, AMPHETAMINES AND THC -SMOKES 2 PPD Physical Exam Vital Signs Vital Signs - First Documented Capillary Refill : Height, Weight, BMI Height: 5'7.00" Weight: 267lbs. 0oz. [id number]; 33.00 BMI Method:Actual General Appearance: Anxious, Mild Distress, Obese HEENT: PERRL/EOMI, Pharynx Normal, Moist Mucous Membranes Neck: Full Range of Motion, Normal Inspection Respiratory: Lungs Clear, Normal Breath Sounds, No Accessory Muscle Use, No Respiratory Distress Cardiovascular: Regular Rate, Rhythm, No Edema, Normal Peripheral Pulses Gastrointestinal: Normal Bowel Sounds, No Organomegaly, Soft, Tenderness (Epigastric tenderness to palpation), Other (Negative for Renae sign, McBurney's point tenderness or mesenteric signs) Extremity: Normal Capillary Refill, Normal Inspection, Normal Range of Motion, Non Tender, No Pedal Edema Neurologic/Psychiatric: Alert, Oriented x3, No Motor/Sensory Deficits, Other (Anxious affect) Skin: Normal Color, Warm/Dry Progress/Results/Core Measures Results/Orders Lab Results Laboratory Tests Test 10/07/20 20:35 10/07/20 21:10 10/07/20 21:24 Range/Units White Blood Count 9.4 4.3-11.0 10^3/uL Red Blood Count 4.96 3.80-5.11 10^6/uL Hemoglobin 10.1 L 11.5-16.0 g/dL Hematocrit 35 35-52 % Mean Corpuscular Volume 71 L 80-99 fL Mean Corpuscular Hemoglobin 20 L 25-34 pg Mean Corpuscular Hemoglobin Concent 29 L 32-36 g/dL Red Cell Distribution Width 20.3 H 10.0-14.5 % Platelet Count 426 H 130-400 10^3/uL Mean Platelet Volume 8.4 L 9.0-12.2 fL Immature Granulocyte % (Auto) 0 % Neutrophils (%) (Auto) 62 42-75 % Lymphocytes (%) (Auto) 25 12-44 % Monocytes (%) (Auto) 8 0-12 % Eosinophils (%) (Auto) 5 0-10 % Basophils (%) (Auto) 0 0-10 % Neutrophils # (Auto) 5.8 1.8-7.8 10^3/uL Lymphocytes # (Auto) 2.4 1.0-4.0 10^3/uL Monocytes # (Auto) 0.7 0.0-1.0 10^3/uL Eosinophils # (Auto) 0.5 H 0.0-0.3 10^3/uL Basophils # (Auto) 0.0 0.0-0.1 10^3/uL Immature Granulocyte # (Auto) 0.0 0.0-0.1 10^3/uL Prothrombin Time 13.6 12.2-14.7 SEC INR Comment 1.0 0.8-1.4 Activated Partial Thromboplast Time 27 24-35 SEC Sodium Level 141 135-145 MMOL/L Potassium Level 3.9 3.6-5.0 MMOL/L Chloride Level 105 98-107 MMOL/L Carbon Dioxide Level 27 21-32 MMOL/L Anion Gap 9 5-14 MMOL/L Blood Urea Nitrogen 11 7-18 MG/DL Creatinine 0.75 0.60-1.30 MG/DL Estimat Glomerular Filtration Rate > 60 BUN/Creatinine Ratio 15 Glucose Level 96 70-105 MG/DL Calcium Level 8.2 L 8.5-10.1 MG/DL Corrected Calcium 8.4 L 8.5-10.1 MG/DL Magnesium Level 1.7 1.6-2.4 MG/DL Total Bilirubin 0.2 0.1-1.0 MG/DL Aspartate Amino Transf (AST/SGOT) 27 5-34 U/L Alanine Aminotransferase (ALT/SGPT) 25 0-55 U/L Alkaline Phosphatase 145 H 40-136 U/L Myoglobin 20.6 10.0-92.0 NG/ML Troponin I 0.032 H <0.028 NG/ML Total Protein 6.8 6.4-8.2 GM/DL Albumin 3.7 3.2-4.5 GM/DL Lipase 32 8-78 U/L Glucometer 88 70-110 MG/DL My Orders Orders - MELECIO HOPPER Continuous Ekg Monitoring (10/07/20 20:30) Ekg Tracing (10/07/20 20:30) Cbc With Automated Diff (10/07/20 20:37) Magnesium (10/07/20 20:37) Chest 1 View, Ap/Pa Only (10/07/20 20:37) Comprehensive Metabolic Panel (10/07/20 20:37) Myoglobin Serum (10/07/20 20:37) Protime With Inr (10/07/20 20:37) Partial Thromboplastin Time (10/07/20 20:37) O2 (10/07/20 20:37) Monitor-Rhythm Ecg Trace Only (10/07/20 20:37) Lipid Panel (10/08/20 06:00) Ed Iv/Invasive Line Start (10/07/20 20:37) Lipase (10/07/20 20:37) Troponin I (10/07/20 20:37) Nitroglycerin 0.4 Mg Btl 25's (Nitrostat (10/07/20 20:45) Aspirin Chewable Tablet (Baby Aspirin Ch (10/07/20 20:45) Ua Culture If Indicated (10/07/20 20:45) Urine Bedside (10/07/20 20:45) Drug Screen Stat (Urine) (10/07/20 20:45) Accucheck Stat ONCE (10/07/20 20:55) Enoxaparin Injection (Lovenox Injection) (10/07/20 21:30) Clopidogrel Tablet (Plavix Tablet) (10/07/20 21:30) Metoprolol Succinate (Xl) Tab (Toprol Xl (10/07/20 21:30) Nitroglycerin Ointment (Nitrobid Ointme (10/07/20 21:30) Nitroglycerin Ointment (Nitrobid Ointme (10/07/20 21:19) Medications Given in ED Current Medications Medications Dose Ordered Sig/Miriam Route Start Time Stop Time Status Last Admin Dose Admin Aspirin 324 mg ONCE ONCE PO 10/07/20 20:45 10/07/20 20:46 DC 10/07/20 20:49 324 MG Nitroglycerin 0.4 mg UD PRN SL 10/07/20 20:45 10/07/20 20:49 0.4 MG Vital Signs/I&O 10/07/20 10/07/20 20:30 20:30 Temp 36.3 Pulse 90 Resp 18 B/P (MAP) 126/83 (97) Pulse Ox 99 O2 Delivery Room Air Room Air Progress Progress Note #1: Time: 20:43 Progress Note No record of echocardiogram or coronary angiogram locally. Unremarkable EKG. Rates her pain as a 7 out of 10 so were going to start with some nitroglycerin and if that does not help we will trial GI cocktail. The patient does have a history of stimulant amphetamine abuse. She has 0 points on the Wells score for PE and no points on the PERC rule so she is low risk for pulmonary embolism as she has no evidence of DVT, tachycardia or hypoxia. While her intake note states shortness of breath the patient specifically denied it when asked by this provider. Progress Note #2: Time: 20:55 Progress Note Patient says she is having facial paresthesias and she associates this with her hypoglycemia. This is dubious that she ate a doughnut prior to coming to see us. We will do an Accu-Chek but I suspect that this is more related to her anxiety and hyperventilation. Plan to offer her a dose of Ativan if her sugar is normal. Initial ECG Impression Date: Oct 07, 2020 Initial ECG Impression Time: 20:32 Initial ECG Rate: 90 Initial ECG Rhythm: Normal Sinus Initial ECG Intervals: Normal Initial ECG Impression: Normal Initial ECG Comparisson: Unchanged Comment Normal sinus rhythm with left axis deviation of the mean electrical activity. No clinically relevant ST changes Diagnostic Imaging Diagonstic Imaging: Xray Plain Films/CT/US/NM/MRI: chest Comments No acute cardiopulmonary process on 1 view chest x-ray. Reviewed: Reviewed by Me Departure Communication (Admissions) Time/Spoke to Admitting Phy: 21:19 Discussed the case with Dr. Petty and she agrees to observe the patient with cardiac consultation. Time/Spoke to Consulting Phy: 21:10 Discussed the case with Dr. Abdi, cardiology and he agrees to consult on the case under medicine's care and wants us to give her Plavix, aspirin, nitroglycerin as needed, morphine as needed pain, Lovenox and if she has ongoing chest pain put her in the unit otherwise cardiac stepdown. Impression Primary Impression: Unstable angina Additional Impression: Elevated troponin I level Disposition: ADMITTED INPATIENT Condition: Stable Admissions Decision to Admit Reason: Admit from ER (General) Decision to Admit/Date: Oct 07, 2020 Time/Decision to Admit Time: 21:00 Departure-Patient Inst. Referrals: [facility] (PCP/Family) Primary Care Physician MELECIO HOPPER Oct 07, 2020 20:44
[2020-10-07] MEDS ORDERED: ASPIRIN 81 MG CHEW (CHILDREN'S ASA) PO ONE (20:45)
[2020-10-07] MEDS ORDERED: NITROGLYCERIN 0.4 MG SL TABS BTL 25'S SL PRN (20:45)
[2020-10-07 20:58] LABS: PROTHROMBIN TIME PATIENT 13.6 SEC (12.2-14.7)
[2020-10-07 21:05] LABS: ALANINE AMINOTRANSFERASE 25 U/L (0-55); ALBUMIN 3.7 GM/DL (3.2-4.5); ALKALINE PHOSPHATASE 145 U/L (40-136); BILIRUBIN,TOTAL 0.2 MG/DL (0.1-1.0); BUN/CREATININE RATIO 15; CALCIUM 8.2 MG/DL (8.5-10.1); CARBON DIOXIDE 27 MMOL/L (21-32); CHLORIDE 105 MMOL/L (98-107); CREATININE SERUM 0.75 MG/DL (0.60-1.30); GFR ESTIMATED > 60; GLUCOSE 96 MG/DL (70-105); LIPASE 32 U/L (8-78); MAGNESIUM 1.7 MG/DL (1.6-2.4); POTASSIUM 3.9 MMOL/L (3.6-5.0); SODIUM 141 MMOL/L (135-145); TOTAL PROTEIN 6.8 GM/DL (6.4-8.2)
[2020-10-07] MEDS ORDERED: NITROGLYCERIN 2% OINT 1 GM UNIT DOSE PACKET ONE (21:19)
[2020-10-07] MEDS ORDERED: meTOprolol SUCCINATE 100 MG (TOPROL XL) TAB PO ONE (21:30)
[2020-10-07] MEDS ORDERED: NITROGLYCERIN 2% OINT 1 GM UNIT DOSE PACKET TOP ONE (21:30)
[2020-10-07] MEDS ORDERED: CLOPIDOGREL 300 MG (PLAVIX) TABLET PO ONE (21:30)
[2020-10-07] MEDS ORDERED: ENOXAPARIN 60 MG/0.6 ML (LOVENOX) SYR SC ONE (21:30)
[2020-10-07 21:31] LABS: BILIRUBIN,URINE NEGATIVE (NEGATIVE); CLARITY,URINE CLEAR; COLOR,URINE YELLOW; GLUCOSE, URINE (UA) NEGATIVE (NEGATIVE); KETONES,URINE NEGATIVE (NEGATIVE); LEUKOCYTE ESTERASE ,URINE NEGATIVE (NEGATIVE); NITRITE,URINE NEGATIVE (NEGATIVE); PROTEIN,URINE NEGATIVE (NEGATIVE)
--- NOTE | 2020-10-07 21:39 | Diagnostic Imaging Report ---
INDICATION: Chest pain FINDINGS: The lungs are clear. No failure, effusion or pneumothorax. IMPRESSION: Negative. Dictated by: Dictated on workstation # [id number]
[2020-10-07 21:41] LABS: AMPHETAMINE SCREEN, URINE POSITIVE (NEGATIVE); BACTERIA,URINE NEGATIVE /HPF; BARBITURATE SCREEN URINE NEGATIVE (NEGATIVE); BENZODIAZEPINES SCREEN URINE NEGATIVE (NEGATIVE); CANNABINOID SCREEN, URINE NEGATIVE (NEGATIVE); COCAINE SCREEN URINE NEGATIVE (NEGATIVE); METHADONE STAT NEGATIVE (NEGATIVE); METHAMPHETAMINE SCREEN URINE S POSITIVE (NEGATIVE); OPIATE SCREEN URINE NEGATIVE (NEGATIVE); OXYCODONE STAT NEGATIVE (NEGATIVE); PROPOXYPHENE STAT NEGATIVE (NEGATIVE); SQUAMOUS EPITHELIAL CELL,UR 0-2 /HPF; TRICYCLIC ANTIDEPRESSANTS SCRE NEGATIVE (NEGATIVE); WBC,URINE 0-2 /HPF
[2020-10-07] MEDS ORDERED: LORazepam INJ 2 MG/ML (ATIVAN) VIAL IVP ONE (21:45)
[2020-10-07 22:35] VITALS: BP 96/84
[2020-10-07] MEDS ORDERED: ACETAMINOPHEN 325 MG TABLET PO PRN (23:45)
[2020-10-07] MEDS ORDERED: ONDANSETRON 4 MG/2 ML (SDV) Z0FRAN IVP PRN (23:45)
[2020-10-08] MEDS ORDERED: NITROGLYCERIN 2% OINT 1 GM UNIT DOSE PACKET TOP PRN (00:15)
[2020-10-08] MEDS ORDERED: NITROGLYCERIN 0.4 MG SL TABS BTL 25'S SL PRN (00:15)
[2020-10-08] MEDS ORDERED: LORazepam INJ 2 MG/ML (ATIVAN) VIAL IVP PRN (00:15)
[2020-10-08] MEDS ORDERED: morphine INJ 4 MG/ML 1 ML (VIAL/SYRINGE) IV PRN (00:15)
[2020-10-08 02:25] LABS: BASOPHILS # (AUTO) 0.1 10^3/uL (0.0-0.1); BASOPHILS % (AUTO) 1 % (0-10); EOSINOPHILS # (AUTO) 0.5 10^3/uL (0.0-0.3); EOSINOPHILS % (AUTO) 5 % (0-10); HEMATOCRIT 33 % (35-52); HEMOGLOBIN 10.1 g/dL (11.5-16.0); LYMPHOCYTES % (AUTO) 32 % (12-44); MEAN CORPUSCULAR HEMOGLOBIN 21 pg (25-34); MEAN CORPUSCULAR HGB CONC 31 g/dL (32-36); MEAN CORPUSCULAR VOLUME 68 fL (80-99); MEAN PLATELET VOLUME 9.3 fL (9.0-12.2); MONOCYTES # (AUTO) 0.7 10^3/uL (0.0-1.0); MONOCYTES % (AUTO) 8 % (0-12); NEUTROPHILS % (AUTO) 54 % (42-75); PLATELET COUNT 508 10^3/uL (130-400); WHITE BLOOD COUNT 9.3 10^3/uL (4.3-11.0)
[2020-10-08 03:10] LABS: ALANINE AMINOTRANSFERASE 24 U/L (0-55); ALBUMIN 3.5 GM/DL (3.2-4.5); ALKALINE PHOSPHATASE 145 U/L (40-136); BILIRUBIN,TOTAL 0.2 MG/DL (0.1-1.0); BUN/CREATININE RATIO 16; CALCIUM 8.2 MG/DL (8.5-10.1); CARBON DIOXIDE 21 MMOL/L (21-32); CHLORIDE 106 MMOL/L (98-107); CHOLESTEROL 128 MG/DL (< 200); CREATININE SERUM 0.69 MG/DL (0.60-1.30); GFR ESTIMATED > 60; GLUCOSE 107 MG/DL (70-105); HDL CHOLESTEROL 36 MG/DL (40-60); MAGNESIUM 1.7 MG/DL (1.6-2.4); POTASSIUM 4.6 MMOL/L (3.6-5.0); SODIUM 138 MMOL/L (135-145); TRIGLYCERIDES 114 MG/DL (<150); VLDL CHOLESTEROL 23 MG/DL (5-40)
[2020-10-08] MEDS: MAGNESIUM 1 GM/100 ML IVPB 100 ML IV SCH ×2 (03:27→04:16)
[2020-10-08] MEDS ORDERED: MAGNESIUM 1 GM/100 ML IVPB 100 ML IV SCH (06:00)
[2020-10-08] MEDS ORDERED: POTASSIUM CL 10MEQ/50ML IVPB 50 ML IV SCH (06:00)
[2020-10-08] MEDS ORDERED: KCL 20 MEQ TAB (K-DUR) PO SCH (06:00)
--- NOTE | 2020-10-08 08:18 | Consultation-Cardiology ---
HPI-Cardiology Cardiology Consultation: Date of Consultation 10/08/20 Time Seen by a Provider: 08:15 Date of Admission 10-07-20 Attending Physician Esla Mar MD Admitting Physician [facility] Consulting Physician Merle Abdi MD HPI: Chief Complaint: Chest pain Ms Horne is a 45 yr old female who has been admitted to ICU 1 from the ED with c/o chest pain. She reports she got up yesterday morning and was having mid-sternal chest pressure, which she rates as severe. She states her chest fe lt heavy all morning so she went back to bed and slept all day until around 5 p.m. when she went to get her daughter off the bus. She reports she was again having chest pressure. Her significant other states that usually when she has chest tightness she will use her inhaler and it typically improves it, however her inhaler was empty. She states she received nitro x 1 in the ED and her chest pain resolved. She denies any reoccurrence. She reports she has had increasing SOB. She reports yesterday she did feel sweaty and nauseated. She reports that has resolved this morning. She reports chronic constipation. She continue to smoke cigs, approx 1 PPD. She denies any methamphetamine use, although she has tested positive for it this admission and on previous evals in the ED. Review of Systems-Cardiology Review of Systems Constitutional: No chills, No fever; tiredness Eyes: No vision change Ears/Nose/Throat: No epistaxis, No recent hearing loss Respiratory: As described under HPI Cardiovascular: As described under HPI Gastrointestinal: As described under HPI Genitourinary: No dysuria, No hematuria Skin: No rash on exposed areas, No ulcerations on exposed areas Psychiatric/Neurological: anxiety; No seizure, No focal weakness, No syncope Hematologic: No bleeding abnormalities All Other Systems Reviewed Negative Unless Noted: Yes LTF-Sddupn-Oikalq Hx Patient Social History Smoking Status: Current Everyday Smoker 2nd Hand Smoke Exposure: Yes Have you traveled recently?: No Alcohol Use?: No Substance type: Amphetamines, Methamphetamine Pt feels they are or have been: No Tobacco type used: Cigarettes Immunizations Up To Date Tetanus Booster (TDap): Less than 5yrs Date of Influenza Vaccine: Mar 13, 2013 Past Medical History PMH As described under Assessment. Family Medical History Family Medical History: She reports her mother had CHF and breast cancer. Allergies and Home Medications Allergies Coded Allergies: Bacitracin Zinc (Unverified Allergy, Unknown, 11/25/15) BLISTERS Sulfa (Sulfonamide Antibiotics) (Verified Allergy, Unknown, 11/25/15) bacitracin (Unverified Allergy, Unknown, 11/25/15) BLISTERS neomycin sulfate (Unverified Allergy, Unknown, 11/25/15) BLISTERS polymyxin B (Unverified Allergy, Unknown, 11/25/15) BLISTERS risperidone (Verified Allergy, Unknown, 11/25/15) Uncoded Allergies: GREEN BEANS (Allergy, Unknown, 12/13/13) THROAT SWELLS PEAS (Allergy, Unknown, 12/13/13) THROAT SWELLS Home Medications Naproxen 500 Mg Tablet.dr, 500 MG PO BID Prescribed by: ALCON SANTAMARIA on 09/13/20 0055 Physical Exam-Cardiology Physical Exam Vital Signs/I&O 10/07/20 10/07/20 10/07/20 10/07/20 20:30 20:30 22:27 22:31 Temp 36.3 Pulse 90 99 Resp 18 B/P (MAP) 126/83 (97) Pulse Ox 99 96 O2 Delivery Room Air Room Air Room Air 10/07/20 10/07/20 10/07/20 10/07/20 22:31 22:35 22:42 22:45 Temp 36.7 Pulse 91 90 91 Resp 21 12 13 B/P (MAP) 121/64 (85) 96/84 (85) 122/69 (93) Pulse Ox 97 98 96 O2 Delivery Room Air Room Air Room Air 10/07/20 10/07/20 10/07/20 10/07/20 23:00 23:15 23:30 23:45 Pulse 84 82 79 75 Resp 27 26 14 24 B/P (MAP) 130/78 (101) 126/72 (91) 114/72 (98) 111/76 (82) Pulse Ox 96 96 96 94 O2 Delivery Room Air Room Air Room Air Room Air 10/07/20 10/08/20 10/08/20 10/08/20 23:59 00:00 01:00 01:00 Pulse 76 79 79 Resp 26 20 B/P (MAP) 123/72 (95) 129/63 (85) Pulse Ox 95 96 O2 Delivery Room Air Room Air Room Air 10/08/20 10/08/20 10/08/20 10/08/20 02:00 03:00 04:00 04:00 Temp 36.4 Pulse 70 76 Resp 25 22 B/P (MAP) 138/81 (100) 94/76 (82) Pulse Ox 89 92 O2 Delivery Room Air Room Air Room Air 10/08/20 10/08/20 10/08/20 10/08/20 04:14 05:00 06:00 06:48 Pulse 69 69 69 67 Resp 25 23 21 B/P (MAP) 118/76 (90) 120/77 (91) 119/87 (98) Pulse Ox 93 94 93 O2 Delivery Room Air Room Air Room Air 10/08/20 07:30 Temp 36.6 Capillary Refill : Less Than 3 Seconds Constitutional: AAO x 3, well-developed, well-nourished HEENT: PERRL; No oral hygience is good (multiple dental caries) Neck: No carotid bruit; carotid pulses are 2 + bilaterally Respiratory: No accessory muscle use, No respiratory distress; chest expansion is symmetric, lungs clear to auscultation, other (prolonged expiratory phase) Cardiovascular: regular rate-rhythm; No JVD; S1 and S2 Gastrointestinal: No tender; soft, round, audible bowel sounds Extremities: no lower extremity edema bilateral Neurologic/Psychiatric: grossly intact (moves all extremities) Skin: No rash on exposed areas, No ulcerations on exposed areas Data Review Labs Laboratory Tests 10/07/20 20:35: White Blood Count 9.4, Red Blood Count 4.96, Hemoglobin 10.1L, Hematocrit 35, Mean Corpuscular Volume 71L, Mean Corpuscular Hemoglobin 20L, Mean Corpuscular Hemoglobin Concent 29L, Red Cell Distribution Width 20.3H, Platelet Count 426H, Mean Platelet Volume 8.4L, Immature Granulocyte % (Auto) 0, Neutrophils (%) (Auto) 62, Lymphocytes (%) (Auto) 25, Monocytes (%) (Auto) 8, Eosinophils (%) (Auto) 5, Basophils (%) (Auto) 0, Neutrophils # (Auto) 5.8, Lymphocytes # (Auto) 2.4, Monocytes # (Auto) 0.7, Eosinophils # (Auto) 0.5H, Basophils # (Auto) 0.0, Immature Granulocyte # (Auto) 0.0, Prothrombin Time 13.6, INR Comment 1.0, Activated Partial Thromboplast Time 27, Sodium Level 141, Potassium Level 3.9, Chloride Level 105, Carbon Dioxide Level 27, Anion Gap 9, Blood Urea Nitrogen 11, Creatinine 0.75, Estimat Glomerular Filtration Rate > 60, BUN/Creatinine Ratio 15, Glucose Level 96, Calcium Level 8.2L, Corrected Calcium 8.4L, Magnesium Level 1.7, Total Bilirubin 0.2, Aspartate Amino Transf (AST/SGOT) 27, Alanine Aminotransferase (ALT/SGPT) 25, Alkaline Phosphatase 145H, Myoglobin 20.6, Troponin I 0.032H, Total Protein 6.8, Albumin 3.7, Lipase 32 10/07/20 21:10: Glucometer 88 10/07/20 21:24: Urine Color YELLOW, Urine Clarity CLEAR, Urine pH 6.0, Urine Specific Stitzer 1.025H, Urine Protein NEGATIVE, Urine Glucose (UA) NEGATIVE, Urine Ketones NEGATIVE, Urine Nitrite NEGATIVE, Urine Bilirubin NEGATIVE, Urine Urobilinogen 1.0, Urine Leukocyte Esterase NEGATIVE, Urine RBC (Auto) NEGATIVE, Urine RBC NONE, Urine WBC 0-2, Urine Squamous Epithelial Cells 0-2, Urine Crystals NONE, Urine Bacteria NEGATIVE, Urine Casts NONE, Urine Mucus SMALLH, Urine Culture Indicated NO, Urine Opiates Screen NEGATIVE, Urine Oxycodone Screen NEGATIVE, Urine Methadone Screen NEGATIVE, Urine Propoxyphene Screen NEGATIVE, Urine Barbiturates Screen NEGATIVE, Ur Tricyclic Antidepressants Screen NEGATIVE, Urine Phencyclidine Screen NEGATIVE, Urine Amphetamines Screen POSITIVEH, Urine Methamphetamines Screen POSITIVEH, Urine Benzodiazepines Screen NEGATIVE, Urine Cocaine Screen NEGATIVE, Urine Cannabinoids Screen NEGATIVE 10/08/20 02:10: White Blood Count 9.3, Red Blood Count 4.84, Hemoglobin 10.1L, Hematocrit 33L, Mean Corpuscular Volume 68L, Mean Corpuscular Hemoglobin 21L, Mean Corpuscular Hemoglobin Concent 31L, Red Cell Distribution Width 20.3H, Platelet Count 508H, Mean Platelet Volume 9.3, Immature Granulocyte % (Auto) 1, Neutrophils (%) (Auto) 54, Lymphocytes (%) (Auto) 32, Monocytes (%) (Auto) 8, Eosinophils (%) (Auto) 5, Basophils (%) (Auto) 1, Neutrophils # (Auto) 5.0, Lymphocytes # (Auto) 3.0, Monocytes # (Auto) 0.7, Eosinophils # (Auto) 0.5H, Basophils # (Auto) 0.1, Immature Granulocyte # (Auto) 0.1, Sodium Level 138, Potassium Level 4.6, Chloride Level 106, Carbon Dioxide Level 21, Anion Gap 11, Blood Urea Nitrogen 11, Creatinine 0.69, Estimat Glomerular Filtration Rate > 60, BUN/Creatinine Ratio 16, Glucose Level 107H, Calcium Level 8.2L, Corrected Calcium 8.6, Magnesium Level 1.7, Total Bilirubin 0.2, Aspartate Amino Transf (AST/SGOT) 40H, Alanine Aminotransferase (ALT/SGPT) 24, Alkaline Phosphatase 145H, Total Protein 7.0, Albumin 3.5, Phosphorus Level 3.0, Triglycerides Level 114, Cholesterol Level 128, LDL Cholesterol Direct 80, VLDL Cholesterol 23, HDL Cholesterol 36L 10/08/20 03:50: Troponin I < 0.028 Laboratory Tests 10/07/20 20:35 10/08/20 02:10 Radiology NAME: OKSANA HORNE [facility] REC#: [id number] PT STATUS: REG ER : 1975 PHYSICIAN: MELECIO HOPPER MD ADMIT DATE: 10/07/20/ER Signed Date of Exam:10/07/20 CHEST 1 VIEW, AP/PA ONLY INDICATION: Chest pain FINDINGS: The lungs are clear. No failure, effusion or pneumothorax. IMPRESSION: Negative. Dictated by: Dictated on workstation # [id number] Dict: 10/07/202129 Trans: 10/07/202137 [facility] [id number] Interpreted by: CARLOS CHAVEZ Electronically signed by: CARLOS CHAVEZ 10/07/202137 ECG Impression ECG Initial ECG Rhythm: Normal Sinus A/P-Cardiology Assessment/Admission Diagnosis Chest pain of undetermined etiology Anxiety Methamphetamine abuse (tested positive on lab of 10-07-20), she denies any use - cessation advised GERD Hiatal hernia Reports h/o CKD Elevated BMI approx 42 Tobaccoism - cessation advised Discussion and Recomendations Chest pain of undetermined etiology with initial troponin minimally elevated and subsequent troponin normal Based on her symptoms and risk factors as noted above we advise MPI to eval perfusion We advise echocardiogram to eval structure and function Monitor lab We advise complete cessation of meth and cigs Further recs will be based on her hospital course We would like to thank medical services for this consult Clinical Quality Measures AMI/AHF: ASA po Prior to arrival: ANNMARIE Castro Oct 08, 2020 08:18
[2020-10-08] MEDS: meTOproloL SUCCINATE 50 MG (TOPROL XL) TAB PO SCH ×3 (08:43→10:20)
[2020-10-08] MEDS ORDERED: REGADENOSON 0.4 MG/5 ML SYR (LEXISCAN) IV ONE ×2 (08:45→09:40)
[2020-10-08] MEDS ORDERED: CLOPIDOGREL 75 MG (PLAVIX) TABLET PO SCH (09:00)
[2020-10-08] MEDS ORDERED: ENOXAPARIN 300 MG/3 ML (LOVENOX) MULTI-DOSE VIAL SQ SCH (09:00)
[2020-10-08] MEDS ORDERED: ASPIRIN E.C. 81 MG (ECOTRIN) TAB PO SCH (09:00)
[2020-10-08] MEDS ORDERED: CLIN300C12 PO (09:53)
[2020-10-08] MEDS ORDERED: CATHETER FLUSH 10 ML SYR IV SCH (10:15)
--- NOTE | 2020-10-08 13:42 | Consultation-Cardiology ---
HPI-Cardiology Cardiology Consultation: Date of Consultation 10/08/20 Time Seen by a Provider: 12:50 Date of Admission Attending Physician Elsa Mar MD Admitting Physician [facility] Consulting Physician JOSE BOSWELL MD, MA, FACP, FACC, FSCAI, CCDS HPI: Chief Complaint: CC: Chest pain HPI Ms Morris is a 45 yr old female who has been admitted to ICU 1 from the ED with c/o chest pain. She reports she got up yesterday morning and was having mid-sternal chest pressure, which she rates as severe. She states her chest felt heavy all morning so she went back to bed and slept all day until around 5 p.m. when she went to get her daughter off the bus. She reports she was again having chest pressure. Her significant other states that usually when she has chest tightness she will use her inhaler and it typically improves it, however her inhaler was empty. She states she received nitro x 1 in the ED and her chest pain resolved. She denies any reoccurrence. She reports she has had increasing SOB. She reports yesterday she did feel sweaty and nauseated. She reports that has resolved this morning. She reports chronic constipation. She continue to smoke cigs, approx 1 PPD. She denies any methamphetamine use, although she has tested positive for it this admission and on previous evals in the ED. Review of Systems-Cardiology Review of Systems Constitutional: No chills, No fever; tiredness Eyes: No vision change Ears/Nose/Throat: No epistaxis, No recent hearing loss Respiratory: As described under HPI Cardiovascular: As described under HPI Gastrointestinal: As described under HPI Genitourinary: No dysuria, No hematuria Skin: No rash on exposed areas, No ulcerations on exposed areas Psychiatric/Neurological: anxiety; No seizure, No focal weakness, No syncope Hematologic: No bleeding abnormalities All Other Systems Reviewed Negative Unless Noted: Yes [id number] Hx Patient Social History Smoking Status: Current Everyday Smoker 2nd Hand Smoke Exposure: Yes Have you traveled recently?: No Alcohol Use?: No Substance type: Amphetamines, Methamphetamine Pt feels they are or have been: No Tobacco type used: Cigarettes Immunizations Up To Date Tetanus Booster (TDap): Less than 5yrs Date of Influenza Vaccine: Mar 13, 2013 Past Medical History PMH As described under Assessment. Family Medical History Family Medical History: She reports her mother had CHF and breast cancer. Allergies and Home Medications Allergies Coded Allergies: Bacitracin Zinc (Unverified Allergy, Unknown, 11/25/15) BLISTERS Sulfa (Sulfonamide Antibiotics) (Verified Allergy, Unknown, 11/25/15) bacitracin (Unverified Allergy, Unknown, 11/25/15) BLISTERS neomycin sulfate (Unverified Allergy, Unknown, 11/25/15) BLISTERS polymyxin B (Unverified Allergy, Unknown, 11/25/15) BLISTERS risperidone (Verified Allergy, Unknown, 11/25/15) Uncoded Allergies: GREEN BEANS (Allergy, Unknown, 12/13/13) THROAT SWELLS PEAS (Allergy, Unknown, 12/13/13) THROAT SWELLS Home Medications Clindamycin HCl 300 Mg Capsule, 600 MG PO Q8H, (Reported) TAKES 2 (300MG) CAPS FILLED 10-03-2020 #60/10 DAY SUPPLY Last Action: Reviewed Patient Home Medication List Home Medication List Reviewed: Yes Physical Exam-Cardiology Physical Exam Vital Signs/I&O 10/08/20 10/08/20 10/08/20 10/08/20 02:00 03:00 04:00 04:00 Temp 36.4 Pulse 70 76 Resp B/P (MAP) 138/81 (100) 94/76 (82) Pulse Ox 89 92 O2 Delivery Room Air Room Air Room Air 10/08/20 10/08/20 10/08/20 10/08/20 04:14 05:00 06:00 06:48 Pulse 69 69 69 67 Resp B/P (MAP) 118/76 (90) 120/77 (91) 119/87 (98) Pulse Ox 93 94 93 O2 Delivery Room Air Room Air Room Air 10/08/20 10/08/20 10/08/20 10/08/20 07:00 07:30 08:00 08:00 Temp 36.6 Pulse 65 60 Resp B/P (MAP) 123/82 (96) 118/87 (97) Pulse Ox 89 91 O2 Delivery Room Air Room Air Room Air 10/08/20 10/08/20 10/08/20 10/08/20 10:03 11:00 11:45 12:00 Temp 36.2 Pulse 67 Resp 16 19 B/P (MAP) 122/71 (88) 99/67 (78) Pulse Ox 98 100 O2 Delivery Room Air Room Air Room Air 10/08/20 12:32 Pulse 63 Capillary Refill : Less Than 3 Seconds Constitutional: AAO x 3, well-developed, well-nourished HEENT: PERRL; No oral hygience is good (multiple dental caries) Neck: No carotid bruit; carotid pulses are 2 + bilaterally Respiratory: No accessory muscle use, No respiratory distress; chest expansion is symmetric, lungs clear to auscultation, other (prolonged expiratory phase) Cardiovascular: regular rate-rhythm; No JVD; S1 and S2 Gastrointestinal: No tender; soft, round, audible bowel sounds Extremities: no lower extremity edema bilateral Neurologic/Psychiatric: grossly intact (moves all extremities) Skin: No rash on exposed areas, No ulcerations on exposed areas Data Review Labs Laboratory Tests 10/07/20 20:35: White Blood Count 9.4, Red Blood Count 4.96, Hemoglobin 10.1L, Hematocrit 35, Mean Corpuscular Volume 71L, Mean Corpuscular Hemoglobin 20L, Mean Corpuscular Hemoglobin Concent 29L, Red Cell Distribution Width 20.3H, Platelet Count 426H, Mean Platelet Volume 8.4L, Immature Granulocyte % (Auto) 0, Neutrophils (%) (Auto) 62, Lymphocytes (%) (Auto) 25, Monocytes (%) (Auto) 8, Eosinophils (%) (Auto) 5, Basophils (%) (Auto) 0, Neutrophils # (Auto) 5.8, Lymphocytes # (Auto) 2.4, Monocytes # (Auto) 0.7, Eosinophils # (Auto) 0.5H, Basophils # (Auto) 0.0, Immature Granulocyte # (Auto) 0.0, Prothrombin Time 13.6, INR Comment 1.0, Act ivated Partial Thromboplast Time 27, Sodium Level 141, Potassium Level 3.9, Chloride Level 105, Carbon Dioxide Level 27, Anion Gap 9, Blood Urea Nitrogen 11, Creatinine 0.75, Estimat Glomerular Filtration Rate > 60, BUN/Creatinine Ratio 15, Glucose Level 96, Calcium Level 8.2L, Corrected Calcium 8.4L, Magnesium Level 1.7, Total Bilirubin 0.2, Aspartate Amino Transf (AST/SGOT) 27, Alanine Aminotransferase (ALT/SGPT) 25, Alkaline Phosphatase 145H, Myoglobin 20.6, Troponin I 0.032H, Total Protein 6.8, Albumin 3.7, Lipase 32 10/07/20 21:10: Glucometer 88 10/07/20 21:24: Urine Color YELLOW, Urine Clarity CLEAR, Urine pH 6.0, Urine Specific Jackson 1.025H, Urine Protein NEGATIVE, Urine Glucose (UA) NEGATIVE, Urine Ketones NEGATIVE, Urine Nitrite NEGATIVE, Urine Bilirubin NEGATIVE, Urine Urobilinogen 1.0, Urine Leukocyte Esterase NEGATIVE, Urine RBC (Auto) NEGATIVE, Urine RBC NONE, Urine WBC 0-2, Urine Squamous Epithelial Cells 0-2, Urine Crystals NONE, Urine Bacteria NEGATIVE, Urine Casts NONE, Urine Mucus SMALLH, Urine Culture Indicated NO, Urine Opiates Screen NEGATIVE, Urine Oxycodone Screen NEGATIVE, Urine Methadone Screen NEGATIVE, Urine Propoxyphene Screen NEGATIVE, Urine Barbiturates Screen NEGATIVE, Ur Tricyclic Antidepressants Screen NEGATIVE, Urine Phencyclidine Screen NEGATIVE, Urine Amphetamines Screen POSITIVEH, Urine Methamphetamines Screen POSITIVEH, Urine Benzodiazepines Screen NEGATIVE, Urine Cocaine Screen NEGATIVE, Urine Cannabinoids Screen NEGATIVE 10/08/20 02:10: White Blood Count 9.3, Red Blood Count 4.84, Hemoglobin 10.1L, Hematocrit 33L, Mean Corpuscular Volume 68L, Mean Corpuscular Hemoglobin 21L, Mean Corpuscular Hemoglobin Concent 31L, Red Cell Distribution Width 20.3H, Platelet Count 508H, Mean Platelet Volume 9.3, Immature Granulocyte % (Auto) 1, Neutrophils (%) (Auto) 54, Lymphocytes (%) (Auto) 32, Monocytes (%) (Auto) 8, Eosinophils (%) (Auto) 5, Basophils (%) (Auto) 1, Neutrophils # (Auto) 5.0, Lymphocytes # (Auto) 3.0, Monocytes # (Auto) 0.7, Eosinophils # (Auto) 0.5H, Basophils # (Auto) 0.1, Immature Granulocyte # (Auto) 0.1, Sodium Level 138, Potassium Level 4.6, Chloride Level 106, Carbon Dioxide Level 21, Anion Gap 11, Blood Urea Nitrogen 11, Creatinine 0.69, Estimat Glomerular Filtration Rate > 60, BUN/Creatinine Ratio 16, Glucose Level 107H, Calcium Level 8.2L, Corrected Calcium 8.6, Magnesium Level 1.7, Total Bilirubin 0.2, Aspartate Amino Transf (AST/SGOT) 40H, Alanine Aminotransferase (ALT/SGPT) 24, Alkaline Phosphatase 145H, Total Protein 7.0, Albumin 3.5, Phosphorus Level 3.0, Triglycerides Level 114, Cholesterol Level 128, LDL Cholesterol Direct 80, VLDL Cholesterol 23, HDL Cholesterol 36L 10/08/20 03:50: Troponin I < 0.028 10/08/20 08:30: Troponin I < 0.028 10/08/20 11:29: Glucometer 87 A/P-Cardiology Assessment/Admission Diagnosis Chest pain, noncardiac, etiology undetermined - Serial troponin negative for ac DE on 10/07/20 and 10/08/20 (0.032, <0.028, <0.028) - MPI of 10/08/20 did not show ischemia or infarction; LVEF normal Anxiety Methamphetamine abuse (tested positive on lab of 10-07-20), she denies any use - cessation advised GERD Hiatal hernia Reports h/o CKD Elevated BMI approx 42 Tobaccoism - cessation advised Discussion and Recomendations We discussed risk factor mod We asked her to quit tobacco and meth use immediately and completely I answered her questions in detail W/u for non-cardiac causes of chest pain is with the Med [facility] Outpt f/u advised We would like to thank [facility] for this consult Clinical Quality Measures AMI/AHF: ASA po Prior to arrival: JOSE Crane MD FACP FAC CCDS Oct 08, 2020 13:41
--- NOTE | 2020-10-08 13:51 | STRESS TEST ---
DATE OF SERVICE: 10/08/2020 RESTING AND POST REGADENOSON TECHNETIUM-99M TETROFOSMIN SPECT CT IMAGING ORDERING PHYSICIAN: Shawnee Willams APRN PRIMARY PHYSICIAN: [facility]. ATTENDING PHYSICIAN: Dr. Mar. CLINICAL DIAGNOSIS: Chest pain. Baseline images were carried out after injection of 9.8 mCi of technetium-99m Tetrofosmin. This was followed by 0.4 mg regadenoson and 29.7 mCi of technetium-99m Tetrofosmin for stress imaging. The electrocardiogram showed sinus rhythm at baseline. It did not change significantly with the regadenoson infusion. The patient tolerated the procedure well. Review of images at rest and following stress does not indicate any significant perfusion defects consistent with significant myocardial ischemia or infarction. Gated images show normal global left ventricular systolic function with normal regional wall motion. Left ventricular ejection fraction is calculated to be 72%. CONCLUSIONS: 1. No evidence of any significant myocardial ischemia or infarction. 2. Normal regional wall motion. 3. Normal global left ventricular systolic function with a calculated ejection fraction of 72%. Job ID: [id number] DocumentID: [id number] Dictated Date: 10/08/2020 12:49:54 Culinary Worker Date: 10/08/2020 13:50:37 Dictated By: JOSE BOSWELL MD, MA, FACP, FACC,
--- NOTE | 2020-10-08 16:59 | Short Stay Summary-Hospitalist ---
History of Present Illness HPI/Chief Complaint Olya Morris is a 45 year old female with morbid obesity who presented with chest pain. She reports that the pain woke her up from sleep. It is located in the center of her chest and started as pressure and then became painful. She denies radiation to her neck, arm, or jaw. She reports associated shortness of breath. She denies diaporesis and nausea. She denies cough. She denies fevers. She denies methamphetamine use. She reports smoking 1/2 pack per day of cigarettes. Source: patient Exam Limitations: no limitations Date Seen 10/08/20 Time Seen by a Provider: 08:50 Attending Physician Elsa Mar MD [facility] Referring Physician Date of Admission Oct 07, 2020 at 21:30 Home Medications & Allergies Home Medications Reviewed patient Home Medication Reconciliation performed by pharmacy medication reconciliations dental technician apprentice and/or nursing. Patients Allergies have been reviewed. Allergies Allergies Coded Allergies Bacitracin Zinc (Unverified Allergy, Unknown, 11/25/15) BLISTERS Sulfa (Sulfonamide Antibiotics) (Verified Allergy, Unknown, 11/25/15) bacitracin (Unverified Allergy, Unknown, 11/25/15) BLISTERS neomycin sulfate (Unverified Allergy, Unknown, 11/25/15) BLISTERS polymyxin B (Unverified Allergy, Unknown, 11/25/15) BLISTERS risperidone (Verified Allergy, Unknown, 11/25/15) Uncoded Allergies GREEN BEANS ( Allergy, Unknown, 12/13/13) THROAT SWELLS PEAS ( Allergy, Unknown, 12/13/13) THROAT SWELLS Past Llcrugy-Oadals-Rdevuj Hx Past Med/Social Hx: Reviewed Nursing Past Med/Soc Hx Patient Social History Alcohol Use: Denies Use Recreational Drug Use: No (SMOKES 1/2 PPD) Smoking Status: Current Everyday Smoker Type Used: Cigarettes 2nd Hand Smoke Exposure: Yes Recent Foreign Travel: No Contact w/other who traveled: No Recent Hopitalizations: No Recent Infectious Disease Expo: No Immunizations Up To Date Tetanus Booster (TDap): Less than 5yrs Date of Influenza Vaccine: Mar 13, 2013 Seasonal Allergies Seasonal Allergies: No Past Medical History Surgeries: Abdominal, Adenoidectomy, Section, Ear Surgery, Neurological, Orthopedic, Pituitary, Tonsillectomy : No Reproductive: Yes (MULTIPLE MISCARRIAGES, DIAG LAP SURGERIES X2) Sexually Transmitted Disease: No HIV/AIDS: No Genitourinary: Renal Failure, UTI-Chronic Gastrointestinal: Gastroesophageal Reflux, Chronic Constipation Musculoskeletal: Chronic Back Pain, Fractures Endocrine: Pituitary Disease HEENT: Chronic Ear Infection, Tonsilitis Psychosocial: Anxiety, Depression History of Blood Disorders: Yes (ANEMIA) Family History No Pertinent Family Hx SOCIAL HISTORY: -ETOH--DENIES USE -DRUGS--DENIES USE, BUT HAS REPEATEDLY TESTED + FOR METHAMPHETAMINES, AMPHETAMINES AND THC -SMOKES 2 PPD Review of Systems Constitutional: no symptoms reported EENTM: no symptoms reported Respiratory: short of breath Cardiovascular: chest pain Gastrointestinal: no symptoms reported Genitourinary: no symptoms reported Musculoskeletal: no symptoms reported Skin: no symptoms reported Psychiatric/Neurological: No Symptoms Reported Physical Exam Physical Exam Vital Signs Vital Signs - First Documented Capillary Refill : Less Than 3 Seconds Height, Weight, BMI Height: 5'7.00" Weight: 267lbs. 0oz. 121.267642ie; 42.21 BMI Method:Actual General Appearance: No Apparent Distress, Anxious, Obese HEENT: PERRL/EOMI, Pharynx Normal Neck: Normal Inspection, Supple Respiratory: Lungs Clear, Normal Breath Sounds, No Respiratory Distress Cardiovascular: Regular Rate, Rhythm, No Edema, Normal Peripheral Pulses Gastrointestinal: Normal Bowel Sounds, Non Tender, Soft Extremity: Normal Inspection, Non Tender, No Pedal Edema Neurologic/Psychiatric: Alert, Oriented x3, No Motor/Sensory Deficits Skin: Normal Color, Warm/Dry Results Results/Procedures Labs Laboratory Tests 10/07/20 20:35 10/08/20 02:10 Patient resulted labs reviewed. Imaging: Reviewed Imaging Report Short Stay Diagnosis Discharge Diagnosis-Short Stay Admission Diagnosis Chest pain Final Discharge Diagnosis Chest pain likely related to methamphetamine use Conclusion Plan Abstain from methamphetamine use. Establish care with a primary care physician. Diagnosis/Problems Diagnosis/Problems (1) Chest pain Status: Acute (2) Methamphetamine use Status: Acute (3) Morbid obesity Status: Acute Clinical Quality Measures AMI/AHF: ASA po Prior to arrival: ELSA Amin MD Oct 08, 2020 16:59
== END 2020-10-08 14:30 | disposition home or self-care (01) ==
LOC: EDUNIT# 20:28 → ER 20:30 → ICU 21:30
PROVIDERS: ADMIT Internal Medicine; ATTEND Internal Medicine
DX: R07.9 Chest pain, unspecified (principal); F15.90 Other stimulant use, unspecified, uncomplicated; F17.210 Nicotine dependence, cigarettes, uncomplicated; J45.909 Unspecified asthma, uncomplicated; K21.9 Gastro-esophageal reflux disease without esophagitis; N39.0 Urinary tract infection, site not specified; G89.29 Other chronic pain; M54.9 Dorsalgia, unspecified; F41.9 Anxiety disorder, unspecified; F32.9 Major depressive disorder, single episode, unspecified; I12.9 Hypertensive chronic kidney disease with stage 1 through stage 4 chronic kidney disease, or unspecified chronic kidney disease; N18.9 Chronic kidney disease, unspecified; I20.0 Unstable angina; K44.9 Diaphragmatic hernia without obstruction or gangrene; E66.01 Morbid (severe) obesity due to excess calories; Z68.41 Body mass index [BMI] 40.0-44.9, adult; Z79.899 Other long term (current) drug therapy; Z88.2 Allergy status to sulfonamides; Z88.8 Allergy status to other drugs, medicaments and biological substances; Z88.1 Allergy status to other antibiotic agents; Z91.018 Allergy to other foods
CPT/HCPCS: 71045; 78452; 80053 ×2; 80061; 80306; 81000; 82947 ×2; 83690; 83735 ×2; 83874; 84100; 84484 ×2; 84703; 85025 ×2; 85610; 85730; 87081; 93005 ×2; 93017; 93041; 93306; 99285; A9502; 36415

== ENCOUNTER 2021-06-22 20:27 | Emergency (ER) | payer MEDICAID ==
[~2021-06-22 20:27] MED LIST changes: +CLIN-144 PO; -CLIN300C12 PO; +CYCL10TA25 PO
== END 2021-06-22 21:04 | disposition left against medical advice (07) ==
LOC: EDUNIT# 20:27 → ER 20:33
DX: M25.551 Pain in right hip (principal)

== ENCOUNTER 2021-06-29 16:42 | Emergency (ER) | payer MEDICAID | END 2021-06-29 17:26 | disposition left against medical advice (07) | LOC: EDUNIT# 16:42 → ER 16:49 | DX: R05.9 Cough, unspecified (principal); R09.81 Nasal congestion ==

== ENCOUNTER 2021-06-30 02:28 | Emergency (ER) | payer MEDICAID ==
[~2021-06-30] VITALS: Ht 170 cm; Wt 113.3 kg
[2021-06-30 02:47] VITALS: BP 168/104
--- NOTE | 2021-06-30 03:04 | ED Cough/URI ---
General Chief Complaint: COVID19 Suspect/Confirmed Stated Complaint: COUGH,WEAK,HURTS ALL OVER Nursing Triage Note: pt arrives per POV w/ c/o cough, congestion and body aches. Pt relates exposure to Covid from close family members. Source: patient Exam Limitations: no limitations History of Present Illness Date Seen by Provider: Jun 30, 2021 Time Seen by Provider: 02:50 Initial Comments Patient is a morbidly obese 46-year-old female who presents to the emergency department with sudden onset this evening of cough that is intermittently productive, congestion, runny nose, body aches. Patient states that she has been recently exposed to 2 family members that have tested positive for COVID. She is unvaccinated. Smokes cigarettes. No chronic medical conditions other than "asthma". Did use a breathing treatment approximately an hour prior to arrival. No other complaints noted. All other review of systems reviewed and negative except as stated. Timing/Duration: this evening Severity/Quality: moderate Prior Episodes/Possible Cause: illness exposure Modifying Factors: Worse With Coughing; Improves With Other (using OTC cold medications) Associated Symptoms: muscle aches, nasal congestion, nasal drainage, sore throat Allergies and Home Medications Allergies Coded Allergies: Bacitracin Zinc (Unverified Allergy, Unknown, 11/25/15) BLISTERS Sulfa (Sulfonamide Antibiotics) (Verified Allergy, Unknown, 11/25/15) bacitracin (Unverified Allergy, Unknown, 11/25/15) BLISTERS neomycin sulfate (Unverified Allergy, Unknown, 11/25/15) BLISTERS polymyxin B (Unverified Allergy, Unknown, 11/25/15) BLISTERS risperidone (Verified Allergy, Unknown, 11/25/15) Uncoded Allergies: GREEN BEANS (Allergy, Unknown, 12/13/13) THROAT SWELLS PEAS (Allergy, Unknown, 12/13/13) THROAT SWELLS Patient Home Medication List Home Medication List Reviewed: Yes Clindamycin HCl (Clindamycin HCl) 300 Mg Capsule, 600 MG PO Q8H, (Reported) Entered as Reported by: EMANUEL SHEIKH on 10/08/20 0953 Review of Systems Review of Systems Constitutional: see HPI EENTM: nose congestion Respiratory: cough Cardiovascular: no symptoms reported Gastrointestinal: no symptoms reported Genitourinary: no symptoms reported Musculoskeletal: muscle cramps Skin: no symptoms reported Psychiatric/Neurological: No Symptoms Reported All Other Systems Reviewed Negative Unless Noted: Yes Past Dmtgnbn-Tolbtr-Cunupx Hx Immunizations Up To Date Tetanus Booster (TDap): Less than 5yrs Seasonal Allergies Seasonal Allergies: No Past Medical History Surgeries: Yes (PITUITARY TUMOR, X 2, BACK SURGERY, LEFT ELBOW X 2, BMT'S ) Abdominal, Adenoidectomy, Section, Ear Surgery, Neurological, Orthopedic, Pituitary, Tonsillectomy Respiratory: Yes Asthma Cardiac: No Neurological: Yes (PITUITARY TUMOR) Reproductive Disorders: Yes (MULTIPLE MISCARRIAGES, DIAG LAP SURGERIES X2) Sexually Transmitted Disease: No HIV/AIDS: No Genitourinary: Yes Renal Failure, UTI-Chronic Gastrointestinal: Yes ("PARTIAL BOWEL BLOCKAGE FOR OVER 10 YEARS" PER PT. ) Gastroesophageal Reflux, Chronic Constipation Musculoskeletal: Yes (CHRONIC NECK AND BACK PAIN; BACK SURGERY;L ELBOW SURGERY X 2) Chronic Back Pain, Fractures Endocrine: Yes (HYPOGLYCEMIA, PITUITARY TUMOR, MORBID OBESITY) Pituitary Disease HEENT: Yes (BMT'S AND T&A) Chronic Ear Infection, Tonsilitis Cancer: No Psychosocial: Yes (EXTENSIVE PSYCH ISSUES) Anxiety, Depression Integumentary: No Blood Disorders: Yes (ANEMIA) Family Medical History No Pertinent Family Hx SOCIAL HISTORY: -ETOH--DENIES USE -DRUGS--DENIES USE, BUT HAS REPEATEDLY TESTED + FOR METHAMPHETAMINES, AMPHETAMINES AND THC -SMOKES 2 PPD Physical Exam Vital Signs - First Documented 06/30/21 02:47 Temp 36.1 Pulse 104 Resp 24 B/P (MAP) 168/104 (125) Capillary Refill : Less Than 3 Seconds Height: 5'7.00" Weight: 267lbs. 0oz. 121.188215wv; 39.00 BMI Method:Actual General Appearance: WD/WN, no apparent distress Eyes: Bilateral Eye Normal Inspection, Bilateral Eye PERRL, Bilateral Eye EOMI HEENT: PERRL/EOMI, pharynx normal Neck: non-tender, full range of motion, supple Respiratory: lungs clear, normal breath sounds, no respiratory distress, no accessory muscle use Cardiovascular: regular rate, rhythm (111) Gastrointestinal: normal bowel sounds, non tender, soft Extremities: non-tender, normal inspection, no pedal edema, no calf tenderness Neurologic/Psychiatric: alert, normal mood/affect, oriented x 3 Skin: normal color, warm/dry Progress/Results/Core Measures Suspected Sepsis SIRS Temperature: Pulse: 104 Respiratory Rate: 24 Blood Pressure 168 /104 Mean: 125 Results/Orders Vital Signs/I&O 06/30/21 02:47 Temp 36.1 Pulse 104 Resp 24 B/P (MAP) 168/104 (125) Capillary Refill : Less Than 3 Seconds Blood Pressure Mean: 125 Departure Impression Primary Impression: Person under investigation for COVID-19 Disposition: 01 HOME, SELF-CARE Condition: Stable Departure-Patient Inst. Decision time for Depature: 03:03 Referrals: [facility] (PCP/Family) Primary Care Physician Patient Instructions: COVID-19 Overview Add. Discharge Instructions: Drink lots of fluids to stay well-hydrated. You should stop smoking. Get an [id number] oxygen monitor and if you become more and more short of breath, feel lightheaded periodically check your oxygen if it drops below 90% you need to come back to the emergency department. Follow-up with your primary care physician in 2 weeks. You should quarantine for the next 5 days and then mask strictly for the following 5 days. We will contact you with your COVID test result. Continue [id number] cold medications as well as Tylenol and ibuprofen for body aches and fever over 100.4. Copy Copies To 1: LAYNE SENA KATHRYN M MD Jun 30, 2021 03:04
== END 2021-06-30 03:21 | disposition home or self-care (01) ==
LOC: EDUNIT# 02:28 → ER 02:30
DX: U07.1 COVID-19 (principal); F17.210 Nicotine dependence, cigarettes, uncomplicated
CPT/HCPCS: 87636; 99284

== ENCOUNTER 2021-10-02 21:56 | Emergency (ER) | payer MEDICAID ==
[~2021-10-02] VITALS: Ht 170 cm; Wt 113.6 kg
[2021-10-02 22:07] VITALS: BP 138/97
[2021-10-02] MEDS ORDERED: RX-CEPHALEXIN (KEFLEX) 250 MG CAP PPK#4 PO STA (22:12)
[2021-10-02] MEDS ORDERED: CEPH500T PO (22:15)
[2021-10-02] MEDS ORDERED: PRD20T PO (22:15)
[2021-10-02] MEDS ORDERED: predniSONE 20 MG TAB PO ONE (22:15)
--- NOTE | 2021-10-02 22:15 | ED General ---
General Chief Complaint: Head/Cervical Problems Stated Complaint: HEAD PAIN Source of Information: Patient History of Present Illness Date Seen by Provider: Oct 02, 2021 Time Seen by Provider: 22:06 Initial Comments PT ARRIVES VIA POV FROM HOME C/O PAIN TO THE TOP LEFT OF HER SCALP FOR 3 DAYS NO INJURY STATES SHE WAS WEARING HER HAIR IN A PONY TAIL WHEN SYMPTOMS BEGAN--THOUGHT SHE HAD GOT IT TOO TIGHT. REMOVED THE PONY TAIL AND HAS BEEN WEARING IT DOWN SINCE THEN, BUT PAIN HAS GOTTEN WORSE STATES SHE HAS PAIN TO TOUCH HER SCALP OR BRUSH HER HAIR OR HAVE THAT PART OF HER HEAD TOUCH THE PILLOW WHEN SHE LAYS DOWN NO INJURY NO SWELLING NO WOUNDS, RASH, ETC. 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 PT HAS NOT HAD COVID VACCINE, BUT TESTED + FOR COVID 06/30/21 PCP: MELY-K Allergies and Home Medications Allergies Coded Allergies: Bacitracin Zinc (Unverified Allergy, Unknown, 11/25/15) BLISTERS Sulfa (Sulfonamide Antibiotics) (Verified Allergy, Unknown, 11/25/15) bacitracin (Unverified Allergy, Unknown, 11/25/15) BLISTERS neomycin sulfate (Unverified Allergy, Unknown, 11/25/15) BLISTERS polymyxin B (Unverified Allergy, Unknown, 11/25/15) BLISTERS risperidone (Verified Allergy, Unknown, 11/25/15) Uncoded Allergies: GREEN BEANS (Allergy, Unknown, 12/13/13) THROAT SWELLS PEAS (Allergy, Unknown, 12/13/13) THROAT SWELLS Patient Home Medication List Home Medication List Reviewed: Yes Cephalexin (Cephalexin) 500 Mg Tablet, 500 MG PO QID Prescribed by: ALCON SANTAMARIA on 10/02/212214 Clindamycin HCl (Clindamycin HCl) 300 Mg Capsule, 600 MG PO Q8H, (Reported) Entered as Reported by: EMANUEL SHEIKH on 10/08/20 0934 Prednisone (Prednisone) 20 Mg Tab, 40 MG PO DAILY Prescribed by: ALCON SANTAMARIA on 10/02/212214 Review of Systems Review of Systems Constitutional: no symptoms reported; No fever EENTM: see HPI; No ear pain, No eye pain, No nose congestion, No throat pain Respiratory: no symptoms reported Cardiovascular: no symptoms reported Gastrointestinal: no symptoms reported Genitourinary: no symptoms reported Musculoskeletal: no symptoms reported Skin: see HPI Psychiatric/Neurological: No Symptoms Reported Hematologic/Lymphatic: No Symptoms Reported Immunological/Allergic: no symptoms reported Past Ytbkrsh-Lshbjb-Nnvqbq Hx Immunizations Up To Date Tetanus Booster (TDap): Less than 5yrs Seasonal Allergies Seasonal Allergies: No Past Medical History Surgeries: Yes (PITUITARY TUMOR, X 2, BACK SURGERY, LEFT ELBOW X 2, BMT'S ) Abdominal, Adenoidectomy, Section, Ear Surgery, Neurological, Orthopedic, Pituitary, Tonsillectomy Respiratory: Yes Asthma Cardiac: No Neurological: Yes (PITUITARY TUMOR) Reproductive Disorders: Yes (MULTIPLE MISCARRIAGES, DIAG LAP SURGERIES X2) Sexually Transmitted Disease: No HIV/AIDS: No Genitourinary: Yes Renal Failure, UTI-Chronic Gastrointestinal: Yes ("PARTIAL BOWEL BLOCKAGE FOR OVER 10 YEARS" PER PT. ) Gastroesophageal Reflux, Chronic Constipation Musculoskeletal: Yes (CHRONIC NECK AND BACK PAIN; BACK SURGERY;L ELBOW SURGERY X 2) Chronic Back Pain, Fractures Endocrine: Yes (HYPOGLYCEMIA, PITUITARY TUMOR, MORBID OBESITY) Pituitary Disease HEENT: Yes (BMT'S AND T&A) Chronic Ear Infection, Tonsilitis Cancer: No Psychosocial: Yes (EXTENSIVE PSYCH ISSUES) Anxiety, Depression Integumentary: No Blood Disorders: Yes (ANEMIA) Family Medical History No Pertinent Family Hx SOCIAL HISTORY: -ETOH--DENIES USE -DRUGS--DENIES USE, BUT HAS REPEATEDLY TESTED + FOR METHAMPHETAMINES, AMPHETAMINES AND THC -SMOKES 2 PPD Physical Exam Vital Signs Vital Signs - First Documented 10/02/21 22:07 Temp 36.3 Pulse 101 Resp 20 B/P (MAP) 138/97 (111) Pulse Ox 97 Capillary Refill : Height, Weight, BMI Height: 5'7.00" Weight: 267lbs. 0oz. 121.012849oy; 39.00 BMI Method:Actual General Appearance: No Apparent Distress, WD/WN HEENT: PERRL/EOMI, TMs Normal, Normal ENT Inspection, Pharynx Normal, Other (LEFT TIP OF SCALP TENDER TO PALPATION, BUT NO LESIONS/SORES/WOUNDS, NO VESICLES OR PAPULES, ETC. POSSIBLY A VERY FAINT AREA OF ERYTHEMA TO SCALP OVER ARE OF PAIN AND TENDERNESS BUT NO SWELLING OR FLUCTUANCE. NO SCALING TO SCALP. ) Neck: Full Range of Motion, Normal Inspection, Non Tender, Supple Respiratory: Normal Breath Sounds Cardiovascular: Regular Rate, Rhythm Neurologic/Psychiatric: Alert, Oriented x3, No Motor/Sensory Deficits, Normal Mood/Affect, mounter smoking pipe II-XII Norm as Tested Skin: Normal Color, Warm/Dry Progress/Results/Core Measures Suspected Sepsis SIRS Temperature: Pulse: Respiratory Rate: Blood Pressure / Mean: Results/Orders My Orders Orders - ALCON SANTAMARIA DO Prednisone Tablet (Deltasone Tablet) (10/02/21 22:15) Rx-Cephalexin Capsule (Rx-Keflex Capsule (10/02/21 22:12) Vital Signs/I&O 10/02/21 22:07 Temp 36.3 Pulse 101 Resp 20 B/P (MAP) 138/97 (111) Pulse Ox 97 Capillary Refill : Departure Impression Primary Impression: Scalp pain Disposition: HOME, SELF-CARE Condition: Stable Departure-Patient Inst. Decision time for Depature: 22:13 Referrals: [facility] (PCP[facility]Family) Primary Care Physician Patient Instructions: Acute Pain, Adult (DC) Add. Discharge Instructions: TYLENOL NEEDED FOR PAIN FOLLOW WITH [facility] IN 2-3 DAYS IF NO BETTER All discharge instructions reviewed with patient and/or family. Voiced understanding. Scripts Prednisone (Prednisone) 20 Mg Tab 40 MG PO DAILY, #6 TAB 0 Refills Prov: ALCON SANTAMARIA DO 10/02/21 Cephalexin (Cephalexin) 500 Mg Tablet 500 MG PO QID, #20 TAB 0 Refills Prov: ALCON SANTAMARIA DO 10/02/21 ALCON SANTAMARIA DO Oct 02, 2021 22:15
== END 2021-10-02 22:26 | disposition home or self-care (01) ==
LOC: EDUNIT# 21:56 → ER 21:58
DX: R51.9 Headache, unspecified (principal); F17.210 Nicotine dependence, cigarettes, uncomplicated; Z88.2 Allergy status to sulfonamides; Z86.16 Personal history of COVID-19; Z28.310 Unvaccinated for COVID-19
CPT/HCPCS: 99281

== ENCOUNTER 2021-11-13 04:20 | Emergency (ER) | payer MEDICAID ==
[~2021-11-13 04:20] MED LIST changes: +CEPH500T PO
--- NOTE | 2021-11-13 04:43 | ED Cough/URI ---
General Chief Complaint: COVID19 Suspect/Confirmed Stated Complaint: COUGH,CONGESTION,SORE THROAT,BODY ACHES Source: patient Exam Limitations: no limitations History of Present Illness Date Seen by Provider: Nov 13, 2021 Time Seen by Provider: 04:27 Initial Comments Patient to the ER by private conveyance with chief complaint of body aches, malaise, fatigue, cough nonproductive. No fevers chills nausea vomiting diarrhea. She has a roommate who recently was diagnosed with COVID-19 yesterday and her symptoms started yesterday as well. She has asthma and her nebulizer broke earlier in the year. She stopped following with [facility] and does not have a primary care doctor presently. She does not have any more albuterol left in her MDI. She is never had a COVID-vaccine. She had COVID last year. Allergies and Home Medications Allergies Coded Allergies: Bacitracin Zinc (Unverified Allergy, Unknown, 11/25/15) BLISTERS Sulfa (Sulfonamide Antibiotics) (Verified Allergy, Unknown, 11/25/15) bacitracin (Unverified Allergy, Unknown, 11/25/15) BLISTERS neomycin sulfate (Unverified Allergy, Unknown, 11/25/15) BLISTERS polymyxin B (Unverified Allergy, Unknown, 11/25/15) BLISTERS risperidone (Verified Allergy, Unknown, 11/25/15) Uncoded Allergies: GREEN BEANS (Allergy, Unknown, 12/13/13) THROAT SWELLS PEAS (Allergy, Unknown, 12/13/13) THROAT SWELLS Patient Home Medication List Home Medication List Reviewed: Yes Albuterol Sulfate (Proair Hfa) 1 Puff Puff, 2 PUFF IH Q4H PRN for WHEEZING Prescribed by: MELECIO HOPPER on 11/13/216 Albuterol Sulfate (Albuterol Sulfate) 2.5 Mg/3 Ml (0.083 %) Vial.neb, 2.5 MG INH Q4H PRN for WHEEZING Prescribed by: MELECIO HOPPER on 11/13/21 044 Cephalexin (Cephalexin) 500 Mg Tablet, 500 MG PO QID Prescribed by: ALCON SANTAMARIA on 10/02/215 Clindamycin HCl (Clindamycin HCl) 300 Mg Capsule, 600 MG PO Q8H, (Reported) Entered as Reported by: EMANUEL SHEIKH on 10/08/20 0953 Nirmatrelvir/Ritonavir (Paxlovid 150-100 mg Pack (Eua)) 150 Mg-100 Mg Tablet, 1 EACH PO BID Prescribed by: MELECIO HOPPER on 11/13/21 045 Prednisone (Prednisone) 20 Mg Tab, 40 MG PO DAILY Prescribed by: ALCON SANTAMARIA on 10/02/21 2215 [orthoboot] , EA TOP DAILY, (DME) Prescribed by: MELECIO HOPPER on 11/13/21451 Review of Systems Review of Systems Constitutional: No chills, No diaphoresis EENTM: No ear discharge, No hearing loss, No ear pain Respiratory: cough, short of breath; No wheezing Cardiovascular: No palpitations Gastrointestinal: No abdominal pain, No nausea Genitourinary: No discharge, No dysuria : No All Other Systems Reviewed Negative Unless Noted: Yes Past Brlthgb-Axvdqm-Lomfxc Hx Patient Social History Tobacco Use?: Yes Tobacco type used: Cigarettes Smoking Status: Current Everyday Smoker (4 cigarettes a day) Use of E-Cig and/or Vaping dev: No Substance use?: No Alcohol Use?: No Immunizations Up To Date Tetanus Booster (TDap): Less than 5yrs Seasonal Allergies Seasonal Allergies: No Past Medical History Surgeries: Yes (PITUITARY TUMOR, X 2, BACK SURGERY, LEFT ELBOW X 2, BMT'S ) Abdominal, Adenoidectomy, Section, Ear Surgery, Neurological, Orthopedic, Pituitary, Tonsillectomy Respiratory: Yes Asthma Cardiac: No Neurological: Yes (PITUITARY TUMOR) Reproductive Disorders: Yes (MULTIPLE MISCARRIAGES, DIAG LAP SURGERIES X2) Sexually Transmitted Disease: No HIV/AIDS: No Genitourinary: Yes Renal Failure, UTI-Chronic Gastrointestinal: Yes ("PARTIAL BOWEL BLOCKAGE FOR OVER 10 YEARS" PER PT. ) Gastroesophageal Reflux, Chronic Constipation Musculoskeletal: Yes (CHRONIC NECK AND BACK PAIN; BACK SURGERY;L ELBOW SURGERY X 2) Chronic Back Pain, Fractures Endocrine: Yes (HYPOGLYCEMIA, PITUITARY TUMOR, MORBID OBESITY) Pituitary Disease HEENT: Yes (BMT'S AND T&A) Chronic Ear Infection, Tonsilitis Cancer: No Psychosocial: Yes (EXTENSIVE PSYCH ISSUES) Anxiety, Depression Integumentary: No Blood Disorders: Yes (ANEMIA) Family Medical History No Pertinent Family Hx SOCIAL HISTORY: -ETOH--DENIES USE -DRUGS--DENIES USE, BUT HAS REPEATEDLY TESTED + FOR METHAMPHETAMINES, AMPHETAMINES AND THC -SMOKES 2 PPD Physical Exam Vital Signs - First Documented Capillary Refill : Height: 5'7.00" Weight: 267lbs. 0oz. 121.357470cj; 39.00 BMI Method:Actual General Appearance: WD/WN, no apparent distress Eyes: Bilateral Eye Normal Inspection, Bilateral Eye PERRL, Bilateral Eye EOMI HEENT: PERRL/EOMI, pharynx normal Neck: full range of motion, supple Respiratory: lungs clear, normal breath sounds, no respiratory distress (Respiratory rate 20 breaths/min, 100% oxygen saturation on room air nonlabored breathing.), no accessory muscle use Cardiovascular: normal peripheral pulses, regular rate, rhythm, tachycardia (102) Extremities: normal range of motion, normal capillary refill Neurologic/Psychiatric: alert, normal mood/affect, oriented x 3 Skin: normal color, warm/dry Progress/Results/Core Measures Suspected Sepsis SIRS Temperature: Pulse: Respiratory Rate: Blood Pressure / Mean: Results/Orders Lab Results Laboratory Tests Test 11/13/21 04:30 Range/Units Influenza Type A (RT-PCR) Not Detected Not Detecte Influenza Type B (RT-PCR) Not Detected Not Detecte SARS-CoV-2 RNA (RT-PCR) Not Detected Not Detecte My Orders Orders - MELECIO HOPPER Covid 19 Inhouse Test (11/13/21 04:36) Influenza A And B By Pcr (11/13/21 04:36) Vital Signs/I&O 11/13/21 11/13/21 11/13/21 04:27 04:27 05:02 Temp 36.9 36.9 Pulse 106 106 Resp B/P (MAP) 129/93 (105) 129/93 Pulse Ox 99 99 O2 Delivery Room Air Room Air Room Air Capillary Refill : Progress Note : Time: 04:42 Progress Note We provided her with a nebulizer, some albuterol prescription as well as an MDI prescription. Re Rojo. She declined ondansetron. She has normal vital signs and no respiratory distress. Return precautions were discussed. Patient's questions were answered. Departure Impression Primary Impression: COVID-19 Additional Impression: History of asthma Disposition: HOME, SELF-CARE Condition: Stable Departure-Patient Inst. Decision time for Depature: 04:43 Referrals: [facility] (PCP/Family) Primary Care Physician Patient Instructions: COVID-19 (DC), COVID-19 Vaccines, Avoiding Asthma Triggers Add. Discharge Instructions: Drink plenty of fluids. Tessalon Perles 1 capsule every 6 hours as needed for coughing. Albuterol through the nebulizer every 4 hours as needed for wheezing, coughing or shortness of air. Tylenol 1000 mg every 8 hours as needed for pain or fever. Ibuprofen 800 mg every 8 hours as needed for pain or fever. You can use your albuterol MDI 2 puffs every 4 hours as needed for shortness of breath or wheezing. Establish care with a primary care provider for refills. Return to the ER promptly if you are having shortness of breath with oxygen saturations consistently below 90% or other worrisome symptoms. You are off quarantine when you are symptom-free for at least 24 hours after 7 days from start of symptoms. After 11/20/2021. Paxlovid 1 tablet twice a day for 5 days to reduce the severity of COVID-19. All discharge instructions reviewed with patient and/or family. Voiced understanding. Scripts Nirmatrelvir/Ritonavir (Paxlovid 150-100 mg Pack (Eua)) 150 Mg-100 Mg Tablet 1 EACH PO BID for 5 Days, #10 TAB 0 Refills Prov: MELECIO HOPPER 11/13/21 [orthoboot] No Conflict Check EA TOP DAILY, #1 0 Refills Prov: MELECIO HOPPER 11/13/21 Albuterol Sulfate (Albuterol Sulfate) 2.5 Mg/3 Ml (0.083 %) Vial.neb 2.5 MG INH Q4H PRN for WHEEZING, #50 EA 1 Refill Prov: MELECIO HOPPER 11/13/21 Albuterol Sulfate (PROAIR HFA) 1 Puff Puff 2 PUFF IH Q4H PRN for WHEEZING, #1 EA 0 Refills 1 PUFF = 90 MCG Prov: MELECIO HOPPER 11/13/21 MELECIO HOPPER Nov 13, 2021 04:43
[2021-11-13] MEDS ORDERED: RT-ALBUINH IH (04:46)
[2021-11-13] MEDS ORDERED: ALBU2.5V4 INH (04:46)
[2021-11-13] MEDS ORDERED: [UNRECOGNIZED DRUG - SUPPLY] TOP (04:52)
[2021-11-13] MEDS ORDERED: NIRM1TAB5 PO (04:52)
[2021-11-13 05:02] VITALS: BP 129/93
== END 2021-11-13 05:02 | disposition home or self-care (01) ==
LOC: EDUNIT# 04:20 → ER 04:23
DX: Z20.822 Contact with and (suspected) exposure to COVID-19 (principal); J45.909 Unspecified asthma, uncomplicated; F17.210 Nicotine dependence, cigarettes, uncomplicated; E66.01 Morbid (severe) obesity due to excess calories; Z68.39 Body mass index [BMI] 39.0-39.9, adult; Z79.899 Other long term (current) drug therapy; Z86.16 Personal history of COVID-19; Z28.310 Unvaccinated for COVID-19
CPT/HCPCS: 87636; 99283

== ENCOUNTER 2021-11-28 23:56 | Emergency (ER) | payer MEDICAID ==
[~2021-11-28] VITALS: Ht 170.1 cm; Wt 114.3 kg
[~2021-11-28 23:56] MED LIST changes: +ALBU2.5V4 INH; +NIRM1TAB5 PO; +[UNRECOGNIZED DRUG - SUPPLY] TOP
--- NOTE | 2021-11-29 01:29 | ED Upper Extremity ---
General Chief Complaint: Upper Extremity Stated Complaint: L WRIST PAIN,FELL ONTO WRIST Nursing Triage Note: PT ARRIVAL TO ER WITH COMPLAINT OF LEFT WRIST PAIN. PT SLIPPED ON HARD WOOD FLOORS WHILE WEARING WALKING BOOT AND FELL INTO DOOR FRAME. PT USED WRIST TO KEEP FROM FALLING. PAIN AT A 6/10. PT HAS SOME SWELLING, BUT IMMEDIATELY PUT ICE ON IT AFTER TRIP. PT HAS NO OTHER COMPLAINTS. PT DENIES FALLING TO GROUND, JUST FALLING INTO DOOR FRAME. Source: patient Exam Limitations: no limitations History of Present Illness Date Seen by Provider: Nov 29, 2021 Time Seen by Provider: 00:57 Initial Comments Patient to the ER by private conveyance from home with chief complaint that about an hour or 2 prior to arrival she was slipping on a wooden floor with her boot and landed her left forearm ulnar side against the door jam breaking it up her forearm. She now says she is having a lot of pain at her wrist. Difficulty with moving her left hand last 3 digits because of the pain. No prior surgery or fracture. Not on a blood thinner. Did not hit her head or lose conscio usness Allergies and Home Medications Allergies Coded Allergies: Bacitracin Zinc (Unverified Allergy, Unknown, 11/25/15) BLISTERS Sulfa (Sulfonamide Antibiotics) (Verified Allergy, Unknown, 11/25/15) bacitracin (Unverified Allergy, Unknown, 11/25/15) BLISTERS neomycin sulfate (Unverified Allergy, Unknown, 11/25/15) BLISTERS polymyxin B (Unverified Allergy, Unknown, 11/25/15) BLISTERS risperidone (Verified Allergy, Unknown, 11/25/15) Uncoded Allergies: GREEN BEANS (Allergy, Unknown, 12/13/13) THROAT SWELLS PEAS (Allergy, Unknown, 12/13/13) THROAT SWELLS Patient Home Medication List Home Medication List Reviewed: Yes Albuterol Sulfate (Proair Hfa) 1 Puff Puff, 2 PUFF IH Q4H PRN for WHEEZING Prescribed by: MELECIO HOPPER on 11/13/21445 Albuterol Sulfate (Albuterol Sulfate) 2.5 Mg/3 Ml (0.083 %) Vial.neb, 2.5 MG INH Q4H PRN for WHEEZING Prescribed by: MELECIO HOPPER on 11/13/21445 Cephalexin (Cephalexin) 500 Mg Tablet, 500 MG PO QID Prescribed by: ALCON SANTAMARIA on 10/02/212214 Clindamycin HCl (Clindamycin HCl) 300 Mg Capsule, 600 MG PO Q8H, (Reported) Entered as Reported by: EMANUEL SHEIKH on 10/08/20 0953 Nirmatrelvir/Ritonavir (Paxlovid 150-100 mg Pack (Eua)) 150 Mg-100 Mg Tablet, 1 EACH PO BID Prescribed by: MELECIO HOPPER on 11/13/21451 Prednisone (Prednisone) 20 Mg Tab, 40 MG PO DAILY Prescribed by: ALCON SANTAMARIA on 10/02/212214 [orthoboot] , EA TOP DAILY, (DME) Prescribed by: MELECIO HOPPER on 11/13/21451 Review of Systems Constitutional: No chills, No diaphoresis EENTM: No ear discharge, No ear pain Respiratory: No cough, No short of breath Cardiovascular: No edema, No palpitations Gastrointestinal: No abdominal pain, No nausea, No vomiting Genitourinary: No discharge, No dysuria All Other Systems Reviewed Negative Unless Noted: Yes Past Cemfeul-Attycw-Ojmiki Hx Patient Social History Tobacco Use?: Yes Tobacco type used: Cigarettes Smoking Status: Current Everyday Smoker Use of E-Cig and/or Vaping dev: No Substance use?: No Alcohol Use?: Yes Alcohol type: Beer, Hard Liquor Alcohol Frequency: Couple times a week Pt feels they are or have been: No Immunizations Up To Date Tetanus Booster (TDap): Less than 5yrs Influenza Vaccine Up-to-Date: No; Not Current Seasonal Allergies Seasonal Allergies: No Past Medical History Surgeries: Yes (PITUITARY TUMOR, X 2, BACK SURGERY, LEFT ELBOW X 2, BMT'S ) Abdominal, Adenoidectomy, Section, Ear Surgery, Neurological, Ort hopedic, Pituitary, Tonsillectomy Respiratory: Yes Asthma Cardiac: No Neurological: Yes (PITUITARY TUMOR) Reproductive Disorders: Yes (MULTIPLE MISCARRIAGES, DIAG LAP SURGERIES X2) Sexually Transmitted Disease: No HIV/AIDS: No Genitourinary: Yes Renal Failure, UTI-Chronic Gastrointestinal: Yes ("PARTIAL BOWEL BLOCKAGE FOR OVER 10 YEARS" PER PT. ) Gastroesophageal Reflux, Chronic Constipation Musculoskeletal: Yes (CHRONIC NECK AND BACK PAIN; BACK SURGERY;L ELBOW SURGERY X 2) Chronic Back Pain, Fractures Endocrine: Yes (HYPOGLYCEMIA, PITUITARY TUMOR, MORBID OBESITY) Pituitary Disease HEENT: Yes (BMT'S AND T&A) Chronic Ear Infection, Tonsilitis Cancer: No Psychosocial: Yes (EXTENSIVE PSYCH ISSUES) Anxiety, Depression Integumentary: No Blood Disorders: Yes (ANEMIA) Family Medical History No Pertinent Family Hx SOCIAL HISTORY: -ETOH--DENIES USE -DRUGS--DENIES USE, BUT HAS REPEATEDLY TESTED + FOR METHAMPHETAMINES, AMPHETAMINES AND THC -SMOKES 2 PPD Physical Exam Vital Signs Vital Signs - First Documented 11/29/21 00:22 Temp 36.7 Pulse 105 Resp 20 B/P (MAP) 162/85 (110) Pulse Ox 99 O2 Delivery Room Air Capillary Refill : Less Than 3 Seconds Height, Weight, BMI Height: 5'7.00" Weight: 267lbs. 0oz. 121.302652un; 39.00 BMI Method:Actual General Appearance: WD/WN, mild distress HEENT: PERRL/EOMI, pharynx normal Neck: full range of motion, supple, normal inspection Cardiovascular: normal peripheral pulses, regular rate, rhythm Respiratory: no respiratory distress, no accessory muscle use Elbow/Forearm: normal inspection, non-tender, no evidence of injury, normal ROM, Left Wrist: Yes normal inspection; No no evidence of injury; Yes bone tenderness (Over distal ulnar head left arm) Hand: normal inspection, non-tender, no evidence of injury, normal ROM, Left Progress/Results/Core Measures Results/Orders My Orders Orders - MELECIO HOPPER Wrist, Left, 3 Views Or More (11/29/21 00:34) Ketorolac Injection (Toradol Injection) (11/29/21 01:30) Vital Signs/I&O Blood Pressure Mean: 110 Progress Progress Note : Time: 01:32 Progress Note Patient would like something for pain so Toradol 60 mg IM has been ordered. No fractures seen. Ice pack, NSAIDs, Tylenol and a sling. Diagnostic Imaging Diagonstic Imaging: Xray Plain Films/CT/US/NM/MRI: forearm (Left) Comments No acute osseous abnormality seen especially when compared to previous x-rays. [facility] [place], [place] NAME: [facility] REC#: [id number] PT STATUS: DEP ER : 1975 PHYSICIAN: MELECIO HOPPER MD ADMIT DATE: 11/28/21/ER Signed Date of Exam:11/29/21 WRIST, LEFT, 3 VIEWS OR MORE Indication: Left wrist pain 3 views of the left wrist show no fracture, dislocation or other acute abnormalities. IMPRESSION: Negative left wrist Dictated by: Dictated on workstation # [id number] Dict: 11/29/21639 Trans: 11/29/21639 TC [id number] Interpreted by: ANKUR KIRKPATRICK MD Electronically signed by: ANKUR KIRKPATRICK MD 11/29/21639 Reviewed: Reviewed by Me Departure Impression Primary Impression: Contusion of left wrist, initial encounter Disposition: HOME, SELF-CARE Condition: Stable Departure-Patient Inst. Decision time for Depature: 01:35 Referrals: [facility] [place] (PCP/Family) Primary Care Physician DEBRA JOVEL MD Patient Instructions: Wrist Sprain (DC) Add. Discharge Instructions: Tylenol 1000 mg every 8 hours as needed for pain. Ibuprofen 800 mg every 8 hours needed for pain. Ice 20 minutes on every 2 hours while awake for the first 2 to 3 days to reduce swelling and pain. Wrap your forearm and an Arthur wrap for compression to reduce pain and swelling for the first couple days. Follow-up with your primary care doctor if you are not seeing improvement in your pain over the next 7 days. All discharge instructions reviewed with patient and/or family. Voiced understanding. Work/School Note: Work Release Form Date Seen in the Emergency Department: Nov 29, 2021 Return to Work: Nov 29, 2021 Restrictions: Need Release from Doctor Other Restrictions Listed Below: May keep left forearm and sling until 12/06/2021 MELECIO HOPPER Nov 29, 2021 01:29
[2021-11-29] MEDS ORDERED: KETOROLAC 60 MG/2 ML VIAL IM ONE (01:30)
[2021-11-29 01:39] VITALS: BP 151/81
--- NOTE | 2021-11-29 06:42 | Diagnostic Imaging Report ---
Indication: Left wrist pain 3 views of the left wrist show no fracture, dislocation or other acute abnormalities. IMPRESSION: Negative left wrist Dictated by: Dictated on workstation # [id number]
== END 2021-11-29 01:45 | disposition home or self-care (01) ==
LOC: EDUNIT# 23:56 → ER 23:58
DX: S60.212A Contusion of left wrist, initial encounter (principal); F17.210 Nicotine dependence, cigarettes, uncomplicated; W18.40XA Slipping, tripping and stumbling without falling, unspecified, initial encounter
CPT/HCPCS: 73110

== ENCOUNTER 2022-01-05 07:15 | Emergency (ER) | payer MEDICAID ==
[~2022-01-05] VITALS: Ht 170 cm; Wt 125.0 kg
--- NOTE | 2022-01-05 07:57 | ED Cough/URI ---
General Chief Complaint: Cough/Cold/Flu Symptoms Stated Complaint: CONGESTION,COUGH,CUENCA,CHEST HEAVINESS,FEVER Nursing Triage Note: PT STATES COUGH COLD FLU S/S. TESTED NEG FOR COVID 2 DAYS AGO AT [facility]. LOW GRADE FEVER AT HOME, HARD TO BREATH WHEN SHE LAYS DOWN, CONGESTION, S/S STARTED LAST TUESDAY. Source: patient Exam Limitations: no limitations History of Present Illness Date Seen by Provider: Jan 05, 2022 Time Seen by Provider: 07:45 Initial Comments Here with report of cough and congestion for the last few days that started with diarrheal illness before that. Tested negative for COVID 2 days ago. Reports low-grade fever at home. Does have history of smoking. Has not been diagnosed with COPD yet but has COPD symptoms. Complains of right ear fullness and mild pain. She did have COVID in June of this year. She is not vaccinated. She is currently out of her albuterol inhaler and her nebulizer Timing/Duration: getting worse, other Severity/Quality: moderate, dry cough Prior Episodes/Possible Cause: occasional episodes Modifying Factors: Improves With Rest Associated Symptoms: cough, earache, fever/chills, nasal congestion, shortness of breath, sore throat Allergies and Home Medications Allergies Coded Allergies: Bacitracin Zinc (Unverified Allergy, Unknown, 11/25/15) BLISTERS Sulfa (Sulfonamide Antibiotics) (Verified Allergy, Unknown, 11/25/15) bacitracin (Unverified Allergy, Unknown, 11/25/15) BLISTERS neomycin sulfate (Unverified Allergy, Unknown, 11/25/15) BLISTERS polymyxin B (Unverified Allergy, Unknown, 11/25/15) BLISTERS risperidone (Verified Allergy, Unknown, 11/25/15) Uncoded Allergies: GREEN BEANS (Allergy, Unknown, 12/13/13) THROAT SWELLS PEAS (Allergy, Unknown, 12/13/13) THROAT SWELLS Patient Home Medication List Home Medication List Reviewed: Yes Albuterol Sulfate (Proair Hfa) 1 Puff Puff, 2 PUFF IH Q4H PRN for WHEEZING Prescribed by: MELECIO HOPPER on 11/13/21 6256 Albuterol Sulfate (Albuterol Sulfate) 2.5 Mg/3 Ml (0.083 %) Vial.neb, 2.5 MG INH Q4H PRN for WHEEZING Prescribed by: MELECIO HOPPER on 11/13/21 0446 Cephalexin (Cephalexin) 500 Mg Tablet, 500 MG PO QID Prescribed by: ALCON SANTAMARIA on 10/02/212214 Clindamycin HCl (Clindamycin HCl) 300 Mg Capsule, 600 MG PO Q8H, (Reported) Entered as Reported by: EMANUEL SHEIKH on 10/08/20 0953 Nirmatrelvir/Ritonavir (Paxlovid 150-100 mg Pack (Eua)) 150 Mg-100 Mg Tablet, 1 EACH PO BID Prescribed by: MELECIO HOPPER on 11/13/21451 Prednisone (Prednisone) 20 Mg Tab, 40 MG PO DAILY Prescribed by: ALCON SANATMARIA on 10/02/212214 [orthoboot] , EA TOP DAILY, (DME) Prescribed by: MELECIO HOPPER on 11/13/21451 Review of Systems Review of Systems Constitutional: see HPI, fever; No weakness EENTM: ear pain, nose congestion, throat pain Respiratory: cough, wheezing Cardiovascular: no symptoms reported Gastrointestinal: No abdominal pain, No nausea, No vomiting Genitourinary: no symptoms reported Musculoskeletal: No back pain, No muscle pain Skin: no symptoms reported All Other Systems Reviewed Negative Unless Noted: Yes Past Hruzmar-Iteljt-Kpjhjl Hx Patient Social History Tobacco Use?: Yes Tobacco type used: Cigarettes Smoking Status: Current Everyday Smoker Substance use?: No Alcohol Use?: No Immunizations Up To Date Tetanus Booster (TDap): Less than 5yrs Seasonal Allergies Seasonal Allergies: No Past Medical History Surgeries: Yes (PITUITARY TUMOR, X 2, BACK SURGERY, LEFT ELBOW X 2, BMT'S ) Abdominal, Adenoidectomy, Section, Ear Surgery, Neurological, Orthopedic, Pituitary, Tonsillectomy Respiratory: Yes Asthma Cardiac: No Neurological: Yes (PITUITARY TUMOR) Last Menstrual Period: Dec 11, 2021 Reproductive Disorders: Yes (MULTIPLE MISCARRIAGES, DIAG LAP SURGERIES X2) Sexually Transmitted Disease: No HIV/AIDS: No Genitourinary: Yes Renal Failure, UTI-Chronic Gastrointestinal: Yes ("PARTIAL BOWEL BLOCKAGE FOR OVER 10 YEARS" PER PT. ) Gastroesophageal Reflux, Chronic Constipation Musculoskeletal: Yes (CHRONIC NECK AND BACK PAIN; BACK SURGERY;L ELBOW SURGERY X 2) Chronic Back Pain, Fractures Endocrine: Yes (HYPOGLYCEMIA, PITUITARY TUMOR, MORBID OBESITY) Pituitary Disease HEENT: Yes (BMT'S AND T&A) Chronic Ear Infection, Tonsilitis Cancer: No Psychosocial: Yes (EXTENSIVE PSYCH ISSUES) Anxiety, Depression Integumentary: No Blood Disorders: Yes (ANEMIA) Family Medical History Reviewed Nursing Family Hx No Pertinent Family Hx SOCIAL HISTORY: -ETOH--DENIES USE -DRUGS--DENIES USE, BUT HAS REPEATEDLY TESTED + FOR METHAMPHETAMINES, AMPHETAMINES AND THC -SMOKES 2 PPD Physical Exam Vital Signs - First Documented 01/05/22 07:44 Temp 37.1 Pulse 99 Resp 22 B/P (MAP) 103/64 (77) Pulse Ox 97 O2 Delivery Room Air Capillary Refill : Less Than 3 Seconds Height: 5'7.00" Weight: 267lbs. 0oz. 121.616542im; 43.00 BMI Method:Actual General Appearance: WD/WN, no apparent distress HEENT: PERRL/EOMI, TM abnormal (R) (Bulging); No TM abnormal (L); pharyngeal erythema Neck: full range of motion, supple, normal inspection Respiratory: no respiratory distress, no accessory muscle use, wheezing (Scattered) Cardiovascular: no murmur, tachycardia Gastrointestinal: non tender, soft Neurologic/Psychiatric: alert, oriented x 3 Skin: normal color, warm/dry Progress/Results/Core Measures Suspected Sepsis SIRS Temperature: Pulse: 99 Respiratory Rate: 22 Blood Pressure 103 /64 Mean: 77 Results/Orders Lab Results Laboratory Tests Test 01/05/22 07:40 Range/Units Influenza Type A (RT-PCR) Not Detected Not Detecte Influenza Type B (RT-PCR) Not Detected Not Detecte SARS-CoV-2 RNA (RT-PCR) Not Detected Not Detecte My Orders Orders - ANKUR RINCON MD Chest 1 View, Ap/Pa Only (01/05/22 07:52) Covid 19 Inhouse Test (01/05/22 07:52) Influenza A And B By Pcr (01/05/22 07:52) Vital Signs/I&O 01/05/22 07:44 Temp 37.1 Pulse 99 Resp 22 B/P (MAP) 103/64 (77) Pulse Ox 97 O2 Delivery Room Air Capillary Refill : Less Than 3 Seconds Blood Pressure Mean: 77 Progress Note : Progress Note Seen and evaluated. COVID and influenza screen ordered. Chest x-ray ordered. Monitor patient. 0914: Chest x-ray results reviewed. There is question of perihilar pneumonia on the right. Given her COPD status, we will go ahead and i nitiate outpatient treatment with antibiotics as well as steroids. I will write prescription for albuterol inhaler and nebulizer treatment. She will also start isei-oag-jjvqost Afrin nasal spray. I will also write short course of steroids given her COPD status. All of this was discussed with the patient who agrees. Discharged home with return precautions. Patient verbalized understanding instructions and agreement with plan. Diagnostic Imaging Diagonstic Imaging: Xray Plain Films/CT/US/NM/MRI: chest Comments [facility], [place] NAME: OKSANA HORNE [facility] REC#: [id number] PT STATUS: REG ER : 1975 PHYSICIAN: ANKUR RINCON MD ADMIT DATE: 01/05/22/ER Draft Date of Exam:01/05/22 CHEST 1 VIEW, AP/PA ONLY CLINICAL INDICATION: Patient with low-grade fever at home. Hard to breathe when patient is lying down. Symptoms started last Tuesday. EXAM: Portable chest x-ray, upright view. COMPARISON: Chest x-ray dated 10/07/2020. FINDINGS: Lungs/pleura: There is interval subtle amorphous airspace opacity in the inferior right perihilar region which may represent atelectasis versus infiltrate. Otherwise, the lungs are clear. There is no pneumothorax. There is no pleural effusion. Mediastinum: Unremarkable. Pulmonary vasculature: Unremarkable. Heart: Unremarkable. Bones/extrathoracic soft tissue: Unremarkable. IMPRESSION: There is interval development of mild atelectasis versus infiltrate involving the inferior right perihilar region. Dictated on workstation # [id number] Dict: 01/05/22 0843 Trans: 01/05/22 0847 [id number] Interpreted by: SOY DHILLON MD Electronically signed by: Departure Impression Primary Impression: Pneumonia Qualified Codes: J18.9 - Pneumonia, unspecified organism Disposition: 01 HOME, SELF-CARE Condition: Stable Departure-Patient Inst. Decision time for Depature: 09:15 Referrals: [facility] (PCP/Family) Primary Care Physician Patient Instructions: Community-Acquired Pneumonia, Adult (DC) Add. Discharge Instructions: All discharge instructions reviewed with patient and/or family. Voiced understanding. Take medications as directed. Follow-up with your doctor in a few days for recheck. Use albuterol inhaler 2 puffs every 6 hours as needed for wheezing or you may use nebulizer treatment every 6 hours as needed for wheezing or cough. You may use Afrin nasal spray or the generic, 12-hour relief, 2 sprays to each nostril twice daily for 3 days only and then stop. Do not use more than 3 days. Return for worse pain, fever, vomiting, weakness, breathing problems or other concerns as needed. Your COVID test was negative. Scripts Cefdinir (Cefdinir) 300 Mg Capsule 300 MG PO BID, #14 CAP 0 Refills Prov: ANKUR RINCON MD 01/05/22 Azithromycin (Azithromycin) 250 Mg Tablet 250 MG PO UD, #6 TAB TAKE 2 TABLETS ON DAY ONE THEN TAKE 1 TABLET DAILY FOR FOUR MORE DAYS Prov: ANKUR RINCON MD 01/05/22 Albuterol Sulfate (Albuterol Sulfate) 2.5 Mg/3 Ml (0.083 %) Vial.neb 2.5 MG INH Q4H PRN for WHEEZING, #60 EA 1 Refill Prov: ANKUR RINCON MD 01/05/22 Albuterol Sulfate (VENTOLIN HFA) 1 Puff Puff 2 PUFF INH Q4H PRN for COUGH, #1 EA 1 Refill 1 PUFF = 90 MCG Prov: ANKUR RINCON MD 01/05/22 Copy Copies To 1: LAYNE SENA TIMOTHY D MD Jan 05, 2022 07:57
--- NOTE | 2022-01-05 08:47 | Diagnostic Imaging Report ---
CLINICAL INDICATION: Patient with low-grade fever at home. Hard to breathe when patient is lying down. Symptoms started last Tuesday. EXAM: Portable chest x-ray, upright view. COMPARISON: Chest x-ray dated 10/07/2020. FINDINGS: Lungs/pleura: There is interval subtle amorphous airspace opacity in the inferior right perihilar region which may represent atelectasis versus infiltrate. Otherwise, the lungs are clear. There is no pneumothorax. There is no pleural effusion. Mediastinum: Unremarkable. Pulmonary vasculature: Unremarkable. Heart: Unremarkable. Bones/extrathoracic soft tissue: Unremarkable. IMPRESSION: There is interval development of mild atelectasis versus infiltrate involving the inferior right perihilar region. Dictated by: Dictated on workstation # [id number]
[2022-01-05] MEDS ORDERED: AZIT250T12 PO (09:17)
[2022-01-05] MEDS ORDERED: ALBU2.5V4 INH (09:17)
[2022-01-05] MEDS ORDERED: RT-ALBUINH INH (09:17)
[2022-01-05] MEDS ORDERED: CEFD300C3 PO (09:17)
[2022-01-05 09:22] VITALS: BP 103/64
== END 2022-01-05 09:22 | disposition home or self-care (01) ==
LOC: EDUNIT# 07:15 → ER 07:16
DX: J18.9 Pneumonia, unspecified organism (principal); J44.9 Chronic obstructive pulmonary disease, unspecified; F17.210 Nicotine dependence, cigarettes, uncomplicated; Z79.52 Long term (current) use of systemic steroids; Z79.899 Other long term (current) drug therapy; Z86.16 Personal history of COVID-19; Z20.822 Contact with and (suspected) exposure to COVID-19; Z28.310 Unvaccinated for COVID-19
CPT/HCPCS: 71045; 87636

== ENCOUNTER 2022-03-11 17:42 | Emergency (ER) | payer MEDICAID ==
[~2022-03-11 17:42] MED LIST changes: +RT-ALBUINH INH
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
--- NOTE | 2022-03-11 18:21 | Diagnostic Imaging Report ---
HISTORY: Fall, right wrist pain. TECHNIQUE: 3 views of the right wrist. COMPARISON: None. FINDINGS: No acute fracture or dislocation is seen in the right wrist. Alignment appears normal. Joint spaces are preserved. There is mild soft tissue swelling about the right wrist. The pronator fat pad is not displaced. IMPRESSION: No acute osseous abnormality is seen in the right wrist. Dictated by: Dictated on workstation # [id number]
--- NOTE | 2022-03-11 18:21 | Diagnostic Imaging Report ---
HISTORY: Right hand pain after injury. TECHNIQUE: 3 views of the right hand. COMPARISON: None. FINDINGS: No acute fracture or dislocation is seen in the right hand. Alignment appears normal. There are mild degenerative changes throughout the interphalangeal joints. There are moderate degenerative changes of the basal joints of the right thumb. IMPRESSION: Degenerative changes in the right hand with no acute fracture seen. Dictated by: Dictated on workstation # [id number]
[2022-03-11 18:44] VITALS: BP 141/97
== END 2022-03-11 18:44 | disposition home or self-care (01) ==
LOC: EDUNIT# 17:42 → ER 17:45
DX: S63.501A Unspecified sprain of right wrist, initial encounter (principal); E66.01 Morbid (severe) obesity due to excess calories; F17.210 Nicotine dependence, cigarettes, uncomplicated; Z68.41 Body mass index [BMI] 40.0-44.9, adult; V86.59XA Driver of other special all-terrain or other off-road motor vehicle injured in nontraffic accident, initial encounter; Y92.410 Unspecified street and highway as the place of occurrence of the external cause
CPT/HCPCS: 73110; 73130

== ENCOUNTER 2022-04-27 17:08 | Emergency (ER) | payer MEDICAID ==
[~2022-04-27] VITALS: Ht 170.2 cm; Wt 113.4 kg
[~2022-04-27 17:08] MED LIST changes: +ALBU8.5H6 IH; -RT-ALBUINH IH
[2022-04-27] MEDS ORDERED: KETOROLAC 30 MG/ML VIAL IM ONE (17:45)
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
[2022-04-27] MEDS ORDERED: KETO10TA PO (18:19)
[2022-04-27 18:35] VITALS: BP 116/80
== END 2022-04-27 18:35 | disposition home or self-care (01) ==
LOC: EDUNIT# 17:08 → ER 17:10
DX: S20.212A Contusion of left front wall of thorax, initial encounter (principal); F17.210 Nicotine dependence, cigarettes, uncomplicated; V28.49XA Other motorcycle driver injured in noncollision transport accident in traffic accident, initial encounter; Y92.410 Unspecified street and highway as the place of occurrence of the external cause; Y93.55 Activity, bike riding
CPT/HCPCS: 71101

== ENCOUNTER 2022-05-23 20:43 | Emergency (ER) | payer MEDICAID ==
[~2022-05-23 20:43] MED LIST changes: +KETO10TA PO
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
[2022-05-23] MEDS ORDERED: IBUP-1773 PO (22:44)
[2022-05-23 22:56] VITALS: BP 128/72
== END 2022-05-23 22:56 | disposition home or self-care (01) ==
LOC: EDUNIT# 20:43 → ER 20:45
DX: B34.9 Viral infection, unspecified (principal); R05.9 Cough, unspecified; R51.9 Headache, unspecified; E66.01 Morbid (severe) obesity due to excess calories; F17.210 Nicotine dependence, cigarettes, uncomplicated; Z20.822 Contact with and (suspected) exposure to COVID-19; Z68.39 Body mass index [BMI] 39.0-39.9, adult; Z28.310 Unvaccinated for COVID-19
CPT/HCPCS: 87430; 87636; 99283

== ENCOUNTER 2022-07-02 19:30 | Emergency (ER) | payer MEDICAID ==
[~2022-07-02] VITALS: Ht 170.2 cm; Wt 113.4 kg
[~2022-07-02 19:30] MED LIST changes: +IBUP-1773 PO
[2022-07-02] MEDS ORDERED: KETOROLAC 30 MG/ML VIAL IVP ONE (19:45)
[2022-07-02] MEDS ORDERED: LACTATED RINGERS 1,000 ML IV SCH (19:45)
--- NOTE | 2022-07-02 19:52 | ED Abdominal Pain ---
General Chief Complaint: Abdominal/GI Problems Stated Complaint: STOMACH PAIN Nursing Triage Note: PT AMB TO ED BY POV WITH C/O ABD PAIN, N/V/D. PT REPORTS SHE IS ON 3 ANTIBIOTICS FOR H PYLORI SINCE SUN. SINCE, SHE HAS BEEN HAVING SEVER LOWER ABD PAIN AND DIARRHEA. PT REPORTS SHE IS VERY WEAK AND TIRED. Source of Information: Patient Exam Limitations: No Limitations History of Present Illness Date Seen by Provider: Jul 02, 2022 Time Seen by Provider: 19:51 Initial Comments To ER with suprapubic and right lower quadrant abdominal pain with associated swelling she reports for the past week. She was diagnosed with H. pylori and has been on medications for that and now has diarrhea and no improvement in this abdominal pain. No fevers or chills. Nausea but no vomiting. Also states that despite her severe pain she has difficulty staying awake. Timing/Duration: 1 Week Severity/Quality: Moderate Location: RLQ Radiation: No Radiation Activities at Onset: None Associated Symptoms: Nausea/Vomiting Allergies and Home Medications Allergies Coded Allergies: Bacitracin Zinc (Unverified Allergy, Unknown, 11/25/15) BLISTERS Sulfa (Sulfonamide Antibiotics) (Verified Allergy, Unknown, 11/25/15) bacitracin (Unverified Allergy, Unknown, 11/25/15) BLISTERS neomycin sulfate (Unverified Allergy, Unknown, 11/25/15) BLISTERS polymyxin B (Unverified Allergy, Unknown, 11/25/15) BLISTERS risperidone (Verified Allergy, Unknown, 11/25/15) Uncoded Allergies: GREEN BEANS (Allergy, Unknown, 12/13/13) THROAT SWELLS PEAS (Allergy, Unknown, 12/13/13) THROAT SWELLS Patient Home Medication List Home Medication List Reviewed: Yes Albuterol Sulfate (Ventolin Hfa) 1 Puff Puff, 2 PUFF IH Q4H PRN for WHEEZING Prescribed by: MELECIO HOPPER on 11/13/21 0446 Albuterol Sulfate (Albuterol Sulfate) 2.5 Mg/3 Ml (0.083 %) Vial.neb, 2.5 MG INH Q4H PRN for WHEEZING Prescribed by: MELECIO HOPPER on 11/13/21 0446 Albuterol Sulfate (Ventolin Hfa) 1 Puff Puff, 2 PUFF INH Q4H PRN for COUGH Prescribed by: ANKUR RINCON on 01/05/22916 Albuterol Sulfate (Albuterol Sulfate) 2.5 Mg/3 Ml (0.083 %) Vial.neb, 2.5 MG INH Q4H PRN for WHEEZING Prescribed by: ANKUR RINCON on 01/05/22916 Azithromycin (Azithromycin) 250 Mg Tablet, 250 MG PO UD Prescribed by: ANKUR RINCON on 01/05/22916 Cefdinir (Cefdinir) 300 Mg Capsule, 300 MG PO BID Prescribed by: ANKUR RINCON on 01/05/22916 Cephalexin (Cephalexin) 500 Mg Tablet, 500 MG PO QID Prescribed by: ALCON SANTAMARIA on 10/02/212214 Clindamycin HCl (Clindamycin HCl) 300 Mg Capsule, 600 MG PO Q8H, (Reported) Entered as Reported by: EMANUEL SHEIKH on 10/08/20 0953 Dicyclomine HCl (Dicyclomine HCl) 20 Mg Tablet, 20 MG PO TID PRN for abdominal pain Prescribed by: CECILIO NAVARRO on 07/02/222099 Ibuprofen (Ibuprofen) 600 Mg Tablet, 600 MG PO Q6H PRN for PAIN-MILD Prescribed by: Tano Maya on 05/23/22 2244 Ketorolac Tromethamine (Ketorolac Tromethamine) 10 Mg Tablet, 10 MG PO Q6H PRN for PAIN-SEE DOSE INSTRUCTIONS Prescribed by: Tano Maya on 04/27/22 1819 Nirmatrelvir/Ritonavir (Paxlovid 150-100 mg Pack (Eua)) 150 Mg-100 Mg Tablet, 1 EACH PO BID Prescribed by: MELECIO HOPPER on 11/13/21451 Prednisone (Prednisone) 20 Mg Tab, 40 MG PO DAILY Prescribed by: ALCON SANTAMARIA on 10/02/212214 [orthoboot] , EA TOP DAILY, (DME) Prescribed by: MELECIO HOPPER on 11/13/21451 Review of Systems Review of Systems Constitutional: see HPI Past Pcwggwb-Usdpct-Ifrvrt Hx Patient Social History Tobacco Use?: Yes Tobacco type used: Cigarettes Smoking Status: Current Everyday Smoker Use of E-Cig and/or Vaping dev: No Substance use?: No Alcohol Use?: No Pt feels they are or have been: No Immunizations Up To Date Tetanus Booster (TDap): Less than 5yrs Influenza Vaccine Up-to-Date: No; Not Current Seasonal Allergies Seasonal Allergies: No Past Medical History Surgery/Hospitalization HX: ASTHMA Surgeries: Yes (PITUITARY TUMOR, X 2, BACK SURGERY, LEFT ELBOW X 2, BMT'S ) Abdominal, Adenoidectomy, Section, Ear Surgery, Neurological, Orthopedic, Pituitary, Tonsillectomy Respiratory: Yes Asthma Cardiac: No Neurological: Yes (PITUITARY TUMOR) Reproductive Disorders: Yes (MULTIPLE MISCARRIAGES, DIAG LAP SURGERIES X2) Sexually Transmitted Disease: No HIV/AIDS: No Genitourinary: Yes Renal Failure, UTI-Chronic Gastrointestinal: Yes ("PARTIAL BOWEL BLOCKAGE FOR OVER 10 YEARS" PER PT. ) Gastroesophageal Reflux, Chronic Constipation Musculoskeletal: Yes (CHRONIC NECK AND BACK PAIN; BACK SURGERY;L ELBOW SURGERY X 2) Chronic Back Pain, Fractures Endocrine: Yes (HYPOGLYCEMIA, PITUITARY TUMOR, MORBID OBESITY) Pituitary Disease HEENT: Yes (BMT'S AND T&A) Chronic Ear Infection, Tonsilitis Cancer: No Psychosocial: Yes (EXTENSIVE PSYCH ISSUES) Anxiety, Depression Integumentary: No Blood Disorders: Yes (ANEMIA) Family Medical History No Pertinent Family Hx SOCIAL HISTORY: -ETOH--DENIES USE -DRUGS--DENIES USE, BUT HAS REPEATEDLY TESTED + FOR METHAMPHETAMINES, AMPHETAMINES AND THC -SMOKES 2 PPD Physical Exam Vital Signs Vital Signs - First Documented 07/02/22 19:37 Temp 36.4 Pulse 104 Resp 18 B/P (MAP) 143/60 (87) Pulse Ox 97 O2 Delivery Room Air Capillary Refill : Less Than 3 Seconds Height/Weight/BMI Height: 5'7.00" Weight: 267lbs. 0oz. 121.076784bk; 39.00 BMI Method:Actual General Appearance: WD/WN, no apparent distress Respiratory: no respiratory distress, no accessory muscle use Gastrointestinal: normal bowel sounds, soft, tenderness Neurologic/Psychiatric: alert, normal mood/affect, oriented x 3 Skin: normal color, warm/dry Progress/Results/Core Measures Results/Orders Lab Results Laboratory Tests Test 07/02/22 19:48 07/02/22 19:54 Range/Units Urine Color YELLOW Urine Clarity CLEAR Urine pH 5.5 5-9 Urine Specific [place] >=1.030 1.016-1.022 Urine Protein NEGATIVE NEGATIVE Urine Glucose (UA) NEGATIVE NEGATIVE Urine Ketones NEGATIVE NEGATIVE Urine Nitrite NEGATIVE NEGATIVE Urine Bilirubin NEGATIVE NEGATIVE Urine Urobilinogen 0.2 < = 1.0 MG/DL Urine Leukocyte Esterase NEGATIVE NEGATIVE Urine RBC (Auto) NEGATIVE NEGATIVE Urine RBC NONE /HPF Urine WBC 0-2 /HPF Urine Squamous Epithelial Cells 10-25 H /HPF Urine Crystals NONE /LPF Urine Bacteria TRACE /HPF Urine Casts NONE /LPF Urine Mucus NEGATIVE /LPF Urine Culture Indicated NO Urine Test NEGATIVE NEGATIVE Urine Opiates Screen NEGATIVE NEGATIVE Urine Oxycodone Screen NEGATIVE NEGATIVE Urine Methadone Screen NEGATIVE NEGATIVE Urine Propoxyphene Screen NEGATIVE NEGATIVE Urine Barbiturates Screen NEGATIVE NEGATIVE Ur Tricyclic Antidepressants Screen NEGATIVE NEGATIVE Urine Phencyclidine Screen NEGATIVE NEGATIVE Urine Amphetamines Screen POSITIVE H NEGATIVE Urine Methamphetamines Screen POSITIVE H NEGATIVE Urine Benzodiazepines Screen NEGATIVE NEGATIVE Urine Cocaine Screen NEGATIVE NEGATIVE Urine Cannabinoids Screen NEGATIVE NEGATIVE White Blood Count 10.5 4.3-11.0 10^3/uL Red Blood Count 5.31 H 3.80-5.11 10^6/uL Hemoglobin 11.5 11.5-16.0 g/dL Hematocrit 38 35-52 % Mean Corpuscular Volume 71 L 80-99 fL Mean Corpuscular Hemoglobin 22 L 25-34 pg Mean Corpuscular Hemoglobin Concent 30 L 32-36 g/dL Red Cell Distribution Width 19.1 H 10.0-14.5 % Platelet Count 401 H 130-400 10^3/uL Mean Platelet Volume 8.4 L 9.0-12.2 fL Immature Granulocyte % (Auto) 0 % Neutrophils (%) (Auto) 70 42-75 % Lymphocytes (%) (Auto) 16 12-44 % Monocytes (%) (Auto) 7 0-12 % Eosinophils (%) (Auto) 5 0-10 % Basophils (%) (Auto) 1 0-10 % Neutrophils # (Auto) 7.4 1.8-7.8 10^3/uL Lymphocytes # (Auto) 1.7 1.0-4.0 10^3/uL Monocytes # (Auto) 0.8 0.0-1.0 10^3/uL Eosinophils # (Auto) 0.6 H 0.0-0.3 10^3/uL Basophils # (Auto) 0.1 0.0-0.1 10^3/uL Immature Granulocyte # (Auto) 0.0 0.0-0.1 10^3/uL Sodium Level 136 135-145 MMOL/L Potassium Level 3.8 3.6-5.0 MMOL/L Chloride Level 106 98-107 MMOL/L Carbon Dioxide Level 21 21-32 MMOL/L Anion Gap 9 5-14 MMOL/L Blood Urea Nitrogen 12 7-18 MG/DL Creatinine 0.69 0.60-1.30 MG/DL Estimat Glomerular Filtration Rate 106 BUN/Creatinine Ratio 17 Glucose Level 109 H 70-105 MG/DL Calcium Level 8.7 8.5-10.1 MG/DL Corrected Calcium 8.9 8.5-10.1 MG/DL Total Bilirubin 0.3 0.1-1.0 MG/DL Aspartate Amino Transf (AST/SGOT) 28 5-34 U/L Alanine Aminotransferase (ALT/SGPT) 36 0-55 U/L Alkaline Phosphatase 136 40-136 U/L Total Protein 7.4 6.4-8.2 GM/DL Albumin 3.8 3.2-4.5 GM/DL Lipase 34 8-78 U/L My Orders Orders - CECILIO NAVARRO CLASSIFIER TENDER Cbc With Automated Diff (07/02/22 19:38) Comprehensive Metabolic Panel (07/02/22 19:38) Lipase (07/02/22 19:38) Ua Culture If Indicated (07/02/22 19:38) Ed Iv/Invasive Line Start (07/02/22 19:38) Ketorolac Injection (Toradol Injection) (07/02/22 19:45) Lactated Ringers (Lr 1000 Ml Iv Solution (07/02/22 19:45) Drug Screen Stat (Urine) (07/02/22 19:43) Ct Abdomen/Pelvis Wo (07/02/22 19:43) Hcg,Qualitative Urine (07/02/22 20:14) Medications Given in ED Current Medications Medications Dose Ordered Sig/Miriam Route Start Time Stop Time Status Last Admin Dose Admin Ketorolac Tromethamine 15 mg ONCE ONCE IVP 07/02/22 19:45 07/02/22 19:46 DC 07/02/22 19:58 15 MG Vital Signs/I&O 07/02/22 19:37 Temp 36.4 Pulse 104 Resp 18 B/P (MAP) 143/60 (87) Pulse Ox 97 O2 Delivery Room Air Blood Pressure Mean: 87 Departure Communication (Admissions) CBC reveals no infection or anemia. CMP reveals normal electrolytes. Urinalysis shows no evidence of infection though positive for methamphetamine which is likely contributing to her IBS symptoms including abdominal cramping and diarrhea. We will discharged home with a prescription for dicyclomine and encouraged methamphetamine cessation. Impression Primary Impression: Abdominal pain Disposition: HOME, SELF-CARE Condition: Stable Departure-Patient Inst. Decision time for Depature: 20:58 Referrals: [facility] [place] (PCP/Family) Primary Care Physician Patient Instructions: No Instuctions Given Add. Discharge Instructions: 1. Methamphetamine can contribute to abdominal cramping and diarrhea. Try to avoid this. Use the new medication as prescribed. Follow-up with your doctor next week.You also need to schedule a pelvic ultrasound to evaluate the cystic looking structures on both ovaries. All discharge instructions reviewed with patient and/or family. Voiced understanding. Scripts Dicyclomine HCl (Dicyclomine HCl) 20 Mg Tablet 20 MG PO TID PRN for abdominal pain, #30 TAB Prov: CECILIO NAVARRO APRN 07/02/22 CECILIO NAVARRO APRN Jul 02, 2022 19:52
[2022-07-02 19:57] LABS: BILIRUBIN,URINE NEGATIVE (NEGATIVE); CLARITY,URINE CLEAR; COLOR,URINE YELLOW; GLUCOSE, URINE (UA) NEGATIVE (NEGATIVE); KETONES,URINE NEGATIVE (NEGATIVE); LEUKOCYTE ESTERASE ,URINE NEGATIVE (NEGATIVE); NITRITE,URINE NEGATIVE (NEGATIVE); PH,URINE 5.5 (5-9); PROTEIN,URINE NEGATIVE (NEGATIVE)
[2022-07-02 20:00] LABS: BASOPHILS # (AUTO) 0.1 10^3/uL (0.0-0.1); BASOPHILS % (AUTO) 1 % (0-10); EOSINOPHILS # (AUTO) 0.6 10^3/uL (0.0-0.3); EOSINOPHILS % (AUTO) 5 % (0-10); HEMATOCRIT 38 % (35-52); HEMOGLOBIN 11.5 g/dL (11.5-16.0); LYMPHOCYTES # (AUTO) 1.7 10^3/uL (1.0-4.0); LYMPHOCYTES % (AUTO) 16 % (12-44); MEAN CORPUSCULAR HEMOGLOBIN 22 pg (25-34); MEAN CORPUSCULAR HGB CONC 30 g/dL (32-36); MEAN CORPUSCULAR VOLUME 71 fL (80-99); MEAN PLATELET VOLUME 8.4 fL (9.0-12.2); MONOCYTES # (AUTO) 0.8 10^3/uL (0.0-1.0); MONOCYTES % (AUTO) 7 % (0-12); NEUTROPHILS # (AUTO) 7.4 10^3/uL (1.8-7.8); NEUTROPHILS % (AUTO) 70 % (42-75); PLATELET COUNT 401 10^3/uL (130-400); WHITE BLOOD COUNT 10.5 10^3/uL (4.3-11.0)
[2022-07-02 20:10] LABS: AMPHETAMINE SCREEN, URINE POSITIVE (NEGATIVE); BARBITURATE SCREEN URINE NEGATIVE (NEGATIVE); BENZODIAZEPINES SCREEN URINE NEGATIVE (NEGATIVE); CANNABINOID SCREEN, URINE NEGATIVE (NEGATIVE); COCAINE SCREEN URINE NEGATIVE (NEGATIVE); METHADONE STAT NEGATIVE (NEGATIVE); OPIATE SCREEN URINE NEGATIVE (NEGATIVE); OXYCODONE STAT NEGATIVE (NEGATIVE); PROPOXYPHENE STAT NEGATIVE (NEGATIVE); TRICYCLIC ANTIDEPRESSANTS SCRE NEGATIVE (NEGATIVE)
[2022-07-02 20:17] LABS: BACTERIA,URINE TRACE /HPF; WBC,URINE 0-2 /HPF
[2022-07-02 20:23] LABS: ALBUMIN 3.8 GM/DL (3.2-4.5); BILIRUBIN,TOTAL 0.3 MG/DL (0.1-1.0); CALCIUM 8.7 MG/DL (8.5-10.1); CREATININE SERUM 0.69 MG/DL (0.60-1.30); POTASSIUM 3.8 MMOL/L (3.6-5.0); TOTAL PROTEIN 7.4 GM/DL (6.4-8.2)
[2022-07-02] MEDS ORDERED: DICY20TA PO (21:00)
--- NOTE | 2022-07-02 21:11 | Diagnostic Imaging Report ---
INDICATION: On three antibiotics for H. pylori. Nausea, vomiting and diarrhea. Abdominal pain. EXAMINATION: CT abdomen and pelvis without contrast, 07/02/2022. COMPARISON: 01/01/2015. FINDINGS: Lung bases clear. Unopacified liver and spleen are unremarkable. There is a small hiatal hernia. There are nodular densities in both adrenal glands. These are larger than on previous examination with the largest on the right measuring 2.7 cm. Although some Hounsfield units consistent with possible fatty change. Dedicated nonemergent imaging of the adrenal glands with adrenal protocol recommended for further characterization. Kidneys unremarkable. Appendix is normal. Colon demonstrates changes of mild constipation with no obstructive process appreciated. Thick walled prominent small bowel loops seen throughout the abdomen, especially on the left suggesting enteritis. There is no ascites. No free air. Cystic lesion left of left ovary just over 2 cm in size. There is no acute osseous abnormality. Postoperative change is noted in the lower lumbar spine with stimulator device present. IMPRESSION: 1. Findings suggestive of enteritis. 2. Likely physiologic cystic changes in the left ovary. 3. Bilateral adrenal masses increased in size since previous imaging. See above discussion and recommendations. Other findings as above. Dictated by: Dictated on workstation # [id number]
[2022-07-02 21:25] VITALS: BP 138/62
== END 2022-07-02 21:24 | disposition home or self-care (01) ==
LOC: EDUNIT# 19:30 → ER 19:32
DX: R10.31 Right lower quadrant pain (principal); R19.7 Diarrhea, unspecified; F17.210 Nicotine dependence, cigarettes, uncomplicated; E66.01 Morbid (severe) obesity due to excess calories; Z68.39 Body mass index [BMI] 39.0-39.9, adult; Z32.02 Encounter for pregnancy test, result negative; Z28.310 Unvaccinated for COVID-19
CPT/HCPCS: 36415; 74176; 80053; 80306; 81000; 83690; 84703; 85025

== ENCOUNTER 2022-08-15 05:20 | Emergency (ER) | payer MEDICAID ==
[~2022-08-15] VITALS: Ht 170 cm; Wt 114.0 kg
[~2022-08-15 05:20] MED LIST changes: +DICY20TA PO
[2022-08-15] MEDS ORDERED: FLUT16SP22 (05:33)
[2022-08-15] MEDS ORDERED: CETI10TA17 (05:33)
--- NOTE | 2022-08-15 05:41 | ED Abdominal Pain ---
General Chief Complaint: Abdominal/GI Problems Stated Complaint: ABD PAIN Source of Information: Patient, Old Records (ALCON SANTAMARIA ) History of Present Illness Date Seen by Provider: Aug 15, 2022 Time Seen by Provider: 05:29 Initial Comments PT ARRIVES VIA POV FROM HOME WITH AND CHILD PT STATES SHE WOKE UP 45 MINUTES TO AN HOUR AGO, WITH SEVERE SHARP EPIGASTRIC PAIN AND CRAMPING / "SPASMS" , WELL ALOT OF BELCHING + NAUSEA, NO VOMITING HAD BM YESTERDAY, NORMALLY HAS A BM EVERY 1-1/2 WEEKS. NO FEVER NO URINARY SYMPTOMS. NO RADIATION OF PAIN NOTHING WORSENS OR IMPROVES PAIN SHE HAS BEEN HAVING ONGOING GI ISSUES FOR THE LAST FEW MONTHS, SHE WENT TO [facility] WALK IN [facility]INIC A COUPLE OF WEEKS AGO, AND THEY DID A FINGERSTICK TEST FOR H.PYLORI AND IT WAS POSITIVE, AND PT WAS TREATED WITH 3 MEDICATIONS. SHE FINISHED ALL MEDICATIONS A WEEK AGO. SHE HAS NOT BEEN ON ANY GI MEDICATIONS SINCE THEN SHE HAS NOT TAKEN ANYTHING FOR PAIN LAST FOOD INTAKE WAS AROUND 1900 LAST PM--FRIED CHICKEN NUGGETS AND SENEGALESE FRIES. SHE WAS SEEN HERE 07/02/22 FOR LOWER ABDOMINAL PAIN, AND GIVEN RX FOR DI CYCLOMINE SHE WAS ON THE MEDICATIONS FOR H. PYLORI AT THAT VISIT. 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 LMP--END June-July. PT HAS LONGSTANDING HISTORY OF METHAMPHETAMINE AND THC USE SHE ALSO SMOKES TOBACCO CIGARETTES (HINAALCON Yamile LANIER) Allergies and Home Medications Allergies Coded Allergies: Bacitracin Zinc (Unverified Allergy, Unknown, 11/25/15) BLISTERS Sulfa (Sulfonamide Antibiotics) (Verified Allergy, Unknown, 11/25/15) bacitracin (Unverified Allergy, Unknown, 11/25/15) BLISTERS neomycin sulfate (Unverified Allergy, Unknown, 11/25/15) BLISTERS polymyxin B (Unverified Allergy, Unknown, 11/25/15) BLISTERS risperidone (Verified Allergy, Unknown, 11/25/15) Uncoded Allergies: GREEN BEANS (Allergy, Unknown, 12/13/13) THROAT SWELLS PEAS (Allergy, Unknown, 12/13/13) THROAT SWELLS Patient Home Medication List Home Medication List Reviewed: Yes (MOHAN GOFF DO) Albuterol Sulfate (Ventolin Hfa) 1 Puff Puff, 2 PUFF IH Q4H PRN for WHEEZING Prescribed by: MELECIO HOPPER on 11/13/21 0446 Albuterol Sulfate (Albuterol Sulfate) 2.5 Mg/3 Ml (0.083 %) Vial.neb, 2.5 MG INH Q4H PRN for WHEEZING Prescribed by: MELECIO HOPPER on 11/13/21 0446 Albuterol Sulfate (Ventolin Hfa) 1 Puff Puff, 2 PUFF INH Q4H PRN for COUGH Prescribed by: ANKUR RINCON on 01/05/22 0917 Albuterol Sulfate (Albuterol Sulfate) 2.5 Mg/3 Ml (0.083 %) Vial.neb, 2.5 MG INH Q4H PRN for WHEEZING Prescribed by: ANKUR RINCON on 01/05/22916 Azithromycin (Azithromycin) 250 Mg Tablet, 250 MG PO UD Prescribed by: ANKUR RINCON on 01/05/22916 Cefdinir (Cefdinir) 300 Mg Capsule, 300 MG PO BID Prescribed by: ANKUR RINCON on 01/05/22916 Cephalexin (Cephalexin) 500 Mg Tablet, 500 MG PO QID Prescribed by: ALCON SANTAMARIA on 10/02/21 221 Cetirizine HCl (Cetirizine HCl) 10 Mg Tablet, (Reported) Entered as Reported by: JERRY CHOU on 08/15/22532 Last Action: New Order Clindamycin HCl (Clindamycin HCl) 300 Mg Capsule, 600 MG PO Q8H, (Reported) Entered as Reported by: EMANUEL SHEIKH on 10/08/20 0953 Dicyclomine HCl (Dicyclomine HCl) 20 Mg Tablet, 20 MG PO TID PRN for abdominal pain Prescribed by: CECILIO NAVARRO on 07/02/22 2100 Fluticasone Propionate (Fluticasone Propionate) 50 Mcg/Actuation [place].susp, (Reported) Entered as Reported by: JERRY CHOU on 08/15/22532 Last Action: New Order Ibuprofen (Ibuprofen) 600 Mg Tablet, 600 MG PO Q6H PRN for PAIN-MILD Prescribed by: Tano Maya on 05/23/22 2244 Ketorolac Tromethamine (Ketorolac Tromethamine) 10 Mg Tablet, 10 MG PO Q6H PRN for PAIN-SEE DOSE INSTRUCTIONS Prescribed by: Tano Maya on 04/27/221818 Nirmatrelvir/Ritonavir (Paxlovid 150-100 mg Pack (Eua)) 150 Mg-100 Mg Tablet, 1 EACH PO BID Prescribed by: MELECIO HOPPER on 11/13/21451 Prednisone (Prednisone) 20 Mg Tab, 40 MG PO DAILY Prescribed by: ALCON SANTAMARIA on 10/02/212214 [orthoboot] , EA TOP DAILY, (DME) Prescribed by: MELECIO HOPPER on 11/13/21451 Review of Systems Review of Systems Constitutional: no symptoms reported Respiratory: No Symptoms Reported Cardiovascular: No Symptoms Reported Gastrointestinal: See HPI, Abdominal Pain; Denies Constipated, Denies Diarrhea; Nausea; Denies Vomiting Genitourinary: No Symptoms Reported Musculoskeletal: no symptoms reported Skin: no symptoms reported Psychiatric/Neurological: No Symptoms Reported Endocrine: No Symptoms Reported Hematologic/Lymphatic: No Symptoms Reported (ALCON SANTAMARIA DO) Past Clmvjgt-Crxmlf-Fzsfzm Hx Patient Social History Tobacco Use?: Yes Tobacco type used: Cigarettes Smoking Status: Current Everyday Smoker Substance use?: Yes Substance type: Methamphetamine, Marijuana Substance frequency: Daily Alcohol Use?: No (ALCON SANTAMARIA DO) Immunizations Up To Date Tetanus Booster (TDap): Less than 5yrs (ALCON SANTAMARIA DO) Seasonal Allergies Seasonal Allergies: No (ALCON SANTAMARIA DO) Past Medical History Surgery/Hospitalization HX: ASTHMA Surgeries: Yes (PITUITARY TUMOR; X 2;BACK SURGERY;LEFT ELBOW X 2, BMT'S;DX LAP X2) Abdominal, Adenoidectomy, Section, Ear Surgery, Neurological, Orthopedic, Pituitary, Tonsillectomy Respiratory: Yes Asthma Cardiac: No Neurological: Yes (PITUITARY TUMOR) Reproductive Disorders: Yes (MULTIPLE MISCARRIAGES, DIAG LAP SURGERIES X2) Sexually Transmitted Disease: No HIV/AIDS: No Genitourinary: Yes Renal Failure, UTI-Chronic Gastrointestinal: Yes ("PARTIAL BOWEL BLOCKAGE FOR OVER 10 YEARS" PER PT. ) Gastroesophageal Reflux, Chronic Constipation Musculoskeletal: Yes (CHRONIC NECK AND BACK PAIN; BACK SURGERY;L ELBOW SURGERY X 2) Chronic Back Pain, Fractures Endocrine: Yes (HYPOGLYCEMIA, PITUITARY TUMOR, MORBID OBESITY) Pituitary Disease HEENT: Yes (BMT'S AND T&A) Chronic Ear Infection, Tonsilitis Cancer: No Psychosocial: Yes (EXTENSIVE PSYCH ISSUES;SUBSTANCE ABUSE) Anxiety, Depression Integumentary: No Blood Disorders: Yes (ANEMIA) (HINAALCON Yamile LANIER) Family Medical History No Pertinent Family Hx SOCIAL HISTORY: -ETOH--DENIES USE -DRUGS--DENIES USE, BUT HAS REPEATEDLY TESTED + FOR METHAMPHETAMINES, AMPHETAMINES AND THC -SMOKES 2 PPD (ALCON SANTAMARIA DO) Physical Exam Vital Signs Vital Signs - First Documented 08/15/22 05:25 Temp 35.9 Pulse 106 Resp 22 B/P (MAP) 153/97 (115) Pulse Ox 98 O2 Delivery Room Air (SHELL,MOHAN Edith LANIER) Vital Signs Capillary Refill : (HINAALCON Yamile LANIER) Height/Weight/BMI Height: 5'7.00" Weight: 267lbs. 0oz. 121.394393ad; 39.00 BMI Method:Actual General Appearance: WD/WN, obese, other (DRAMATIC, TALKS RAPIDLY AND SPEECH SOMEWHAT MUMBLED, HOLDING EPIGASTRIC AREA. ) HEENT: PERRL/EOMI; No scleral icterus (R), No scleral icterus (L), No pale conjunctivae (R), No pale conjunctivae (L); other (POOR DENTITION) Respiratory: normal breath sounds, no respiratory distress, no accessory muscle use Cardiovascular: regular rate, rhythm, no murmur Gastrointestinal: soft, guarding; No rebound; tenderness (DIFFUSE UPPER ABD OMINAL TENDERNESS, BUT MOST TENDER IN EPIGASTRIC AREA) Extremities: normal inspection Back: no CVA tenderness Neurologic/Psychiatric: drafter seismograph II-XII nml as tested, no motor/sensory deficits, alert, oriented x 3 Skin: normal color, warm/dry (HINAALCON Ovalle ) Progress/Results/Core Measures Results/Orders Lab Results Laboratory Tests Test 08/15/22 05:43 08/15/22 05:46 Range/Units White Blood Count 8.8 4.3-11.0 10^3/uL Red Blood Count 4.64 3.80-5.11 10^6/uL Hemoglobin 9.9 L 11.5-16.0 g/dL Hematocrit 34 L 35-52 % Mean Corpuscular Volume 72 L 80-99 fL Mean Corpuscular Hemoglobin 21 L 25-34 pg Mean Corpuscular Hemoglobin Concent 30 L 32-36 g/dL Red Cell Distribution Width 20.7 H 10.0-14.5 % Platelet Count 427 H 130-400 10^3/uL Mean Platelet Volume 8.7 L 9.0-12.2 fL Immature Granulocyte % (Auto) 0 % Neutrophils (%) (Auto) 70 42-75 % Lymphocytes (%) (Auto) 17 12-44 % Monocytes (%) (Auto) 8 0-12 % Eosinophils (%) (Auto) 5 0-10 % Basophils (%) (Auto) 0 0-10 % Neutrophils # (Auto) 6.1 1.8-7.8 10^3/uL Lymphocytes # (Auto) 1.5 1.0-4.0 10^3/uL Monocytes # (Auto) 0.7 0.0-1.0 10^3/uL Eosinophils # (Auto) 0.4 H 0.0-0.3 10^3/uL Basophils # (Auto) 0.0 0.0-0.1 10^3/uL Immature Granulocyte # (Auto) 0.0 0.0-0.1 10^3/uL Sodium Level 139 135-145 MMOL/L Potassium Level 3.3 L 3.6-5.0 MMOL/L Chloride Level 104 98-107 MMOL/L Carbon Dioxide Level 24 21-32 MMOL/L Anion Gap 11 5-14 MMOL/L Blood Urea Nitrogen 6 L 7-18 MG/DL Creatinine 0.70 0.60-1.30 MG/DL Estimat Glomerular Filtration Rate 106 BUN/Creatinine Ratio 9 Glucose Level 119 H 70-105 MG/DL Calcium Level 8.5 8.5-10.1 MG/DL Corrected Calcium 8.7 8.5-10.1 MG/DL Magnesium Level 1.8 1.6-2.4 MG/DL Total Bilirubin 0.2 0.1-1.0 MG/DL Aspartate Amino Transf (AST/SGOT) 40 H 5-34 U/L Alanine Aminotransferase (ALT/SGPT) 31 0-55 U/L Alkaline Phosphatase 177 H 40-136 U/L Total Protein 7.2 6.4-8.2 GM/DL Albumin 3.8 3.2-4.5 GM/DL Amylase Level 29 25-125 U/L Lipase 27 8-78 U/L Serum Test, Qualitative NEGATIVE NEGATIVE Urine Color YELLOW Urine Clarity CLEAR Urine pH 6.0 5-9 Urine Specific [place] 1.020 1.016-1.022 Urine Protein NEGATIVE NEGATIVE Urine Glucose (UA) NEGATIVE NEGATIVE Urine Ketones NEGATIVE NEGATIVE Urine Nitrite NEGATIVE NEGATIVE Urine Bilirubin NEGATIVE NEGATIVE Urine Urobilinogen 0.2 < = 1.0 MG/DL Urine Leukocyte Esterase NEGATIVE NEGATIVE Urine RBC (Auto) NEGATIVE NEGATIVE Urine RBC NONE /HPF Urine WBC NONE /HPF Urine Crystals NONE /LPF Urine Bacteria NEGATIVE /HPF Urine Casts NONE /LPF Urine Mucus NEGATIVE /LPF Urine Culture Indicated NO Urine Opiates Screen NEGATIVE NEGATIVE Urine Oxycodone Screen NEGATIVE NEGATIVE Urine Methadone Screen NEGATIVE NEGATIVE Urine Propoxyphene Screen NEGATIVE NEGATIVE Urine Barbiturates Screen NEGATIVE NEGATIVE Ur Tricyclic Antidepressants Screen NEGATIVE NEGATIVE Urine Phencyclidine Screen NEGATIVE NEGATIVE Urine Amphetamines Screen POSITIVE H NEGATIVE Urine Methamphetamines Screen POSITIVE H NEGATIVE Urine Benzodiazepines Screen NEGATIVE NEGATIVE Urine Cocaine Screen NEGATIVE NEGATIVE Urine Cannabinoids Screen NEGATIVE NEGATIVE (MOHAN GOFF DO) My Orders Orders - MOHAN GOFF DO Ct Abdomen/Pelvis W (08/15/22 06:29) Iohexol Injection (Omnipaque 350 Mg/Ml 1 (08/15/22 08:00) Received Contrast (Hold Metformin- Contr (08/15/22 08:00) Ns (Ivpb) (Sodium Chloride 0.9% Ivpb Bag (08/15/22 08:00) (MOHAN GOFF DO) Medications Given in ED (MOHAN GOFF DO) Vital Signs/I&O 08/15/22 08/15/22 05:25 09:06 Temp 35.9 Pulse 106 81 Resp 22 16 B/P (MAP) 153/97 (115) 111/76 Pulse Ox 98 98 O2 Delivery Room Air (MOHAN GOFF DO) Progress Progress Note : Progress Note GIVEN: -IV FLUIDS -ZOFRAN -PROTONIX REVIEWED PRIOR RECORDS, MOSTLY ER VISITS, ADMITS, H&P'S, CONSULTS, TESTS/PROCEDURES, AND DISCHARGE SUMMARIES 0600--CARE TURNED OVER TO DR. GOFF, ALL STUDIES PENDING. (ALCON SANTAMARIA DO) Departure Communication (Admissions) Patient is hemodynamically stable with a nonsurgical abdominal exam. Her vital signs are reassuring. Labs are unremarkable. CT scan of her abdomen pelvis unremarkable as well outside of some mild nonspecific thickening of the bowel wall that is focal, likely not related to her current illness. I have independently reviewed the CT imaging. This may be related to gallbladder pathology however there is no evidence for acute cholecystitis. Also no evidence for pancreatitis. I will go ahead and order an outpatient ultrasound of her gallbladder with results to go to her primary care clinic. She states understanding. She is discharged home in stable condition with supportive care. Her pain is minimal at the time of discharge. (MOHAN GOFF DO) Impression Primary Impression: Abdominal pain Qualified Codes: R10.13 - Epigastric pain Disposition: HOME, SELF-CARE Condition: Stable Departure-Patient Inst. Referrals: [facility] (PCP/Family) Primary Care Physician Patient Instructions: Abdominal Pain, Adult ED Add. Discharge Instructions: Use ibuprofen and Tylenol as needed for pain. I have set you up for an outpatient gallbladder ultrasound with results to go to the [facility] clinic. Please have this completed as scheduled. Return to the emergency department for any severe concerns. Follow-up with your primary doctor for any nonemergent needs. All discharge instructions reviewed with patient and/or family. Voiced understanding. ALCON SANTAMARIA DO Aug 15, 2022 05:41 MOHAN GOFF DO Aug 15, 2022 08:54
[2022-08-15] MEDS ORDERED: PANTOPRAZOLE 40 MG (PROTONIX) VIAL IV ONE (05:45)
[2022-08-15] MEDS ORDERED: LACTATED RINGERS 1,000 ML IV ONE (05:45)
[2022-08-15] MEDS ORDERED: ONDANSETRON 4 MG/2 ML (SDV) Z0FRAN IVP ONE (05:45)
[2022-08-15 05:50] LABS: BASOPHILS % (AUTO) 0 % (0-10); EOSINOPHILS # (AUTO) 0.4 10^3/uL (0.0-0.3); EOSINOPHILS % (AUTO) 5 % (0-10); HEMATOCRIT 34 % (35-52); HEMOGLOBIN 9.9 g/dL (11.5-16.0); LYMPHOCYTES # (AUTO) 1.5 10^3/uL (1.0-4.0); LYMPHOCYTES % (AUTO) 17 % (12-44); MEAN CORPUSCULAR HEMOGLOBIN 21 pg (25-34); MEAN CORPUSCULAR HGB CONC 30 g/dL (32-36); MEAN CORPUSCULAR VOLUME 72 fL (80-99); MEAN PLATELET VOLUME 8.7 fL (9.0-12.2); MONOCYTES # (AUTO) 0.7 10^3/uL (0.0-1.0); MONOCYTES % (AUTO) 8 % (0-12); NEUTROPHILS # (AUTO) 6.1 10^3/uL (1.8-7.8); NEUTROPHILS % (AUTO) 70 % (42-75); PLATELET COUNT 427 10^3/uL (130-400); WHITE BLOOD COUNT 8.8 10^3/uL (4.3-11.0)
[2022-08-15 05:54] LABS: BILIRUBIN,URINE NEGATIVE (NEGATIVE); CLARITY,URINE CLEAR; COLOR,URINE YELLOW; GLUCOSE, URINE (UA) NEGATIVE (NEGATIVE); KETONES,URINE NEGATIVE (NEGATIVE); LEUKOCYTE ESTERASE ,URINE NEGATIVE (NEGATIVE); NITRITE,URINE NEGATIVE (NEGATIVE); PROTEIN,URINE NEGATIVE (NEGATIVE)
[2022-08-15 06:07] LABS: ALBUMIN 3.8 GM/DL (3.2-4.5); POTASSIUM 3.3 MMOL/L (3.6-5.0)
[2022-08-15 06:08] LABS: CALCIUM 8.5 MG/DL (8.5-10.1)
[2022-08-15 06:09] LABS: TOTAL PROTEIN 7.2 GM/DL (6.4-8.2)
[2022-08-15 06:11] LABS: BILIRUBIN,TOTAL 0.2 MG/DL (0.1-1.0)
[2022-08-15 06:13] LABS: CREATININE SERUM 0.7 MG/DL (0.60-1.30)
[2022-08-15 06:16] LABS: MAGNESIUM 1.8 MG/DL (1.6-2.4)
[2022-08-15 06:18] LABS: AMPHETAMINE SCREEN, URINE POSITIVE (NEGATIVE); BARBITURATE SCREEN URINE NEGATIVE (NEGATIVE); BENZODIAZEPINES SCREEN URINE NEGATIVE (NEGATIVE); CANNABINOID SCREEN, URINE NEGATIVE (NEGATIVE); COCAINE SCREEN URINE NEGATIVE (NEGATIVE); METHADONE STAT NEGATIVE (NEGATIVE); OPIATE SCREEN URINE NEGATIVE (NEGATIVE); OXYCODONE STAT NEGATIVE (NEGATIVE); PROPOXYPHENE STAT NEGATIVE (NEGATIVE); TRICYCLIC ANTIDEPRESSANTS SCRE NEGATIVE (NEGATIVE)
[2022-08-15 06:19] LABS: BACTERIA,URINE NEGATIVE /HPF
[2022-08-15] MEDS ORDERED: IOHEXOL 350 MG/ML 100 ML (OMNIPAQUE 350) VIAL IV ONE (08:00)
[2022-08-15] MEDS ORDERED: HOLD METFORMIN - RECEIVED CONTRAST 20 ML VIAL IV SCH (08:00)
[2022-08-15] MEDS ORDERED: NS 100 ML (IVPB) BAG IV ONE (08:00)
--- NOTE | 2022-08-15 08:16 | Diagnostic Imaging Report ---
PROCEDURE: CT abdomen and pelvis with contrast. TECHNIQUE: Multiple contiguous axial images were obtained through the abdomen and pelvis after administration of intravenous contrast. Auto Exposure Controls were utilized during the CT exam to meet ALARA standards for radiation dose reduction. All CT scans use one or more of the following dose optimizing techniques: automated exposure control, MA and/or KvP adjustment based on patient size and exam type or iterative reconstruction. DATE: August 15, 2022. INDICATION: 47-year-old female, epigastric pain. COMPARISON: CT abdomen/pelvis July 02, 2022. FINDINGS: The visualized portions of the lung bases are clear. The heart is not enlarged. There is no identified pericardial effusion. The liver is unremarkable in size and contour. There is no identified liver lesion. The main, right, and left portal veins are patent. The gallbladder is unremarkable. There is no biliary ductal dilation. The main pancreatic duct is not abnormally dilated. Unremarkable appearance of the pancreatic parenchyma. The spleen is normal in size. There is a right adrenal nodule on axial image 50 which measures 2.3 cm in size. Internal attenuation on this post contrast study is 15 Hounsfield units. Internal attenuation on the prior noncontrast exam was -16 Hounsfield units. This is compatible with an adrenal adenoma. There is also a low-attenuation left adrenal nodule, consistent with an adrenal adenoma. Unremarkable appearance of the renal parenchyma. The urinary collecting systems are not distended. There is no identified renal or ureteral stone. The urinary bladder is unremarkable. There is mild small bowel wall thickening on axial image 71 with a small bowel segment at this location being mildly distended at 2.9 cm in diameter. The additional segments of the intestinal tract are not distended. There is no evidence to suggest acute appendicitis. There is no free intraperitoneal air. There is no drainable fluid collection. There is no free fluid in the abdomen or pelvis. There is no identified abnormally enlarged lymph node in the abdomen or pelvis which meets CT size criteria for adenopathy. There are multilevel degenerative changes of the spine. There are post operative changes of the lumbar spine. There is grade 1 anterolisthesis of L4 on L5. There is no identified acute bony abnormality. IMPRESSION: Abnormal small bowel wall thickening and mild distention of small bowel in the mid abdomen which may reflect a nonspecific enteritis. Dictated by: Dictated on workstation # [id number]
[2022-08-15 09:06] VITALS: BP 111/76
== END 2022-08-15 09:06 | disposition home or self-care (01) ==
LOC: EDUNIT# 05:20 → ER 05:22
DX: R10.13 Epigastric pain (principal); F17.210 Nicotine dependence, cigarettes, uncomplicated; Z28.310 Unvaccinated for COVID-19
CPT/HCPCS: 36415; 74177; 80053; 80306; 81000; 82150; 83690; 83735; 84703; 85025; 93041

== ENCOUNTER 2022-11-06 16:10 | Emergency (ER) | payer MEDICAID ==
[~2022-11-06] VITALS: Ht 170.2 cm; Wt 117.9 kg
[~2022-11-06 16:10] MED LIST changes: +CETI10TA17; +FLUT16SP22
[2022-11-06] MEDS ORDERED: KETOROLAC 30 MG/ML VIAL IM ONE (16:30)
[2022-11-06] MEDS ORDERED: LIDOCAINE 1% INJ 20 ML VIAL INJ ONE (16:30)
[2022-11-06] MEDS ORDERED: TETANUS,DIPTH,PERTUSS P/F (BOOSTRIX) 0.5 ML VIAL IM ONE (16:30)
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
[2022-11-06] MEDS ORDERED: ACETAMINOPHEN 500 MG TAB (TYLENOL) PO ONE (16:45)
--- NOTE | 2022-11-06 16:52 | Diagnostic Imaging Report ---
EXAMINATION: Right foot radiographs. EXAM DATE: 11/06/2022 4:47 PM COMPARISON: 10/07/2015. HISTORY: Right foot pain. TECHNIQUE: 3 views. FINDINGS: There is no acute fracture, dislocation or destructive osseous process. The joint spaces are normal. The soft tissues are normal. IMPRESSION: No acute osseous abnormality. Dictated by: Dictated on workstation # [id number]
[2022-11-06 17:03] VITALS: BP 146/87
== END 2022-11-06 17:03 | disposition home or self-care (01) ==
LOC: EDUNIT# 16:10 → ER 16:13
DX: S90.31XA Contusion of right foot, initial encounter (principal); F17.210 Nicotine dependence, cigarettes, uncomplicated; E66.01 Morbid (severe) obesity due to excess calories; Z68.41 Body mass index [BMI] 40.0-44.9, adult; Z28.310 Unvaccinated for COVID-19; W23.0XXA Caught, crushed, jammed, or pinched between moving objects, initial encounter
CPT/HCPCS: 73630

== ENCOUNTER 2022-11-19 22:17 | Emergency (ER) | payer MEDICAID ==
[~2022-11-19] VITALS: Ht 170 cm; Wt 117.0 kg
[2022-11-19 23:07] VITALS: BP 153/86
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
--- NOTE | 2022-11-20 07:06 | Diagnostic Imaging Report ---
INDICATION: Pain. FINDINGS: 3 view right wrist performed. No fracture, dislocation, gas or opaque foreign body. Some degenerative changes greatest at the 1st [facility]. IMPRESSION: No acute appearing abnormality. Dictated by: Dictated on workstation # [id number]
--- NOTE | 2022-11-20 07:28 | Diagnostic Imaging Report ---
INDICATION: Pain FINDINGS: Two-view right clavicle shows intact AC joint. No clavicular fracture. IMPRESSION: Unremarkable right clavicular films. Dictated by: Dictated on workstation # [id number]
--- NOTE | 2022-11-20 07:29 | Diagnostic Imaging Report ---
INDICATION: Fall results in shoulder pain. FINDINGS: 3 views of the right shoulder performed. There is no fracture, dislocation or joint separation. IMPRESSION: No acute abnormality identified at 3-view right shoulder. Dictated by: Dictated on workstation # [id number]
--- NOTE | 2022-11-20 07:48 | Diagnostic Imaging Report ---
INDICATION: Fall. COMPARED: 01/05/2022. FINDINGS: The lungs clear. No failure, effusion or pneumothorax. IMPRESSION: No acute-appearing abnormality. Dictated by: Dictated on workstation # [id number]
== END 2022-11-20 00:19 | disposition home or self-care (01) ==
LOC: EDUNIT# 22:17 → ER 22:19
DX: M25.511 Pain in right shoulder (principal); M25.531 Pain in right wrist; F17.210 Nicotine dependence, cigarettes, uncomplicated; E66.01 Morbid (severe) obesity due to excess calories; Z68.41 Body mass index [BMI] 40.0-44.9, adult; Z28.310 Unvaccinated for COVID-19; W05.2XXA Fall from non-moving motorized mobility scooter, initial encounter; Y92.481 Parking lot as the place of occurrence of the external cause
CPT/HCPCS: 71045; 73000; 73030; 73110

== ENCOUNTER 2023-01-22 00:16 | Emergency (ER) | payer MEDICAID ==
[~2023-01-22] VITALS: Ht 170.2 cm; Wt 117.0 kg
[2023-01-22] MEDS ORDERED: MOME45CR3 TP (00:41)
--- NOTE | 2023-01-22 00:41 | ED Integumentary General ---
General Chief Complaint: Skin/Wound Problems Stated Complaint: RASH ON ARMS Source: patient History of Present Illness Date Seen by Provider: Jan 22, 2023 Time Seen by Provider: 00:30 Initial Comments PT ARRIVES VIA POV FROM HOME PT STATES SHE WOKE UP THIS MORNING AND HAD SEVERAL TINY RED SPOTS TO HER RIGHT FOREARM AND SPREAD TO HER WRIST DURING THE DAY SHE STATES SHE SLEPT AT A FRIEND'S HOUSE LAST NIGHT AND WOKE UP WITH THEM THIS MORNING. STATES IT CRUZ AND IT STINGS. NO REDNESS OR SWELLING OR DRAINAGE OR STREAKS SHE HAS TRIED PUTTING ICE ON IT AND TOOK BENADRYL 25 MG X 1 DOSE TODAY WITHOUT RELIEF NO HISTORY OF SIMILAR NO ONE ELSE HAS THE SAME THING. PCP: [facility] Allergies and Home Medications Allergies Coded Allergies: Bacitracin Zinc (Unverified Allergy, Unknown, 11/25/15) BLISTERS Sulfa (Sulfonamide Antibiotics) (Verified Allergy, Unknown, 11/25/15) bacitracin (Unverified Allergy, Unknown, 11/25/15) BLISTERS neomycin sulfate (Unverified Allergy, Unknown, 11/25/15) BLISTERS polymyxin B (Unverified Allergy, Unknown, 11/25/15) BLISTERS risperidone (Verified Allergy, Unknown, 11/25/15) Uncoded Allergies: GREEN BEANS (Allergy, Unknown, 12/13/13) THROAT SWELLS PEAS (Allergy, Unknown, 12/13/13) THROAT SWELLS Patient Home Medication List Home Medication List Reviewed: Yes Albuterol Sulfate (Ventolin Hfa) 1 Puff Puff, 2 PUFF IH Q4H PRN for WHEEZING Prescribed by: MELECIO HOPPER on 11/13/21 0446 Albuterol Sulfate (Albuterol Sulfate) 2.5 Mg/3 Ml (0.083 %) Vial.neb, 2.5 MG INH Q4H PRN for WHEEZING Prescribed by: MELECIO HOPPER on 11/13/21 0446 Albuterol Sulfate (Ventolin Hfa) 1 Puff Puff, 2 PUFF INH Q4H PRN for COUGH Prescribed by: ANKUR RINCON on 01/05/22 0917 Albuterol Sulfate (Albuterol Sulfate) 2.5 Mg/3 Ml (0.083 %) Vial.neb, 2.5 MG INH Q4H PRN for WHEEZING Prescribed by: ANKUR RINCON on 01/05/22916 Azithromycin (Azithromycin) 250 Mg Tablet, 250 MG PO UD Prescribed by: ANKUR RINCON on 01/05/22916 Cefdinir (Cefdinir) 300 Mg Capsule, 300 MG PO BID Prescribed by: ANKUR RINCON on 01/05/22916 Cephalexin (Cephalexin) 500 Mg Tablet, 500 MG PO QID Prescribed by: ALCON SANTAMARIA on 10/02/212214 Cetirizine HCl (Cetirizine HCl) 10 Mg Tablet, (Reported) Entered as Reported by: JERRY CHOU on 08/15/22 0533 Clindamycin HCl (Clindamycin HCl) 300 Mg Capsule, 600 MG PO Q8H, (Reported) Entered as Reported by: EMANUEL SHEIKH on 10/08/20 0953 Dicyclomine HCl (Dicyclomine HCl) 20 Mg Tablet, 20 MG PO TID PRN for abdominal pain Prescribed by: CECILIO NAVARRO on 07/02/22 2100 Fluticasone Propionate (Fluticasone Propionate) 50 Mcg/Actuation [place].susp, (Reported) Entered as Reported by: JERRY CHOU on 08/15/22 0533 Ibuprofen (Ibuprofen) 600 Mg Tablet, 600 MG PO Q6H PRN for PAIN-MILD Prescribed by: Tano Maya on 05/23/22 2244 Ketorolac Tromethamine (Ketorolac Tromethamine) 10 Mg Tablet, 10 MG PO Q6H PRN for PAIN-SEE DOSE INSTRUCTIONS Prescribed by: Tano Maya on 04/27/22 1819 Mometasone Furoate (Mometasone Furoate) 0.1 % Cream..g., 45 GM TP TID Prescribed by: ALCON SANTAMARIA on 01/22/23 0041 Nirmatrelvir/Ritonavir (Paxlovid 150-100 mg Pack (Eua)) 150 Mg-100 Mg Tablet, 1 EACH PO BID Prescribed by: MELECIO HOPPER on 11/13/21451 Prednisone (Prednisone) 20 Mg Tab, 40 MG PO DAILY Prescribed by: ALCON SANTAMARIA on 10/02/212214 [orthoboot] , EA TOP DAILY, (DME) Prescribed by: MELECIO HOPPER on 11/13/21451 Review of Systems Review of Systems Constitutional: no symptoms reported Skin: see HPI Past Kzjdttm-Rhjnjm-Yzsekp Hx Patient Social History Tobacco Use?: Yes Tobacco type used: Cigarettes Smoking Status: Current Everyday Smoker Substance use?: Yes Substance type: Methamphetamine Substance frequency: Daily Immunizations Up To Date Tetanus Booster (TDap): Less than 5yrs First/Initial COVID19 Vaccinat: NA Second COVID19 Vaccination Sha: NA Third COVID19 Vaccination Date: NA Seasonal Allergies Seasonal Allergies: No Past Medical History Surgery/Hospitalization HX: ASTHMA, H. PYLORI BACK, , T/A Surgeries: Yes (PITUITARY TUMOR; X 2;BACK SURGERY;LEFT ELBOW X 2, BMT'S;DX LAP X2) Abdominal, Adenoidectomy, Section, Ear Surgery, Neurological, Orthopedic, Pituitary, Tonsillectomy Respiratory: Yes Asthma Cardiac: No Neurological: Yes (PITUITARY TUMOR) Reproductive Disorders: Yes (MULTIPLE MISCARRIAGES, DIAG LAP SURGERIES X2) Sexually Transmitted Disease: No HIV/AIDS: No Genitourinary: Yes Renal Failure, UTI-Chronic Gastrointestinal: Yes ("PARTIAL BOWEL BLOCKAGE FOR OVER 10 YEARS" PER PT. ) Gastroesophageal Reflux, Chronic Constipation Musculoskeletal: Yes (CHRONIC NECK AND BACK PAIN; BACK SURGERY;L ELBOW SURGERY X 2) Chronic Back Pain, Fractures Endocrine: Yes (HYPOGLYCEMIA, PITUITARY TUMOR, MORBID OBESITY) Pituitary Disease HEENT: Yes (BMT'S AND T&A) Chronic Ear Infection, Tonsilitis Cancer: No Psychosocial: Yes (EXTENSIVE PSYCH ISSUES;SUBSTANCE ABUSE) Anxiety, Depression Integumentary: No Blood Disorders: Yes (ANEMIA) Family Medical History No Pertinent Family Hx SOCIAL HISTORY: -SMOKES 2 PPD -ETOH--DENIES USE -DRUGS--DENIES USE, BUT HAS REPEATEDLY TESTED + FOR METHAMPHETAMINES, AMPHETAMINES AND THC Physical Exam Vital Signs Capillary Refill : General Appearance: WD/WN, no apparent distress, other (TALKS RAPIDLY NON-STOP. ) HEENT: other (EDENTULOUS) Extremities: other (RIGHT ANTERIOR FOREARM AND WRIST AREA WITH SEVERAL TINY, DISCRETE SCABBED AREAS 1-2 MM IN SIZE. NO SURROUNDING ERYTHEMA OR SWELLING OR SIGNS OF INFECTION. NO VESICLES. AREA IS NOT TENDER. ) Neurologic/Psychiatric: no motor/sensory deficits, alert, normal mood/affect, oriented x 3 Skin: normal color, warm/dry, other ( ABOVE) Progress/Results/Core Measures Progress Progress Note : Progress Note PT REQUESTS A DRESSING SO THE AREA DOESN'T RUB ON HER CLOTHING. DRESSING PLACED PT WITH A MULTITUDE OF VISITS FOR VARIOUS COMPLAINTS. Departure Impression Primary Impression: RASH TO RIGHT FOREARM Disposition: 01 HOME, SELF-CARE Condition: Stable Departure-Patient Inst. Decision time for Depature: 00:39 Referrals: [facility] (PCP/Family) Primary Care Physician Patient Instructions: Skin Rash (DC) Add. Discharge Instructions: ICE TO AREA AT 20 MINUTE INTERVALS TAKE BENADRYL 50 MG EVERY 4-6 HOURS IBUPROFEN 800 MG EVERY 6 HOURS FOLLOW UP WITH YOUR DR IN 3-4 DAYS IF NO BETTER. All discharge instructions reviewed with patient and/or family. Voiced understanding. Scripts Mometasone Furoate (Mometasone Furoate) 0.1 % Cream..g. 45 GM TP TID, #1 TUBE Prov: ALCON SANTAMARIA DO 01/22/23 ALCON SANTAMARIA DO Jan 22, 2023 00:41
[2023-01-22 00:49] VITALS: BP 171/102
== END 2023-01-22 00:49 | disposition home or self-care (01) ==
LOC: EDUNIT# 00:16 → ER 00:19
DX: R21 Rash and other nonspecific skin eruption (principal); F17.210 Nicotine dependence, cigarettes, uncomplicated; E66.01 Morbid (severe) obesity due to excess calories; Z68.41 Body mass index [BMI] 40.0-44.9, adult; Z28.310 Unvaccinated for COVID-19